=== PATIENT | male | born 1955 | race Caucasian/White ===

== ENCOUNTER 2018-03-31 11:58 | Outpatient (REF) | payer SELFPAY | END 2018-03-31 11:59 | LOC: OM 11:58 | PROVIDERS: PCP Internal Medicine; Visit Provider Nurse Practitioner Family | DX: Z02.79 Encounter for issue of other medical certificate (principal) ==

== ENCOUNTER 2018-04-19 10:08 | Outpatient (REF) | payer OTHER, SELFPAY ==
[2018-04-19 22:25] LABS: Anion Gap 9.2 mmol/L (3-11); BUN 19 mg/dL (7-18); CO2 23.8 mmol/L (21.0-32.0); CREATININE 1.02 mg/dL (0.70-1.30); Calcium 8.2 mg/dL (8.5-10.1); Chloride 105 mmol/L (98-107); Glucose 83 mg/dL (70-100); Potassium 4.6 mmol/L (3.5-5.1); Sodium 138 mmol/L (136-145)
== END 2018-04-19 10:09 ==
LOC: NCHCN 10:08
PROVIDERS: PCP Internal Medicine; Visit Provider Internal Medicine
DX: R03.0 Elevated blood-pressure reading, without diagnosis of hypertension (principal)
CPT/HCPCS: 80048

== ENCOUNTER 2018-06-12 11:42 | Outpatient (REF) | payer OTHER, SELFPAY ==
[2018-06-12 21:59] LABS: Anion Gap 6.8 mmol/L (3-11); BUN 30 mg/dL (7-18); CO2 29.2 mmol/L (21.0-32.0); CREATININE 1.02 mg/dL (0.70-1.30); Calcium 8.9 mg/dL (8.5-10.1); Chloride 100 mmol/L (98-107); Glucose 111 mg/dL (70-100); Potassium 4.8 mmol/L (3.5-5.1); Sodium 136 mmol/L (136-145)
== END 2018-06-12 12:02 ==
LOC: NCHCN 11:42
PROVIDERS: PCP Internal Medicine; Visit Provider Internal Medicine
DX: I10 Essential (primary) hypertension (principal); I49.3 Ventricular premature depolarization
CPT/HCPCS: 80048

== ENCOUNTER 2019-07-25 09:51 | Outpatient (REF) | payer MEDICARE, OTHER, SELFPAY ==
[2019-07-25 21:41] LABS: BUN 17 mg/dL (7-18); CREATININE 0.85 mg/dL (0.70-1.30); Calcium 8.6 mg/dL (8.5-10.1); Calculated LDL 129 mg/dL; Chloride 101 mmol/L (98-107); Cholesterol 188 mg/dL (<200); Glucose 87 mg/dL (74-106); HDL Cholesterol 50 mg/dL (40-60); Potassium 4.5 mmol/L (3.5-5.1); Sodium 137 mmol/L (136-145); Triglyceride 49 mg/dL (<150)
== END 2019-07-25 10:11 ==
LOC: NCHCN 09:51
PROVIDERS: PCP Internal Medicine; Visit Provider Internal Medicine
DX: I10 Essential (primary) hypertension (principal); Z13.6 Encounter for screening for cardiovascular disorders
CPT/HCPCS: 80048; 80061

== ENCOUNTER 2020-08-04 10:37 | Outpatient (REF) | payer MEDICARE, SELFPAY ==
[2020-08-04 21:37] LABS: HCT 47.2 % (40.0-50.0); HGB 15.5 g/dL (13.5-17.5); MCH 30.8 pg (27.0-33.0); MCHC 32.8 % (32.0-36.0); MCV 93.7 fL (80-95); MPV 11.2 fL (8.0-11.0); Platelet Count 215 10^3/uL (130-400); RBC 5.04 10^6/uL (4.36-5.78); RDW 13.2 % (11.8-14.1); RDW-SD 44.6 fL; WBC 7.63 10^3/uL (4.4-10.8)
[2020-08-04 22:17] LABS: ALT 31 U/L (16-63); AST 27 U/L (15-37); Albumin 4.1 g/dL (3.4-5.0); Alkaline Phosphatase 68 U/L (46-116); Anion Gap 9.6 mmol/L (3-11); BUN 24 mg/dL (7-18); Bilirubin, Total 0.7 mg/dL (0.2-1.0); CO2 25.4 mmol/L (21.0-32.0); CREATININE 0.97 mg/dL (0.70-1.30); Calcium 8.8 mg/dL (8.5-10.1); Chloride 103 mmol/L (98-107); Glucose 96 mg/dL (74-106); Potassium 4.7 mmol/L (3.5-5.1); Sodium 138 mmol/L (136-145); Total Protein 7.4 g/dL (6.4-8.2)
[2020-08-05 17:43] LABS: PSA, Screening 0.5 ng/mL (0.0-4.5)
== END 2020-08-04 10:57 ==
LOC: NCHCN 10:37
PROVIDERS: Visit Provider Internal Medicine
DX: I10 Essential (primary) hypertension (principal); E78.5 Hyperlipidemia, unspecified; Z12.5 Encounter for screening for malignant neoplasm of prostate
CPT/HCPCS: 80053; 84153; 85027

== ENCOUNTER 2021-10-26 18:01 | Outpatient (REF) | payer MEDICARE, OTHER, SELFPAY ==
[2021-10-26 16:21] LABS: Anion Gap 10.6 mmol/L (3-11); BUN 24 mg/dL (7-18); CO2 24.4 mmol/L (21.0-32.0); CREATININE 1.1 mg/dL (0.70-1.30); Calcium 8.8 mg/dL (8.5-10.1); Calculated LDL 138 mg/dL (<100); Chloride 100 mmol/L (98-107); Cholesterol 201 mg/dL (<200); Glucose 103 mg/dL (74-106); HDL Cholesterol 43 mg/dL (40-60); Potassium 4.6 mmol/L (3.5-5.1); Sodium 135 mmol/L (136-145); Triglyceride 100 mg/dL (<150)
== END 2021-10-26 18:02 | disposition home or self-care (01) ==
LOC: NCHCN 18:01
PROVIDERS: PCP Internal Medicine; Visit Provider Internal Medicine
DX: E78.5 Hyperlipidemia, unspecified (principal); I10 Essential (primary) hypertension
CPT/HCPCS: 80048; 80061

== ENCOUNTER 2021-12-22 19:15 | Outpatient (REF) | payer MEDICARE, OTHER, SELFPAY ==
[2021-12-22 14:00] LABS: Abs Immature Grans 0.03 10^3/uL (0.0-0.06); Absolute Basophil Count 0.06 10^3/uL (0.0-0.2); Absolute Eosinophil Count 0.55 10^3/uL (0.0-0.7); Absolute Lymphocyte Count 1.35 10^3/uL (1.2-3.4); Absolute Monocyte Count 0.76 10^3/uL (0.1-0.8); Absolute Neutrophil Count 7.25 10^3/uL (1.2-6.7); Basophils % 0.6; Eosinophils % 5.5; HCT 47.9 % (40.0-50.0); HGB 15.6 g/dL (13.5-17.5); Immature Grans % 0.3; Lymphocytes % 13.5; MCH 29.6 pg (27.0-33.0); MCHC 32.6 % (32.0-36.0); MCV 91 fL (80-95); MPV 11.1 fL (8.0-11.0); Monocytes % 7.6; Neutrophils % 72.5; Platelet Count 231 10^3/uL (130-400); RBC 5.27 10^6/uL (4.36-5.78); RDW 14.4 % (11.8-14.1); RDW-SD 48.2 fL
[2021-12-22 14:17] LABS: INR 1.1 (0.9-1.1)
[2021-12-22 14:19] LABS: ALT 32 U/L (16-63); AST 31 U/L (15-37); Albumin 3.8 g/dL (3.4-5.0); Alkaline Phosphatase 90 U/L (46-116); Anion Gap 7.9 mmol/L (3-11); BUN 18 mg/dL (7-18); Bilirubin, Total 0.7 mg/dL (0.2-1.0); CO2 26.1 mmol/L (21.0-32.0); Calcium 8.5 mg/dL (8.5-10.1); Chloride 101 mmol/L (98-107); Glucose 95 mg/dL (74-106); Potassium 4.7 mmol/L (3.5-5.1); Sodium 135 mmol/L (136-145); Total Protein 7.6 g/dL (6.4-8.2)
== END 2021-12-22 19:16 | disposition home or self-care (01) ==
LOC: LBN 19:15
PROVIDERS: PCP Internal Medicine; Visit Provider Student in an Organized Health Care Education/Training Program
DX: J84.89 Other specified interstitial pulmonary diseases (principal); Z51.81 Encounter for therapeutic drug level monitoring; R06.02 Shortness of breath
CPT/HCPCS: 80053; 85025; 85610

== ENCOUNTER 2022-02-02 15:16 | Outpatient (REF) | payer MEDICARE, OTHER, SELFPAY ==
[2022-02-02 21:05] LABS: Anion Gap 7.4 mmol/L (3-11); BUN 19 mg/dL (7-18); CO2 27.6 mmol/L (21.0-32.0); CREATININE 0.9 mg/dL (0.70-1.30); Calcium 9.1 mg/dL (8.5-10.1); Chloride 98 mmol/L (98-107); Glucose 122 mg/dL (74-106); Potassium 4.7 mmol/L (3.5-5.1); Sodium 133 mmol/L (136-145)
[2022-02-03 17:47] LABS: PSA, Screening 0.4 ng/mL (<=4.5)
== END 2022-02-02 15:17 | disposition home or self-care (01) ==
LOC: NCHCN 15:16
PROVIDERS: PCP Internal Medicine; Visit Provider Nurse Practitioner Family
DX: R33.9 Retention of urine, unspecified (principal); E87.1 Hypo-osmolality and hyponatremia; Z12.5 Encounter for screening for malignant neoplasm of prostate
CPT/HCPCS: 80048; 84153

== ENCOUNTER 2022-07-05 11:01 | Inpatient (IN) | payer MEDICARE, OTHER, SELFPAY ==
[2022-07-05] VITALS (33 sets, daily range): BP systolic 130–154; BP diastolic 70–104; PULSE 75–94; RESP 11–26; TEMP 36.6–36.8; O2SAT 91–94
--- NOTE | 2022-07-05 11:00 | RT.EKG_ITS ---
APPROVED REPORT Exam: Resting ECG Reason for Exam: sob Patient Location: E HR:83 bpm ECG Measurements Heart Rate 83 AXIS IL 145 P 57 QRSd 90 QRS -73 QT 397 T -33 QTc 468 Conclusion Sinus rhythm...normal P axis, V-rate 60- 99 Left atrial enlargement...P, P'>60mS, <-0.15mV V1 Left anterior fascicular block...axis(240,-40), init forces inf Repol abnrm suggests ischemia, anterior leads...ST dep, T neg, V2-V4 sinus rhythm at 83, left anterior fascicular block, nonspecific ST changes, no STEMI, nondiagnostic E KG
[2022-07-05] MEDS: methylPREDNISolone SUCC 125 MG VIAL IVP (12:23)
[2022-07-05 12:28] LABS: Abs Immature Grans 0.03 10^3/uL (0.0-0.06); Absolute Basophil Count 0.04 10^3/uL (0.0-0.2); Absolute Eosinophil Count 0.08 10^3/uL (0.0-0.7); Absolute Lymphocyte Count 0.53 10^3/uL (1.2-3.4); Absolute Monocyte Count 0.34 10^3/uL (0.1-0.8); Absolute Neutrophil Count 8.76 10^3/uL (1.2-6.7); Basophils % 0.4; Eosinophils % 0.8; HGB 16.8 g/dL (13.5-17.5); Immature Grans % 0.3; Lymphocytes % 5.4; MCH 29.2 pg (27.0-33.0); MCHC 31.7 % (32.0-36.0); MCV 92 fL (80-95); MPV 10.7 fL (8.0-11.0); Monocytes % 3.5; Neutrophils % 89.6; Platelet Count 221 10^3/uL (130-400); RBC 5.75 10^6/uL (4.36-5.78); RDW-SD 55.3 fL; WBC 9.78 10^3/uL (4.4-10.8)
[2022-07-05 12:49] LABS: ALT 256 U/L (16-63); AST 108 U/L (15-37); Albumin 3.6 g/dL (3.4-5.0); Alkaline Phosphatase 93 U/L (46-116); Anion Gap 5.2 mmol/L (3-11); BUN 23 mg/dL (7-18); Bilirubin, Total 0.9 mg/dL (0.2-1.0); CO2 28.8 mmol/L (21.0-32.0); CREATININE 0.9 mg/dL (0.70-1.30); Calcium 8.6 mg/dL (8.5-10.1); Chloride 102 mmol/L (98-107); Estimated GFR 93.03 (mL/min/1.73m2); Glucose 93 mg/dL (74-106); NT-proBNP 2390 pg/mL (<300); Potassium 5.2 mmol/L (3.5-5.1); Sodium 136 mmol/L (136-145); Total Protein 7.4 g/dL (6.4-8.2)
[2022-07-05 12:51] LABS: Troponin I 64 ng/L (<or=60)
--- NOTE | 2022-07-05 13:00 | DI.CT_ITS ---
Exam(s) CT CHEST PE CTA EXAM: CT CHEST PE CTA CLINICAL HISTORY: hypoxia, SOB. TECHNIQUE: Imaging Protocol: Axial CT angiography was performed with multi-slice acquisition and mu lti-planar reconstructions as well as axial, coronal and sagittal MIP reconstructions. CONTRAST MATERIAL: Intravenous: Omnipaque 350 Contrast volume:69 ml COMPARISON: CT CT CHEST high-resolution w/O CONTRAST from 08/25/2020 CR XR PORTABLE CHEST 1V* from 01/28/2022 FINDINGS: Pulmonary Arteries: No evidence of filling defect to suggest pulmonary emboli. Pulmonary arteries a re prominent. Main pulmonary artery measures 4.2 cm in diameter. This appears stable from prior. Tracheobronchial tree: Patent where visualized. Mediastinum and Nhi: Stable mildly enlarged mediastinal and hilar lymph nodes. Pulmonary parenchyma: Scattered bilateral cysts. Emphysematous changing and pulmonary fibrosis. Hon eycombing at the lung bases. Multifocal air trapping. No consolidation or dominant measurable mass. Pleura: No effusion or pneumothorax. Heart: The heart is mildly dilated. coronary artery calcifications are seen. Aorta: Thoracic aorta non-dilated. No aneurysm. No dissection. Upper abdomen: Small amount of fluid at the edge of the liver. Bones: Unremarkable for age. IMPRESSION: No evidence of pulmonary embolism. Findings of pulmonary high fibrosis, honeycombing and emphysematou s changes. No evidence of superimposed pneumonia however evaluation is limited due to expiratory raul nges. Findings called to Dr. Marisa Watkins of the emergency department. RADIATION DOSE DELIVERED: 366.47mGy.cm Total DLP DATA REPOSITORY: All CT scans at this facility are submitted to the National Radiology Data Registry (NRDR) Dose Index Registry (DIR) with the [employer] (A[employer]). RADIATION OPTIMIZATION: All CT scans at this facility use at least one of these dose optimization te chniques: automated exposure control; mA and/or kV adjustment per patient size (includes targeted exa ms where dose is matched to clinical indication); or iterative reconstruction.
[2022-07-05 13:09] LABS: D-Dimer 1785 ng/mlFEU (<500)
[2022-07-05] MEDS: Omnipaque 350 MG/ML 500 ML BTL-Imaging package IJ (13:44)
[2022-07-05] MEDS: Normal Saline - Diluent 50 ML VIAL IJ (13:45)
--- NOTE | 2022-07-05 15:06 | ED.GENADUL_ITS ---
Discharge Plan Disposition Patient Disposition: Admit to [facility] Condition: Improving Discharge Details Chief Complaint: SOB Clinical Impression: Respiratory failure with hypoxia, Syncope Admit Date/Time: 07/05/22 15:46 Admit Provider: Fernanda Goetz Attending Provider: Fernanda Goetz Primary Care Provider: Guillermina Chowdhury ED Provider: Marisa Watkins Discharge Instructions Activity:: Activity as Tolerated Equipment/Supplies:: Oxygen (L/min Below) Diet:: Heart Healthy Discharge Orders Discharge Orders: Discharge Order (Routine); Ordered 07/09/22 Ordered By: Seven Moreno Discharge Data Discharge Date/Time-TO BE ENTERED AT DEPARTURE: 07/05/22 16:39 Medical Decision Making Concern for worsening interstitial lung disease, CHF, PNA, covid, dehydration, ACS, PE, other. Doubt arrhythmia. Exam/hx at this time is not c/w sepsis, acute emergent intracranial process, acute aortic pathology. Plan for EKG, IV placement, screening labs, IVF hydration, solumedrol. Labs reviewed, d-dimer elevated, will obtain CT. Ct shows ILD, no PNA, no PE. Plan for admission for hypoxia, syncope. Imaging Data Radiologic Study: Radiologist's impression: CT CHEST PE CTA EXAM: ? CT CHEST PE CTA CLINICAL HISTORY: ? hypoxia, SOB. TECHNIQUE:? Imaging Protocol:? Axial CT angiography was performed with multi- slice acquisition and multi-planar reconstructions as well as axial, coronal and sagittal MIP reconstructions. CONTRAST MATERIAL:? Intravenous: Omnipaque 350 Contrast volume:69 ml COMPARISON:? CT CT CHEST high-resolution w/O CONTRAST from 08/25/2020 CR XR PORTABLE CHEST 1V* from 01/28/2022 FINDINGS: Pulmonary Arteries: No evidence of filling defect to suggest pulmonary emboli. ? Pulmonary arteries are prominent.? Main pulmonary artery measures 4.2 cm in diameter.? This appears stable from prior. Tracheobronchial tree: Patent where visualized. Mediastinum and Nhi: Stable mildly enlarged mediastinal and hilar lymph nodes.? Pulmonary parenchyma: Scattered bilateral cysts.? Emphysematous changing and pulmonary fibrosis.? Honeycombing at the lung bases.? Multifocal air trapping.? No consolidation or dominant measurable mass. Pleura: No effusion or pneumothorax. Heart: The heart is mildly dilated.? coronary artery calcifications are seen. Aorta: Thoracic aorta non-dilated.? No aneurysm.? No dissection.? Upper abdomen:? Small amount of fluid at the edge of the liver.? Bones: Unremarkable for age. IMPRESSION: No evidence of pulmonary embolism. Findings of pulmonary high fibrosis, honeycombing and emphysematous changes.? No evidence of superimposed pneumonia however evaluation is limited due to expiratory changes. Findings called to Dr. Marisa Watkins of the emergency department. Lab Data Lab results reviewed: Yes I reviewed the patient's lab results. Labs: Laboratory Tests Range/Units 07/05/22 07/05/22 07/05/22 12:00 12:00 12:00 WBC (4.4-10.8) 10^3/uL 9.78 RBC (4.36-5.78) 10^6/uL 5.75 Hgb (13.5-17.5) g/dL 16.8 Hct (40.0-50.0) % 53.0 H MCV (80-95) fL 92 MCH (27.0-33.0) pg 29.2 MCHC (32.0-36.0) % 31.7 L RDW (11.8-14.1) % 17.0 H Plt Count (130-400) 10^3/uL 221 MPV (8.0-11.0) fL 10.7 Immature Gran % 0.3 Neutrophils % 89.6 Lymphocytes % 5.4 Monocytes % 3.5 Eosinophils % 0.8 Basophils % 0.4 Nucleated RBC % (0.0-0.3) % 0.0 Absolute Neutrophils (1.2-6.7) 10^3/uL 8.76 H Absolute Lymphocytes (1.2-3.4) 10^3/uL 0.53 L Absolute Monocytes (0.1-0.8) 10^3/uL 0.34 Absolute Eosinophils (0.0-0.7) 10^3/uL 0.08 Absolute Basophils (0.0-0.2) 10^3/uL 0.04 D-Dimer (<500) ng/mlFEU 1785 H Sodium (136-145) mmol/L 136 Potassium (3.5-5.1) mmol/L 5.2 H Chloride (98-107) mmol/L 102 Carbon Dioxide (21.0-32.0) mmol/L 28.8 Anion Gap (3-11) mmol/L 5.2 BUN (7-18) mg/dL 23 H Creatinine (0.70-1.30) mg/dL 0.9 Est GFR (CKD-EPI 2020) (mL/min/1.73m2) 93.03 Glucose (74-106) mg/dL 93 Calcium (8.5-10.1) mg/dL 8.6 Total Bilirubin (0.2-1.0) mg/dL 0.9 AST (15-37) U/L 108 H ALT (16-63) U/L 256 H Alkaline Phosphatase (46-116) U/L 93 Troponin I (<or=60) ng/L 64 H* NT-Pro-B Natriuret Pep (<300) pg/mL 2390 H Total Protein (6.4-8.2) g/dL 7.4 Albumin (3.4-5.0) g/dL 3.6 Range/Units 07/05/22 07/05/22 12:00 14:50 WBC (4.4-10.8) 10^3/uL RBC (4.36-5.78) 10^6/uL Hgb (13.5-17.5) g/dL Hct (40.0-50.0) % MCV (80-95) fL MCH (27.0-33.0) pg MCHC (32.0-36.0) % RDW (11.8-14.1) % Plt Count (130-400) 10^3/uL MPV (8.0-11.0) fL Immature Gran % Neutrophils % Lymphocytes % Monocytes % Eosinophils % Basophils % Nucleated RBC % (0.0-0.3) % Absolute Neutrophils (1.2-6.7) 10^3/uL Absolute Lymphocytes (1.2-3.4) 10^3/uL Absolute Monocytes (0.1-0.8) 10^3/uL Absolute Eosinophils (0.0-0.7) 10^3/uL Absolute Basophils (0.0-0.2) 10^3/uL D-Dimer (<500) ng/mlFEU Sodium (136-145) mmol/L Potassium (3.5-5.1) mmol/L Chloride (98-107) mmol/L Carbon Dioxide (21.0-32.0) mmol/L Anion Gap (3-11) mmol/L BUN (7-18) mg/dL Creatinine (0.70-1.30) mg/dL Est GFR (CKD-EPI 2020) (mL/min/1.73m2) Glucose (74-106) mg/dL Calcium (8.5-10.1) mg/dL Total Bilirubin (0.2-1.0) mg/dL AST (15-37) U/L ALT (16-63) U/L Alkaline Phosphatase (46-116) U/L Troponin I (<or=60) ng/L 65 H* NT-Pro-B Natriuret Pep (<300) pg/mL Cancelled Total Protein (6.4-8.2) g/dL Albumin (3.4-5.0) g/dL ECG Data Attestation: I personally reviewed and interpreted this ECG (s) as follows: Interpretation: EKG shows sinus rhythm at 83, left anterior fascicular block, nonspecific ST changes, no STEMI, nondiagnostic EKG HPI General Mode of arrival: ambulatory . Date/Time Provider Initiated Documentation: 07/05/22 12:11 . Limitations to Documentation: no limitations . Information obtained by: patient, family, RN notes reviewed and old records reviewed . HPI Narrative: Amando Landrum is a 66 y/o man with h/o CHF, pulmonary HTN, progressive fibrosing interstitial lung disease, HLD presenting to the ED with SOB. Pt was sent in to the ED by Dr. Ernandez for increasing O2 requirement at home. Pt has been on 2L NC nighttime/during activity but states that over the past 3 weeks he has need to use 4L NC. Without oxygen sats have been dropping to the 60s even with short walks to the bathroom, etc. His reports that while off of oxygen he has several recent syncopal episodes, all at rest and while seated. Has not fallen or hit his head. No tongue biting or incontinence during epsiodes. He reports chronic unchanged cough. Denies fever, pain, vomiting, diarrhea, numbness, weakness, rash. Reports that he feels otherwise at baseline. Normal appetite. Related Data Home Medications Medication Instructions Recorded Confirmed benzonatate 100 mg capsule 100 mg PO TID PRN cough 09/10/21 07/05/22 nintedanib 150 mg capsule (Ofev) 150 mg PO Q12H #60 caps 12/22/21 07/05/22 furosemide 20 mg tablet (Lasix) 20 mg PO DAILY #30 tabs 07/09/22 prednisone 10 mg tablet See Rx Instructions .Route 07/09/22 .COMPLEX #108 tabs Previous Rx's Medication Instructions Recorded nintedanib 150 mg capsule (Ofev) 150 mg PO Q12H #60 caps 12/22/21 furosemide 20 mg tablet (Lasix) 20 mg PO DAILY #30 tabs 07/09/22 prednisone 10 mg tablet See Rx Instructions .Route 07/09/22 .COMPLEX #108 tabs Allergies Allergy/AdvReac Type Severity Reaction Status Date / Time No Known Allergies Allergy Verified 07/05/22 10:26 General Stated Complaint: SOB MIGUEL: 2 Review of Systems Narrative: Constitutional: denies fevers Eyes: denies eye pain ENT: denies ear pain, dental pain, sore throat Cardiovascular: denies chest pain, edema Respiratory: reprots SOB, cough GI: denies abdominal pain, vomiting, diarrhea : denies flank pain MSK: denies back pain, neck pain, arthralgias, myalgias Skin: denies rash Neuro: denies headaches, numbness, weakness PFSH All Active Problems (Updated 07/11/22 @ 09:02 by Marisa Watkins MD) Syncope (Chronic) Right ventricular failure (Acute) Pulmonary hypertension (Acute) Respiratory failure with hypoxia (Acute) Progressive fibrosing interstitial lung disease (Chronic) [place] lung (Acute) Hyperlipidemia (Acute) Dyspnea (Acute) Cough (Acute) Shortness of breath (Acute) Medical History [place] [address] [facility] History of essential hypertension Family History Mother History of heart valve repair Other Heart disease Social History Smoking/Tobacco Use Status: Never Smoking risk assessment performed?: Yes Alcohol Intake: current Alcohol Intake frequency: 0-2 drinks per day Drug use: Never Substance use type: does not use 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,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 Exam Narrative Exam Narrative: Constitutional: well and [id number], pleasant, conversing normally HENT: head atraumatic/normocephalic/normal inspection, mucous membranes moist Eyes: conjunctiva normal, sclera normal, pupils 3mm b/l Neck: no stridor, normal ROM, trachea midline Chest: normal inspection Resp: normal work of breathing, rales b/l bases Cardio: normal rate, normal rhythm, no murmur appreciated GI: abdomen soft, non-tender, non-distended Back: normal inspection, no rash Skin: warm, dry, normal color, no rash Neuro: alert, not altered, grossly non-focal, normal tone Ext: no edema, no posterior calf TTP Psych: normal mood, normal affect, normal behavior Course Vital Signs Vital signs: Vital Signs Temperature 36.8 C 07/05/22 11:05 Pulse 87 07/05/22 11:05 Respiratory Rate 22 07/05/22 11:05 Blood Pressure 136/92 H 07/05/22 11:05 Pulse Oximetry 94 07/05/22 11:05 Temperature 36.8 C 07/05/22 11:05 Pulse 87 07/05/22 11:05 Respiratory Rate 20 07/05/22 11:50 Respiratory Effort 07/05/22 11:50 Respiratory Depth Normal 07/05/22 11:50 Respiratory Pattern Normal 07/05/22 11:50 Blood Pressure 136/92 H 07/05/22 11:05 Blood Pressure Position Supine 07/05/22 11:05 Pulse Oximetry 94 07/05/22 11:05 Oxygen Delivery Method Room Air 07/05/22 11:05 Oxygen Flow Rate 0 07/05/22 11:05 Lab/Test Results Lab/Test Results: Laboratory Tests Range/Units 07/05/22 07/05/22 07/05/22 12:00 12:00 12:00 WBC (4.4-10.8) 10^3/uL 9.78 RBC (4.36-5.78) 10^6/uL 5.75 Hgb (13.5-17.5) g/dL 16.8 Hct (40.0-50.0) % 53.0 H MCV (80-95) fL 92 MCH (27.0-33.0) pg 29.2 MCHC (32.0-36.0) % 31.7 L RDW (11.8-14.1) % 17.0 H Plt Count (130-400) 10^3/uL 221 MPV (8.0-11.0) fL 10.7 Immature Gran % 0.3 Neutrophils % 89.6 Lymphocytes % 5.4 Monocytes % 3.5 Eosinophils % 0.8 Basophils % 0.4 Nucleated RBC % (0.0-0.3) % 0.0 Absolute Neutrophils (1.2-6.7) 10^3/uL 8.76 H Absolute Lymphocytes (1.2-3.4) 10^3/uL 0.53 L Absolute Monocytes (0.1-0.8) 10^3/uL 0.34 Absolute Eosinophils (0.0-0.7) 10^3/uL 0.08 Absolute Basophils (0.0-0.2) 10^3/uL 0.04 D-Dimer (<500) ng/mlFEU 1785 H Sodium (136-145) mmol/L 136 Potassium (3.5-5.1) mmol/L 5.2 H Chloride (98-107) mmol/L 102 Carbon Dioxide (21.0-32.0) mmol/L 28.8 Anion Gap (3-11) mmol/L 5.2 BUN (7-18) mg/dL 23 H Creatinine (0.70-1.30) mg/dL 0.9 Est GFR (CKD-EPI 2020) (mL/min/1.73m2) 93.03 Glucose (74-106) mg/dL 93 Calcium (8.5-10.1) mg/dL 8.6 Total Bilirubin (0.2-1.0) mg/dL 0.9 AST (15-37) U/L 108 H ALT (16-63) U/L 256 H Alkaline Phosphatase (46-116) U/L 93 Troponin I (<or=60) ng/L 64 H* NT-Pro-B Natriuret Pep (<300) pg/mL 2390 H Total Protein (6.4-8.2) g/dL 7.4 Albumin (3.4-5.0) g/dL 3.6 Range/Units 07/05/22 12:00 WBC (4.4-10.8) 10^3/uL RBC (4.36-5.78) 10^6/uL Hgb (13.5-17.5) g/dL Hct (40.0-50.0) % MCV (80-95) fL MCH (27.0-33.0) pg MCHC (32.0-36.0) % RDW (11.8-14.1) % Plt Count (130-400) 10^3/uL MPV (8.0-11.0) fL Immature Gran % Neutrophils % Lymphocytes % Monocytes % Eosinophils % Basophils % Nucleated RBC % (0.0-0.3) % Absolute Neutrophils (1.2-6.7) 10^3/uL Absolute Lymphocytes (1.2-3.4) 10^3/uL Absolute Monocytes (0.1-0.8) 10^3/uL Absolute Eosinophils (0.0-0.7) 10^3/uL Absolute Basophils (0.0-0.2) 10^3/uL D-Dimer (<500) ng/mlFEU Sodium (136-145) mmol/L Potassium (3.5-5.1) mmol/L Chloride (98-107) mmol/L Carbon Dioxide (21.0-32.0) mmol/L Anion Gap (3-11) mmol/L BUN (7-18) mg/dL Creatinine (0.70-1.30) mg/dL Est GFR (CKD-EPI 2020) (mL/min/1.73m2) Glucose (74-106) mg/dL Calcium (8.5-10.1) mg/dL Total Bilirubin (0.2-1.0) mg/dL AST (15-37) U/L ALT (16-63) U/L Alkaline Phosphatase (46-116) U/L Troponin I (<or=60) ng/L NT-Pro-B Natriuret Pep (<300) pg/mL Cancelled Total Protein (6.4-8.2) g/dL Albumin (3.4-5.0) g/dL PAWSS Have you Been Recently Intoxicated or Drunk Within the Last 30 days?: No Have you Ever Experienced Previous Episodes of Alcohol Withdrawal?: No Have you ever Experienced Withdrawal Seizures?: No Have you ever Experienced Delirium Tremens(DT)s?: No Have you ever undergone Alcohol Rehabilitation Treatment (i.e, inpt ot outpatient treatment programs)?: No Have you ever Experienced Blackouts?: No Have you ever Combined Alcohol with other Downers within the last 90 days?: No Result: 0
[2022-07-05 15:28] LABS: Troponin I 65 ng/L (<or=60)
--- NOTE | 2022-07-05 15:49 | W.PM.HP.N ---
Date of service: 07/05/22 Time of Service: 15:49 Assessment and Plan Assessment and plan (1) Respiratory failure with hypoxia: Status: Acute Assessment and plan: - 4LPM needed to maintain sats - PE has been ruled out by CT -pulmonary following with recommendations: zosyn day 1 prednisone 60 mg daily (he was given 125 mg solumedrol in ED anticipate bronchoscopy tomorrow. (2) Progressive fibrosing interstitial lung disease: Status: Acute Assessment and plan: see above discussed with DR Goetz History of Present Illness History of Present Illness Chief Complaint: hypoxia, shortness of breath Narrative: This is a 66 year old patient followed by pulmonology with history of progressing fibrosing interstitial lung disease, [place] lung, hyperlipidemia, with home oxygen to use with exertion at 2 liters nc, who presented to pulmonary outpatient appointment found to have worsening hypoxia now requiring 4 liters at rest. reports of sats in the 60's at home. has had syncopal episodes at home. he was sent to the ED to rule out a pulmonary embolism which was done by CT scan. He is to be admitted for IV antibiotics, will continue on higher steroid dose, and possible bronchoscopy. Review of Systems Constitutional Constitutional: Reports fatigue Cardiovascular Cardiovascular: Denies chest pain, Reports syncope and Reports dyspnea Respiratory Respiratory: Reports cough, Reports dyspnea and Denies wheezing Gastrointestinal Gastrointestinal: Denies abdominal pain Neurologic Neurologic: Reports syncope Endocrine Endocrine: Reports fatigue Allergic/Immunologic Allergic/Immunologic: Denies wheezing PFSH All Active Problems (Updated 12/22/21 @ 10:08 by Stefanie Dahl MD) Respiratory failure with hypoxia (Acute) Progressive fibrosing interstitial lung disease (Acute) [place] lung (Acute) Hyperlipidemia (Acute) Dyspnea (Acute) Cough (Acute) Shortness of breath (Acute) Medical History [place] lung History of essential hypertension Family History Mother History of heart valve repair Other Heart disease Social History Smoking/Tobacco Use Status: Never Smoking risk assessment performed?: Yes Alcohol Intake: current Alcohol Intake frequency: 0-2 drinks per day Drug use: Never Substance use type: does not use 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,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 Meds Allergies and Home Medications Allergies Allergy/AdvReac Type Severity Reaction Status Date / Time No Known Allergies Allergy Verified 07/05/22 10:26 Home Medications Medication Instructions Recorded Confirmed Type benzonatate 100 mg capsule 100 mg PO TID PRN cough 09/10/21 07/05/22 History nintedanib 150 mg capsule (Ofev) 150 mg PO Q12H #60 caps 12/22/21 07/05/22 Rx Exam Const General: cooperative, comfortable and no acute distress Nutritional Appearance: average body habitus Orientation: alert, awake and oriented x3 HENMT Head: normal to inspection, normocephalic and atraumatic Mouth: oral mucosae normal Neck Neck: normal visual inspection Chest Chest: normal inspection of the chest Resp Effort & Inspection: normal respiratory effort (talking in full sentences) Auscultation: diminished lung sounds (slightly [place] bases), rales (fine rales bases) bilaterally, no rhonchi and no wheezes Cardio Rate: regular rate Rhythm: regular rhythm GI Inspection: normal to inspection Palpation: soft Auscultation: normal bowel sounds Skin General skin exam: no rashes or lesions noted Neuro General: patient alert, patient awake, patient oriented x3 and no focal motor deficits Cognition: normal cognition Speech: speech normal Extrem General: normal to inspection and no pedal edema Results Labs Result diagrams: 07/05/22 12:00 07/05/22 12:00 Labs: Laboratory Results - last 24 hr 07/05/22 07/05/22 07/05/22 12:00 12:00 12:00 WBC 9.78 RBC 5.75 Hgb 16.8 Hct 53.0 H MCV 92 MCH 29.2 MCHC 31.7 L RDW 17.0 H Plt Count 221 MPV 10.7 Immature Gran % 0.3 Neutrophils % 89.6 Lymphocytes % 5.4 Monocytes % 3.5 Eosinophils % 0.8 Basophils % 0.4 Nucleated RBC % 0.0 Absolute Neutrophils 8.76 H Absolute Lymphocytes 0.53 L Absolute Monocytes 0.34 Absolute Eosinophils 0.08 Absolute Basophils 0.04 D-Dimer 1785 H Sodium 136 Potassium 5.2 H Chloride 102 Carbon Dioxide 28.8 Anion Gap 5.2 BUN 23 H Creatinine 0.9 Est GFR (CKD-EPI 2020) 93.03 Glucose 93 Calcium 8.6 Total Bilirubin 0.9 AST 108 H ALT 256 H Alkaline Phosphatase 93 Troponin I 64 H* NT-Pro-B Natriuret Pep 2390 H Total Protein 7.4 Albumin 3.6 07/05/22 07/05/22 12:00 14:50 WBC RBC Hgb Hct MCV MCH MCHC RDW Plt Count MPV Immature Gran % Neutrophils % Lymphocytes % Monocytes % Eosinophils % Basophils % Nucleated RBC % Absolute Neutrophils Absolute Lymphocytes Absolute Monocytes Absolute Eosinophils Absolute Basophils D-Dimer Sodium Potassium Chloride Carbon Dioxide Anion Gap BUN Creatinine Est GFR (CKD-EPI 2020) Glucose Calcium Total Bilirubin AST ALT Alkaline Phosphatase Troponin I 65 H* NT-Pro-B Natriuret Pep Cancelled Total Protein Albumin Last Vital Signs Temp 36.8 C 07/05/22 11:05 Pulse 87 07/05/22 11:05 Resp 20 07/05/22 11:50 BP 136/92 H 07/05/22 11:05 Pulse Ox 94 07/05/22 11:05 PAWSS Have you Been Recently Intoxicated or Drunk Within the Last 30 days?: No Have you Ever Experienced Previous Episodes of Alcohol Withdrawal?: No Have you ever Experienced Withdrawal Seizures?: No Have you ever Experienced Delirium Tremens(DT)s?: No Have you ever undergone Alcohol Rehabilitation Treatment (i.e, inpt ot outpatient treatment programs)?: No Have you ever Experienced Blackouts?: No Have you ever Combined Alcohol with other Downers within the last 90 days?: No Result: 0
[2022-07-05 16:18] LABS: Source Nasal/Nares
[2022-07-05 16:57] LABS: COVID-19 PCR Negative (Negative)
[2022-07-05] MEDS: PIPERACILLIN/TAZO 3.375 GM in Normal Saline 50 ML IVPB (18:02)
[2022-07-06] VITALS (7 sets, daily range): BP systolic 117–134; BP diastolic 68–86; PULSE 71–89; RESP 16–20; TEMP 36.4–36.9; O2SAT 90–94
[2022-07-06] MEDS: PIPERACILLIN/TAZO 3.375 GM in Normal Saline 50 ML IVPB ×4 (00:20→17:43)
[2022-07-06] MEDS: Normal Saline Flush 10 ML SYR IVP ×6 (00:22→19:44)
--- NOTE | 2022-07-06 07:16 | W.PULMCON ---
General Date Of Service Date of service: 07/06/22 Time of Service: 07:16 Reason for Consult: Hypoxic respiratory failure Assessment and Plan Assessment and plan (1) Respiratory failure with hypoxia: Status: Acute (2) Progressive fibrosing interstitial lung disease: Status: Acute Assessment and plan: This is a 66 yo man with progressive pulmonary fibrosis admitted for hypoxia. This likely represents an ILD flare, however the elevated bnp and troponin do raise concerns for heart failure. I do not have an echo here, so will certainly need to do this prior to considering bronchoscopy. Clinically he appears to be volume overloaded and this should be addressed prior to considering bronchoscopy as well. Lasix was ordered today. His ST depressions, trop elevation and LFT elevation is likely reflective of his hypoxic state. Hypoxic respiratory failure - Diuresis to euvolemia - continue supplemental O2 for sats >89% - echo ordered ILD flare - prednisone 60mg daily - continue Zosyn for now - procalcitonin ordered for tomorrow History of Present Illness Narrative: This is a 66 yo man with progressive pulmonary fibrosis who has been awaiting financial assistance to [facility] whom I saw in clinic yesterday as an acute visit and was found to be hypoxic to 72% on room air. He has required 4LPM to maintain sats >88%. PE has been ruled out but his CT scan did show more ground glass/inflammatory looking findings. He also hada modest troponin elevation in addition to LFT elevations. His EKG did also have ST depressions V1-V3. Today, he says he is feeling fine. Is not sure if his breathing is better because he thinks the oxygen helps him feel better. Review of Systems All systems reviewed & are unremarkable except as noted in HPI and below PFSH All Active Problems (Updated 12/22/21 @ 10:08 by Stefanie Dahl MD) Respiratory failure with hypoxia (Acute) Progressive fibrosing interstitial lung disease (Acute) [place]' lung (Acute) Hyperlipidemia (Acute) Dyspnea (Acute) Cough (Acute) Shortness of breath (Acute) Medical History [place]' lung History of essential hypertension Family History Mother History of heart valve repair Other Heart disease Social History Smoking/Tobacco Use Status: Never Smoking risk assessment performed?: Yes Alcohol Intake: current Alcohol Intake frequency: 0-2 drinks per day Drug use: Never Substance use type: does not use 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,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 Visit Medication and Allergies Active Medications Generic Name Dose Route Start Last Admin Trade Name Freq PRN Reason Stop Dose Admin Acetaminophen 650 mg 07/05/22 17:15 Acetaminophen 325 Mg Tab PO Q4H PRN PRN Benzonatate 100 mg 07/05/22 17:10 Benzonatate 100 Mg Cap PO TID PRN PRN cough Dimethicone/Zinc Oxide 0 gm 07/05/22 15:46 Shabbir Protect Cream 142 Gm Tube TP PRN PRN Piperacillin Sod/Tazobactam 50 mls @ 100 mls/hr 07/05/22 18:00 07/06/22 06:49 Sod 3.375 gm/ Sodium Chloride IVPB Infused Q6H PENDING SALE TO [facility] Infusion Protocol IV Miscellaneous Supplies 1 each 07/05/22 12:15 Iv Access IV DIRECTED NAAYELI Prednisone 60 mg 07/06/22 08:30 Prednisone 20 Mg Tab PO DAILY ANAYELI Sodium Chloride 0 ml 07/05/22 12:13 07/06/22 05:45 Normal Saline Flush 10 Ml Syr IVP 10 ml PRN PRN Administration Allergies No Known Allergies Allergy (Verified 07/05/22 10:26) Exam Narrative Exam Narrative: Gen: NAD, normal respiratory effort, well-nourished HENT: PERRL, nasal turbinates normal without erythema or inflammation, moist oral mucosa, Mallampati 2, No LAD or JVD Chest: No respiratory distress, normal appearance of chest, clear to auscultation bilaterally, crackles mid way up lung noriega, normal inspiratory effort Heart: regular rate and rhythym, no murmurs, rubs or gallops Abdomen: Non-distended, soft, non tender Extremities: No clubbing, 3+ pitting LE edema, cyanosis, rashes Neuro: AAOx3 , non focal Psych: cooperative, appropriate mental affect Results Last Vital Signs Temp 36.8 C 07/06/22 02:55 Pulse 71 07/06/22 02:55 Resp 18 07/06/22 02:55 BP 133/73 07/06/22 02:55 Pulse Ox 92 07/06/22 02:55 Labs Result diagrams: 07/06/22 07:56 07/06/22 07:56 Labs: Laboratory Results - last 24 hr 07/05/22 07/05/22 07/05/22 12:00 12:00 12:00 WBC 9.78 RBC 5.75 Hgb 16.8 Hct 53.0 H MCV 92 MCH 29.2 MCHC 31.7 L RDW 17.0 H Plt Count 221 MPV 10.7 Immature Gran % 0.3 Neutrophils % 89.6 Lymphocytes % 5.4 Monocytes % 3.5 Eosinophils % 0.8 Basophils % 0.4 Nucleated RBC % 0.0 Absolute Neutrophils 8.76 H Absolute Lymphocytes 0.53 L Absolute Monocytes 0.34 Absolute Eosinophils 0.08 Absolute Basophils 0.04 D-Dimer 1785 H Sodium 136 Potassium 5.2 H Chloride 102 Carbon Dioxide 28.8 Anion Gap 5.2 BUN 23 H Creatinine 0.9 Est GFR (CKD-EPI 2020) 93.03 Glucose 93 Calcium 8.6 Total Bilirubin 0.9 AST 108 H ALT 256 H Alkaline Phosphatase 93 Troponin I 64 H* NT-Pro-B Natriuret Pep 2390 H Total Protein 7.4 Albumin 3.6 COVID-19 Source SARS-CoV-2 (PCR) 07/05/22 07/05/22 07/05/22 12:00 14:50 16:16 WBC RBC Hgb Hct MCV MCH MCHC RDW Plt Count MPV Immature Gran % Neutrophils % Lymphocytes % Monocytes % Eosinophils % Basophils % Nucleated RBC % Absolute Neutrophils Absolute Lymphocytes Absolute Monocytes Absolute Eosinophils Absolute Basophils D-Dimer Sodium Potassium Chloride Carbon Dioxide Anion Gap BUN Creatinine Est GFR (CKD-EPI 2020) Glucose Calcium Total Bilirubin AST ALT Alkaline Phosphatase Troponin I 65 H* NT-Pro-B Natriuret Pep Cancelled Total Protein Albumin COVID-19 Source Nasal/Nares SARS-CoV-2 (PCR) Negative
[2022-07-06 07:57] LABS: Abs Immature Grans 0.03 10^3/uL (0.0-0.06); Absolute Basophil Count 0.01 10^3/uL (0.0-0.2); Absolute Lymphocyte Count 0.54 10^3/uL (1.2-3.4); Absolute Monocyte Count 0.44 10^3/uL (0.1-0.8); Absolute Neutrophil Count 9.04 10^3/uL (1.2-6.7); Basophils % 0.1; HCT 51.3 % (40.0-50.0); HGB 16.1 g/dL (13.5-17.5); Immature Grans % 0.3; Lymphocytes % 5.4; MCH 28.8 pg (27.0-33.0); MCHC 31.4 % (32.0-36.0); MCV 92 fL (80-95); MPV 9.6 fL (8.0-11.0); Monocytes % 4.4; Neutrophils % 89.8; Platelet Count 232 10^3/uL (130-400); RBC 5.59 10^6/uL (4.36-5.78); RDW 16.8 % (11.8-14.1); RDW-SD 54.6 fL; WBC 10.06 10^3/uL (4.4-10.8)
[2022-07-06] MEDS: predniSONE 20 MG TAB 60 MG PO (08:15)
[2022-07-06 08:16] LABS: ALT 198 U/L (16-63); AST 53 U/L (15-37); Albumin 3.1 g/dL (3.4-5.0); Alkaline Phosphatase 82 U/L (46-116); Anion Gap 4.3 mmol/L (3-11); BUN 19 mg/dL (7-18); CO2 30.7 mmol/L (21.0-32.0); Calcium 8.2 mg/dL (8.5-10.1); Chloride 104 mmol/L (98-107); Estimated GFR 81.98 (mL/min/1.73m2); Glucose 131 mg/dL (74-106); Potassium 4.7 mmol/L (3.5-5.1); Sodium 139 mmol/L (136-145); Total Protein 6.7 g/dL (6.4-8.2); Troponin I 53 ng/L (<or=60)
--- NOTE | 2022-07-06 08:45 | PDOC.CMIN ---
- If Service Date Differs Date of service: 07/06/22 Time of Service: 08:45 Care Management Initial Assess REASON FOR HOSPITALIZATION:: Respiratory failure and hypoxia PAST MEDICAL HISTORY/PAST SURGICAL HISTORY:: All Active Problems (Updated 12/22/21 @ 10:08 by Stefanie Dahl MD). Respiratory failure with hypoxia (Acute). Progressive fibrosing interstitial lung disease (Acute). [place]' lung (Acute). Hyperlipidemia (Acute). Dyspnea (Acute). Cough (Acute). Shortness of breath (Acute). Medical History . [place]' lung. History of essential hypertension PREVIOUS FUNCTIONAL STATUS/SOCIAL/FAMILY SUPPORTS:: Freedom lives with his Dariela in a single family home on a farm in [place]. 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 Freedom and Dariela have 3 children and 12 grandchildren, all of whom live locally and are supportive. Freedom is independent at baseline and receives no community services. CURRENT FUNCTIONAL STATUS:: Freedom was sitting up in bed visiting with Dariela when CM met with him. He was pleasant and agreeable to conversation, revealing a good sense of humor with his comments. Freedom shared that he has had several episodes where his oxygen levels dropped into the sixties and seventies, always when he was engaged in activity. Dariela informed CM that they have had difficulties with their oxygen supplier and asked for assistance with resolution. ADVANCE DIRECTIVES:: none on file Has patient been provided with info about the portal/API?: Yes Did the patient sign up for the portal?: No CODE STATUS:: Full Code INSURANCE COVERAGE / FINANCIAL ISSUES:: Medicare. [employer] Insurance CURRENT HOME/COMMUNITY SERVICES/EQUIPMENT:: home oxygen at 2L PRIMARY CARE PHYSICIAN:: Guillermina Hunter POTENTIAL DISCHARGE NEEDS:: follow up with communiuty providers including PCP and pulmonology PATIENT/FAMILY EDUCATION NEEDS:: Review of discharge instructions, limitations, medications, activity, follow up plan, discuss Ask Me Three TRANSPORTATION:: vias private vehicle with family PLAN:: Freedom will likely discharge home with no new services when medically cleared. He will follow up with his community providers and plan of care and transport with family. CM will continue to offer support to Freedom and his discharge planning needs.
[2022-07-06] MEDS: Pantoprazole 40 MG TABCR PO (11:19)
[2022-07-06] MEDS: Furosemide 40 MG/4 ML VIAL IVP ×2 (12:10→16:37)
--- NOTE | 2022-07-06 12:28 | DI.US_ITS ---
APPROVED REPORT EXAM: Comprehensive 2D, Doppler, and color-flow Echocardiogram Patient Location: In-Patient Room/Bed: 209 Inserter Promotional Item: Katt Aguilar RDCS (AE) Indications: volume overload Other Information Study Quality: Adequate Conclusion Moderate concentric left ventricular hypertrophy. Normal left ventricular chamber size. Estimated e jection fraction is 60%. Diastolic septal flattening suggests right ventricular pressure overload Right ventricle is moderately dilated Normal left atrial size. Right atrium is mildly dilated The aortic valve is trileaflet and sclerotic without stenosis or regurgitation Mild mitral annular calcification. Mild mitral regurgitation Normal tricuspid valve with moderate to severe regurgitation. Estimated right ventricular systolic p ressure is 71 mmHg Normal pulmonic valve with mild regurgitation Wall motion Left Ventricle The left ventricle is normal size. The left ventricular systolic function is normal. The left ventric ular ejection fraction is within the normal range. Moderate concentric left ventricular hypertrophy. Flattened septum consistent with right ventricular pressure overload. Regional wall motion is normal. There is no ventricular septal defect visualized. LVEF is 59%. Right Ventricle Right ventricle is moderately dilated. Right ventricular systolic function is grossly normal. The RVS P is 70.7 mmHg. Atria The left atrium size is normal. Right atrium is mildly dilated. The interatrial septum is intact with no evidence for an atrial septal defect. Aortic Valve The Aortic valve is sclerotic. Aortic valve is trileaflet. There is no aortic valvular stenosis. No a ortic regurgitation is present. Mitral Valve Mild mitral annular calcification. No evidence of mitral valve stenosis. Mild mitral regurgitation. Tricuspid Valve The tricuspid valve is normal in structure. There is no tricuspid valve stenosis. Moderate to severe tricuspid regurgitation. Pulmonic Valve The pulmonary valve is normal in structure. There is no pulmonic valvular stenosis. Mild pulmonic reg urgitation. Great Vessels The aortic root is normal in size. The ascending aorta is normal in size. Aortic arch is normal in c aliber. IVC is normal in size and collapses >50% with inspiration. Pericardium There is no pericardial effusion. 2D Dimensions IVSD d PLAX 1.30 cm M: 0.6-1.2 LV Vol A2C d MOD 103.7 mL LVPW d PLAX 1.31 cm M: 0.6 - 1.2 LV Vol A4C d MOD 87.7 mL LVID d PLAX 4.79 cm M: 4.2 - 5.8 LA vol/ BSA A2C s A-L 29.3 mL/m2 LVDs 3.15 cm M: 2.5 - 4.0 LA vol/ BSA A4C s A-L 29.5 mL/m2 Ao Root d 3.25 cm M: 3.1 - 3.7 LA Vol/ BSA Biplane s A-L 30.7 mL/m2 RA Area A4C 23.43 cm2 LA Area A4C s MOD 19.68 cm2 RA Vol/ BSA A4C s A-L 43.2 mL/m2 LA Area A2C s MOD 18.74 cm2 Ao Asc Diam d 3.45 cm M: 2.6 - 3.4 LV EF A4C MOD 58.8 % LV EF Teichholz 62.1 % LV EF A2C MOD 58.4 % LVEF (Hough's) 58.83 % M: 52 - 72 LV EF Biplane MOD 58.8 % LV Volume 72.75 mL M: 62 - 150 SV 56.51 mL LV Volume Index 37.50 mL/m2 M: 34 - 74 SV Index 29.08 mL/m2 LV Vol Biplane MOD 96.1 mL FS 33.40 % M-Mode TAPSE 1.86 cm (M/F) >1.7 LV Diastology MV E' medial 0.058 (>0.07 m/s) E/A Ratio 1.0 LV E/e MED 14.00 (<14) MV E Vmax 0.81 (0.4-1.3 m/s) MV E' lateral 0.111 (>0.1 m/s) MV A Vmax 0.85 (0.4-1.3 m/s) LV E/e LAT 7.25 (<14) MV E/A Ratio 0.95 MV E/E' medial 14.02 MV E/E' lateral 7.27 Aortic Valve LVOT Area 3.16 cm2 AoV Area Vmax 2.58 cm2 LVOT Vmax 1.27 m/s AoV Area/ BSA (Vmax) 1.33 cm2/m2 LVOT Mean Brandon. 0.84 m/s BRIGITTE Mean Brandon. 2.40 cm2 LVOT Peak Grad 6.5 mmHg BRIGITTE Mean Brandon. Index 1.23 cm2/m2 LVOT Mean Grad 3.3 mmHg LVOT VTI 0.232 m LVOT Diam s 2.00 cm AoV Vmax 1.56 m/s Velocity Ratio 0.81 AoV Mean Brandon. 1.10 m/s AoV Peak Grad 9.8 mmHg LVOT SV 73.41 mL AoV Mean Grad 5.5 mmHg AoV VTI 0.275 m AoV Area VTI 2.67 cm2 AoV Area/ BSA (VTI) 1.38 cm/m2 Mitral Valve MV DT 175 (160-240 msec) MV PHT 51 msec MV Area PHT 4.32 cm2 MV VTI 0.270 m MV Area VTI 2.72 (4.0-6.0 cm2) Pulmonary Valve PV Vmax 0.90 (0.5-1.5 m/s) RVOT Peak Gr. 1.57 mmHg PV Peak Grad 3.2 mmHg RVOT Mean Gr. 0.80 mmHg PV Mean Grad 1.6 mmHg RVOT VTI 0.132 m PV VTI 0.144 m RVOT Vmax 0.63 m/s Tricuspid Valve TR Peak Grad 67.7 mmHg TR Vmax 4.11 m/s RA Pressure 3.00 mmHg RVSP (TR) 70.7 mmHg
--- NOTE | 2022-07-06 16:40 | PGE_ITS ---
Date of Service Date of service: 07/06/22 Time of Service: 16:40 Assessment and Plan Assessment and plan (1) Respiratory failure with hypoxia: Status: Acute Assessment and plan: Multifactorial, due to pulmonary fibrosis/hypersensitivity pneumonitis in addition to pulmonary hypertension/RV presure overload, and possible pneumonia. Continue diuresis, treatment of possible PNA with zosyn and high dose prednisone. Pulmonology consulted. Given degree of pulmonary hypertension, the patient is not a candidate for a bronchoscopy at our facility. (2) Progressive fibrosing interstitial lung disease: Status: Chronic Assessment and plan: As above (3) Pulmonary hypertension: Status: Acute Assessment and plan: RVSP of 71 mmHg. As above (4) Right ventricular failure: Status: Acute Assessment and plan: As above (5) Syncope: Status: Chronic Assessment and plan: In setting of hypoxia, could have been an arrhythmic event or hypoxic seizure. Continue to monitor on tele. (6) DVT prophylaxis: Status: Acute Assessment and plan: SC enoxaparin (7) Discharge planning issues: Status: Acute Assessment and plan: Full code Continues to require hospitalization Discussed with Dr Dahl Subjective Subjective Interval history since last seen: Mr Landrum is not short of breath at rest. He states that even at home he really only noticed anything with activity. Denies dizziness, chest pain, nausea, palpitations. No arrhythmic events on tele. Exam Narrative Exam Narrative: General: Pleasant middle-aged male who is A&Ox3, NAD, on O2 at 4L by NC HEENT: EOMI, MMM Heart: RRR, no m/r/g Lungs: Crackles 1/2 up B lungs Abdomen: soft, nontender, nondistended Extremities: no edema BLEs, wearing TEDs. Objective Last Vital Signs Temp 36.6 C 07/06/22 15:33 Pulse 88 07/06/22 15:33 Resp 20 07/06/22 15:33 BP 130/73 07/06/22 15:33 Pulse Ox 90 L 07/06/22 15:33 Laboratory Results - last 24 hr 07/05/22 07/06/22 07/06/22 16:16 07:56 07:56 WBC 10.06 RBC 5.59 Hgb 16.1 Hct 51.3 H MCV 92 MCH 28.8 MCHC 31.4 L RDW 16.8 H Plt Count 232 MPV 9.6 Immature Gran % 0.3 Neutrophils % 89.8 Lymphocytes % 5.4 Monocytes % 4.4 Eosinophils % 0.0 Basophils % 0.1 Nucleated RBC % 0.0 Absolute Neutrophils 9.04 H Absolute Lymphocytes 0.54 L Absolute Monocytes 0.44 Absolute Eosinophils 0.00 Absolute Basophils 0.01 Sodium 139 Potassium 4.7 Chloride 104 Carbon Dioxide 30.7 Anion Gap 4.3 BUN 19 H Creatinine 1.0 Est GFR (CKD-EPI 2020) 81.98 Glucose 131 H Calcium 8.2 L Total Bilirubin 1.0 AST 53 H ALT 198 H Alkaline Phosphatase 82 Troponin I 53 Total Protein 6.7 Albumin 3.1 L SARS-CoV-2 (PCR) Negative Objective Narrative Objective Narrative: echo: Moderate concentric left ventricular hypertrophy.? Normal left ventricular chamber size.? Estimated ejection fraction is 60%.? Diastolic septal flattening suggests right ventricular pressure overload Right ventricle is moderately dilated Normal left atrial size.? Right atrium is mildly dilated The aortic valve is trileaflet and sclerotic without stenosis or regurgitation Mild mitral annular calcification.? Mild mitral regurgitation Normal tricuspid valve with moderate to severe regurgitation.? Estimated right ventricular systolic pressure is 71 mmHg Normal pulmonic valve with mild regurgitation PAWSS Have you Been Recently Intoxicated or Drunk Within the Last 30 days?: No Have you Ever Experienced Previous Episodes of Alcohol Withdrawal?: No Have you ever Experienced Withdrawal Seizures?: No Have you ever Experienced Delirium Tremens(DT)s?: No Have you ever undergone Alcohol Rehabilitation Treatment (i.e, inpt ot ou tpatient treatment programs)?: No Have you ever Experienced Blackouts?: No Have you ever Combined Alcohol with other Downers within the last 90 days?: No Result: 0
[2022-07-06] MEDS: Enoxaparin 40 MG/0.4 ML SYR SC (17:42)
[2022-07-07] VITALS (9 sets, daily range): BP systolic 120–144; BP diastolic 71–82; PULSE 63–88; RESP 18–19; TEMP 35.2–36.9; O2SAT 91–94
[2022-07-07] MEDS: Normal Saline Flush 10 ML SYR IVP ×4 (00:33→16:17)
[2022-07-07] MEDS: PIPERACILLIN/TAZO 3.375 GM in Normal Saline 50 ML IVPB ×4 (00:33→17:49)
--- NOTE | 2022-07-07 07:38 | PGE_ITS ---
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 Although I initially suspected this was an ILD flare, his elevated bnp and t roponin as well as CT scan findings did raise concerns for heart failure. His echo found significant RV failure with severe pulmonary hypertension. This is likely group 2 and 3 combined, however since he has ILD and now diagnosed severe pHTN, he may be a good candidate for inhaled treprostinil. This will need to be further evaluated once he is closer to euvolemia, and once group 4 and some group 1 pHTN causes have been ruled out including a cardiac cath as an outpatient. Hypoxic respiratory failure - Diuresis to euvolemia - continue supplemental O2 for sats >89% - echo finds RV failure with severe pulmonary HTN Severe pulmonary hypertension - RV failure present - pHTN will likely improve to some degree with diuresis - recommend negative 1-2L/24 hours - strict I/O's, daily weights - HIV, autoimmune and vasculitis screening ordered - once closer to euvolemia will recommend VQ scan, sleep study - this is likely combination of group 2 and 3 pHTN, but will rule out other groups - most will likely be done as an outpatient Progressive pulmonary fibrosis - prednisone 60mg daily and will taper this given the echo findings: - 60mg for 5 days, 50mg for 5 days, 40mg for 3 days, 30mg for 3 days, 20mg for 3 days, 10mg for 3 days, 5mg for 3 days - no Bactrim ppx needed - can D/C Zosyn if procal is negative today General Date Of Service Date of service: 07/07/22 Time of Service: 07:38 Reason for Consult: Hypoxic respiratory failure Subjective 24 Hour Events: His echo returned with severe pulmonary hypertension, RV failure, volume overload and severe TR (which may be due to volume overload). Note Note: He is feeling well. His I/O's were not being strictly measured, so we should start this. We discussed his diagnosis in depth and talked about what future diagnostic testing will include. He is agreeable to VQ scans and cardiac cath at [facility] [place] when clinically the time is right. Exam Narrative Exam Narrative: Gen:?NAD, normal respiratory effort, well-nourished HENT:?PERRL, nasal turbinates normal without erythema or inflammation, moist oral? mucosa, Mallampati 2, No LAD or JVD Chest:?No respiratory distress, normal appearance of chest, crackles mid way up lung noriega, normal inspiratory effort Heart:?regular rate and rhythym, no murmurs, rubs or gallops Abdomen:?Non-distended, soft, non tender Extremities:?No clubbing, 3+ pitting LE edema, cyanosis, rashes Neuro:?AAOx3 , non focal Psych:?cooperative, appropriate mental affect Objective Last Vital Signs Temp 36.7 C 07/07/22 03:28 Pulse 88 07/07/22 03:28 Resp 19 07/07/22 03:28 BP 130/74 07/07/22 03:28 Pulse Ox 92 07/07/22 03:28 Laboratory Results - last 24 hr 07/06/22 07/06/22 07:56 07:56 WBC 10.06 RBC 5.59 Hgb 16.1 Hct 51.3 H MCV 92 MCH 28.8 MCHC 31.4 L RDW 16.8 H Plt Count 232 MPV 9.6 Immature Gran % 0.3 Neutrophils % 89.8 Lymphocytes % 5.4 Monocytes % 4.4 Eosinophils % 0.0 Basophils % 0.1 Nucleated RBC % 0.0 Absolute Neutrophils 9.04 H Absolute Lymphocytes 0.54 L Absolute Monocytes 0.44 Absolute Eosinophils 0.00 Absolute Basophils 0.01 Sodium 139 Potassium 4.7 Chloride 104 Carbon Dioxide 30.7 Anion Gap 4.3 BUN 19 H Creatinine 1.0 Est GFR (CKD-EPI 2020) 81.98 Glucose 131 H Calcium 8.2 L Total Bilirubin 1.0 AST 53 H ALT 198 H Alkaline Phosphatase 82 Troponin I 53 Total Protein 6.7 Albumin 3.1 L Results Medications Medications: Active Medications Generic Name Dose Route Start Last Admin Trade Name Freq PRN Reason Stop Dose Admin Acetaminophen 650 mg 07/05/22 17:15 Acetaminophen 325 Mg Tab PO Q4H PRN PRN Albuterol Sulfate 2.5 mg 07/06/22 16:45 Albuterol 2.5 Mg/3 Ml Inh Soln Vial UPD Q2H PRN PRN Benzonatate 100 mg 07/05/22 17:10 Benzonatate 100 Mg Cap PO TID PRN PRN cough Dimethicone/Zinc Oxide 0 gm 07/05/22 15:46 Shabbir Protect Cream 142 Gm Tube TP PRN PRN Enoxaparin Sodium 40 mg 07/06/22 18:00 07/06/22 17:42 Enoxaparin 40 Mg/0.4 Ml Syr SC 40 mg Q24H ANAYELI Administration Furosemide 40 mg 07/06/22 16:00 07/06/22 16:37 Furosemide 40 Mg/4 Ml Vial IVP 40 mg BID@0800,1600 ANAYELI Administration Piperacillin Sod/Tazobactam 50 mls @ 100 mls/hr 07/05/22 18:00 07/07/22 07:20 Sod 3.375 gm/ Sodium Chloride IVPB Infused Q6H [facility] Infusion Protocol IV Miscellaneous Supplies 1 each 07/05/22 12:15 Iv Access IV DIRECTED [facility] Pantoprazole Sodium 40 mg 07/07/22 07:30 Pantoprazole 40 Mg Tabcr PO DAILY@0730 [facility] Prednisone 60 mg 07/06/22 08:30 07/06/22 08:15 Prednisone 20 Mg Tab PO 60 mg DAILY ANAYELI Administration Sodium Chloride 0 ml 07/05/22 12:13 07/07/22 00:33 Normal Saline Flush 10 Ml Syr IVP 10 ml PRN PRN Administration Allergies No Known Allergies Allergy (Verified 07/05/22 10:26) Labs Result Diagrams: 07/07/22 07:45 07/07/22 07:45 Labs: Laboratory Tests Range/Units 07/05/22 07/05/22 07/05/22 12:00 12:00 12:00 WBC (4.4-10.8) 10^3/uL 9.78 RBC (4.36-5.78) 10^6/uL 5.75 Hgb (13.5-17.5) g/dL 16.8 Hct (40.0-50.0) % 53.0 H MCV (80-95) fL 92 MCH (27.0-33.0) pg 29.2 MCHC (32.0-36.0) % 31.7 L RDW (11.8-14.1) % 17.0 H Plt Count (130-400) 10^3/uL 221 MPV (8.0-11.0) fL 10.7 Immature Gran % 0.3 Neutrophils % 89.6 Lymphocytes % 5.4 Monocytes % 3.5 Eosinophils % 0.8 Basophils % 0.4 Nucleated RBC % (0.0-0.3) % 0.0 Absolute Neutrophils (1.2-6.7) 10^3/uL 8.76 H Absolute Lymphocytes (1.2-3.4) 10^3/uL 0.53 L Absolute Monocytes (0.1-0.8) 10^3/uL 0.34 Absolute Eosinophils (0.0-0.7) 10^3/uL 0.08 Absolute Basophils (0.0-0.2) 10^3/uL 0.04 D-Dimer (<500) ng/mlFEU 1785 H Sodium (136-145) mmol/L 136 Potassium (3.5-5.1) mmol/L 5.2 H Chloride (98-107) mmol/L 102 Carbon Dioxide (21.0-32.0) mmol/L 28.8 Anion Gap (3-11) mmol/L 5.2 BUN (7-18) mg/dL 23 H Creatinine (0.70-1.30) mg/dL 0.9 Est GFR (CKD-EPI 2020) (mL/min/1.73m2) 93.03 Glucose (74-106) mg/dL 93 Calcium (8.5-10.1) mg/dL 8.6 Total Bilirubin (0.2-1.0) mg/dL 0.9 AST (15-37) U/L 108 H ALT (16-63) U/L 256 H Alkaline Phosphatase (46-116) U/L 93 Troponin I (<or=60) ng/L 64 H* NT-Pro-B Natriuret Pep (<300) pg/mL 2390 H Total Protein (6.4-8.2) g/dL 7.4 Albumin (3.4-5.0) g/dL 3.6 COVID-19 Source SARS-CoV-2 (PCR) (Negative) Range/Units 07/05/22 07/05/22 07/05/22 12:00 14:50 16:16 WBC (4.4-10.8) 10^3/uL RBC (4.36-5.78) 10^6/uL Hgb (13.5-17.5) g/dL Hct (40.0-50.0) % MCV (80-95) fL MCH (27.0-33.0) pg MCHC (32.0-36.0) % RDW (11.8-14.1) % Plt Count (130-400) 10^3/uL MPV (8.0-11.0) fL Immature Gran % Neutrophils % Lymphocytes % Monocytes % Eosinophils % Basophils % Nucleated RBC % (0.0-0.3) % Absolute Neutrophils (1.2-6.7) 10^3/uL Absolute Lymphocytes (1.2-3.4) 10^3/uL Absolute Monocytes (0.1-0.8) 10^3/uL Absolute Eosinophils (0.0-0.7) 10^3/uL Absolute Basophils (0.0-0.2) 10^3/uL D-Dimer (<500) ng/mlFEU Sodium (136-145) mmol/L Potassium (3.5-5.1) mmol/L Chloride (98-107) mmol/L Carbon Dioxide (21.0-32.0) mmol/L Anion Gap (3-11) mmol/L BUN (7-18) mg/dL Creatinine (0.70-1.30) mg/dL Est GFR (CKD-EPI 2020) (mL/min/1.73m2) Glucose (74-106) mg/dL Calcium (8.5-10.1) mg/dL Total Bilirubin (0.2-1.0) mg/dL AST (15-37) U/L ALT (16-63) U/L Alkaline Phosphatase (46-116) U/L Troponin I (<or=60) ng/L 65 H* NT-Pro-B Natriuret Pep (<300) pg/mL Cancelled Total Protein (6.4-8.2) g/dL Albumin (3.4-5.0) g/dL COVID-19 Source Nasal/Nares SARS-CoV-2 (PCR) (Negative) Negative Range/Units 07/06/22 07/06/22 07:56 07:56 WBC (4.4-10.8) 10^3/uL 10.06 RBC (4.36-5.78) 10^6/uL 5.59 Hgb (13.5-17.5) g/dL 16.1 Hct (40.0-50.0) % 51.3 H MCV (80-95) fL 92 MCH (27.0-33.0) pg 28.8 MCHC (32.0-36.0) % 31.4 L RDW (11.8-14.1) % 16.8 H Plt Count (130-400) 10^3/uL 232 MPV (8.0-11.0) fL 9.6 Immature Gran % 0.3 Neutrophils % 89.8 Lymphocytes % 5.4 Monocytes % 4.4 Eosinophils % 0.0 Basophils % 0.1 Nucleated RBC % (0.0-0.3) % 0.0 Absolute Neutrophils (1.2-6.7) 10^3/uL 9.04 H Absolute Lymphocytes (1.2-3.4) 10^3/uL 0.54 L Absolute Monocytes (0.1-0.8) 10^3/uL 0.44 Absolute Eosinophils (0.0-0.7) 10^3/uL 0.00 Absolute Basophils (0.0-0.2) 10^3/uL 0.01 D-Dimer (<500) ng/mlFEU Sodium (136-145) mmol/L 139 Potassium (3.5-5.1) mmol/L 4.7 Chloride (98-107) mmol/L 104 Carbon Dioxide (21.0-32.0) mmol/L 30.7 Anion Gap (3-11) mmol/L 4.3 BUN (7-18) mg/dL 19 H Creatinine (0.70-1.30) mg/dL 1.0 Est GFR (CKD-EPI 2020) (mL/min/1.73m2) 81.98 Glucose (74-106) mg/dL 131 H Calcium (8.5-10.1) mg/dL 8.2 L Total Bilirubin (0.2-1.0) mg/dL 1.0 AST (15-37) U/L 53 H ALT (16-63) U/L 198 H Alkaline Phosphatase (46-116) U/L 82 Troponin I (<or=60) ng/L 53 NT-Pro-B Natriuret Pep (<300) pg/mL Total Protein (6.4-8.2) g/dL 6.7 Albumin (3.4-5.0) g/dL 3.1 L COVID-19 Source SARS-CoV-2 (PCR) (Negative)
[2022-07-07 08:02] LABS: Abs Immature Grans 0.05 10^3/uL (0.0-0.06); Absolute Basophil Count 0.02 10^3/uL (0.0-0.2); Absolute Eosinophil Count 0.15 10^3/uL (0.0-0.7); Absolute Monocyte Count 0.78 10^3/uL (0.1-0.8); Absolute Neutrophil Count 9.42 10^3/uL (1.2-6.7); Basophils % 0.2; Eosinophils % 1.3; HCT 52.7 % (40.0-50.0); HGB 16.7 g/dL (13.5-17.5); Immature Grans % 0.4; Lymphocytes % 10.3; MCH 28.8 pg (27.0-33.0); MCHC 31.7 % (32.0-36.0); MCV 91 fL (80-95); MPV 10.3 fL (8.0-11.0); Monocytes % 6.7; Neutrophils % 81.1; Platelet Count 231 10^3/uL (130-400); RDW 17.4 % (11.8-14.1); RDW-SD 55.6 fL; WBC 11.62 10^3/uL (4.4-10.8)
[2022-07-07 08:16] LABS: Anion Gap 3.8 mmol/L (3-11); BUN 24 mg/dL (7-18); CO2 34.2 mmol/L (21.0-32.0); CREATININE 1.2 mg/dL (0.70-1.30); Calcium 8.3 mg/dL (8.5-10.1); Chloride 102 mmol/L (98-107); Estimated GFR 65.87 (mL/min/1.73m2); Glucose 93 mg/dL (74-106); Magnesium 2.1 mg/dL (1.8-2.4); Potassium 4.1 mmol/L (3.5-5.1); Sodium 140 mmol/L (136-145)
[2022-07-07] MEDS: Pantoprazole 40 MG TABCR PO (08:18)
[2022-07-07] MEDS: Furosemide 40 MG/4 ML VIAL IVP ×2 (08:18→16:17)
[2022-07-07] MEDS: predniSONE 20 MG TAB 60 MG PO (08:18)
[2022-07-07 08:41] LABS: Procalcitonin < 0.1 ng/mL
--- NOTE | 2022-07-07 09:01 | PDOC.CMPRO ---
- If Service Date Differs Date of service: 07/07/22 Time of Service: 09:01 Care Management Progress Note S/O:Freedom was sitting up in bed when CM met with him. He was pleasant in interaction and easily engaged in conversation. 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 One of his sons and 4 of his grandsons also work on the farm. 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 Freedom spoke about how he always worked in the [place] when he was younger and was exposed to dust and mold which contributed to his lung disease. In recent years he has shifted the majority of his responsibilities to outdoors to avoid exposure to the dust and mold. 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 The cost of milk has not increased at the same rate other costs have, such as fuel, feed, labor etc. 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 Freedom also talked about his current illness and concerns. He identified being relieved that he has not been told he has cancer and is also happy to learn that he has not had a hearty attack. CM will continue to follow. A: Freedom is a 66 year old man admitted on 07/05/22 with pulmonary fibrosis and respiratory failure P:Freedom will likely discharge home with no new services when medically cleared. He will follow up with his community providers and plan of care and transport with family. He is likely to have follow up appointments with [place] [facility] [place] CM will continue to offer support to Freedom and his discharge planning needs.
--- NOTE | 2022-07-07 12:57 | NUR.NOTE ---
Nursing Note: Accessed patient chart to determine how many EKG orders were in the chart from the ED. There was an outstanding EKG in ordered status. There are no EKG's in the [facility] system that are outstanding. EKG order was deleted.
--- NOTE | 2022-07-07 16:38 | CHAPLAIN ---
Freedom was up in the chair when I visited. 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 I explained my role and offered support.
[2022-07-07 17:48] LABS: Rheumatoid Factor <8.6 IU/mL (<12.0)
[2022-07-07] MEDS: Enoxaparin 40 MG/0.4 ML SYR SC (18:06)
--- NOTE | 2022-07-07 18:46 | W.PM.PROGNOT ---
Date of Service Date of service: 07/07/22 Time of Service: 18:46 Assessment and Plan Assessment and plan (1) Respiratory failure with hypoxia: Status: Acute Assessment and plan: Multifactorial, due to pulmonary fibrosis/hypersensitivity pneumonitis in addition to pulmonary hypertension/RV presure overload. Procalcitonin negative - d/c zosyn. Continue diuresis, treatment of possible PNA with zosyn and high dose prednisone. Pulmonology following. Given degree of pulmonary hypertension, the patient is not a candidate for a bronchoscopy at our facility. Will need outpatient VQ scan and sleep study. 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 (3) Pulmonary hypertension: Status: Acute Assessment and plan: RVSP of 71 mmHg. As above (4) Right ventricular failure: Status: Acute Assessment and plan: As above (5) Syncope: Status: Chronic Assessment and plan: In setting of hypoxia, could have been an arrhythmic event or hypoxic seizure. Continue to monitor on tele. On discharge would need a cardiac event recorder. (6) DVT prophylaxis: Status: Acute Assessment and plan: SC enoxaparin (7) Discharge planning issues: Status: Acute Assessment and plan: Full code Continues to require hospitalization Discussed with Dr Dahl Subjective Subjective Interval history since last seen: Mr Landrum Does not know if he is feeling better or worse because he has been resting. We did have him walk today and he actually needed 3L of O2 by NC to ambulate to saturate 88-92%. At rest he had been on 4L. He denies dizziness, chest pain, nausea. He is not short of breath. Exam Narrative Exam Narrative: General: Pleasant middle-aged male who is A&Ox3, NAD, on O2 at 4L by NC when in a chair, on 3L of O2 by NC when walking - no dyspnea/tachypnea/cyanosis observed HEENT: EOMI, MMM Heart: RRR, no m/r/g Lungs: Crackles 1/3 up B lungs Abdomen: soft, nontender, nondistended Extremities: no edema BLEs, wearing TEDs. Objective Last Vital Signs Temp 36.5 C 07/07/22 15:09 Pulse 82 07/07/22 15:09 Resp 19 07/07/22 15:09 BP 139/81 07/07/22 15:09 Pulse Ox 94 07/07/22 15:09 Laboratory Results - last 24 hr 07/07/22 07/07/22 07/07/22 07:45 07:45 07:45 WBC 11.62 H RBC 5.80 H Hgb 16.7 Hct 52.7 H MCV 91 MCH 28.8 MCHC 31.7 L RDW 17.4 H Plt Count 231 MPV 10.3 Immature Gran % 0.4 Neutrophils % 81.1 Lymphocytes % 10.3 Monocytes % 6.7 Eosinophils % 1.3 Basophils % 0.2 Nucleated RBC % 0.0 Absolute Neutrophils 9.42 H Absolute Lymphocytes 1.20 Absolute Monocytes 0.78 Absolute Eosinophils 0.15 Absolute Basophils 0.02 Sodium 140 Potassium 4.1 Chloride 102 Carbon Dioxide 34.2 H Anion Gap 3.8 BUN 24 H Creatinine 1.2 Est GFR (CKD-EPI 2020) 65.87 Glucose 93 Calcium 8.3 L Magnesium 2.1 Procalcitonin < 0.1 PAWSS Have you Been Recently Intoxicated or Drunk Within the Last 30 days?: No Have you Ever Experienced Previous Episodes of Alcohol Withdrawal?: No Have you ever Experienced Withdrawal Seizures?: No Have you ever Experienced Delirium Tremens(DT)s?: No Have you ever undergone Alcohol Rehabilitation Treatment (i.e, inpt ot outpatient treatment programs)?: No Have you ever Experienced Blackouts?: No Have you ever Combined Alcohol with other Downers within the last 90 days?: No Result: 0
[2022-07-08] VITALS (10 sets, daily range): BP systolic 115–143; BP diastolic 67–89; PULSE 69–94; RESP 12–20; TEMP 36–36.3; O2SAT 85–94
[2022-07-08 06:27] LABS: Abs Immature Grans 0.05 10^3/uL (0.0-0.06); Absolute Basophil Count 0.03 10^3/uL (0.0-0.2); Absolute Eosinophil Count 0.07 10^3/uL (0.0-0.7); Absolute Lymphocyte Count 1.27 10^3/uL (1.2-3.4); Absolute Neutrophil Count 11.11 10^3/uL (1.2-6.7); Basophils % 0.2; Eosinophils % 0.5; HCT 56.7 % (40.0-50.0); HGB 17.9 g/dL (13.5-17.5); Immature Grans % 0.4; Lymphocytes % 9.3; MCHC 31.6 % (32.0-36.0); MCV 92 fL (80-95); MPV 10.3 fL (8.0-11.0); Monocytes % 8.3; Neutrophils % 81.3; Platelet Count 227 10^3/uL (130-400); RBC 6.18 10^6/uL (4.36-5.78); RDW 16.4 % (11.8-14.1); RDW-SD 53.7 fL; WBC 13.67 10^3/uL (4.4-10.8)
[2022-07-08 06:34] LABS: Absolute Monocyte Count 1.13 10^3/uL (0.1-0.8)
[2022-07-08 06:51] LABS: Anion Gap 3.6 mmol/L (3-11); BUN 24 mg/dL (7-18); CO2 35.4 mmol/L (21.0-32.0); CREATININE 0.9 mg/dL (0.70-1.30); Calcium 8.6 mg/dL (8.5-10.1); Chloride 100 mmol/L (98-107); Estimated GFR 93.03 (mL/min/1.73m2); Glucose 112 mg/dL (74-106); Magnesium 2.3 mg/dL (1.8-2.4); Potassium 3.8 mmol/L (3.5-5.1); Sodium 139 mmol/L (136-145)
[2022-07-08] MEDS: Pantoprazole 40 MG TABCR PO (08:19)
[2022-07-08] MEDS: predniSONE 20 MG TAB 60 MG PO (08:19)
--- NOTE | 2022-07-08 08:35 | PDOC.CMPRO ---
- If Service Date Differs Date of service: 07/08/22 Time of Service: 08:35 Care Management Progress Note S/O:Freedom was sitting up in bed when CM met with him. He was in good spirits but verbalized wanting to go home. He is hopeful that after he sees Dr. Dahl tomorrow that he will be discharged. Freedom stated that he is feeling better. His vital signs are stable and his oxygen saturation levels are in the low 90s on 2-4 L O2/min. A: Freedom is a 66 year old man admitted on 07/05/22 with pulmonary fibrosis and respiratory failure P:Freedom will likely discharge home with no new services when medically cleared. He will follow up with his community providers and plan of care and transport with family. He is likely to have follow up appointments with specialist at [facility] [place]. CM will continue to offer support to Freedom and his discharge planning needs.
--- NOTE | 2022-07-08 08:45 | RESPIRATORY ---
Patient is currently using 2L as needed and has Oxygen through [facility]. Patient stated he was having issues with home concentrator and also had portable tanks. Stated at one point machine wasn't even making Oxygen but was only blowing Room Air. Currently, he thinks that his home unit has been fix but unsure. RT plans to call Rick to see what status on fixing of unit.
[2022-07-08] MEDS: Furosemide 40 MG/4 ML VIAL IVP (09:51)
[2022-07-08] MEDS: Normal Saline Flush 10 ML SYR IVP ×2 (09:51→19:26)
[2022-07-08 10:35] LABS: HIV-1/2 Ag & Ab Screen Negative (Negative)
[2022-07-08 11:15] LABS: Cyclic Citrullinated Peptide <2.5 U/mL (<5.0)
--- NOTE | 2022-07-08 13:38 | W.PM.PROGNOT ---
Date of Service Date of service: 07/08/22 Time of Service: 13:39 Assessment and Plan Assessment and plan (1) Respiratory failure with hypoxia: Status: Acute Assessment and plan: Multifactorial, due to pulmonary fibrosis/hypersensitivity pneumonitis in addition to pulmonary hypertension/RV presure overload. Procalcitonin negative - antibiotics d/c'ed. Continue diuresis (switch to PO) and high dose prednisone. Pulmonology following. Check ambulatory pulse ox. Anticipate need for portable concentrator. Given degree of pulmonary hypertension, the patient is not a candidate for a bronchoscopy at our facility. Will need outpatient VQ scan and sleep study. 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 (3) Pulmonary hypertension: Status: Acute Assessment and plan: RVSP of 71 mmHg. As above (4) Right ventricular failure: Status: Acute Assessment and plan: As above (5) Syncope: Status: Chronic Assessment and plan: In setting of hypoxia, could have been an arrhythmic event or hypoxic seizure. Continue to monitor on tele. On discharge would need a cardiac event recorder. (6) DVT prophylaxis: Status: Acute Assessment and plan: SC enoxaparin (7) Discharge planning issues: Status: Acute Assessment and plan: Full code Anticipate discharge home tomorrow Subjective Subjective Interval history since last seen: Mr Landrum states that he did not get short of breath walking yesterday. He required 3L of O2 by NC at that time. He is on 2L of O2 at rest right now saturating 91%. Denies dizziness, chest pain, shortness of breath, nausea, palpitations. No arrhythmic events on telemetry. Exam Narrative Exam Narrative: General: Pleasant middle-aged male who is A&Ox3, NAD, on O2 at 2L by [place] - no dyspnea/tachypnea/cyanosis observed HEENT: EOMI, MMM Heart: RRR, no m/r/g Lungs: Crackles at B bases, decreased from yesterday Abdomen: soft, nontender, nondistended Extremities: no edema BLEs, wearing TEDs. Objective Last Vital Signs Temp 36.2 C L 07/08/22 11:30 Pulse 80 07/08/22 11:30 Resp 16 07/08/22 11:30 BP 122/81 07/08/22 11:30 Pulse Ox 91 L 07/08/22 11:30 Laboratory Results - last 24 hr 07/06/22 07/07/22 07/07/22 18:34 07:45 07:45 WBC RBC Hgb Hct MCV MCH MCHC RDW Plt Count MPV Immature Gran % Neutrophils % Lymphocytes % Monocytes % Eosinophils % Basophils % Nucleated RBC % Absolute Neutrophils Absolute Lymphocytes Absolute Monocytes Absolute Eosinophils Absolute Basophils Sodium Potassium Chloride Carbon Dioxide Anion Gap BUN Creatinine Est GFR (CKD-EPI 2020) Glucose Calcium Magnesium Rheumatoid Factor <8.6 Cyclic Citrull Peptide <2.5 HIV 1&2 Ag/Ab, 4th Gen Negative 07/08/22 07/08/22 05:44 05:44 WBC 13.67 H RBC 6.18 H Hgb 17.9 H Hct 56.7 H MCV 92 MCH 29.0 MCHC 31.6 L RDW 16.4 H Plt Count 227 MPV 10.3 Immature Gran % 0.4 Neutrophils % 81.3 Lymphocytes % 9.3 Monocytes % 8.3 Eosinophils % 0.5 Basophils % 0.2 Nucleated RBC % 0.0 Absolute Neutrophils 11.11 H Absolute Lymphocytes 1.27 Absolute Monocytes 1.13 H Absolute Eosinophils 0.07 Absolute Basophils 0.03 Sodium 139 Potassium 3.8 Chloride 100 Carbon Dioxide 35.4 H Anion Gap 3.6 BUN 24 H Creatinine 0.9 Est GFR (CKD-EPI 2020) 93.03 Glucose 112 H Calcium 8.6 Magnesium 2.3 Rheumatoid Factor Cyclic Citrull Peptide HIV 1&2 Ag/Ab, 4th Gen PAWSS Have you Been Recently Intoxicated or Drunk Within the Last 30 days?: No Have you Ever Experienced Previous Episodes of Alcohol Withdrawal?: No Have you ever Experienced Withdrawal Seizures?: No Have you ever Experienced Delirium Tremens(DT)s?: No Have you ever undergone Alcohol Rehabilitation Treatment (i.e, inpt ot outpatient treatment programs)?: No Have you ever Experienced Blackouts?: No Have you ever Combined Alcohol with other Downers within the last 90 days?: No Result: 0
[2022-07-08 14:08] LABS: ANA Interpretation Positive (Negative); ANA Titer Pattern 1:80 Speckled
[2022-07-08 14:25] LABS: Scl 70 Antibodies, IgG <0.2 U
[2022-07-08 14:52] LABS: dsDNA Ab, IgG <12.3 IU/mL (<30.0)
[2022-07-08] MEDS: Furosemide 40 MG TAB PO (17:01)
[2022-07-08] MEDS: Enoxaparin 40 MG/0.4 ML SYR SC (18:21)
[2022-07-09] VITALS (7 sets, daily range): BP systolic 128–129; BP diastolic 76–85; PULSE 74–98; RESP 2–18; TEMP 36–36.7; O2SAT 88–94
[2022-07-09] MEDS: Albuterol 2.5 MG/3 ML INH SOLN VIAL UPD (03:17)
[2022-07-09 07:18] LABS: Anion Gap 3.8 mmol/L (3-11); BUN 27 mg/dL (7-18); CO2 34.2 mmol/L (21.0-32.0); CREATININE 0.9 mg/dL (0.70-1.30); Calcium 8.7 mg/dL (8.5-10.1); Chloride 98 mmol/L (98-107); Estimated GFR 93.03 (mL/min/1.73m2); Glucose 93 mg/dL (74-106); Magnesium 2.3 mg/dL (1.8-2.4); Potassium 4.1 mmol/L (3.5-5.1); Sodium 136 mmol/L (136-145)
[2022-07-09] MEDS: Pantoprazole 40 MG TABCR PO (07:48)
[2022-07-09] MEDS: predniSONE 20 MG TAB 60 MG PO (07:48)
[2022-07-09] MEDS: Furosemide 40 MG TAB PO (07:48)
--- NOTE | 2022-07-09 09:40 | W.PM.DS.N ---
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 Hospital Course: This is a 66 year old patient followed by pulmonology with history of progressing fibrosing interstitial lung disease, farmers lung, hyperlipidemia, with home oxygen to use with exertion at 2 liters nc, who presented to pulmonary outpatient appointment found to have worsening hypoxia now requiring 4 liters at rest.? reports of sats in the 60's at home.? He has had syncopal episodes at home.? He was sent to the ED to rule out a pulmonary embolism which was done by CT scan.? He is to be admitted for IV antibiotics, will continue on higher steroid dose, and possible bronchoscopy. Pulmonary medicine consulted. He had an elevated BNP, troponin and LFTs; raising the concern for heart failure. He was volume overloaded and was diuresed with IV lasix. Echocardiogram showed: Moderate concentric left ventricular hypertrophy.? Normal left ventricular chamber size.? Estimated ejection fraction is 60%.? Diastolic septal flattening suggests right ventricular pressure overload Right ventricle is moderately dilated Normal left atrial size.? Right atrium is mildly dilated The aortic valve is trileaflet and sclerotic without stenosis or regurgitation Mild mitral annular calcification.? Mild mitral regurgitation Normal tricuspid valve with moderate to severe regurgitation.? Estimated right ventricular systolic pressure is 71 mmHg Normal pulmonic valve with mild regurgitation There was some initial concern for possible pneumonia. CT w/o evidence of pulmonary emboli. Antibiotics initiated, then d/c'd. Procal was negative. HIV status was negative. SARTHAK titer not significantly high; 1:80. ANCA testing pending. Scl-70 IgG ab neg. DS DNA Ab neg. Dr Dahl believes his pulmonary HTN is a combination of group 2 and group 3; other groups being ruled out. He will d/c on lasix 20mg daily. If becomes intravascularly dry, this can be reduced to every other day. He will complete a prednisone taper. He will now use his supplemental O2 continuously at 2L NC. Follow up with Dr Dahl in the next 1-2 weeks. Home Meds and New Rx's Prescriptions: New furosemide [Lasix] 20 mg tablet 20 mg PO DAILY Qty: 30 0RF prednisone 10 mg tablet See Rx Instructions .ROUTE .COMPLEX Qty: 108 0RF Rx Instructions: 6 tabs daily for 5 days (start 07/10), 5 daily for 5 days, 4 daily for 5 days, 3 daily for 5 days, 2 daily for 5 days, 1 daily for 5 days, 1/2 daily for 5 days. Continued Ofev 150 mg capsule 150 mg PO Q12H Qty: 60 12RF Rx Instructions: patient has not started medication yet- not afordable per patient benzonatate 100 mg capsule 100 mg PO TID PRN (Reason: cough) Discharge Instructions Instructions: Pulmonary Arterial Hypertension (DC), DASH Eating Plan (DC) Stand Alone Forms: Nursing Discharge Form Referrals: Stefanie Dahl MD [ [facility] STAFF PHYSICIAN] - 07/21/22 9:30 am Activity:: Activity as Tolerated Equipment/Supplies:: Oxygen (L/min Below) Diet:: Heart Healthy Discharge Orders Discharge Orders: Discharge Order (Routine); Ordered 07/09/22 Ordered By: Seven Moreno DS: Summary Time Spent with Patient providing and/or coordinating discharge services: Greater than 30 minutes Status at Discharge Functional status at discharge: independent ambulation Overall status at discharge: patient is progressing back to baseline Mental Status: mental status grossly normal Speech and Movement: speech and movement normal Mood: congruent mood Affect: normal affect Exam Narrative Exam Narrative: General: Pleasant middle-aged male sitting in recliner. Conversant. HEENT: EOMI, MMM Heart: RRR, no murmur Lungs: Crackles at B bases, nonlabored breathing. Abdomen: soft, nontender, nondistended Extremities: no edema BLEs, wearing TEDs. Psych Mental Status: mental status grossly normal Speech and Movement: speech and movement normal Mood: congruent mood Affect: normal affect DS: Data Vitals/I&O Vitals and I&O: Vital Signs Temperature 36 C L 07/09/22 07:29 Temperature Source Tympanic 07/09/22 07:29 Pulse 74 07/09/22 07:29 Pulse Rhythm Irregular 07/09/22 03:23 Pulse 91 H 07/05/22 16:15 Respiratory Rate 18 07/09/22 07:29 Respiratory Effort 07/09/22 03:23 Respiratory Depth Shallow 07/09/22 03:23 Respiratory Pattern Normal 07/09/22 03:23 Blood Pressure 129/85 07/09/22 07:29 Blood Pressure Mean 104 07/05/22 16:15 Blood Pressure Position Supine 07/05/22 11:05 Pulse Oximetry 94 07/09/22 07:29 Oxygen Delivery Method Nasal Cannula 07/09/22 07:29 Oxygen Flow Rate 4 07/09/22 07:29 Pain Level 0 07/09/22 07:29 Comment 07/09/22 03:23 Intake & Output 07/08/22 07/08/22 07/09/22 11:59 23:59 11:59 Intake Total 930 / 930 Output Total 1400 / 3025 1625 / 3025 Balance -1400 / -2095 -695 / -2095 Intake: Oral 930 / 930 Output: Urine 1400 / 3025 1625 / 3025 Other: Urine Color Yellow Yellow Urine Appearance Clear Clear Urine Odor Normal Normal Comment 225mls emptied from bedside urinal at this time. voided a large amount in the toilet Voiding Methods Urinal Urinal Data Completed and Pending Labs on day of discharge: Labs from last 24 hours 07/09/22 07/07/22 07/07/22 06:26 07:45 07:45 Sodium 136 Potassium 4.1 Chloride 98 Carbon Dioxide 34.2 H Anion Gap 3.8 BUN 27 H Creatinine 0.9 Est GFR (CKD-EPI 2020) 93.03 Glucose 93 Calcium 8.7 Magnesium 2.3 Cyclic Citrull Peptide SARTHAK Titer 1:80 Speckled SARTHAK Titer 2 Not Applicable SARTHAK Titer 3 Not Applicable SARTHAK Interpretation Positive A Scl-70 IgG Ab <0.2 Double Strand DNA Ab <12.3 HIV 1&2 Ag/Ab, 4th Gen Negative 07/06/22 18:34 Sodium Potassium Chloride Carbon Dioxide Anion Gap BUN Creatinine Est GFR (CKD-EPI 2020) Glucose Calcium Magnesium Cyclic Citrull Peptide <2.5 SARTHAK Titer SARTHAK Titer 2 SARTHAK Titer 3 SARTHAK Interpretation Scl-70 IgG Ab Double Strand DNA Ab HIV 1&2 Ag/Ab, 4th Gen PFSH All Active Problems Syncope (Chronic) Discharge planning issues (Acute) DVT prophylaxis (Acute) Right ventricular failure (Acute) Pulmonary hypertension (Acute) Respiratory failure with hypoxia (Acute) Progressive fibrosing interstitial lung disease (Chronic) Bigfoot' lung (Acute) Hyperlipidemia (Acute) Dyspnea (Acute) Cough (Acute) Shortness of breath (Acute) Medical History Bigfoot' lung History of essential hypertension Family History Mother History of heart valve repair Other Heart disease Social History Smoking/Tobacco Use Status: Never Smoking risk assessment performed?: Yes Alcohol Intake: current Alcohol Intake frequency: 0-2 drinks per day Drug use: Never Substance use type: does not use 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
--- NOTE | 2022-07-09 10:44 | W.PULMPROG ---
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 Although I initially suspected this was an ILD flare, his elevated bnp and troponin as well as CT scan findings did raise concerns for heart failure. His echo found significant RV failure with severe pulmonary hypertension. This is likely group 2 and 3 combined, however since he has ILD and now diagnosed severe pHTN, he may be a good candidate for inhaled treprostinil. This will need to be further evaluated once he is closer to euvolemia, and once group 4 and some group 1 pHTN causes have been ruled out including a cardiac cath as an outpatient. Hypoxic respiratory failure - Diuresis to euvolemia - continue supplemental O2 for sats >89% - echo finds RV failure with severe pulmonary HTN Severe pulmonary hypertension - RV failure present - pHTN will likely improve to some degree with diuresis - recommend negative 1-2L/24 hours - strict I/O's, daily weights - f/u reamining bloodwork - once closer to euvolemia will recommend VQ scan, sleep study as an outpatient - this is likely combination of group 2 and 3 pHTN, but will rule out other groups - most will likely be done as an outpatient Progressive pulmonary fibrosis - prednisone 60mg daily and will taper this given the echo findings: - 60mg for 5 days, 50mg for 5 days, 40mg for 3 days, 30mg for 3 days, 20mg for 3 days, 10mg for 3 days, 5mg for 3 days - no Bactrim ppx needed General Date Of Service Date of service: 07/09/22 Time of Service: 08:45 Reason for Consult: Hypoxic respiratory failure Subjective 24 Hour Events: 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 His SARTHAK returned mildly positive to 1:80 speckled, remainder of work up negative. ANCA panel pending. HIV negative. Note Note: Freedom is doing well today. His breathing is improved. We went over the plan again moving forward. Exam Narrative Exam Narrative: Gen:?NAD, normal respiratory effort, well-nourished HENT:?PERRL, nasal turbinates normal without erythema or inflammation, moist oral? mucosa, Mallampati 2, No LAD or JVD Chest:?No respiratory distress, normal appearance of chest, crackles bibasilar, normal inspiratory effort Heart:?regular rate and rhythym, no murmurs, rubs or gallops Abdomen:?Non-distended, soft, non tender Extremities:?No clubbing, no edema, cyanosis, rashes Neuro:?AAOx3 , non focal Psych:?cooperative, appropriate mental affect Objective Last Vital Signs Temp 36 C L 07/09/22 07:29 Pulse 74 07/09/22 07:29 Resp 18 07/09/22 07:29 BP 129/85 07/09/22 07:29 Pulse Ox 94 07/09/22 07:29 Laboratory Results - last 24 hr 07/06/22 07/07/22 07/07/22 18:34 07:45 07:45 Sodium Potassium Chloride Carbon Dioxide Anion Gap BUN Creatinine Est GFR (CKD-EPI 2020) Glucose Calcium Magnesium Cyclic Citrull Peptide <2.5 SARTHAK Titer 1:80 Speckled SARTHAK Titer 2 Not Applicable SARTHAK Titer 3 Not Applicable SARTHAK Interpretation Positive A Scl-70 IgG Ab <0.2 Double Strand DNA Ab <12.3 HIV 1&2 Ag/Ab, 4th Gen Negative 07/09/22 06:26 Sodium 136 Potassium 4.1 Chloride 98 Carbon Dioxide 34.2 H Anion Gap 3.8 BUN 27 H Creatinine 0.9 Est GFR (CKD-EPI 2020) 93.03 Glucose 93 Calcium 8.7 Magnesium 2.3 Cyclic Citrull Peptide SARTHAK Titer SARTHAK Titer 2 SARTHAK Titer 3 SARTHAK Interpretation Scl-70 IgG Ab Double Strand DNA Ab HIV 1&2 Ag/Ab, 4th Gen Results Medications Medications: Active Medications Generic Name Dose Route Start Last Admin Trade Name Freq PRN Reason Stop Dose Admin Acetaminophen 650 mg 07/05/22 17:15 Acetaminophen 325 Mg Tab PO Q4H PRN PRN Albuterol Sulfate 2.5 mg 07/06/22 16:45 07/09/22 03:17 Albuterol 2.5 Mg/3 Ml Inh Soln Vial UPD 2.5 mg Q2H PRN PRN Administration Benzonatate 100 mg 07/05/22 17:10 Benzonatate 100 Mg Cap PO TID PRN PRN cough Dimethicone/Zinc Oxide 0 gm 07/05/22 15:46 Shabbir Protect Cream 142 Gm Tube TP PRN PRN Enoxaparin Sodium 40 mg 07/06/22 18:00 07/08/22 18:21 Enoxaparin 40 Mg/0.4 Ml Syr SC 40 mg Q24H ANAYELI Administration Furosemide 40 mg 07/08/22 16:00 07/09/22 07:48 Furosemide 40 Mg Tab PO 40 mg BID@0830,1600 ANAYELI Administration IV Miscellaneous Supplies 1 each 07/05/22 12:15 Iv Access IV DIRECTED ANAYELI Pantoprazole Sodium 40 mg 07/07/22 07:30 07/09/22 07:48 Pantoprazole 40 Mg Tabcr PO 40 mg DAILY@0730 ANAYELI Administration Prednisone 60 mg 07/06/22 08:30 07/09/22 07:48 Prednisone 20 Mg Tab PO 60 mg DAILY ANAYELI Administration Sodium Chloride 0 ml 07/05/22 12:13 07/08/22 19:26 Normal Saline Flush 10 Ml Syr IVP 10 ml PRN PRN Administration Allergies No Known Allergies Allergy (Verified 07/05/22 10:26) Labs Result Diagrams: 07/08/22 05:44 07/09/22 06:26 Labs: Laboratory Tests Range/Units 07/05/22 07/05/22 07/05/22 12:00 12:00 12:00 WBC (4.4-10.8) 10^3/uL 9.78 RBC (4.36-5.78) 10^6/uL 5.75 Hgb (13.5-17.5) g/dL 16.8 Hct (40.0-50.0) % 53.0 H MCV (80-95) fL 92 MCH (27.0-33.0) pg 29.2 MCHC (32.0-36.0) % 31.7 L RDW (11.8-14.1) % 17.0 H Plt Count (130-400) 10^3/uL 221 MPV (8.0-11.0) fL 10.7 Immature Gran % 0.3 Neutrophils % 89.6 Lymphocytes % 5.4 Monocytes % 3.5 Eosinophils % 0.8 Basophils % 0.4 Nucleated RBC % (0.0-0.3) % 0.0 Absolute Neutrophils (1.2-6.7) 10^3/uL 8.76 H Absolute Lymphocytes (1.2-3.4) 10^3/uL 0.53 L Absolute Monocytes (0.1-0.8) 10^3/uL 0.34 Absolute Eosinophils (0.0-0.7) 10^3/uL 0.08 Absolute Basophils (0.0-0.2) 10^3/uL 0.04 D-Dimer (<500) ng/mlFEU 1785 H Sodium (136-145) mmol/L 136 Potassium (3.5-5.1) mmol/L 5.2 H Chloride (98-107) mmol/L 102 Carbon Dioxide (21.0-32.0) mmol/L 28.8 Anion Gap (3-11) mmol/L 5.2 BUN (7-18) mg/dL 23 H Creatinine (0.70-1.30) mg/dL 0.9 Est GFR (CKD-EPI 2020) (mL/min/1.73m2) 93.03 Glucose (74-106) mg/dL 93 Calcium (8.5-10.1) mg/dL 8.6 Magnesium (1.8-2.4) mg/dL Total Bilirubin (0.2-1.0) mg/dL 0.9 AST (15-37) U/L 108 H ALT (16-63) U/L 256 H Alkaline Phosphatase (46-116) U/L 93 Troponin I (<or=60) ng/L 64 H* NT-Pro-B Natriuret Pep (<300) pg/mL 2390 H Total Protein (6.4-8.2) g/dL 7.4 Albumin (3.4-5.0) g/dL 3.6 Procalcitonin ng/mL Rheumatoid Factor (<12.0) IU/mL Cyclic Citrull Peptide (<5.0) U/mL SARTHAK Titer SARTHAK Titer 2 SARTHAK Titer 3 SARTHAK Interpretation (Negative) Scl-70 IgG Ab U Double Strand DNA Ab (<30.0) IU/mL COVID-19 Source SARS-CoV-2 (PCR) (Negative) HIV 1&2 Ag/Ab, 4th Gen (Negative) Range/Units 07/05/22 07/05/22 07/05/22 12:00 14:50 16:16 WBC (4.4-10.8) 10^3/uL RBC (4.36-5.78) 10^6/uL Hgb (13.5-17.5) g/dL Hct (40.0-50.0) % MCV (80-95) fL MCH (27.0-33.0) pg MCHC (32.0-36.0) % RDW (11.8-14.1) % Plt Count (130-400) 10^3/uL MPV (8.0-11.0) fL Immature Gran % Neutrophils % Lymphocytes % Monocytes % Eosinophils % Basophils % Nucleated RBC % (0.0-0.3) % Absolute Neutrophils (1.2-6.7) 10^3/uL Absolute Lymphocytes (1.2-3.4) 10^3/uL Absolute Monocytes (0.1-0.8) 10^3/uL Absolute Eosinophils (0.0-0.7) 10^3/uL Absolute Basophils (0.0-0.2) 10^3/uL D-Dimer (<500) ng/mlFEU Sodium (136-145) mmol/L Potassium (3.5-5.1) mmol/L Chloride (98-107) mmol/L Carbon Dioxide (21.0-32.0) mmol/L Anion Gap (3-11) mmol/L BUN (7-18) mg/dL Creatinine (0.70-1.30) mg/dL Est GFR (CKD-EPI 2020) (mL/min/1.73m2) Glucose (74-106) mg/dL Calcium (8.5-10.1) mg/dL Magnesium (1.8-2.4) mg/dL Total Bilirubin (0.2-1.0) mg/dL AST (15-37) U/L ALT (16-63) U/L Alkaline Phosphatase (46-116) U/L Troponin I (<or=60) ng/L 65 H* NT-Pro-B Natriuret Pep (<300) pg/mL Cancelled Total Protein (6.4-8.2) g/dL Albumin (3.4-5.0) g/dL Procalcitonin ng/mL Rheumatoid Factor (<12.0) IU/mL Cyclic Citrull Peptide (<5.0) U/mL SARTHAK Titer SARTHAK Titer 2 SARTHAK Titer 3 SARTHAK Interpretation (Negative) Scl-70 IgG Ab U Double Strand DNA Ab (<30.0) IU/mL COVID-19 Source Nasal/Nares SARS-CoV-2 (PCR) (Negative) Negative HIV 1&2 Ag/Ab, 4th Gen (Negative) Range/Units 07/06/22 07/06/22 07/06/22 07:56 07:56 18:34 WBC (4.4-10.8) 10^3/uL 10.06 RBC (4.36-5.78) 10^6/uL 5.59 Hgb (13.5-17.5) g/dL 16.1 Hct (40.0-50.0) % 51.3 H MCV (80-95) fL 92 MCH (27.0-33.0) pg 28.8 MCHC (32.0-36.0) % 31.4 L RDW (11.8-14.1) % 16.8 H Plt Count (130-400) 10^3/uL 232 MPV (8.0-11.0) fL 9.6 Immature Gran % 0.3 Neutrophils % 89.8 Lymphocytes % 5.4 Monocytes % 4.4 Eosinophils % 0.0 Basophils % 0.1 Nucleated RBC % (0.0-0.3) % 0.0 Absolute Neutrophils (1.2-6.7) 10^3/uL 9.04 H Absolute Lymphocytes (1.2-3.4) 10^3/uL 0.54 L Absolute Monocytes (0.1-0.8) 10^3/uL 0.44 Absolute Eosinophils (0.0-0.7) 10^3/uL 0.00 Absolute Basophils (0.0-0.2) 10^3/uL 0.01 D-Dimer (<500) ng/mlFEU Sodium (136-145) mmol/L 139 Potassium (3.5-5.1) mmol/L 4.7 Chloride (98-107) mmol/L 104 Carbon Dioxide (21.0-32.0) mmol/L 30.7 Anion Gap (3-11) mmol/L 4.3 BUN (7-18) mg/dL 19 H Creatinine (0.70-1.30) mg/dL 1.0 Est GFR (CKD-EPI 2020) (mL/min/1.73m2) 81.98 Glucose (74-106) mg/dL 131 H Calcium (8.5-10.1) mg/dL 8.2 L Magnesium (1.8-2.4) mg/dL Total Bilirubin (0.2-1.0) mg/dL 1.0 AST (15-37) U/L 53 H ALT (16-63) U/L 198 H Alkaline Phosphatase (46-116) U/L 82 Troponin I (<or=60) ng/L 53 NT-Pro-B Natriuret Pep (<300) pg/mL Total Protein (6.4-8.2) g/dL 6.7 Albumin (3.4-5.0) g/dL 3.1 L Procalcitonin ng/mL Rheumatoid Factor (<12.0) IU/mL Cyclic Citrull Peptide (<5.0) U/mL <2.5 SARTHAK Titer SARTHAK Titer 2 SARTHAK Titer 3 SARTHAK Interpretation (Negative) Scl-70 IgG Ab U Double Strand DNA Ab (<30.0) IU/mL COVID-19 Source SARS-CoV-2 (PCR) (Negative) HIV 1&2 Ag/Ab, 4th Gen (Negative) Range/Units 07/07/22 07/07/22 07/07/22 07:45 07:45 07:45 WBC (4.4-10.8) 10^3/uL 11.62 H RBC (4.36-5.78) 10^6/uL 5.80 H Hgb (13.5-17.5) g/dL 16.7 Hct (40.0-50.0) % 52.7 H MCV (80-95) fL 91 MCH (27.0-33.0) pg 28.8 MCHC (32.0-36.0) % 31.7 L RDW (11.8-14.1) % 17.4 H Plt Count (130-400) 10^3/uL 231 MPV (8.0-11.0) fL 10.3 Immature Gran % 0.4 Neutrophils % 81.1 Lymphocytes % 10.3 Monocytes % 6.7 Eosinophils % 1.3 Basophils % 0.2 Nucleated RBC % (0.0-0.3) % 0.0 Absolute Neutrophils (1.2-6.7) 10^3/uL 9.42 H Absolute Lymphocytes (1.2-3.4) 10^3/uL 1.20 Absolute Monocytes (0.1-0.8) 10^3/uL 0.78 Absolute Eosinophils (0.0-0.7) 10^3/uL 0.15 Absolute Basophils (0.0-0.2) 10^3/uL 0.02 D-Dimer (<500) ng/mlFEU Sodium (136-145) mmol/L 140 Potassium (3.5-5.1) mmol/L 4.1 Chloride (98-107) mmol/L 102 Carbon Dioxide (21.0-32.0) mmol/L 34.2 H Anion Gap (3-11) mmol/L 3.8 BUN (7-18) mg/dL 24 H Creatinine (0.70-1.30) mg/dL 1.2 Est GFR (CKD-EPI 2020) (mL/min/1.73m2) 65.87 Glucose (74-106) mg/dL 93 Calcium (8.5-10.1) mg/dL 8.3 L Magnesium (1.8-2.4) mg/dL 2.1 Total Bilirubin (0.2-1.0) mg/dL AST (15-37) U/L ALT (16-63) U/L Alkaline Phosphatase (46-116) U/L Troponin I (<or=60) ng/L NT-Pro-B Natriuret Pep (<300) pg/mL Total Protein (6.4-8.2) g/dL Albumin (3.4-5.0) g/dL Procalcitonin ng/mL < 0.1 Rheumatoid Factor (<12.0) IU/mL Cyclic Citrull Peptide (<5.0) U/mL SARTHAK Titer SARTHAK Titer 2 SARTHAK Titer 3 SARTHAK Interpretation (Negative) Scl-70 IgG Ab U Double Strand DNA Ab (<30.0) IU/mL COVID-19 Source SARS-CoV-2 (PCR) (Negative) HIV 1&2 Ag/Ab, 4th Gen (Negative) Range/Units 07/07/22 07/07/22 07/08/22 07:45 07:45 05:44 WBC (4.4-10.8) 10^3/uL RBC (4.36-5.78) 10^6/uL Hgb (13.5-17.5) g/dL Hct (40.0-50.0) % MCV (80-95) fL MCH (27.0-33.0) pg MCHC (32.0-36.0) % RDW (11.8-14.1) % Plt Count (130-400) 10^3/uL MPV (8.0-11.0) fL Immature Gran % Neutrophils % Lymphocytes % Monocytes % Eosinophils % Basophils % Nucleated RBC % (0.0-0.3) % Absolute Neutrophils (1.2-6.7) 10^3/uL Absolute Lymphocytes (1.2-3.4) 10^3/uL Absolute Monocytes (0.1-0.8) 10^3/uL Absolute Eosinophils (0.0-0.7) 10^3/uL Absolute Basophils (0.0-0.2) 10^3/uL D-Dimer (<500) ng/mlFEU Sodium (136-145) mmol/L 139 Potassium (3.5-5.1) mmol/L 3.8 Chloride (98-107) mmol/L 100 Carbon Dioxide (21.0-32.0) mmol/L 35.4 H Anion Gap (3-11) mmol/L 3.6 BUN (7-18) mg/dL 24 H Creatinine (0.70-1.30) mg/dL 0.9 Est GFR (CKD-EPI 2020) (mL/min/1.73m2) 93.03 Glucose (74-106) mg/dL 112 H Calcium (8.5-10.1) mg/dL 8.6 Magnesium (1.8-2.4) mg/dL 2.3 Total Bilirubin (0.2-1.0) mg/dL AST (15-37) U/L ALT (16-63) U/L Alkaline Phosphatase (46-116) U/L Troponin I (<or=60) ng/L NT-Pro-B Natriuret Pep (<300) pg/mL Total Protein (6.4-8.2) g/dL Albumin (3.4-5.0) g/dL Procalcitonin ng/mL Rheumatoid Factor (<12.0) IU/mL <8.6 Cyclic Citrull Peptide (<5.0) U/mL SARTHAK Titer 1:80 Speckled SARTHAK Titer 2 Not Applicable SARTHAK Titer 3 Not Applicable SARTHAK Interpretation (Negative) Positive A Scl-70 IgG Ab U <0.2 Double Strand DNA Ab (<30.0) IU/mL <12.3 COVID-19 Source SARS-CoV-2 (PCR) (Negative) HIV 1&2 Ag/Ab, 4th Gen (Negative) Negative Range/Units 07/08/22 07/09/22 05:44 06:26 WBC (4.4-10.8) 10^3/uL 13.67 H RBC (4.36-5.78) 10^6/uL 6.18 H Hgb (13.5-17.5) g/dL 17.9 H Hct (40.0-50.0) % 56.7 H MCV (80-95) fL 92 MCH (27.0-33.0) pg 29.0 MCHC (32.0-36.0) % 31.6 L RDW (11.8-14.1) % 16.4 H Plt Count (130-400) 10^3/uL 227 MPV (8.0-11.0) fL 10.3 Immature Gran % 0.4 Neutrophils % 81.3 Lymphocytes % 9.3 Monocytes % 8.3 Eosinophils % 0.5 Basophils % 0.2 Nucleated RBC % (0.0-0.3) % 0.0 Absolute Neutrophils (1.2-6.7) 10^3/uL 11.11 H Absolute Lymphocytes (1.2-3.4) 10^3/uL 1.27 Absolute Monocytes (0.1-0.8) 10^3/uL 1.13 H Absolute Eosinophils (0.0-0.7) 10^3/uL 0.07 Absolute Basophils (0.0-0.2) 10^3/uL 0.03 D-Dimer (<500) ng/mlFEU Sodium (136-145) mmol/L 136 Potassium (3.5-5.1) mmol/L 4.1 Chloride (98-107) mmol/L 98 Carbon Dioxide (21.0-32.0) mmol/L 34.2 H Anion Gap (3-11) mmol/L 3.8 BUN (7-18) mg/dL 27 H Creatinine (0.70-1.30) mg/dL 0.9 Est GFR (CKD-EPI 2020) (mL/min/1.73m2) 93.03 Glucose (74-106) mg/dL 93 Calcium (8.5-10.1) mg/dL 8.7 Magnesium (1.8-2.4) mg/dL 2.3 Total Bilirubin (0.2-1.0) mg/dL AST (15-37) U/L ALT (16-63) U/L Alkaline Phosphatase (46-116) U/L Troponin I (<or=60) ng/L NT-Pro-B Natriuret Pep (<300) pg/mL Total Protein (6.4-8.2) g/dL Albumin (3.4-5.0) g/dL Procalcitonin ng/mL Rheumatoid Factor (<12.0) IU/mL Cyclic Citrull Peptide (<5.0) U/mL SARTHAK Titer SARTHAK Titer 2 SARTHAK Titer 3 SARTHAK Interpretation (Negative) Scl-70 IgG Ab U Double Strand DNA Ab (<30.0) IU/mL COVID-19 Source SARS-CoV-2 (PCR) (Negative) HIV 1&2 Ag/Ab, 4th Gen (Negative)
--- NOTE | 2022-07-09 15:27 | PDOC.CMDIS ---
- If Service Date Differs Date of service: 07/09/22 Time of Service: 15:27 LACE Index Scoring Tool - Questions: Length of Stay (in days): 4 - 6 Acuity (Admit via E.D.?): Yes Comorbidities: Chronic Pulmonary Disease E.D. Visits: 1 - Answers: Total Score: 10 Risk of Readmission: High Risk Care Management Discharge Reason for Hospitalization: Respiratory failure and hypoxia Discharge Plan: Freedom will discharge home with no new services. He will follow up with his community providers and plan of care and transport with family. Patient/Family Education Needs: Review of discharge instructions, limitations, medications, activity, follow up plan, discuss Ask Me Three
[2022-07-12 13:09] LABS: ANCA Interpretation Positive (Negative)
[2022-07-14 09:03] LABS: Myeloperoxidase Ab IgG <0.2 U ((See Note)); Proteinase 3 Ab (PR3) <0.2 U ((See Note))
== END 2022-07-09 11:18 | disposition home or self-care (01) | DRG 196 ==
LOC: ER 16:19 → MS 16:40
PROVIDERS: Student in an Organized Health Care Education/Training Program; Admitting Provider Internal Medicine; Emergency Provider Student in an Organized Health Care Education/Training Program; PCP Internal Medicine; Visit Provider Internal Medicine
DX: J67.0 Farmer's lung (principal); J96.01 Acute respiratory failure with hypoxia; J84.170 Interstitial lung disease with progressive fibrotic phenotype in diseases classified elsewhere; E78.5 Hyperlipidemia, unspecified; Z99.81 Dependence on supplemental oxygen; R55 Syncope and collapse; I10 Essential (primary) hypertension; I11.0 Hypertensive heart disease with heart failure; I50.811 Acute right heart failure; I27.29 Other secondary pulmonary hypertension
CPT/HCPCS: 36415; 71275; 80048; 80053; 84145; 86200; 86255; 87389; 87635; 93005; 93306; 94618; 96374; 96375; 99285; J1650; 83516; 83735; 83880; 84484; 85025; 85379; 86038; 86225; 86235; 86431; 93010; 99222; 99232; 99233; 99239; J1940; J2543; J2930; J7512; J7613

== ENCOUNTER 2022-07-21 15:21 | Outpatient (REF) | payer MEDICARE, SELFPAY ==
[2022-07-21 12:06] LABS: BUN 30 mg/dL (7-18); Calcium 8.6 mg/dL (8.5-10.1); Chloride 102 mmol/L (98-107); Estimated GFR 81.98 (mL/min/1.73m2); Glucose 149 mg/dL (74-106); Potassium 4.2 mmol/L (3.5-5.1); Sodium 137 mmol/L (136-145)
== END 2022-07-21 15:22 | disposition home or self-care (01) ==
LOC: LBN 15:21
PROVIDERS: PCP Internal Medicine; Visit Provider Student in an Organized Health Care Education/Training Program
DX: I50.810 Right heart failure, unspecified (principal)
CPT/HCPCS: 80048

== ENCOUNTER → 2022-07-23 00:52 | Outpatient (CLI) | payer MEDICARE, SELFPAY ==
--- OUTSIDE RECORDS SUMMARY | 2022-07-23 00:54 | XMS_ITS | Encounter Summary ---
:1955 Author Organization [facility] Address [address] [place] [address] Care Team Providers Name Role Phone Guillermina Chowdhury Primary Care Provider Encounter Details Date Type Department Care Team Description 02/03/2022 Lab Requisition [facility] Outr Resulting Lab, Pathology & Laboratory Provider [facility] [address], [place] [id number] Social History Tobacco Use Types Packs/Day Years Used Date Smoking Tobacco: Never Smokeless Tobacco: Never Sex Assigned at Date Recorded Not on file documented as of this encounter Functional Status Functional Status Response Date of Assessment Because of a physical, mental, or emotional condition, No 06/23/2021 does this person have difficulty doing errands alone such as visiting a doctor's office or shopping? Cognitive Status Response Date of Assessment Because of a physical, mental, or emotional condition, No 06/23/2021 does this person have serious difficulty concentrating, remembering, or making decisions? documented as of this encounter Plan of Treatment Upcoming Encounters Date Type Specialty Care Team Description 07/28/2022 Office Visit Dermatology Nikky Del Real MD [address] [facility], [facility], [address] [place], [place] [address] (Wo rk) documented as of this encounter Procedures Procedure Name Priority Date/Time Associated Comments Diagnosis PSA TOTAL, Routine 02/02/2022 11:30 Results for this DIAGNOSTIC EDT procedure are i n the results section. documented in this encounter Results PSA TOTAL, DIAGNOSTIC (02/02/2022 11:30 EDT) athologist Signature PSA 0.4 <=4.5 ng/mL 02/03/2022 [facility] 17:42 EDT CENTER LABORATORY SERVICES Specimen Anatomical Collection Method Collection Time Receive d Time (Source) Location / / Volume Laterality Blood VENOUS BLOOD / 02/02/2022 11:30 2 Unknown EDT 16:24 EDT Narrative [facility] - 02/03/2022 17:42 EDT NOTE: Serum PSA concentration should not be in terpreted as absolute evidence for the presence or absence of malignant disease. Assayed on [employer]ROOM[employer]aur XPT usi ng chemiluminescent technology.??Values obtained by using different assay methods cannot be used interchangeably. Provider Outr Resulting Lab CHEMISTRY & BLOOD GAS FAMILIA SETHI Performing Organization Address City/State/ZIP Code Phon e Number [facility] [address] [place] [address] SERVICES documented in this encounter Visit Diagnoses Not on filedocumented in this encounter Care Teams Agronomy Manager Relationship Specialty Start Date End Date Guillermina Chowdhury PCP - General Internal Medicine - Primary 09/16/20 4 [place] [address] documented as of this encounter
--- OUTSIDE RECORDS SUMMARY | 2022-07-23 00:54 | XMS_ITS | Encounter Summary ---
:1955 Author Organization [facility] Address [address] [place] [address] Care Team Providers Name Role Phone Khanh Everett MD Primary Care Provider Reason for Visit (Routine) - Receiving Office to Obtain Authorization Specialty Diagnoses / Procedures Referred By Contact Refer red To Contact Procedures Unknown, Provider, CT OUTSIDE IMAGES CHEST Phone: Referral ID Status Reason Start Expiration Visits Visits Date Date Requested Authorized [id number] Receiving Office 08/31/2020 1 1 to Obtain Authorization Encounter Details Date Type Department Care Team Description 08/25/2020 Hospital Encounter [facility] Secondary Reads [place] Social History Tobacco Use Types Packs/Day Years Used Date Smoking Tobacco: Never Assessed Sex Assigned at Date Recorded Not on file documented as of this encounter Discharge Disposition Disposition Code Departure Means Destination Home or Self Care documented in this encounter Plan of Treatment Upcoming Encounters Date Type Specialty Care Team Description 07/28/2022 Office Visit Dermatology Nikky Del Real MD [address] [facility], [facility], [address] [place], [place] [address] (Wo rk) documented as of this encounter Procedures Procedure Name Priority Date/Time Associated Diagnosis Comme nts CT OUTSIDE IMAGES Routine 08/31/2020 12:12 Result s for this CHEST EST procedure are i n the results section. documented in this encounter Results CT OUTSIDE IMAGES CHEST (08/31/2020 12:12 EST) Specimen (Source) Anatomical Location Collection Method / Collectio n Time Received Time / Laterality Volume Narrative 08/31/2020 12:12 EST This is a non-reportable exam. Provider Unknown MD HASKINS OTHER IMAGING ORDERABLES documented in this encounter Visit Diagnoses Not on filedocumented in this encounter Care Teams English Lecturer Relationship Specialty Start Date End Date Khanh Everett MD PCP - General 07/01/15 09/15/20 [address] [place] [address] documented as of this encounter
--- OUTSIDE RECORDS SUMMARY | 2022-07-23 00:54 | XMS_ITS | Encounter Summary ---
:1955 Author Organization [facility] Address [address] [place] [address] Care Team Providers Name Role Phone Guillermina Chowdhury Primary Care Provider Encounter Details Date Type Department Care Team Description 07/07/2022 Lab Requisition [facility] Outr Resulting Lab, Pathology & Laboratory Provider [facility] [address], [place] [address] Social History Tobacco Use Types Packs/Day Years [...] Visit Dermatology Nikky Del Real MD [address] [facility], [facility], [address] [place], [place] [address] (Wo rk) documented as of this encounter Procedures Procedure Name Priority Date/Time Associated Comments Diagnosis PROTEINASE 3 ANTIBODY Today 07/07/2022 7:45 Res ults for this EST procedure are i n the results section. MYELOPEROXIDASE ANTIBODY Today 07/07/2022 7:45 Results for this EST procedure are i n the results section. ANTI DNA (DOUBLE Routine 07/07/2022 7:45 Results for this STRANDED) EST procedure are i n the results section. ANCA, IFA Routine 07/07/2022 7:45 Results for this EST procedure are i n the results section. RHEUMATOID FACTOR Routine 07/07/2022 7:45 Results for this EST procedure are i n the results section. ANTI NUCLEAR AB (SARTHAK), Routine 07/07/2022 7:45 Re sults for this IFA EST procedure are i n the results section. documented in this encounter Results PROTEINASE 3 ANTIBODY (07/07/2022 7:45 EST) Analysis Performed At Patho logist Time Signature Proteinase 3 Ab <0.2 <0.4 07/13/2022 [facility] (PR3), S (Negative) 15:27 EST LABORATORIES U Comment: Test Performed by: [facility] [address] [place], [place] [address] Interior Design Director: Fan Alejandro M.D. Ph. D.; CLIA# [id number] Specimen Anatomical Collection Method Collection Time Receive d Time (Source) Location / / Volume Laterality Blood VENOUS BLOOD / 07/07/2022 7:45 07/07/2022 Unknown EST 16:51 EST Provider Outr Resulting Lab IMMUNOLOGY AND SEROLOGY OR DERABLES Performing Organization Address City/[facility] Code Phon e Number [facility] [address] [place] [address] MYELOPEROXIDASE ANTIBODY (07/07/2022 7:45 EST) Patholo gist Method Time Signature Myeloperoxidase Ab, <0.2 <0.4 07/13/2022 [facility] S (Negative 15:28 EST LABORATORIES ) U Comment: Test Performed by: [facility] [address] [place] [phone] Interior Design Director: Fan Alejandro M.D. Ph. D.; CLIA# [id number] Specimen Anatomical Collection Method Collection Time Receive d Time (Source) Location / / Volume Laterality Blood VENOUS BLOOD / 07/07/2022 7:45 07/07/2022 Unknown EST 16:51 EST Provider Outr Resulting Lab IMMUNOLOGY AND SEROLOGY OR DERABLES Performing Organization Address City/[facility] Phon e Number [facility] [address] [place] [address] RHEUMATOID FACTOR (07/07/2022 7:45 EST) athologist Signature Rheumatoid <8.6 <12.0 07/07/2022 [facility] MEDICAL Factor IU/mL 17:43 [facility][1] LABORATORY SERVICES Specimen Anatomical Collection Method Collection Time Receive d Time (Source) Location / / Volume Laterality Blood VENOUS BLOOD / 07/07/2022 7:45 07/07/2022 Unknown EST 16:51 EST Provider Outr Resulting Lab CHEMISTRY & BLOOD GAS ORDE RABLES Performing Organization Address City/[facility]/ZIP Code Phon e Number [facility] [address] [place] [address] SERVICES (ABNORMAL) ANCA, IFA (07/07/2022 7:45 EST) [facility] Method Time Signature Lab ANCA Positive Negative 07/12/2022 [facility] MEDICAL Interpretation (A) 13:04 [facility][1] LABORATORY SERVICES Comment: Positive fluoresence alone is not specif ic for the diagnosis of granulomatosis with polyangitis (GPA) or microscopic polyangitis (MPA). Decision about treatment should not be based solely on the ANCA re sults. Confirmatory MYL and PR3AB specif ic solid phase assays have been reflexed. Results were obtained with the INOVA NOV A Lite ANCA kit by indirect immunofluorescence. ANCA Titer Pattern 1 1:40 PANCA 07/12/2022 13:04 E [facility] LABORATORY SERVICES ANCA Titer Pattern 2 1:160 CANCA 07/12/2022 13:04 [facility] LABORATORY SERVICES Specimen Anatomical Collection Method Collection Time Receive d Time (Source) Location / / Volume Laterality Blood VENOUS BLOOD / 07/07/2022 7:45 07/07/2022 Unknown EST 16:51 EST Provider Outr Resulting Lab IMMUNOLOGY AND SEROLOGY OR DERABLES Performing Organization Address City/[facility]/ZIP Code Phon e Number [facility] [address] [place] [address] SERVICES ANTI DNA (DOUBLE STRANDED) (07/07/2022 7:45 EST) athologist Signature Anti-DNA <12.3 <30.0 07/08/2022 [facility] MEDICAL (Double IU/mL 14:47 EST CENTER Stranded) LABORATORY SERVICES Comment: ? Negative: ??<30.0 IU/mL ? Borderline Positive: ??30.0 - 75.0 IU/mL ? Positive: ??>75.0 IU/mL Results were obtained with the INOVA RICHARD NTA Lite dsDNA SC DHARMESH assay on the DigitalMR DSX. Specimen Anatomical Collection Method Collection Time Receive d Time (Source) Location / / Volume Laterality Blood VENOUS BLOOD / 07/07/2022 7:45 07/07/2022 Unknown EST 16:51 EST Provider Outr Resulting Lab IMMUNOLOGY AND SEROLOGY OR DERABLES Performing Organization Address City/State/ZIP Code Phon e Number [facility] [address] [place] [address] SERVICES (ABNORMAL) ANTI NUCLEAR AB (SARTHAK), IFA (07/07/2022 7:45 EST) [facility] Method Time Signature SARTHAK Positive Negative 07/08/2022 [facility] MEDICAL Interpretation (A) 14:03 [facility][1] LABORATORY SERVICES SARTHAK Titer and 1:80 07/08/2022 [facility] MEDICAL Pattern 1 Speckled 14:03 [facility][1] LABORATORY SERVICES Specimen Anatomical Collection Method Collection Time Receive d Time (Source) Location / / Volume Laterality Blood VENOUS BLOOD / 07/07/2022 7:45 07/07/2022 Unknown EST 16:51 EST Narrative [facility] SERVICES - 07/08/2022 14:03 EST Results were obtained with the INOVA NOV A Lite HEp-2 SARTHAK Kit by indirect immunofluorescence. Provider Outr Resulting Lab IMMUNOLOGY AND SEROLOGY OR DERABLES Performing Organization Address City/[facility]/ZIP Code Phon e Number [facility] [address] [place] [address] SERVICES documented in this encounter Visit Diagnoses Not on filedocumented in this encounter Care Teams Home Demonstration Agent Relationship Specialty Start Date End Date Guillermina Chowdhury PCP - General Internal Medicine - Primary 09/16/20 4 [place]LA [place] [facility] [place] [address] documented as of this encounter
--- OUTSIDE RECORDS SUMMARY | 2022-07-23 00:54 | XMS_ITS | CCD ---
:1955 Author Care Team Providers Name Role Phone MILAGRO LAM Attending Physician Unavailable YI BAZZI Er Physician 1 Unavailable BELINDA HORN (Secondary) Physician UnavailMARILYN Myers Registered Nurse Unavailable JUS Boss Registered Nurse Unavailable Vital Signs Vital Sign Value Unit Date/Time Recent/Initial? BMI (Body Mass Index) 25.85 kg/m^2 01/28/2022 18:34 In itial VS Weight Measured 170 lbs 01/28/2022 18:34 Initial VS Height 68 in 01/28/2022 18:34 Initial VS BSA (Body Surface Area) 1.92 m^2 01/28/2022 18:34 Initial VS BP Systolic 178 mmHg 01/28/2022 18:34 Initial VS BP Diastolic 116 mmHg 01/28/2022 18:34 Initial VS Respiratory Rate 25 bpm 01/28/2022 18:34 Initial VS Heart Rate 90 bpm 01/28/2022 18:34 Initial VS O2 % BldC Oximetry 77 % 01/28/2022 18:34 Initi al VS Body Temperature 36.7 degrees 01/28/2022 18:34 Initial VS BMI (Body Mass Index) 26.7 kg/m^2 01/28/2022 21:[address] Recent VS Weight Measured 175.6 lbs 01/28/2022 21:40 Most Rec ent VS Height 68 in 01/28/2022 21:40 Most Recent VS BSA (Body Surface Area) 1.95 m^2 01/28/2022 21:40 Most Recent VS BP Systolic 132 mmHg 01/29/2022 07:11 Most Recent VS BP Diastolic 75 mmHg 01/29/2022 07:11 Most Recent VS Respiratory Rate 18 bpm 01/29/2022 07:11 Most Re cent VS Heart Rate 81 bpm 01/29/2022 07:11 Most Recent VS O2 % BldC Oximetry 91 % 01/29/2022 07:11 Most Recent VS Body Temperature 35.6 degrees 01/29/2022 07:11 Most Re cent VS Allergies Allergy Code Allergy Type Reaction Status No Known Allergies 0 No known allergies Act benny Procedures Unknown or Not Available. History of Immunizations Unknown or Not Available. 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 Hypoxia 859969870 Active Fever 279927192 Active Hypertension 57448521 Active Hypertension 56370421 01/28/2022 Resolved Hyperlipidemia 42336750 01/28/2022 Resolved Hypersensitivity pneumonitis 41745758 01/28/2022 Resolved Results BASIC METABOLIC PANEL (BMP) - Collect Da te/Time: 01/29/2022 06:14 Test Name Code Test Result Test Units Test Ref Range GLUCOSE 2345-7 146 mg/dL L=70 H=116 BUN 3094-0 14 mg/dL L=6 H=25 CREATININE 2160-0 0.89 mg/dL L=0.67 H=1.17 SODIUM SERUM 2951-2 127 mmol/L L=136 H=145 POTASSIUM SERUM 2823-3 4.7 mmol/L L=3.4 H=5.2 CHLORIDE SERUM 2075-0 95 mmol/L L=96 H=110 CARBON DIOXIDE (CO2) 2028-9 27 mmol/L L=22 H= 34 ANION GAP 19434-1 5.2 mmol/L CALCIUM SERUM 72802-9 8.1 mg/dL L=8.2 H=10.2 AGE 66 years eGFR (non-Afr.Amer.) 43089-6 85 mL/min eGFR (Afr-Cypriot) 23674-1 103 mL/min BNP (PRO-B NATRIURETIC PEPTIDE) - [facility] t Date/Time: 01/28/2022 18:40 Test Name Code Test Result Test Units Test Ref Range NT-proBNP 29509-7 1666.0 pg/mL L=0.0 H=125 COMPREHENSIVE METABOLIC PANEL (CMP) - Tn llect Date/Time: 01/28/2022 18:40 Test Name Code Test Result Test Units Test Ref Range GLUCOSE 2345-7 106 mg/dL L=70 H=116 BUN 3094-0 12 mg/dL L=6 H=25 CREATININE 2160-0 1.03 mg/dL L=0.67 H=1.17 SODIUM SERUM 2951-2 132 mmol/L L=136 H=145 POTASSIUM SERUM 2823-3 4.7 mmol/L L=3.4 H=5.2 CHLORIDE SERUM 2075-0 97 mmol/L L=96 H=110 CARBON DIOXIDE (CO2) 2028-9 29 mmol/L L=22 H= 34 ANION GAP 97070-8 6.1 mmol/L CALCIUM SERUM 82621-6 8.6 mg/dL L=8.2 H=10.2 BILIRUBIN TOTAL 1975-2 1.1 mg/dL L=0.0 H=1.3 ALK. PHOS. 6768-6 84 U/L L=46 H=116 SGOT (AST) 1920-8 29 U/L L=15 H=37 SGPT (ALT) 1742-6 28 U/L L=12 H=78 TOTAL PROTEIN 2885-2 8.4 gm/dL L=6.0 H=8.0 ALBUMIN 1751-7 3.7 gm/dL L=3.4 H=5.0 AGE 66 years eGFR (non-Afr.Amer.) 05108-6 72 mL/min eGFR (Afr-Cypriot) 44102-9 87 mL/min TROPONIN HIGH SENSITIVITY* - Collect Lobito e/Time: 01/28/2022 18:40 Test Name Code Test Result Test Units Test Ref Range TROPONIN HS 32.4 pg/mL L=0.0 H=60.4 Specimen seq. ADM. N/A CBC W/ DIFFERENTIAL* - Collect Date/Time : 01/29/2022 06:14 Test Name Code Test Result Test Units Test Ref Range WBC 6690-2 9.09 th/cmm L=5.00 H=10.00 NEUT % 91.2 % L=40.0 H=80.0 LYMPH % 6.6 % L=10.0 H=50.0 MONO % 91876-2 1.8 % L=2.0 H=12.0 EOS % 0.0 % L=0.0 H=8.0 BASO % 0.1 % L=0.0 H=3.0 IG % 2514-8 0.3 % L=0.0 H=1.1 NRBC % 02551-6 0.0 % L=0.0 H=0.0 NEUT abs count 751-8 8.3 th/cmm L=1.6 H=8.4 LYMPH abs count 731-0 0.6 th/cmm L=1.5 H=4.0 MONO abs count 742-7 0.2 th/cmm L=0.2 H=1.0 EOS abs count 711-2 0.0 th/cmm L=0.0 H=0.5 BASO abs count 704-7 0.0 th/cmm L=0.0 H=0.2 IG abs count 17519-7 0.0 th/cmm L=0.0 H=0.1 NRBC abs count 80515-0 0.0 mil/cmm L=0.0 H=0.0 RBC 789-8 5.45 mil/cmm L=4.30 H=6.20 HEMOGLOBIN 718-7 16.0 gm/dL L=13.0 H=17.0 HEMATOCRIT 4544-3 48 % L=45 H=52 MCV 787-2 88 fL L=82 H=92 MCH 785-6 29.4 pg L=27.0 H=31.0 MCHC 786-4 33.4 % L=32.0 H=36.0 RDW-SD 788-0 46.1 fL L=39.0 H=49.0 PLATELET COUNT 777-3 220 th/cmm L=150 H=450 CBC W/ DIFFERENTIAL* - Collect Date/Time : 01/28/2022 18:40 Test Name Code Test Result Test Units Test Ref Range WBC 6690-2 11.88 th/cmm L=5.00 H=10.00 NEUT % 80.7 % L=40.0 H=80.0 LYMPH % 11.5 % L=10.0 H=50.0 MONO % 04662-6 5.5 % L=2.0 H=12.0 EOS % 1.6 % L=0.0 H=8.0 BASO % 0.4 % L=0.0 H=3.0 IG % 2514-8 0.3 % L=0.0 H=1.1 NRBC % 42072-3 0.0 % L=0.0 H=0.0 NEUT abs count 751-8 9.6 th/cmm L=1.6 H=8.4 LYMPH abs count 731-0 1.4 th/cmm L=1.5 H=4.0 MONO abs count 742-7 0.7 th/cmm L=0.2 H=1.0 EOS abs count 711-2 0.2 th/cmm L=0.0 H=0.5 BASO abs count 704-7 0.1 th/cmm L=0.0 H=0.2 IG abs count 62358-1 0.0 th/cmm L=0.0 H=0.1 NRBC abs count 11072-4 0.0 mil/cmm L=0.0 H=0.0 RBC 789-8 5.64 mil/cmm L=4.30 H=6.20 HEMOGLOBIN 718-7 16.6 gm/dL L=13.0 H=17.0 HEMATOCRIT 4544-3 50 % L=45 H=52 MCV 787-2 89 fL L=82 H=92 MCH 785-6 29.4 pg L=27.0 H=31.0 MCHC 786-4 33.1 % L=32.0 H=36.0 RDW-SD 788-0 48.1 fL L=39.0 H=49.0 PLATELET COUNT 777-3 234 th/cmm L=150 H=450 PIOTR COVID FLU RSV GENEXPERT - Collect Date/Time: 01/28/2022 18:40 Test Name Code Test Result Test Units Test Ref Range COVID NEGATIVE N/A Normal: Negativ e INFLUENZA A DNA NEGATIVE N/A Normal: Nega tive INFLUENZA B DNA NEGATIVE N/A Normal: Nega tive RSV DNA NEGATIVE N/A Normal: Negativ e URINALYSIS WITH MICRO AND REFLEX CULTUR* - Collect Date/Time: 01/28/2022 23:37 Test Name Code Test Result Test Units Test Ref Range COLLECTION MODE: 93065-0 STRAIGHT CATH N/A Color 5778-6 YELLOW N/A yellow Appearance 5767-9 CLEAR N/A clear Glucose urine 43918-0 NEGATIVE N/A negative mg/dl Bilirubin 5770-3 NEGATIVE N/A negative Ketones 2514-8 15 N/A negative mg/dl Spec gravity 5811-5 >=1.030 N/A 1.003 - 1.030 pH urine 2756-5 5.5 N/A 5.0 - 7.0 Protein 24099-6 TRACE N/A negative mg/dl Urobilinogen 68083-8 0.2 N/A <or= 1 EU/dl Nitrite. 5802-4 NEGATIVE N/A negative Blood 5794-3 NEGATIVE N/A negative Leukocytes. NEGATIVE N/A negative WBCs. 94435-7 0-5 N/A 0-5 / hpf RBCs 10552-4 0-5 N/A 0-5 / hpf Epith cells 61712-6 0-5 N/A 0-5 / hpf Cell types squam+trans N/A Crystals none N/A none Bacteria minimal N/A none Mucus 8247-9 present N/A none Casts 05003-5 5-10 N/A none /lpf Cast types hyaline N/A Active Medications Medications Administered During Visit Medication Dose Units Frequency Route Date/Time of L ast Dose NITROGLYCERIN TABLET SL (25CT): 0.4 MG PRN Q5MIN SL 01/28/2022 18:54 0.4MG MethylPREDNISolone SUC INJ 125 MG X1 IVP 01/28/2022 19:30 SDV:125MG/2ML ONDANSETRON INJ SDV: 4MG/2ML 4 MG X1 IVP 01/28/2022 19:00 SODIUM CHLORIDE 0.9% 1000ML 1000 ML X1 01/28/2022 20:28 CefTRIAXone IVPB: 1GM/50ML 1 GM X1 01/28/2022 20:40 AZITHROMYCIN IVPB: 500MG/250ML 500 MG X1 01/28/2022 21:13 SODIUM CHLORIDE 0.9% FLUSH 10ML 2 ML Q8H IVP 01/29/2022 05:50 SYRINGE MethylPREDNISolone SUC INJ 40 MG DAILY IVP 01/29/2022 08:21 SDV:40MG/1ML LISINOPRIL TABLET: 10MG 10 MG DAILY PO 0 01/29/2022 08:27 Encounters Encounter Diagnosis Diagnosis Code Start Date Hypoxemia R0902 01/28/2022 Social History Smoking Status Code Start Date End Date Never smoker [id number] Patient Decision Aids Unknown or Not Available. Discharge Instructions You were admitted to [facility] on 01/28/2022 21:08 with a principal diagnosis of Hypoxemia You had the following tests done: BASIC METABOLIC PANEL (BMP) CBC W/ DIFFERENTIAL* URINALYSIS WITH MICRO AND REFLEX CULTUR* BNP (PRO-B NATRIURETIC PEPTIDE) CBC W/ DIFFERENTIAL* COMPREHENSIVE METABOLIC PA PUALINO (CMP) [facility] COVID FLU RSV GENEXPERT TROPONIN HIGH SENSITIVITY* You were discharged from [facility] on 01/29/2022 12:40 Should you have any questions prior to d ischarge, please contact a member of your healthcare team. If you have left the ho spital and have any questions, please contact your primary care physician. Chief Complaint and Reason For Visit Chief Complaint Date of Onset HYPOXIA 01/28/2022 Function Status Unknown or Not Available. Plan of Care Unknown or Not Available. Referral/Transition of Care Unknown or Not Available.
--- OUTSIDE RECORDS SUMMARY | 2022-07-23 00:54 | XMS_ITS | Encounter Summary ---
:1955 Author Organization [facility] Address [address] [place] [address] Care Team Providers Name Role Phone Unavailable Primary Care Provider Unavailable Encounter Details Date Type Department Care Team Description 12/06/2002 Hospital Encounter [facility] - Beata Shane MD [employer] [address] [place] [address] [place] [address] [phone] Social History Tobacco Use Types Packs/Day Years Used Date Smoking Tobacco: Never Assessed Sex Assigned at Date Recorded Not on file documented as of this encounter Discharge Disposition Disposition Code Departure Means Destination Auto Discharge documented in this encounter Plan of Treatment Upcoming Encounters Date Type Specialty Care Team Description 07/28/2022 Office Visit Dermatology Nikky Del Real MD [address] [facility], [facility], [address] [place], [place] [address] (Wo rk) documented as of this encounter Procedures Procedure Name Priority Date/Time Associated Diagnosis Comme nts CHEST PA AND Routine 02/25/2003 9:48 EDT Results for this LATERAL procedure are i n the results section. documented in this encounter Results CHEST PA AND LATERAL (02/25/2003 9:48 EDT) Anatomical Region Laterality Modality Other Specimen (Source) Anatomical Collection Method Collection Time Re ceived Time Location / / Volume Laterality 02/25/2003 9:48 EDT Narrative 05/06/2009 2:44 EDT HYPERSENSITIVITY PNEUMONIA ?? --- ? INTERVAL CHANGE MF HERE/GFTP PA AND LATERAL CHEST 02/25/03, 0945 hour s CLINICAL HISTORY: hypersensitivity pneum onia, rule out interval change. COMPARISON: 12/06/02 FINDINGS: There has been near complete r esolution of interstitial-airspace opacities, which w as most pronounced at the lung bases on the prior examination. There is minimal residual. The lungs are otherwise, clear. No pleural abnorma lity is identified. The cardiomediastinal silhouette and pulmona ry vascularity are normal. D 02/25/03 T 02/26/03 /christian Procedure Note Roger Murphy MD - 05/06/2009For matting of this note might be different from the original. HYPERSENSITIVITY PNEUMONIA --- ? INTERVA L CHANGE MF HERE/GFTP PA AND LATERAL CHEST 02/25/03, 0945 hour s CLINICAL HISTORY: hypersensitivity pneum onia, rule out interval change. COMPARISON: 12/06/02 FINDINGS: There has been near complete r esolution of interstitial-airspace opacities, which w as most pronounced at the lung bases on the prior examination. There is minimal residual. The lungs are otherwise, clear. No pleural abnorma lity is identified. The cardiomediastinal silhouette and pulmona ry vascularity are normal. D 02/25/03 T 02/26/03 /christian Hiren Shane MD IMG DIAGNOSTIC IMAGING ORDER BOBBI documented in this encounter Visit Diagnoses Not on filedocumented in this encounter
--- OUTSIDE RECORDS SUMMARY | 2022-07-23 00:54 | XMS_ITS | CCD ---
:1955 Author Care Team Providers Name Role Phone CADEN MERRILL Attending Physician Unavailable CADEN MERRILL Rounding (Secondary) Physician Unavailab le Vital Signs Unknown or Not Available. Allergies Allergy Code Allergy Type Reaction Status No Known Allergies 0 No known allergies Act benny Procedures Unknown or Not Available. History of Immunizations Unknown or Not Available. 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 Active Medications Medication Code Dose Units Frequency Route Modification Start Date/Time predniSONE 20MG 085368 2 TABLET DAILY ORAL 01/30/20 22 Oral Tablet 11:45 Prescription Detail TAKE 2 TABLET ORAL DAILY amLODIPine Besylate 5MG Oral 241989 5 MILLIGRAMS DAILY ORAL 01/29/2022 11:40 Tablet Prescription Detail TAKE 5 MILLIGRAMS ORAL DAILY Atorvastatin Calcium 20MG 171255 20 MILLIGRAMS BEDTIME ORAL 01/29/2022 11:40 Oral Tablet Prescription Detail TAKE 20 MILLIGRAMS ORAL BEDT ASIYA Benzonatate 150MG 819784 150 MILLIGRAMS TWICE A DAY ORAL 01/29/2022 11:40 Oral Capsule, Liquid Filled Prescription Detail TAKE 150 MILLIGRAMS ORAL TWI CE A DAY Medications Administered During Visit Unknown or Not Available. Encounters Encounter Diagnosis Diagnosis Code Start Date Unilateral inguinal hernia, without obstruction or K4090 02/16/2022 gangrene, not specified as recurrent Social History Smoking Status Code Start Date End Date Never smoker [id number] Patient Decision Aids Unknown or Not Available. Discharge Instructions You were admitted to [facility] on 02/16/2022 09:45 with a principal diagnosis of Unilateral inguinal hernia, without o bstruction or gangrene, not specified as recurrent You were discharged from [facility] on 02/16/2022 00:00 Should you have any questions prior to d ischarge, please contact a member of your healthcare team. If you have left the ho spital and have any questions, please contact your primary care physician. Chief Complaint and Reason For Visit Unknown or Not Available. Function Status Unknown or Not Available. Plan of Care Unknown or Not Available. Referral/Transition of Care Unknown or Not Available.
--- OUTSIDE RECORDS SUMMARY | 2022-07-23 00:54 | XMS_ITS | Encounter Summary ---
:[address] [facility] Address [address] [place] [address] Care Team Providers Name Role Phone Guillermina Chowdhury Primary Care Provider Reason for Visit Reason Onset Date Comments Medication Management 10/30/2020 Encounter Details Date Type Department Care Team Description 10/30/2020 Telephone [facility] Beatrice Nicole [facility] Pul[facility]ology [facility] Critical PA-C [address] [facility] [place] [address] Medical Office [phone] [facility], [address] [place] [address] (Wo rk) Social History Tobacco Use Types Packs/Day Years Used Date Smoking Tobacco: Never Smokeless Tobacco: Never Sex Assigned at Date Recorded Not on file documented as of this encounter Miscellaneous Notes Telephone Encounter - Renuka Boston - 10/30/2020 0934 EST Patient called asking the Prednisone 20 mg Rx be sent to [facility] in [place] as was sent to [facility] in [place] in error. documented in this encounter Plan of Treatment Upcoming Encounters Date Type Specialty Care Team Description 07/28/2022 Office Visit Dermatology Nikky Del Real MD [address] [facility], [place], [address] [place], [place] [address] (Wo rk) documented as of this encounter Visit Diagnoses Not on filedocumented in this encounter Care Teams Data Processing Manager Relationship Specialty Start Date End Date Guillermina Chowdhury PCP - General Internal Medicine - Primary 09/16/20 [address] [place] [address] documented as of this encounter
--- OUTSIDE RECORDS SUMMARY | 2022-07-23 00:54 | XMS_ITS | Clinical Summary ---
:1955 Author Organization [facility] Address [address] [place] [address] Care Team Providers Name Role Phone Guillermina Chowdhury Primary Care Provider Allergies No known active allergies Medications Medication Sig Dispensed Refills Start Date End Date Status lisinopriL (PRINIVIL) Take 10 mg by 0 Active 10 mg tablet mouth daily. sildenafil citrate Take 100 mg by 0 Active (VIAGRA) 100 mg mouth as needed tablet for Erectile Dysfunction. Take half tab to one tab as needed prior to intercourse atorvastatin Take 20 mg by 0 Act benny (LIPITOR) 20 mg mouth daily. Take tablet at bedtime benzonatate Take 1 capsule by 90 capsule 3 03/12/2021 Active (TESSALON) 100 mg mouth 3 times capsule daily as needed for Cough. guaiFENesin-codeine Take 5 mL by mouth 150 mL 0 03/12/2021 Active (CHERATUSSIN AC) every 8 hours as 100-10 mg/5 mL liquid needed for Cough. Daily Max: 15 mL triamcinolone Apply topically to 454 g 3 06/23/2021 Active (KENALOG) 0.1 % affected area 2 ointmentIndications: times daily. Do Other eczema not apply to face, armpit or groin. betamethasone Apply topically to 45 g 1 06/23/2021 Active dipropionate affected area 2 (DIPROLENE) 0.05 % times daily. ointmentIndications: [place] for Other eczema itchiest areas Active Problems No known active problems Encounters Date Type Specialty Care Team Description 07/07/2022 Lab Requisition Clinical Laboratory Outr Resulting Lab , Provider 07/07/2022 Lab Requisition Clinical Laboratory Outr Resulting Lab , Provider 07/07/2022 Lab Requisition Clinical Laboratory Outr Resulting Lab , Provider from Last 3 Months Immunizations Name Administration Dates Next Due Historical DTaP Vaccine, Unspecified 01/24/2017 Historical Influenza Vaccine, Unspecified 07/30/2019 Historical Zoster Vaccine, Unspecified 06/12/2018 Influenza Vaccine Quad High Dose (FLUZONE HIGH DOSE) PF 11/0 09/2020 0.7 ml IM (65 yrs+) Pneumococcal Polysaccharide (PPSV23) Vaccine 08/04/2020 (PNEUMOVAX-23) =>2YO SQ/IM Social History Tobacco Use Types Packs/Day Years Used Date Smoking Tobacco: Never Smokeless Tobacco: Never Sex Assigned at Date Recorded Not on file Obstetrics History Last Filed Vital Signs Vital Sign Reading Time Taken Comments Blood Pressure 148/72 03/12/2021 1505 EDT Pulse 72 03/12/2021 1505 EDT Temperature 36.5 ??C (97.7 ??F) 03/12/2021 1505 EDT Respiratory Rate 24 09/17/2020 1124 EST Oxygen Saturation 95% 03/12/2021 1505 EDT Inhaled Oxygen Concentration - - Weight 84.6 kg (186 lb 8.2 oz) 03/12/2021 1505 EDT Height 171.4 cm (5' 7.48) 03/12/2021 1505 EDT Body Mass Index 28.8 03/12/2021 1505 EDT Plan of Treatment Upcoming Encounters Date Type Specialty Care Team Description 07/28/2022 Office Visit Dermatology Nikyk Del Real MD [address] [facility], [facility], [address] [place], [place] [address] (Wo rk) Health Maintenance Due Date Last Done Comments Hepatitis C Screen 1955 COVID-19 Vaccine (#1) 03/04/1956 Fall Risk Screening 06/23/2022 06/23/2021 Procedures Procedure Name Priority Date/Time Associated Comments [...] procedure are i n the results section. HIV 1/2 ANTIGEN AND Routine 07/07/2022 7:45 Resul ts for this ANTIBODY, 4TH GENERATION EST pro cedure are in the results section. [facility]CP ANTIBODIES Routine 07/06/2022 18:34 Results f or this EST procedure are i n the results section. CT OUTSIDE IMAGES CHEST Routine 07/05/2022 10:35 Results for this EST procedure are i n the results section. from Last 3 Months Results PROTEINASE 3 ANTIBODY (07/07/2022 7:45 EST) Analysis Performed At Patho logist Time Signature Proteinase 3 Ab <0.2 <0.4 07/13/2022 [facility] (PR3), S (Negative) 15:27 EST LABORATORIES U Comment: Test Performed by: [facility] [address] [place] [address] 40 235 Resource Coordinator: Fan Alejandro M.D. Ph. D.; CLIA# [id number] Specimen Anatomical Collection Method Collection Time Receive d Time (Source) Location / / Volume Laterality Blood VENOUS BLOOD / 07/07/2022 7:45 07/07/2022 Unknown EST 16:51 EST Provider Outr Resulting Lab IMMUNOLOGY AND SEROLOGY OR DERABLES Performing Organization Address City/State/ZIP Code Phon e Number [facility] [address] [place] [address] MYELOPEROXIDASE ANTIBODY (07/07/2022 7:45 EST) Patholo gist Method Time Signature Myeloperoxidase Ab, <0.2 <0.4 07/13/2022 [facility] S (Negative 15:28 EST LABORATORIES ) U Comment: Test Performed by: [facility] [address] [place] [address] 11 436 Resource Coordinator: Fan Alejandro M.D. Ph. D.; CLIA# [id number] Specimen Anatomical Collection Method Collection Time Receive d Time (Source) Location / / Volume Laterality Blood VENOUS BLOOD / 07/07/2022 7:45 07/07/2022 Unknown EST 16:51 EST Provider Outr Resulting Lab IMMUNOLOGY AND SEROLOGY OR DERABLES Performing Organization Address City/State/ZIP Code Phon e Number [facility] [address] [place] [address] ANTI DNA (DOUBLE STRANDED) (07/07/2022 7:45 EST) athologist Signature Anti-DNA <12.3 <30.0 07/08/2022 [facility] (Double IU/mL 14:47 EST CENTER Stranded) LABORATORY SERVICES Comment: ? Negative: ??<30.0 IU/mL ? Borderline Positive: ??30.0 - 75.0 IU/mL ? Positive: ??>75.0 IU/mL Results were obtained with the [employer] RICHARD NTA Lite dsDNA SC DHARMESH assay on the Eloxx DSX. Specimen Anatomical Collection Method Collection Time Receive d Time (Source) Location / / Volume Laterality Blood VENOUS BLOOD / 07/07/2022 7:45 07/07/2022 Unknown EST 16:51 EST Provider Outr Resulting Lab IMMUNOLOGY AND SEROLOGY OR DERABLES Performing Organization Address City/State/ZIP Code Phon e Number [facility] [address] [place] [address] SERVICES (ABNORMAL) ANCA, IFA (07/07/2022 7:45 EST) Patholo gist Method Time Signature Lab ANCA Positive Negative 07/12/2022 [facility] Interpretation (A) 13:04 EST CENTER LABORATORY SERVICES Comment: Positive fluoresence alone is [...] Pattern 1 1:40 PANCA 07/12/2022 13:[address] [facility] ANCA Titer Pattern 2 1:160 CANCA 07/12/2022 13:04 EST [facility] Specimen Anatomical Collection Method Collection Time Receive d Time (Source) Location / / Volume Laterality Blood VENOUS BLOOD / 07/07/2022 7:45 07/07/2022 Unknown EST 16:51 EST Provider Outr Resulting Lab IMMUNOLOGY AND SEROLOGY OR DERABLES Performing Organization Address City/[facility]/ZIP Code Phon e Number [facility] [address] [place] [address] SERVICES RHEUMATOID FACTOR (07/07/2022 7:45 EST) athologist Signature Rheumatoid <8.6 <12.0 07/07/2022 [facility] Factor IU/mL 17:43 EST [facility] SERVICES Specimen Anatomical Collection Method Collection Time Receive d Time (Source) Location / / Volume Laterality Blood VENOUS BLOOD / 07/07/2022 7:45 07/07/2022 Unknown EST 16:51 EST Provider Outr Resulting Lab CHEMISTRY & BLOOD GAS ORDE RABLES Performing Organization Address [facility] Phon e Number [facility] [address] [place] [address] SERVICES HIV 1/2 ANTIGEN AND ANTIBODY, 4TH GENERATION (07/07/2022 7:45 EST) [facility] Signature HIV 1 and 2 Negative Negative 07/08/2022 [facility] MEDICAL Antibody/p24 10:31 EST [facility] Antigen, 4th LABORATORY Generation SERVICES Comment: If acute HIV-1 infection is marissa pected in a high risk patient, submit plasma specimen for HIV-1 RNA quantitation test . Specimen Anatomical Collection Method Collection Time Receive d Time (Source) Location / / Volume Laterality Blood VENOUS BLOOD / 07/07/2022 7:45 07/07/2022 Unknown EST 16:54 EST Narrative [facility] - 07/08/2022 10:31 EST Fourth Generation assay performed on the Siemens Centaur XPT. Provider Outr Resulting Lab IMMUNOLOGY AND SEROLOGY OR DERABLES Performing Organization Address City/[facility]/ZIP Code Phon e Number [facility] [address] [place] [address] SERVICES (ABNORMAL) ANTI NUCLEAR AB (SARTHAK), IFA (07/07/2022 7:45 EST) [facility] Signature SARTHAK Positive Negative 07/08/2022 [facility] Interpretation (A) 14:[address] [facility] CENTER LABORATORY SERVICES SARTHAK Titer and 1:80 07/08/2022 [facility] Pattern 1 Speckled 14:03 [facility] SERVICES Specimen Anatomical Collection Method Collection Time Receive d Time (Source) Location / / Volume Laterality Blood VENOUS BLOOD / 07/07/2022 7:45 07/07/2022 Unknown EST 16:51 EST Narrative [facility] - 07/08/2022 14:03 EST Results were obtained with the [employer] NOV A Lite HEp-2 SARTHAK Kit by indirect immunofluorescence. Provider Outr Resulting Lab IMMUNOLOGY AND SEROLOGY OR DERABLES Performing Organization Address City/State/ZIP Code Phon e Number [facility] [address] [place] [address] SERVICES CCP ANTIBODIES (07/06/2022 18:34 EST) athologist Signature CCP Antibodies <2.5 <5.0 U/mL 07/08/2022 [facility] 11:10 [facility] SERVICES Specimen Anatomical Collection Method Collection Time Receive d Time (Source) Location / / Volume Laterality Blood VENOUS BLOOD / 07/06/2022 18:34 2 Unknown EST 16:54 EST Provider Outr Resulting Lab IMMUNOLOGY AND SEROLOGY OR DERABLES Performing Organization Address City/State/ZIP Code Phon e Number [facility] [address] [place] [address] OUTSIDE IMAGES CHEST (07/05/2022 10:35 EST) Specimen (Source) Anatomical Location Collection Method / Collectio n Time Received Time / Laterality Volume Narrative 07/14/2022 10:35 EST This is a non-reportable exam. External Imaging IMG OTHER IMAGING ORDERABLES from Last 3 Months Insurance Payer Benefit Plan / Subscriber ID Effective Phone Address T ype Group Dates AETNA AETNA [facility] [id number] 2020-Pre [phone] SUPPLEMENTAL sent [phone] [place] [address] MEDICARE MEDICARE A/B [id number] 2018-Pres [id number] [place] [address] DialloShashankAmando Personal/Family Self 1955 [address] (Home) [place] [address] DialloShashankAmando Personal/Family Self 1955 [address] (Home) [place] [address] DialloShashankAmando Personal/Family Self 1955 [address] (Home) [place] [address] DialloAmando Personal/Family Self 1955 [address] (Home) [place] [address] Care Teams Mobile Equipment Servicer Relationship Specialty Start Date End Date Guillermina Chowdhury PCP - General Internal Medicine - Primary 09/16/20 4 KAYLA [place] [address]
--- OUTSIDE RECORDS SUMMARY | 2022-07-23 00:54 | XMS_ITS | Encounter Summary ---
:1955 Author Organization [facility] Address [address] [place] [address] Care Team Providers Name Role Phone Khanh Everett MD Primary Care Provider Encounter Details Date Type Department Care Team Description 08/20/2020 Orders Only [facility] Tiana, Contact w [facility] and Pulmonology & Critical LADARIUS Watts (susp ected) exposure to Care - [facility] other communicable [address] [place] [address] diseases (Primary Dx) [place], [place] [address] Social History Tobacco Use Types Packs/Day Years Used Date Smoking Tobacco: Never Assessed Sex Assigned at Date Recorded Not on file documented as of this encounter Plan of Treatment Upcoming Encounters Date Type Specialty Care Team Description 07/28/2022 Office Visit Dermatology Nikky Del Real MD [address] [facility], [facility], [address] [place], [place] [address] (Wo rk) documented as of this encounter Visit Diagnoses Diagnosis Contact with and (suspected) exposure to other communicable diseases - Primary documented in this encounter Care Teams Shirt Maker Relationship Specialty Start Date End Date Khahn Everett MD PCP - General 07/01/15 09/15/20 [address] [place], [place] [address] documented as of this encounter
--- OUTSIDE RECORDS SUMMARY | 2022-07-23 00:54 | XMS_ITS | Encounter Summary ---
:[address] [facility] Address [address] [place] [address] Care Team Providers Name Role Phone Guillermina Chowdhury Primary Care Provider Reason for Referral Consult (Routine) - Closed Specialty Diagnoses / Procedures Referred By Contact Refer red To Contact Rheumatology Diagnoses SARTHAK positive ILD (interstitial lung disease) ([facility]) ([facility]) Beatrice Nicole PA-C [facility] Rheumatology [address] [place] [address] [address] [facility] [place] [address] Office Building, Suite Phone: [phone] [place] [address] Referral ID Status Reason Start Date Expiration Date Visits V isits Requested Authorized [id number] Closed Specialty 10/28/2020 1 1 Services Required Question Answer Reason for Request: elevated SARTHAK, abnormal myelo peroxidase, rash, ILD? evaluate for autoimmune proc ess Reason for Visit Reason Comments Telemedicine Phone Call Insterstitial Lung Disease Encounter Details Date Type Department Care Team Description 10/28/2020 Telemedicine [facility] Trinh Nicoleens itivity pneumonitis ([facility]) (Primary Dx); Pulmonology & ILDA Barron SARTHAK positive; Critical Care - [address] ILD (in terstitial lung disease) ([facility]) [facility] [address] [facility] [place] [address] Medical Office [phone] Building, [address] [place] [address] Social History Tobacco Use Types Packs/Day Years Used Date Smoking Tobacco: Never Smokeless Tobacco: Never Sex Assigned at Date Recorded Not on file documented as of this encounter Patient Instructions Patient InstructionsBeatrice Nicole PA-C - 10/28/2020 11:30 EST Prednisone 40 mg daily for 2 weeks then 30 mg daily for 2 weeks then 20 mg daily We will refer you to see rheumatology at [facility] because of mildly abnormal blood work, rash Follow up in 6 weeks via phone Please call sooner with any questions or concerns at [phone] Beatrice Nicole PA-C documented in this encounter Ordered Prescriptions Prescription Sig Dispensed Refills Start Date End Date predniSONE (DELTASONE) 20 Take 2 Tabs by 77 Tab 0 202010/30/2020 mg tablet mouth daily for 14 days, THEN 1.5 Tabs daily for 14 days, THEN 1 Tab daily for 28 days. documented in this encounter Progress Notes Beatrice Nicole PA-C - 10/28/2020 1130 EST Images from the original note were not included. Pulmonary Clinic Follow up Visit 10/28/2020 Pulmonary History Chronic hypersensitivity pneumonitis -H/o acute/subacute HP as a child, [address] 08/25/2020-ILD with evidence of honeycombing, traction bronchiectasis + HP panel HPI: Pineda is a 65 y.o. male with a past medical history of hypertension, hyperlipidemia, never smoker who presents today in follow-up. Last seen in pulmonary clinic as a new patient 09/17/2020 Noted to have erythematous scaling nummular rash - scheduled to see dermatology [facility] year 12/2020 Dyspnea stable Denies recent illnesses Scheduled to receive Covid vaccination Presents today to discuss labs and next steps + SARTHAK 1: 320, equivocal myeloperoxidase + HP panel History: ?? 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 Removed exposure with symptomatic improvement ?? No medication ?? C/o progressively worsening dyspnea on exertion over the last 3 years ?? If walking in the varg[place] for 25 feet, has to stop to catch his breath ?? 5 years ago, could walk without limitation ?? C/o dry cough in the evenings-worse in the winter ?? 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 Does do outdoor chores with haying, equipment repair ?? 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 C/o circular pruritic rash over right forearm, left arm proximally, left ankle, left thigh x3 months There is no immunization history for the selected administration types on file for this patient. Most Recent Immunizations Administered Date(s) Administered ? ? Pneumococcal Polysaccharide (PPSV23) Vaccine (PNEUMOVAX-23) =>2YO SQ/IM 08/04/2020 Meds: Current Outpatient Medications: ??? atorvastatin (LIPITOR) 20 mg tablet, Take 20 mg by mouth daily. Take at bedtime, Disp: , Rfl: ??? lisinopriL (PRINIVIL) 10 mg tablet, Take 10 mg by mouth daily., Disp: , Rfl: ??? sildenafil citrate (VIAGRA) 100 mg tablet, Take 100 mg by mouth as needed for Erectile Dysfunction. Take half tab to one tab as needed prior to intercourse, Disp: , Rfl: PMHx: Hyperlipidemia Hypertension Ventricular ectopy PSHx: Appendectomy Family Hx: Paternal FH - heart disease Mother - , cardiac valve repair Siblings - 1 brother, 2 sisters Children: 3 sons - A&W No other known family history of lung disease, autoimmune disease, or cancers Social Hx: Lives at home with . No pets. 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 Tobacco: never smoker Alcohol: 1-2 drinks per day Drug use: none Pulmonary Function Testin08/2020 Pulmonary function studies, ordered and reviewed by me, show FVC of 3.24, 80% of predicted (LLN 2.99) 3.15, 78% predicted post bronchodilator FEV1 of 2.58, 84% of predicted (LLN 2.24) 2.48, 80% predicted post bronchodilator Ratio of 79, 103% of predicted. (LLN 63) 78, 102% predicted post bronchodilator TLC is 5.06 liters, 77% of predicted. Airways resistance is Normal. Diffusion capacity is 12.7 mL/mmHg, 52% of predicted. Flow volume loop is normal. Interpretation: Normal airflow and vital capacity , Mild Lung Volume Restriction, Normal airway resistance, Reduced diffusing capacity Imaging: CT Chest, 08/25/20-Stacie 09/17/2020 Assessment: Amando is a 65 y.o. male with a past medical history of hypertension, hyperlipidemia, never smoker whopresents today for evaluation of dyspnea on exertion secondary to interstitial lung disease, most consistent with chronic hypersensitivity pneumonitis.. ?? 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 + HP panel ?? given timeline, acute-sub acute HP ~2002 that has now developed to chronic HP with ongoing exposure ?? Findings most consistent with chronic hypersensitivity pneumonitis ?? Diagnosis and therapies discussed with the patient in detail ?? will trial with prednisone to assess for symptomatic improvement ?? If + effect, will transition to steroid sparing agent ?? If no effect, will start on antifibrotic agent ?? Potential side effects of prednisone reviewed with the patient in detail. Advised to contact clinic with significant side effects and not to stop abruptly. ?? spirometry improved compared to 2003 though consistent with mild lung restriction, reduced diffusing capacity ?? erythematous scaling nummular rash - ?Related to autoimmune process, referred to dermatology at [facility]-appointment December/2020 ?? SARTHAK 1: 320, equivocal myeloperoxidase-will refer to rheumatology for evaluation of autoimmune process Plan: Prednisone 40 mg daily x 2 weeks, 30 mg daily x 2 weeks, then 20 mg daily Rheumatology referral Follow-up in [address] Andrews was available for questions during this visit. All or part of this document has been prepared with speech recognition software and /or keyboard data support analyst techniques. Minor irregularities may be present. The concept of ???Telemedicine?? has been described to the patient.? Patient has been informed of the anticipated benefits and possible risks.? Patient understands the information provided regarding telemedicine, has had the opportunity to ask questions about this information, and all questions have been answered to patient???s satisfaction. Patient consents for the use of telemedicine in his/her medical care and authorizes the transmission of any relevant medical information to providers and theirstaff involved in patient???s medical or mental health care. This visit was conducted by telephone. I spent a total of 16 minutes in discussion with the patient as described in the progress note. Abbi Kang MA - 10/28/2020 1130 EST Pulmonary Review of Symptoms Constitutional: NONE Hematology: NONE Eyes: NONE Ear, Nose and Throat: Ringing in Ears and Congestion Allergies: NONE Skin: Rash Neurological: NONE Genitourinary: NONE Endocrine / Heme / Allergies: NONE Psychiatric: NONE Gastrointestinal: NONE Cardiovascular: NONE Musculoskeletal: Muscle Aches and Muscle Weakness Respiratory: Cough, Sputum Production and Shortness of Breath Other Comments / Notes: documented in this encounter Plan of Treatment Upcoming Encounters Date Type Specialty Care Team Description 07/28/2022 Office Visit Dermatology Nikky Del Real MD [address] [facility], [facility], [facility] [address] [place], [place] [address] (Wo rk) Scheduled Referrals Name Type Priority Associated Order Schedule Diagnoses AMB CONS/FOLLOW UP Outpatient Referral Routine SARTHAK posit benny Expected: RHEUMATOLOGY ILD (interstitial 10/28/2020 lung disease) (Approximate) ([facility]) documented as of this encounter Visit Diagnoses Diagnosis Hypersensitivity pneumonitis (HCC-CMS) ( [facility]) - Primary Unspecified allergic alveolitis and pneu monitis SARTHAK positive Other and unspecified nonspecific immuno logical findings ILD (interstitial lung disease) (HCC-CMS ) ([facility]) Postinflammatory pulmonary fibrosis documented in this encounter Care Teams Research Pharmacist Relationship Specialty Start Date End Date Guillermina Chowdhury PCP - General Internal Medicine - Primary 09/16/20 [address] [place] [address] documented as of this encounter
--- OUTSIDE RECORDS SUMMARY | 2022-07-23 00:54 | XMS_ITS | Encounter Summary ---
:1955 Author Organization [facility] Address [address] [place] [address] Care Team Providers Name Role Phone Guillermina Chowdhury Primary Care Provider Reason for Referral Consult (Routine) - Closed Specialty Diagnoses / Procedures Referred By Contact Refer red To Contact Dermatology Diagnoses Skin lesion Beatrice Nicole PA-C [facility] 2 [facility] [address] [place] [address] Office Building, Suite Phone: [address] [place] [address] Referral ID Status Reason Start Date Expiration Date Visits V isits Requested Authorized [id number] Closed Specialty 09/17/2020 1 1 Services Required Question Answer Reason for Request: circular pruritic skin lesio ns on extremities over last 3 months Reason for Visit Reason Comments New Patient Visit Insterstitial Lung Disease Referral (Routine) - Receiving Office to Obtain Authorization Specialty Diagnoses / Procedures Referred By Contact Refer red To Contact Pulmonary Disease Diagnoses Fibrosis of lung (HCC-CMS) ([facility]) Guillermina Chowdhury [facility] Ep5 Pulmonology [address] [place] [address] [place] [address] Fax: Referral ID Status Reason Start Expiration Visits Visits Date Date Requested Authorized [id number] Receiving Office 1 1 to Obtain Authorization Encounter Details Date Type Department Care Team Description 09/17/[address] [facility] Beatrice Nicole ILD (interstitial lung disease) ([facility]) (Primary Dx); Pulmonology & Critical ILDA Skin lesion Care - [place] [id number] [address] [address] Solomon, Medical Office Building, [address] [place] [address] Social History Tobacco Use Types Packs/Day Years Used Date Smoking Tobacco: Never Smokeless Tobacco: Never Sex Assigned at Date Recorded Not on file COVID-19 Exposure Response Date Recorded In the last month, have you been in contact with No / Unsure 09/17/2020 12:54 EST someone who was confirmed or suspected to have Coronavirus / COVID-19? documented as of this encounter Last Filed Vital Signs Vital Sign Reading Time Taken Comments Blood Pressure 132/84 09/17/2020 1124 EST Pulse 72 09/17/2020 1124 EST Temperature 35.6 ??C (96.1 ??F) 09/17/2020 1124 EST Respiratory Rate 24 09/17/2020 1124 EST Oxygen Saturation 95% 09/17/2020 1124 EST Inhaled Oxygen Concentration - - Weight - - Height - - Body Mass Index - - documented in this encounter Patient Instructions Patient InstructionsBeatrice Nicole PA-C - 09/17/2020 12:00 EST Images from the original note were not included. Please have labs done. Dermatology at [facility] - [phone] Can try hydrocortisone cream on 1 area only Please reach out to your primary care regarding referral to dermatology closer to you We will follow up in 6 weeks via phone to review results and discuss next steps Please call sooner with any questions or concerns at [phone] Beatrice Nicole PA-C [facility] Pulmonary Interstitial Lung Disease Clinic Team ILDA Greenberg Dr[address] Respiratory Therapist Sendy Florence, Respiratory Therapist Liliane Hauser, Clinical Pharmacist Radha Devlin, Clinical Research Coordinator [facility] Pulmonary Fibrosis Support Group You are not alone Join us in sharing experiences to help patients and caregivers to live fully with Pulmonary Fibrosisand learn about opportunities to better understand and manage the disease. ??? Monthly topics and guest speakers ??? Meet others living with Pulmonary Fibrosis ??? Open Discussion This group is open to all Pulmonary Fibrosis patients, family members, friends, caregivers, medical laboratory technicians, and suppliers. You do not need to be a patient at the [facility] to attend. When First Tuesday of every month, 3-5 pm Where Zoom Video Conference Call Join Zoom Meeting [email or web address] Meeting ID: [id number] One tap mobile [phone] [place] ([place] [phone]# [place] ([place] Dial by your location [phone] [place] [phone] [place] [phone] [place] [phone] [place] [phone] [place] ([place] [phone] [place] ([place] Meeting ID: [id number] Find your local number: [email or web address] Join by [email or web address] [email or web address] Contact Please call [phone] for updates and upcoming topics ~ Let us know your email address and we can add you to the email list ~ Facebook Group (Private) - [facility] for Zoom link Sponsored by: [facility] Division of Pulmonary and Critical Care Medicine & the Pulmonary Fibrosis Foundation documented in this encounter Progress Notes Beatrice Nicole PA-C - 09/17/2020 1200 EST Images from the original note were not included. PULMONARY CLINIC NEW PATIENT VISIT HPI: Pineda is a 65 y.o. male with a past medical history of hypertension, hyperlipidemia, never smoker who presents today for evaluation of dyspnea on exertion. ?? 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 Symptoms of cough, shortness of breath ?? 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 Removed exposure with symptomatic improvement ?? Denies medication treatment ?? C/o progressively worsening dyspnea on exertion over the last 3 years ?? If walking in the varghese for 25 feet, has to stop to catch his breath ?? 5 years ago, could walk without limitation ?? C/o dry cough in the evenings-worse in the winter ?? 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 Does do outdoor chores with haying, equipment repair ?? 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 C/o circular pruritic rash over right forearm, left arm proximally, left ankle, left thigh x3 months ?? Denies current exposure to grayson, chickens/birds, hot tubs/saunas; no ?? 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 Tobacco: never smoker Alcohol: 1-2 drinks per day Drug use: none Exam: BP 132/84 Pulse 72 Temp 35.6 ??C (96.1 ??F) (Tympanic) Resp 24 SpO2 95% Gen: Pleasant gentleman, appearing stated age, NAD, sitting in chair Head: Normocephalic, atraumatic. Eyes: Sclera anicteric, EOMI Neck: Supple, no LAD CV: Regular, S1, S2, no murmurs Lungs: Good effort. Inspiratory crackles heard at the bilateral bases about [address] bilaterally. No wheezing or rhonchi. Abd: Soft, non-distended, normoactive bowel sounds, non-tender Ext: No edema, clubbing or cyanosis Skin: Circular erythematous scaling lesion over right forearm, left proximal arm, left ankle. warm and dry; MSK: No joint deformity or warmth Pulmonary Function Testing: Pulmonary function studies, ordered and reviewed by [...] Reduced diffusing capacity Imaging: CT Chest, 08/25/20-Stacie Assessment: Amando is a 65 y.o. male with a past medical history of hypertension, hyperlipidemia, never smoker whopresents today for evaluation of dyspnea on exertion secondary to interstitial lung disease. ?? 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 Progressively worsening dyspnea, cough over the last few years ?? Abnormal chest x-ray ?? 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 Findings may be consistent with UIP versus fibrotic NSIP versus chronic hypersensitivity pneumonitis ?? Overview of interstitial lung disease discussed with the patient in detail ?? Will obtain labs to assess for autoimmune process, HP/seferino panels ?? Interestingly, spirometry improved compared to 2002 though consistent with mild lung restriction,reduced diffusing capacity ?? Noted to have erythematous scaling nummular rash - ?Related to autoimmune process, will refer to dermatology for further evaluation ?? D/w Dr. Andrews - given timeline, suspect acute-sub acute HP ~2002 that has now developed to chronic HP with ongoing exposure Plan: Labs-autoimmune, HP/seferino panels Dermatology referral Follow-up in 6 weeks via phone to review results and next steps Dr. Andrews was available for questions during this visit. I spent a total of 70 minutes on the date of this encounter meeting with the patient and reviewing documentation/coordinating care as described in the above note. All or part of this document has been prepared with speech recognition software and /or keyboard senior data analyst techniques. Minor irregularities may be present. Blank Steen MA - 09/17/2020 1200 EST Pulmonary Review of Symptoms Constitutional: Malaise/Fatigue Hematology: NONE Eyes: NONE Ear, Nose and Throat: Congestion Allergies: NONE Skin: Itching and Rash Neurological: NONE Genitourinary: NONE Endocrine / Heme / Allergies: NONE Psychiatric: Depression and Difficulty Sleeping Gastrointestinal: NONE Cardiovascular: Chest Pain Musculoskeletal: NONE Respiratory: Cough, Shortness of Breath and Wheezing Other Comments / Notes: documented in this encounter Plan of Treatment Upcoming Encounters Date Type Specialty Care Team Description 07/28/2022 Office Visit Dermatology Nikky Del Real MD [address] [facility], [facility], [facility] [address] [place], [place] [address] (Wo rk) Scheduled Referrals Name Type Priority Associated Order Schedule Diagnoses AMB CONS/FOLLOW UP Outpatient Referral Routine Skin Lesion Ex pected: DERMATOLOGY 09/17/2020 (Approximate) documented as of this encounter Results MISCELLANEOUS TEST, [place] (09/17/2020 13:13 EST) [facility] Method Time Signature Miscellaneous SEE NOTE 09/30/2020 [facility] Test, [place] 1:06 EST LABORATORIES Comment: Test ?Result ? Flag ??Unit ?? RefValue MyoMarker 3 Plus Profile ??Anti-Suzi-1 Ab ?<20 ?Units ??<20 ?Anti-PL-7 Ab ?Negative ?Negative ?This test was developed and its pe rformance characteristics ?determined by [facility]. It has not been cleared or ?approved by the Food and Drug Admi nistration. ??Anti-PL-12 Ab ? Negative ?Negative ?This test was developed and its pe rformance characteristics ?determined by [facility]. It has not been cleared or ?approved by the Food and Drug Admi nistration. ??Anti-EJ Ab ?Negative ?Negative ?This test was developed and its pe rformance characteristics ?determined by [facility]. It has not been cleared or ?approved by the Food and Drug Admi nistration. ??Anti-OJ Ab ?Negative ?Negative ?This test was developed and its pe rformance characteristics ?determined by [facility]. It has not been cleared or ?approved by the Food and Drug Admi nistration. ??Anti-SRP Ab ? Negative ?Negative ?This test was developed and its pe rformance characteristics ?determined by [facility]. It has not been cleared or ?approved by the Food and Drug Admi nistration. ??Kfck-Xj-1-Ab ?Negative ?Negative ?This test was developed and its pe rformance characteristics ?determined by [facility]. It has not been cleared or ?approved by the Food and Drug Admi nistration. ??Erxz-TWF-[id number] Ab ?<20 ?Units ??<20 ?This test was developed and its pe rformance characteristics ?determined by [facility]. It has not been cleared or ?approved by the Food and Drug Admi nistration. ??Anti-MDA-5 Ab (CADM-140) ?<20 ?Units ??<20 ?This test was developed and its pe rformance characteristics ?determined by [facility]. It has not been cleared or ?approved by the Food and Drug Admi nistration. ??Anti-NXP-2 (P140) Ab ?<20 ?Units ??<20 ?This test was developed and its pe rformance characteristics ?determined by [facility]. It has not been cleared or ?approved by the Food and Drug Admi nistration. ??Anti-SAE1 Ab, IgG ? <20 ?Units ??<20 ?This test was developed and its pe rformance characteristics ?determined by [facility]. It has not been cleared or ?approved by the Food and Drug Admi nistration. ??Anti-PM/Scl-100 Ab ?<20 ?Units ??<20 ?This test was developed and its pe rformance characteristics ?determined by [facility]. It has not been cleared or ?approved by the Food and Drug Admi nistration. ??Anti-Ku Ab ?Negative ?Negative ?This test was developed and its pe rformance characteristics ?determined by [facility]. It has not been cleared or ?approved by the Food and Drug Admi nistration. ??Anti-SS-A 52kD Ab, IgG ?<20 ?Units ??<20 ?This test was developed and its pe rformance characteristics ?determined by [facility]. It has not been cleared or ?approved by the Food and Drug Admi nistration. ??Anti-U1 LEVER MILLER Ab ?<20 ?Units ??<20 ?This test was developed and its pe rformance characteristics ?determined by [facility]. It has not been cleared or ?approved by the Food and Drug Admi nistration. ??Anti-U2 LEVER MILLER Ab ?Negative ?Negative ?This test was developed and its pe rformance characteristics ?determined by [facility]. It has not been cleared or ?approved by the Food and Drug Admi nistration. ??Anti-U3 LEVER MILLER (Fibrillarin) ? Negative ?Negative ?This test was developed and its pe rformance characteristics ?determined by [facility]. It has not been cleared or ?approved by the Food and Drug Admi nistration. ?Interpretation for Anti-Suzi-1 , Ctze-[id number]-[id number], ?Anti-MDA-5, Anti-NXP-2, Anti -SAE1, Anti-PM/Scl-100, ?Anti-SS-A 52 kD, Anti-U1 LEVER MILLER : ?Negative: ?<20 ?Weak Positive: ? 20 - 39 ?Moderate Positive: ? 40 - 80 ?Strong Positive: ? >80 ?. ?Test Performed by: ?[facility] ?[address] ?[place] [address] Specimen Anatomical Collection Method / Collection Time Recei madhavi Time (Source) Location / Volume Laterality Blood VENOUS BLOOD / Venipuncture / 09/17/2020 13:13 021 Unknown Unknown EST 13:33 EST Beatrice Nicole PA-C CHEMISTRY & BLOOD GAS ORDERA BLES Performing Organization Address City/State/ZIP Code Phon e Number [facility] [address] [place] [address] SSA/SSB PANEL (09/17/2020 13:13 EST) athologist Signature SSA Antibody 1.5 <20.0 Units 09/18/2020 [facility] 13:44 EST [facility] Comment: ? Negative: <20.0 Units ? Weak Positive: 20.0 - 39.9 Units ? Moderate Positive: 40 .0 - 80.0 Units ? Strong Positive: >80. 0 Units Results were obtained with the Hövding RICHARD NTA Lite SS-A DHARMESH. ??SS-A values obtained with different manufacturers' assay methods may not be used interchangeably. ??The magnitude of the reported IgG levels cannot be correlated to an endpoint titer. SSB Antibody 3.4 <20.0 Units 09/18/2020 13:44 EST [facility] Comment: ? Negative: <20.0 Units ? Weak Positive: 20.0 - 39.9 Units ? Moderate Positive: 40 .0 - 80.0 Units ? Strong Positive: >80. 0 Units Results were obtained with the [employer]OVA RICHARD NTA Lite SS-B DHARMESH. ??SS-B values obtained with different manufacturers' assay methods may not be used interchangeably. ??The magnitude of the reported IgG levels cannot be correlated to an endpoint titer. Specimen Anatomical Collection Method / Collection Time Recei madhavi Time (Source) Location / Volume Laterality Blood VENOUS BLOOD / Venipuncture / 09/17/2020 13:13 021 Unknown Unknown EST 14:04 EST Beatrice Nicole PA-C IMMUNOLOGY AND SEROLOGY [place] SETHI Performing Organization Address City/State/ZIP Code Phon e Number [facility] [address] [place] [address] SERVICES SCL 70 ANTIBODY, IGG, SERUM (09/17/2020 13:13 EST) athologist Signature Scl 70 Ab, <0.2 <1.0 09/18/2020 [facility] IgG, S (Negative) 11:47 EST LABORATORIES U Comment: Test Performed by: [facility] [address] [place] [address] Stratigraphy Teacher: Fan Alejandro M.D. Ph. D.; CLIA# [id number] Specimen Anatomical Collection Method / Collection Time Recei madhavi Time (Source) Location / Volume Laterality Blood VENOUS BLOOD / Venipuncture / 09/17/2020 13:13 021 Unknown Unknown EST 14:04 EST Beatrice Nicole PA-C IMMUNOLOGY AND SEROLOGY ORDJeremy SETHI Performing Organization Address City/State/ZIP Code Phon e Number [facility] [address] [place] [address] RHEUMATOID FACTOR (09/17/2020 13:13 EST) athologist Signature Rheumatoid <8.6 <12.0 09/17/2020 [facility] Factor IU/mL 14:34 EST [facility]ENTER [facility] SERVICES Specimen Anatomical Collection Method / Collection Time Recei madhavi Time (Source) Location / Volume Laterality Blood VENOUS BLOOD / Venipuncture / 09/17/2020 13:13 021 Unknown Unknown EST 14:04 EST Beatrice Nicole PA-C CHEMISTRY & BLOOD GAS ORDERA BLES Performing Organization Address City/State/ZIP Code Phon e Number [facility] [address] [place] [address] SERVICES CCP ANTIBODIES (09/17/2020 13:13 EST) P athologist Signature CCP Antibodies <2.5 <5.0 U/mL 09/17/2020 [facility] 15:37 EST [facility]ENTER [facility] SERVICES Specimen Anatomical Collection Method / Collection Time Recei madhavi Time (Source) Location / Volume Laterality Blood VENOUS BLOOD / Venipuncture / 09/17/2020 13:13 021 Unknown Unknown EST 14:04 EST Beatrice VIVEROS-C IMMUNOLOGY AND SEROLOGY ORDE NAVDEEP Performing Organization Address City/[facility]/ZIP Code Phon e Number [facility] [address] [place] [address] SERVICES PROTEINASE 3 ANTIBODY (09/17/2020 13:13 EST) Analysis Performed At Patho logist Time Signature Proteinase 3 Ab <0.2 <0.4 09/18/2020 [facility] (PR3), S (Negative) 11:50 EST LABORATORIES U Comment: [facility]: [facility] [address] [address] Stratigraphy Teacher: Fan Alejandro M.D. Ph. D.; CLIA# [id number] Specimen Anatomical Collection Method / Collection Time Recei madhavi Time (Source) Location / Volume Laterality Blood VENOUS BLOOD / Venipuncture / 09/17/2020 13:13 021 Unknown Unknown EST 14:04 EST Beatricejeremy VIVEROS-C IMMUNOLOGY AND SEROLOGY ORDE RABANDI Performing Organization Address City/State/ZIP Code Phon e Number [facility] [address] [place] [address] (ABNORMAL) MYELOPEROXIDASE ANTIBODY (09/17/2020 13:13 EST) Patholo gist Method Time Signature Myeloperoxidase Ab, 0.6 (H) <0.4 09/18/2020 [facility] S (Negative 11:50 EST LABORATORIES ) U Comment: Interpretation: Equivocal (0.4-0.9) Test Performed by: [facility] [address] [place], [place] [address] Stratigraphy Teacher: Fan Alejandro M.D. Ph. D.; CLIA# [id number] Specimen Anatomical Collection Method / Collection Time Recei madhavi Time (Source) Location / Volume Laterality Blood VENOUS BLOOD / Venipuncture / 09/17/2020 13:13 021 Unknown Unknown EST 14:04 EST Beatrice Nicole PA-C IMMUNOLOGY AND SEROLOGY [place]IL[place] SETHI Performing Organization Address City/State/ZIP Code Phon e Number [facility] [address] [place] [address] (ABNORMAL) ANTI NUCLEAR AB (SARTHAK), IFA (09/17/2020 13:13 EST) [facility] gist Method Time Signature SARTHAK Positive Negative 09/18/2020 [facility] Interpretation (A) 13:43 EST CENTER [facility] SERVICES Comment: For titers greater than or equal to 1:16 0 (except the centromere and nucleolar patterns) it is recommended that specific follow-up autoantibody testing ??(such as for dsDNA and Extractable Nuclear Antig ens) be performed on all diffuse and/or speckled patterns NOTE: For add-on testing dsDNA is stable for 7 days refrigerated while Extractable Nuclear Antigens are only stable for 48 hours refrigerated. SARTHAK Titer and 1:320 Speckled 09/18/2020 13:43 EST [facility] Pattern 1 LABORATORY SERVICES Specimen Anatomical Collection Method / Collection Time Recei madhavi Time (Source) Location / Volume Laterality Blood VENOUS BLOOD / Venipuncture / 09/17/2020 13:13 021 Unknown Unknown EST 14:04 EST Narrative [facility] - 09/18/2020 13:43 EST Results were obtained with the INOVA NOV A Lite HEp-2 SARTHAK Kit by indirect immunofluorescence. Beatrice Nicole PA-C IMMUNOLOGY AND SEROLOGY FAMIL[place] SETHI Performing Organization Address City/State/ZIP Code Phon e Number [facility] [address] [place] [address] SERVICES ANTI DNA (DOUBLE STRANDED) (09/17/2020 13:13 EST) P athologist Signature Anti-DNA <12.3 <30.0 09/18/2020 [facility] (Double IU/mL 11:19 EST CENTER Stranded) LABORATORY SERVICES Comment: ? Negative: ??<30.0 IU/mL ? Borderline Positive: ??30.0 - 75.0 IU/mL ? Positive: ??>75.0 IU/mL Results were obtained with the Hövding RICHARD NTA Lite dsDNA SC DHARMESH assay on the [employer]. Specimen Anatomical Collection Method / Collection Time Recei madhavi Time (Source) Location / Volume Laterality Blood VENOUS BLOOD / Venipuncture / 09/17/2020 13:13 021 Unknown Unknown EST 14:04 EST Beatrice Nicole PA-C IMMUNOLOGY AND SEROLOGY FAMIL[place] SETHI Performing Organization Address City/[facility]/ZIP Code Phon e Number [facility] [address] [place] [address] SERVICES ANCA, IFA (09/17/2020 13:13 EST) [facility] Lab ANCA Negative Negative 09/18/2020 [facility] Interpretation 13:43 EST CENTER [facility] SERVICES Comment: SARTHAK Positive, suggest follow-up SARTHAK test ing if clinically indicated. Cannot rule out Atypical ANCA (A-ANCA). No titer performed, ANCA Screen is negat benny. Results were obtained with the Hövding NOV A Lite ANCA kit by indirect immunofluorescence. Specimen Anatomical Collection Method / Collection Time Recei madhavi Time (Source) Location / Volume Laterality Blood VENOUS BLOOD / Venipuncture / 09/17/2020 13:13 021 Unknown Unknown EST 14:04 EST Beatrice Nicole PA-C IMMUNOLOGY AND SEROLOGY FAMIL[place] SETHI Performing Organization Address City/[facility]/ZIP Code Phon e Number [facility] [address] [place] [address] SERVICES (ABNORMAL) MISCELLANEOUS TEST, [place] (09/17/2020 13:13 EST) [facility] SEE NOTE 09/22/2020 [facility] Test, Ma (A) 16:40 EST LABORATORIES Comment: Test ?Result ?Flag ??Unit ?RefValue Hypersensitivity Pneumonitis Panel ??Alternaria tenuis/alternata IgG ? 8.0 ? mcg/mL ??<12.0 ?Aspergillus fumigatus IgG ? 12.7 ?mcg/mL ??<46.0 ?Aureobasidium pullulans IgG ? 8.5 ? mcg/mL ??<18.0 ?Micropolyspora faeni IgG ?9.6 ?H ?mcg/mL ??<5.0 ?Penicillium Chrysogenum IgG ? 13.1 ?mcg/mL ??<22.0 ?Phoma betae IgG ? 13.0 ? H ?mcg/mL ??<8.0 ?Thermoactinomyces vulgaris IgG ?7.9 ? mcg/mL ??<13.0 ?Trichoderma viride IgG ?10.0 ? H ?mcg/mL ??<10.0 ?Antibody levels greater than the r eference range indicate ?that the patient has been immunolo gically sensitized to the ?antigen. The significance of eleva ramsey IgG depends on the ?nature of the antigen and the panda ent's clinical history. ?The test method was the Phadia Imm unoCAP. *This test was ?developed and its performance mariam acteristics determined by ?[facility]. It has not been cleared or approved by ?the U.S. Food and Drug Administrat ion. ?Test Performed by: ?[facility] ?[address] ?[place], [place] [address] Specimen Anatomical Collection Method / Collection Time Recei madhavi Time (Source) Location / Volume Laterality Blood VENOUS BLOOD / Venipuncture / 09/17/2020 13:13 021 Unknown Unknown EST 13:34 EST Beatrice Nicole PA-C CHEMISTRY & BLOOD GAS [facility] Performing Organization Address City/State/ZIP Code Phon e Number [facility] [address] [place] [address] MISCELLANEOUS TEST, [place] (09/17/2020 13:13 EST) [facility] gist Method Time Signature Miscellaneous SEE NOTE 09/26/2020 [facility] Test, [place] 10:11 EST LABORATORIES Comment: Test ?Result ?Flag ??Unit ??RefValue Seferino Panel ??[place] Sera ? Negative ?[place] ? Negative ?[place]iel ? Negative ?Parakeet ?Negative ?Parrot ?Negative ? ADDITIONAL INFO RMATION ?This result must be correlated wit h patients clinical ?response and should not solely be considered in the ?diagnosis. ?Test Performed by: ?[facility], Room 5068 ?Vignesh Kumari M.D. [facility] ?[address] ?[place] [address] Specimen Anatomical Collection Method / Collection Time Recei madhavi Time (Source) Location / Volume Laterality Blood VENOUS BLOOD / Venipuncture / 09/17/2020 13:13 021 Unknown Unknown EST 13:35 EST Beatrice Nicole PA-C CHEMISTRY & BLOOD GAS ORDERA BLES Performing Organization Address City/State/ZIP Code Phon e Number [facility] [address] [place] [address] documented in this encounter Visit Diagnoses Diagnosis ILD (interstitial lung disease) (HCC-CMS ) (HCC) - Primary Postinflammatory pulmonary fibrosis Skin lesion Unspecified disorder of skin and subcuta neous tissue documented in this encounter Historical Medications This list may reflect changes made after this encounter. Medication Sig Dispensed Refills Start Date End Date atorvastatin (LIPITOR) Take 20 mg by mouth 0 20 mg tablet daily. Take at bedtime sildenafil citrate Take 100 mg by mouth as 0 (VIAGRA) 100 mg tablet needed for Erectile Dysfunction. Take half tab to one tab as needed prior to intercourse lisinopriL (PRINIVIL) 10 Take 10 mg by mouth 0 mg tablet daily. added in this encounter Care Teams Video Conference Specialist Relationship Specialty Start Date End Date Guillermina Chowdhury PCP - General Internal Medicine - Primary 09/16/20 [address] [place] [address] documented as of this encounter
--- OUTSIDE RECORDS SUMMARY | 2022-07-23 00:54 | XMS_ITS | Encounter Summary ---
:1955 Author Organization [facility] Address [address] [place] [address] Care Team Providers Name Role Phone Guillermina Chowdhury Primary Care Provider Encounter Details Date Type Department Care Team Description 12/09/[address] [facility] Aleja Nicole PA-C Pulmonology & Critical Care [address] Building, [place] [address] [address] [place] [address] (Wo rk) Social History Tobacco Use Types Packs/Day Years Used Date Smoking Tobacco: Never Smokeless Tobacco: Never Sex Assigned at Date Recorded Not on file documented as of this encounter Progress Notes Eamon Tompkins RT - 12/09/2020 1158 EDT R: Mailed Dee CHANEL information to patient. documented in this encounter Plan of Treatment Upcoming Encounters Date Type Specialty Care Team Description 07/28/2022 Office Visit Dermatology Nikky Del Real MD [address] [facility], [place], [address] [place], [place] [address] (Wo rk) documented as of this encounter Visit Diagnoses Not on filedocumented in this encounter Care Teams Big Data Developer Relationship Specialty Start Date End Date Guillermina Chowdhury PCP - General Internal Medicine - Primary 09/16/[address] [place] [address] documented as of this encounter
--- OUTSIDE RECORDS SUMMARY | 2022-07-23 00:54 | XMS_ITS | Encounter Summary ---
:1955 Author Organization [facility] Address [address] [place] [address] Care Team Providers Name Role Phone Khanh Everett MD Primary Care Provider Reason for Referral (Routine) - Authorization Not Required Specialty Diagnoses / Procedures Referred By Contact Refer red To Contact Diagnoses ILD (interstitial lung disease) ([facility]) ([facility]) Iker Dhillon MD PhD Procedures PULMONARY FUNCTION TESTING [address] [place] [phone] Referral ID Status Reason Start Expiration Visits Visits Date Date Requested Authorized [id number] Authorization Not 2 2 Required 0 Encounter Details Date Type Department Care Team Description 08/13/2020 Orders Only [facility] Iker Dhillon, ILD (interstitial Pulmonology & MD PhD lung disease) Critical Care - Main [address] [place] [address] ([facility]) (Primary [address] Dx) [address] [place] [id number] [place] [address] [place] [address] (Wo rk) Social History Tobacco Use Types Packs/Day Years Used Date Smoking Tobacco: Never Assessed Sex Assigned at Date Recorded Not on file documented as of this encounter Plan of Treatment Upcoming Encounters Date Type Specialty Care Team Description 07/28/2022 Office Visit Dermatology Nikky Del Real MD [address] [place] [address] [address] [place], [place] [phone] (Wo rk) Scheduled Orders Name Type Priority Associated Diagnoses Order S chedule PULMONARY FUNCTION PFT Routine Ild (Interstitial Lung 1 Occurrences starting TESTING Disease) ([facility]) ([facility]) until 02/11/2022 documented as of this encounter Visit Diagnoses Diagnosis ILD (interstitial lung disease) ([facility] ) ([facility]) - Primary Postinflammatory pulmonary fibrosis documented in this encounter Care Teams Manager Advanced Relationship Specialty Start Date End Date Khanh Everett MD PCP - General 07/01/15 09/15/20 [address] [place] [address] documented as of this encounter
--- OUTSIDE RECORDS SUMMARY | 2022-07-23 00:54 | XMS_ITS | Encounter Summary ---
:1955 Author Organization [facility] Address [address] [place] [address] Care Team Providers Name Role Phone Guillermina Chowdhury Primary Care Provider Reason for Visit Reason Comments Shortness of Breath Insterstitial Lung Disease Follow-up Persistent cough & SOB Encounter Details Date Type Department Care Team Description 03/12/2021 Office Visit [facility] [place], ILD (inte rstitial lung disease) ([facility]) (Primary Dx); Pulmonology & ILDA Bar[place] Hypersensitivity pneumonitis ([facility]); Critical Care - Main [address] [place] [address] [place] [address] Medical Office [phone] Building, [address] [place] [address] Social History Tobacco Use Types Packs/Day Years Used Date Smoking Tobacco: Never Smokeless Tobacco: Never Sex Assigned at Date Recorded Not on file documented as of this encounter Last Filed Vital Signs Vital Sign Reading Time Taken Comments Blood Pressure 148/72 03/12/2021 1505 EDT Pulse 72 03/12/2021 1505 EDT Temperature 36.5 ??C (97.7 ??F) 03/12/2021 1505 EDT Respiratory Rate - - Oxygen Saturation 95% 03/12/2021 1505 EDT Inhaled Oxygen Concentration - - Weight 84.6 kg (186 lb 8.2 oz) 03/12/2021 1505 EDT Height 171.4 cm (5' 7.48) 03/12/2021 1505 EDT Body Mass Index 28.8 03/12/2021 1505 EDT documented in this encounter Patient Instructions Patient InstructionsBeatrice Nicole PA-C - 03/12/2021 15:30 EDT The lung function is lower compared to before which can be a sign of more scarring in your lungs. The main treatment is to remove exposure to dust/hay. Tessalon perles 1 tab three times daily as needed for cough Cheratussin 5 mL every 8 hours as needed for cough We'll follow up by phone in 3 weeks to discuss starting on an anti-scarring medication Please discuss with your primary care regarding disability. Please contact with any questions or concerns at [phone] or via [employer] Beatrice Nicole PA-C documented in this encounter Ordered Prescriptions Prescription Sig Dispensed Refills Start Date End Date guaiFENesin-codeine Take 5 mL by mouth 150 mL 0 03/12/20 21 (CHERATUSSIN AC) 100-10 every 8 hours as mg/5 mL liquid needed for Cough. Daily Max: 15 mL benzonatate (TESSALON) 100 Take 1 capsule by 90 capsule 3 mg capsule mouth 3 times daily as needed for Cough. documented in this encounter Progress Notes Beatrice Nicole PA-C - 03/12/2021 1530 EDT Images from the original note were not included. Pulmonary Clinic Follow up Visit Pulmonary History Chronic hypersensitivity pneumonitis -H/o acute/subacute HP as a child, [address] 08/25/2020-ILD with evidence of honeycombing, traction bronchiectasis + HP panel HPI: Pineda is a 65 y.o. male with a past medical history of hypertension, hyperlipidemia, never smoker who presents today in follow-up. Last seen via telephone visit 12/09/2020 No effect with prolonged prednisone taper so discontinued Side effects of insomnia but otherwise no effect on dyspnea Continues to feel short of breath No recurrence of erythematous scaling nummular rash since discontinuing prednisone Rescheduled dermatology appointment for June 2021 + SARTHAK 1: 320, equivocal myeloperoxidase Scheduled with rheumatology Dr. 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 History of Steele's lung as [...] winter ?? 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 Does do outdoor chores with haying, equipment repair ?? 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 C/o circular pruritic rash over right forearm, left arm proximally, left ankle, left thigh x3 months ROS: A 14-point review of systems was obtained by MA/RT/RN, was reviewed by me, and all else is negative. Please see their note for further details. There is no immunization history for the selected administration types on file for this patient. Most Recent Immunizations Administered Date(s) Administered ? ? Pneumococcal Polysaccharide (PPSV23) Vaccine (PNEUMOVAX-23) =>2YO SQ/IM 08/04/2020 Current Outpatient Medications Medication Instructions ??? atorvastatin (LIPITOR) 20 mg, oral, DAILY, Take at bedtime ??? lisinopriL (PRINIVIL) 10 mg, oral, DAILY ??? 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 Tobacco: never smoker Alcohol: 1-2 drinks per day Drug use: none Pulmonary Function Testing: PFTs: FVC of 2.94 liters , 73% of predicted (LLN 2.99) FEV1 of 2.45 liters, 79% of predicted (LLN 2.24) Ratio of 83, 108% of predicted. (LLN 63) Diffusion capacity is 10 mL/mmHg, 41% of predicted. Flow volume loop is normal. Interpretation: Normal airflow and vital capacity , Reduced diffusing capacity Interval decline in vital capacity and diffusing capacity compared to prior testing. 03/12/2021 6 min walk interpretation: Normal oxygen saturation on room air at rest. Significant desaturation with exercise. and Oxygen saturation improved on 2 LPM supplemental oxygen. Imaging: CT Chest, 08/25/20-Stacie 09/17/2020 Assessment: Amando is a 65 y.o. male with a past medical history of hypertension, hyperlipidemia, never smoker whopresents today for evaluation of dyspnea on exertion secondary to interstitial lung disease, most consistent with chronic hypersensitivity pneumonitis.. ?? 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 + HP panel ?? given timeline, acute-sub acute HP ~2002 that has now developed to chronic HP with ongoing exposure ?? No symptomatic improvement with prednisone. ?? Disease appears primarily fibrotic at this point ?? Interval decline in forced vital capacity, diffusing capacity compared to prior testing August 2020. 6-minute walk test today showing exertional hypoxia requiring 2 L supplemental oxygen. ?? He declines supplemental oxygen ?? Discussed progressive nature of interstitial lung disease especially with ongoing exposure ?? primary intervention is to remove exposure. He is precontemplative regarding a new job situation versus pursuing disability. Encouraged to discuss disability further with PCP. ?? Discussed initiating antifibrotic agent. Discussed this prevent further progression of scarring but would not undo damage or provide symptomatic relief. Provided with patient information handout regarding medications. He prefers to avoid medications and does not feel they would be helpful ?? He and his are saddened and frustrated with the understanding of his progressive fibrotic lung disease ?? We discussed symptomatic treatment for his cough. Will prescribe for Tessalon Perles and codeine cough syrup. Advised to take codeine cough syrup at night and not to operate heavy machinery due to side effect of drowsiness. ?? SARTHAK 1: 320, equivocal myeloperoxidase- rheumatology referral for evaluation of autoimmune process; appt scheduled for 02/2021 at [facility] Plan: Tessalon perles 1 tab 3 times daily as needed for cough Cheratussin 5 mL every 8 hours as needed for cough Strongly recommend removal of exposure/new work position Would support for stool of disability Rheumatology referral -patient to contact to reschedule Follow up in 3 weeks via phone to discuss whether or not he would like to pursue antifibrotic Dr. Shay was available for questions during this visit. I spent a total of 45 minutes on the date of this encounter meeting with the patient and reviewing documentation/coordinating care as described in the above note. All or part of this document has been prepared with speech recognition software and /or keyboard manager database administration techniques. Minor irregularities may be present. Lashonda Mendoza MA - 03/12/2021 1530 EDT Review of Systems Constitutional: Negative. HENT: Negative. Eyes: Negative. Respiratory: Positive for cough, shortness of breath and wheezing. Dry cough, persistent in the evening or during exertion Always SOB Cardiovascular: Positive for chest pain. Chest pain/tightness with exertion Gastrointestinal: Negative. Genitourinary: Negative. Musculoskeletal: Negative. Skin: Negative. Neurological: Positive for dizziness. Dizzy when getting up quickly Endo/Heme/Allergies: Negative. Psychiatric/Behavioral: Sometimes snores documented in this encounter Plan of Treatment Upcoming Encounters Date Type Specialty Care Team Description 07/28/2022 Office Visit Dermatology Nikky Del Real MD 111 [facility], [facility], [facility] [address] [place], [place] [address] (Wo rk) documented as of this encounter Visit Diagnoses Diagnosis ILD (interstitial lung disease) (HCC-CMS ) (HCC) - Primary Postinflammatory pulmonary fibrosis Hypersensitivity pneumonitis (HCC-CMS) ( [facility]) Unspecified allergic alveolitis and pneu monitis SARTHAK positive Other and unspecified nonspecific immuno logical findings documented in this encounter Care Teams Fine Arts Instructor Relationship Specialty Start Date End Date Guillermina Chowdhury PCP - General Internal Medicine - Primary 09/16/20 [address] [place] [address] documented as of this encounter
--- OUTSIDE RECORDS SUMMARY | 2022-07-23 00:54 | XMS_ITS | Encounter Summary ---
:[address] [facility] Address [address] [place] [address] Care Team Providers Name Role Phone Khanh Everett MD Primary Care Provider Reason for Visit (Routine) - Receiving Office to Obtain Authorization Specialty Diagnoses / Procedures Referred By Contact Refer red To Contact Procedures Unknown, Provider, XR OUTSIDE IMAGES CHEST Phone: Referral ID Status Reason Start Expiration Visits Visits Date Date Requested Authorized [id number] Receiving Office 1 1 to Obtain 0 Authorization Encounter Details Date Type Department Care Team Description 08/06/2020 Hospital Encounter [facility] Secondary Reads [place] Social History Tobacco Use [...] Visit Dermatology Nikky Del Real MD 111 [facility], [facility], [address] [place], [place] [address] (Wo rk) documented as of this encounter Procedures Procedure Name Priority Date/Time Associated Diagnosis Comme nts XR OUTSIDE IMAGES Routine 08/13/2020 8:27 EST Res ults for this CHEST procedure are i n the results section. documented in this encounter Results XR OUTSIDE IMAGES CHEST (08/13/2020 8:27 EST) Specimen (Source) Anatomical Location Collection Method / Collectio n Time Received Time / Laterality Volume Narrative 08/13/2020 8:27 EST This is a non-reportable exam. Provider Unknown MD HASKINS OTHER IMAGING ORDERABLES documented in this encounter Visit Diagnoses Not on filedocumented in this encounter Care Teams Senior Game Advisor Relationship Specialty Start Date End Date Khanh Everett MD PCP - General 07/01/15 09/15/20 [address] [place] [address] documented as of this encounter
--- OUTSIDE RECORDS SUMMARY | 2022-07-23 00:54 | XMS_ITS | Encounter Summary ---
:1955 Author Organization [facility] Address [address] [place] [address] Care Team Providers Name Role Phone Guillermina Chowdhury Primary Care Provider Reason for Visit Reason Comments Other Encounter Details Date Type Department Care Team Description 11/24/2020 Refill [facility] Pulmonology D Beatrice gan PA-C Other & Critical [place] - [place] [id number] [place] [address] [facility] [place] [address] Office Building, [phone] [place] [phone] (Wo rk) Social History Tobacco Use Types Packs/Day Years Used Date Smoking Tobacco: Never Smokeless Tobacco: Never Sex Assigned at Date Recorded Not on file documented as of this encounter Miscellaneous Notes Telephone Encounter - Richy Gentile RN - 11/24/2020 0858 EDT Requested Prescriptions Refused Prescriptions Disp Refills ??? predniSONE (DELTASONE) 20 mg tablet [Pharmacy Med Name: PREDNISONE 20 MG TABLET] 77 Tab 0 Sig: TAKE 2 TABS BY MOUTH DAILY FOR 14 DAYS, THEN 1.5 TABS DAILY FOR 14 DAYS, THEN 1 TAB DAILY FOR 28 DAYS. Refused By: KEL GENTILE Reason for Refusal: Inappropriate, get more info documented in this encounter Plan of Treatment Upcoming Encounters Date Type Specialty Care Team Description 07/28/2022 Office Visit Dermatology Nikky Del Real MD 111 [facility], [place], [address] [place], [place] [address] (Wo rk) documented as of this encounter Visit Diagnoses Diagnosis ILD (interstitial lung disease) (HCC-CMS ) ([facility]) - Primary Postinflammatory pulmonary fibrosis documented in this encounter Care Teams Slate Splitting Supervisor Relationship Specialty Start Date End Date Guillermina Chowdhury PCP - General Internal Medicine - Primary 09/16/20 [address] [place] [address] documented as of this encounter
--- OUTSIDE RECORDS SUMMARY | 2022-07-23 00:54 | XMS_ITS | Encounter Summary ---
:1955 Author Organization [facility] Address [address] [place] [address] Care Team Providers Name Role Phone Guillermina Chowdhury Walt Primary Care Provider Reason for Referral (Routine) - Authorization Not Required Specialty Diagnoses / Procedures Referred By Contact Refer red To Contact Diagnoses Hypersensitivity pneumonitis ([facility]) ([facility]) Beatrice Nicole PA-C Procedures PULMONARY FUNCTION TESTING 792 [facility] Medical Office [facility], [address] [phone] Referral ID Status Reason Start Expiration Visits Visits Date Date Requested Authorized [id number] Authorization Not 12/09/2020 2 2 Required Reason for Visit (Routine) - Authorization Not Required Specialty Diagnoses / Procedures Referred By Contact Refer red To Contact Diagnoses Hypersensitivity pneumonitis ([facility]) ([facility]) Beatrice Nicole PA-C Procedures PULMONARY FUNCTION TESTING 792 [facility] Medical Office Building, [address] [phone] Referral ID Status Reason Start Expiration Visits Visits Date Date Requested Authorized [id number] Authorization Not 12/09/2020 2 2 Required Encounter Details Date Type Department Care Team Description 03/12/2021 Hospital Encounter [facility] Hyp ersensitivity Pulmonary Function pneumonit is ([facility]) Lab - Main [place] [address] [place], [place] [address] Social History Tobacco Use Types Packs/Day Years Used Date Smoking Tobacco: Never Smokeless Tobacco: Never Sex Assigned at Date Recorded Not on file documented as of this encounter Medications at Time of Discharge Medication Sig Dispensed Refills Start Date End Date atorvastatin (LIPITOR) Take 20 mg by mouth 0 20 mg tablet daily. Take at bedtime benzonatate (TESSALON) Take 1 capsule by 90 capsule 3 2020 100 mg capsule mouth 3 times daily as needed for Cough. guaiFENesin-codeine Take 5 mL by mouth 150 mL 0 03/12/20 21 (CHERATUSSIN AC) 100-10 every 8 hours as mg/5 mL liquid needed for Cough. Daily Max: 15 mL lisinopriL (PRINIVIL) 10 Take 10 mg by mouth 0 mg tablet daily. sildenafil citrate Take 100 mg by mouth 0 (VIAGRA) 100 mg tablet as needed for Erectile Dysfunction. Take half tab to one tab as needed prior to intercourse documented as of this encounter Discharge Disposition Disposition Code Departure Means Destination Home or Self Care documented in this encounter Progress Notes Beatrice Nicole PA-C - 03/12/2021 1415 EDT Testing was performed and recorded in [facility]. See complete report in scanned documents. Name: Amando Landrum Date of : 1955 Date: 03/12/2021 Pulmonary Function Lab 6 MINUTE WALK TEST Indication/Diagnosis: Hypersensitivity Pneumonitis Pre/Resting B/P: 133/75 Pre/Resting HR: 71 Pre/Resting O2 Sat: 95 % Pre/Resting JULIANNE: 2 Oxygen Used?: No Oxygen liter/min: 0 Post/Recovery B/P: 134/84 Post/Recovery HR: 76 Post/Recovery O2 Sat: 97 % Post/Recovery: 2 Maximal JULIANNE: 2 Post Oxygen liter/min: 0 Walked without assistance. Standard finger probe used. TIME HR Sat 02 liter/min COMMENTS 30 sec 82 93 0LPM 1 min 92 92 0LPM 1 min/30 sec 86 86 0LPM Added 1 liter of oxygen 2 min 76 88 1LPM Added 2 liters of oxygen 2 min/30 sec 76 90 2LPM 3 min 74 93 2LPM 3 min/30 sec 82 95 2LPM 4 min 85 94 2LPM 4 min/30 sec 91 93 2LPM 5 min 91 91 2LPM 5 min/30 sec 98 90 2LPM 6 min 95 90 2LPM Distance walked: 1000 feet. Test performed by: RT MIGUEL Date: 03/12/2021 Time: 15:41 Pager/Contact No.: [phone] Provider Interpretation: Normal oxygen saturation on room air at rest. Significant desaturation with exercise. and Oxygen saturation improved on 2 LPM supplemental oxygen. Authenticating provider: Faina Nicole PA-C Date: 03/17/21 Time: 12:34 Pager/Contact No.: [phone] documented in this encounter Plan of Treatment Upcoming Encounters Date Type Specialty Care Team Description 07/28/2022 Office Visit Dermatology Nikky Del Real MD 111 [facility], [facility] 5 [place], [place] [address] (Wo rk) documented as of this encounter Procedures Procedure Name Priority Date/Time Associated Diagnosis Comme nts PULMONARY FUNCTION Routine 03/12/2021 14:22 EDT Hypersensitivi ty TESTING pneumonitis ([facility]) documented in this encounter Results PULMONARY FUNCTION TESTING (03/12/2021 14:22 EDT) Specimen (Source) Anatomical Collection Method Collection Time Re ceived Time Location / / Volume Laterality 03/12/2021 14:22 EDT Beatrice Nicole PA-C PFT ORDERABLES Performing Organization Address City/State/ZIP Code Phon e Number [facility] PFT documented in this encounter Visit Diagnoses Diagnosis Hypersensitivity pneumonitis (HCC-CMS) ( [facility]) Unspecified allergic alveolitis and pneu monitis documented in this encounter Care Teams General Road Supervisor Relationship Specialty Start Date End Date Guillermina Chowdhury PCP - General Internal Medicine - Primary 09/16/20 [address] [facility] [place] [id number] documented as of this encounter
--- OUTSIDE RECORDS SUMMARY | 2022-07-23 00:54 | XMS_ITS | Encounter Summary ---
:1955 Author Organization [facility] Address [address] [place] [address] Care Team Providers Name Role Phone Guillermina Chowdhury Primary Care Provider Reason for Referral Consult (Routine) - Authorization Not Required Specialty Diagnoses / Procedures Referred By Contact Refer red To Contact Diagnoses Hypersensitivity pneumonitis ([facility] ([facility]) Beatrice Vo PA-C [address] [place] [address] Medical Office [facility], [facility] [address] [place] [address] Referral ID Status Reason Start Expiration Visits Visits Date Date Requested Authorized [id number] Authorization Specialty 1 1 Not Required Services 1 Required Question Answer Reason for Request: Progressive chronic hypersen sitivity pneumonitis - establish care and follow up - due 06/2021 Practice Site (External Referral Only): [facility] - Dr. Aleks camacho Reason for Visit Reason Comments Follow-up Insterstitial Lung Disease Encounter Details Date Type Department Care Team Description 04/07/2021 Telemedicine [facility] Bonnie, Hypersens itivity Pulmonology & ILDA Barron pneumonitis ([facility]) Critical Care - Main [address] [place] [address] (Primar y Dx) [address] [address] Medical Office [phone] [facility], [address] [place] [address] Social History Tobacco Use Types Packs/Day Years Used Date Smoking Tobacco: Never Smokeless Tobacco: Never Sex Assigned at Date Recorded Not on file documented as of this encounter Patient Instructions Patient InstructionsBeatrice Vo PA-C - 04/07/2021 13:30 EDT Tessalon perles 1 tab 3 times daily as needed for cough Cheratussin 5 mL every 8 hours as needed for cough We will refer you to be seen at [facility] with Dr. Dahl for further follow up regarding your pulmonarycare Please contact with any questions or concerns at [phone] or via [employer] Faina Vo PA-C documented in this encounter Progress Notes Beatrice Vo PA-C - 04/07/2021 1330 EDT Images from the original note were not included. Pulmonary Clinic Follow up Visit Pulmonary History Chronic hypersensitivity pneumonitis -H/o acute/subacute HP as a child, [address] 08/25/2020-ILD with evidence of honeycombing, traction bronchiectasis + HP panel HPI: Pineda is a 65 y.o. male with a past medical history of hypertension, hyperlipidemia, never smoker who presents today in follow-up. 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 History of Steele's lung as [...] winter ?? 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 Does do outdoor chores [...] mg, oral, DAILY, Take at bedtime ??? benzonatate (TESSALON) 100 mg, oral, 3 TIMES DAILY PRN ??? guaiFENesin-codeine (CHERATUSSIN AC) 100-10 mg/5 mL liquid 5 mL, oral, EVERY 8 HOURS PRN ??? 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 Tobacco: never smoker Alcohol: 1-2 drinks per day Drug use: none Pulmonary Function Testin03/12/2021 PFTs: FVC of 2.94 liters , 73% [...] of hypertension, hyperlipidemia, never smoker whopresents today via video in follow-up of progressive chronic hypersensitivity pneumonitis.. ?? 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 + HP panel ?? Acute-sub acute HP ~2002 that has now developed to chronic HP with ongoing exposure ?? No improvement with prednisone. ?? Disease primarily fibrotic at this point ?? Interval decline in forced vital capacity, diffusing capacity compared to prior testing August 2020. 6-minute walk test 02/2021 -exertional hypoxia requiring 2 L supplemental oxygen. ?? He declines supplemental oxygen ?? Discussed progressive nature of interstitial lung disease especially with ongoing exposure ?? primary intervention is to remove exposure. Precontemplative regarding a new job situation versuspursuing disability. ?? Has discussed pursuing disability with his primary care ?? Discussion regarding antifibrotic therapy. He is not keen to start additional medications at thistime ?? Has had symptomatic improvement with antitussive therapies with Gifty Sánchez ?? SARTHAK 1: 320, equivocal myeloperoxidase- rheumatology referral for evaluation of autoimmune process; rescheduled for June 2021 ?? He and his demonstrate understanding that this disease is chronic and progressive and will cause worsening dyspnea, respiratory failure ?? They are interested in establishing pulmonary care at [facility] given proximity. Will place referral and forward imaging Plan: Referral to pulmonary [facility] Dr. Hesham melendez 1 tab 3 times daily as needed for cough - helpful for cough Cheratussin 5 mL every 8 hours as needed for cough - Strongly recommend removal of exposure/new work position Would support for disability Rheumatology referral Dermatology referral Dr. Menson was available for questions during this visit. All or part of this document has been prepared with speech recognition software and /or keyboard data developer techniques. Minor irregularities may be present. This visit was conducted by video. I spent a total of 42 minutes on the date of this encounter meeting with the patient and reviewing documentation/coordinating care as described in the above note. TELEMEDICINE VIDEO VISIT Today's visit was provided through telemedicine video conferencing: The location of the patient : Home The location of the provider: Office The following staff and their role did participate in today's encounter visit: Beatrice Vo PA-C Lashonda Mendoza MA - 04/07/2021 1330 EDT No new updates, patient reports to be doing well. documented in this encounter Plan of Treatment Upcoming Encounters Date Type Specialty Care Team Description 07/28/2022 Office Visit Dermatology Nikky Del Real MD [address] [facility], [facility], [address] [place], [place] [address] (Wo rk) Scheduled Referrals Name Type Priority Associated Diagnoses Order S chedule AMB CONS/FOLLOW UP Outpatient Routine Hypersensitivity Expec ramsey: PULMONARY Referral pneumonitis ([facility]) 2020 (Approximate) documented as of this encounter Visit Diagnoses Diagnosis Hypersensitivity pneumonitis ([facility] ( [facility]) - Primary Unspecified allergic alveolitis and pneu monitis documented in this encounter Care Teams Post Commander Relationship Specialty Start Date End Date Guillermina Chowdhury PCP - General Internal Medicine - Primary 09/16/20 [address] [place] [address] documented as of this encounter
--- OUTSIDE RECORDS SUMMARY | 2022-07-23 00:54 | XMS_ITS | Encounter Summary ---
:1955 Author Organization [facility] Address [address] [place] [address] Care Team Providers Name Role Phone Guillermina Chowdhury Primary Care Provider Reason for Visit Reason Onset Date Comments Appointment Related 12/09/2020 Encounter Details Date Type Department Care Team Description 12/09/2020 Telephone [facility] Beatrice Nicole Appo intment Related Pulmonology & Critical PA-C [facility] [place] [id number] [facility] [address] [facility] [place] [place] [address] [address], [address] [place] [address] (Wo rk) Social History Tobacco Use Types Packs/Day Years Used Date Smoking Tobacco: Never Smokeless Tobacco: Never Sex Assigned at Date Recorded Not on file documented as of this encounter Miscellaneous Notes Telephone Encounter - Brandy Lisa - 12/09/2020 1101 EDT Patient is calling to inform that he will be at [phone]. documented in this encounter Plan of Treatment Upcoming Encounters Date Type Specialty Care Team Description 07/28/2022 Office Visit Dermatology Nikky Del Real MD [address] [facility], [address] [place], [address] [place], [place] [address] (Wo rk) documented as of this encounter Visit Diagnoses Not on filedocumented in this encounter Care Teams Car Sales Consultant Relationship Specialty Start Date End Date Guillermina Chowdhury PCP - General Internal Medicine - Primary 09/16/20 [address] [place] [address] documented as of this encounter
--- OUTSIDE RECORDS SUMMARY | 2022-07-23 00:54 | XMS_ITS | Encounter Summary ---
:1955 Author Organization [facility] Address [address] [place] [address] Care Team Providers Name Role Phone Guillermina Chowdhury Primary Care Provider Encounter Details Date Type Department Care Team Description 07/07/2022 Lab Requisition [facility] Outr Resulting Lab, Pathology & Laboratory Provider [facility] [address] [place], [place] [id number] Social History Tobacco Use Types Packs/Day Years [...] Dermatology Nikky Del Real MD [address] [facility], [facility] [address], [address] [place], [place] [address] (Wo rk) documented as of this encounter Procedures Procedure Name Priority Date/Time Associated Comments Diagnosis HIV 1/2 ANTIGEN AND Routine 07/07/2022 7:45 EST R esults for this ANTIBODY, 4TH procedure are in GENERATION the results section. documented in this encounter Results HIV 1/2 ANTIGEN AND ANTIBODY, 4TH GENERATION (07/07/2022 7:45 EST) [facility] gist Method Time Signature HIV 1 and 2 Negative Negative 07/08/2022 [facility] MEDICAL Antibody/p24 10:31 EST CENTER Antigen, 4th LABORATORY Generation SERVICES Comment: If acute HIV-1 infection is marissa pected in a high risk patient, submit plasma specimen for HIV-1 RNA quantitation test . Specimen Anatomical Collection Method Collection Time Receive d Time (Source) Location / / Volume Laterality Blood VENOUS BLOOD / 07/07/2022 7:45 07/07/2022 Unknown EST 16:54 EST Narrative [facility] - 07/08/2022 10:31 EST Fourth Generation assay performed on the Siemens [employer] XPT. Provider Outr Resulting Lab IMMUNOLOGY AND SEROLOGY OR DERABLES Performing Organization Address City/State/ZIP Code Phon e Number [facility] [address] [place] [address] SERVICES documented in this encounter Visit Diagnoses Not on filedocumented in this encounter Care Teams [employer] Counter Person Relationship Specialty Start Date End Date Guillermina Chowdhury PCP - General Internal Medicine - Primary 09/16/20 [address] [place] [address] documented as of this encounter
--- OUTSIDE RECORDS SUMMARY | 2022-07-23 00:54 | XMS_ITS | Encounter Summary ---
:1955 Author Organization [facility] Address [address] [place] [address] Care Team Providers Name Role Phone Unavailable Primary Care Provider Unavailable Encounter Details Date Type Department Care Team Description 02/25/2003 Hospital Encounter [facility] - Beata Shane MD [employer] [address] [facility] [address] [place] [address] [place] [address] [phone] Social History Tobacco Use Types Packs/Day Years Used Date Smoking Tobacco: Never Assessed Sex Assigned at Date Recorded Not on file documented as of this encounter Discharge Disposition Disposition Code Departure Means Destination Auto Discharge documented in this encounter Plan of Treatment Upcoming Encounters Date Type Specialty Care Team Description 07/28/2022 Office Visit Dermatology Nikky Del Real MD [address] [facility], [address] [place], [address] [place], [place] [address] (Wo rk) documented as of this encounter Visit Diagnoses Not on filedocumented in this encounter
--- OUTSIDE RECORDS SUMMARY | 2022-07-23 00:54 | XMS_ITS | CCD ---
:1955 Author Care Team Providers Name Role Phone CADEN MERRILL Attending Physician Unavailable CADEN MERRILL Rounding (Secondary) Physician Unavailab le Vital Signs Unknown or Not Available. Allergies Unknown or Not Available. Procedures Unknown or Not Available. History of Immunizations Unknown or Not Available. Problems Problem Code Start Date Resolved Date Status Steele's lung 46075849 Active Hypoxia 319057892 Active Fever 905986084 Active Hypertension 73523994 Active Hypertension 93911734 01/28/2022 Resolved Hyperlipidemia 97839365 01/28/2022 Resolved Hypersensitivity pneumonitis 22566035 01/28/2022 Resolved Results Unknown or Not Available. Active Medications Medication Code Dose Units Frequency Route Modification Start Date/Time predniSONE 20MG 702333 2 TABLET DAILY ORAL 01/30/20 22 Oral Tablet 11:45 Prescription Detail TAKE 2 TABLET ORAL DAILY amLODIPine Besylate 5MG Oral 907243 5 MILLIGRAMS DAILY ORAL 01/29/2022 11:40 Tablet Prescription Detail TAKE 5 MILLIGRAMS ORAL DAILY Atorvastatin Calcium 20MG 253686 20 MILLIGRAMS BEDTIME ORAL 01/29/2022 11:40 Oral Tablet Prescription Detail TAKE 20 MILLIGRAMS ORAL BEDT ASIYA Benzonatate 150MG [id number] 150 MILLIGRAMS TWICE A DAY ORAL 01/29/2022 11:40 Oral Capsule, Liquid Filled Prescription Detail TAKE 150 MILLIGRAMS ORAL TWI CE A DAY Medications Administered During Visit Unknown or Not Available. Encounters Encounter Diagnosis Diagnosis Code Start Date Unilateral inguinal hernia, without obstruction or [id number] 01/05/2022 gangrene, not specified as recurrent Social History Smoking Status Code Start Date End Date Never smoker [id number] Patient Decision Aids Unknown or Not Available. Discharge Instructions You were admitted to [facility] on 01/05/2022 08:33 with a principal diagnosis of Unilateral inguinal hernia, without o bstruction or gangrene, not specified as recurrent You were discharged from [facility] on 01/05/2022 00:00 Should you have any questions prior [...]
--- OUTSIDE RECORDS SUMMARY | 2022-07-23 00:54 | XMS_ITS | Encounter Summary ---
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 documented as of this encounter Plan of Treatment Upcoming Encounters Date Type Specialty Care Team Description 07/28/2022 Office Visit Dermatology Nikky Del Real MD 111 [facility], [facility], [address] [place], [place] [address] (Wo rk) documented as of this encounter Procedures Procedure Name Priority Date/Time Associated Comments Diagnosis SSA/SSB PANEL Routine 09/17/2020 13:13 ILD (interstitial Resul ts for this EST lung disease) procedure are in ([facility]) the results section. MISCELLANEOUS TEST, MIRACLE Routine 09/17/2020 13:13 ILD (interst itial Results for this EST lung disease) procedure are in ([facility]) the results section. MISCELLANEOUS TEST, MIRACLE Routine 09/17/2020 13:13 ILD (interst itial Results for this EST lung disease) procedure are in ([facility]) the results section. MISCELLANEOUS TEST, MA Routine 09/17/2020 13:13 ILD (interst itial Results for this EST lung disease) procedure are in ([facility]) the results section. PROTEINASE 3 ANTIBODY Routine 09/17/2020 13:13 ILD (interstiti al Results for this EST lung disease) procedure are in ([facility]) the results section. MYELOPEROXIDASE ANTIBODY Routine 09/17/2020 13:13 ILD (interst itial Results for this EST lung disease) procedure are in ([facility]) the results section. CCP ANTIBODIES Routine 09/17/2020 13:13 ILD (interstitial Resu lts for this EST lung disease) procedure are in ([facility]) the results section. SCL 70 ANTIBODY, IGG, Routine 09/17/2020 13:13 ILD (interstiti al Results for this SERUM EST lung disease) procedure are in ([facility]) the results section. ANTI DNA (DOUBLE Routine 09/17/2020 13:13 ILD (interstitial Re sults for this STRANDED) EST lung disease) procedure are in ([facility]) the results section. ANCA, IFA Routine 09/17/2020 13:13 ILD (interstitial Result s for this EST lung disease) procedure are in ([facility]) the results section. RHEUMATOID FACTOR Routine 09/17/2020 13:13 ILD (interstitial R esults for this EST lung disease) procedure are in ([facility]) the results section. ANTI NUCLEAR AB (SARTHAK), Routine 09/17/2020 13:13 ILD (interstit ial Results for this IFA EST lung disease) procedure are in ([facility]) the results section. documented in this encounter Results MISCELLANEOUS TEST, MA (09/17/2020 13:13 EST) [facility] Method Time Signature Miscellaneous SEE NOTE 09/30/2020 [facility] Test, Addis 1:06 EST LABORATORIES Comment: Test ?Result ? [...] by the Food and Drug Admi nistration. ??Yvek-Gi-7-Ab ?Negative ?Negative ?This test was developed and its pe rformance characteristics ?determined by [facility]. It has not been cleared or ?approved by the Food and Drug Admi nistration. ??Hyyr-[id number]-[id number] Ab ?<20 ?Units ??<20 ?This test was [...] the Food and Drug Admi nistration. ??Anti-U1 COMPUTER SYSTEMS SECURITY ADMINISTRATOR Ab ?<20 ?Units ??<20 ?This test was developed and its pe rformance characteristics ?determined by [facility]. It has not been cleared or ?approved by the Food and Drug Admi nistration. ??Anti-U2 COMPUTER SYSTEMS SECURITY ADMINISTRATOR Ab ?Negative ?Negative ?This test was developed and its pe rformance characteristics ?determined by [facility]. It has not been cleared or ?approved by the Food and Drug Admi nistration. ??Anti-U3 COMPUTER SYSTEMS SECURITY ADMINISTRATOR (Fibrillarin) ? Negative ?Negative ?This test was developed and its pe rformance characteristics ?determined by [facility]. It has not been cleared or ?approved by the Food and Drug Admi nistration. ?Interpretation for Anti-Suzi-1 , Ymji-[id number]-8fabfg, ?Anti-MDA-5, Anti-NXP-2, Anti -SAE1, Anti-PM/Scl-100, ?Anti-SS-A 52 kD, Anti-U1 COMPUTER SYSTEMS SECURITY ADMINISTRATOR : ?Negative: ?<20 ?Weak Positive: ? 20 - 39 ?Moderate Positive: ? 40 - 80 ?Strong Positive: ? >80 ?. ?Test Performed by: ?[facility] ?[address] ?[place] [address] Specimen Anatomical Collection Method / Collection Time Recei madhavi Time (Source) Location / Volume Laterality Blood VENOUS BLOOD / Venipuncture / 09/17/2020 13:13 021 Unknown Unknown EST 13:33 EST Beatrice Nicole PA-C CHEMISTRY & BLOOD GAS ORDERA BLES Performing Organization Address City/State/ZIP Code Phon e Number [facility] [address] [place] [address] SSA/SSB PANEL (09/17/2020 13:13 EST) athologist Signature SSA Antibody 1.5 <20.0 Units 09/18/2020 [facility] 13:44 EST [facility] Comment: ? Negative: <20.0 Units ? Weak Positive: 20.0 - 39.9 Units ? Moderate Positive: 40 .0 - 80.0 Units ? Strong Positive: >80. 0 Units Results were obtained with the INOVA RICHARD NTA Lite SS-A DHARMESH. ??SS-A values obtained with different manufacturers' assay methods may not be used interchangeably. ??The magnitude of the reported IgG levels cannot be correlated to an endpoint titer. SSB Antibody 3.4 <20.0 Units 09/18/2020 13:44 EST [facility] Comment: ? Negative: <20.0 Units [...] 14:04 EST Beatrice VIVEROS-C IMMUNOLOGY AND SEROLOGY ORDJeremy SETHI Performing Organization Address City/State/ZIP Code Phon e Number [facility] [address] [place] [address] SERVICES SCL 70 ANTIBODY, IGG, SERUM (09/17/2020 13:13 EST) athologist Signature Scl 70 Ab, <0.2 <1.0 09/18/2020 [facility] IgG, S (Negative) 11:47 EST LABORATORIES U Comment: Test Performed by: [facility] [address] [address]01 Personal Banking Assistant: Fan Alejandro M.D. Ph. D.; CLIA# [id number] Specimen Anatomical Collection Method / Collection Time Recei madhavi Time (Source) Location / Volume Laterality Blood VENOUS BLOOD / Venipuncture / 09/17/2020 13:13 021 Unknown Unknown EST 14:04 EST Beatrice VIVEROS-[facility] IMMUNOLOGY AND SEROLOGY FAMILIA SETHI Performing Organization Address City/State/ZIP Code Phon e Number [facility] [address] [place] [address] RHEUMATOID FACTOR (09/17/2020 13:13 EST) athologist Signature Rheumatoid <8.6 <12.0 09/17/2020 [facility] Factor IU/mL 14:34 EST [facility]ENTER [facility] Specimen Anatomical Collection Method / Collection Time Recei madhavi Time (Source) Location / Volume Laterality Blood VENOUS BLOOD / Venipuncture / 09/17/2020 13:13 021 Unknown Unknown EST 14:04 EST Beatrice VIVEROS-C CHEMISTRY & BLOOD GAS ORDERA BLES Performing Organization Address City/State/ZIP Code Phon e Number [facility] [address] [place] [address] SERVICES CCP ANTIBODIES (09/17/2020 13:13 EST) athologist Signature CCP Antibodies <2.5 <5.0 U/mL 09/17/2020 [facility] 15:37 EST [facility]ENTER [facility] SERVICES Specimen Anatomical Collection Method / Collection Time Recei madhavi Time (Source) Location / Volume Laterality Blood VENOUS BLOOD / Venipuncture / 09/17/2020 13:13 021 Unknown Unknown EST 14:04 EST Beatrice Bonnie VIVEROS-C IMMUNOLOGY AND SEROLOGY FAMILIA SETHI Performing Organization Address City/State/ZIP Code Phon e Number [facility] [address] [place] [address] SERVICES PROTEINASE 3 ANTIBODY (09/17/2020 13:13 EST) Analysis Performed At Patho logist Time Signature Proteinase 3 Ab <0.2 <0.4 09/18/2020 [facility] (PR3), S (Negative) 11:50 EST LABORATORIES U Comment: Test Performed by: [facility] [address] [place] [address] Personal Banking Assistant: Fan Alejandro M.D. Ph. D.; CLIA# [id number] Specimen Anatomical Collection Method / Collection Time Recei madhavi Time (Source) Location / Volume Laterality Blood VENOUS BLOOD / Venipuncture / 09/17/2020 13:13 021 Unknown Unknown EST 14:04 EST Beatricejeremy VIVEROS-C IMMUNOLOGY AND SEROLOGY FAMILIA SETHI Performing Organization Address City/[facility]/ZIP Code Phon e Number [facility] [address] [place] [address] (ABNORMAL) MYELOPEROXIDASE ANTIBODY (09/17/2020 13:13 EST) Patholo gist Method Time Signature Myeloperoxidase Ab, 0.6 (H) <0.4 09/18/2020 [facility] (Negative 11:50 EST LABORATORIES ) U Comment: Interpretation: Equivocal (0.4-0.9) Test Performed by: [facility] [address] [place] [address] 49 Personal Banking Assistant: Fan Alejandro M.D. Ph. D.; CLIA# [id number] Specimen Anatomical Collection Method / Collection Time Recei madhavi Time (Source) Location / Volume Laterality Blood VENOUS BLOOD / Venipuncture / 09/17/2020 13:13 021 Unknown Unknown EST 14:04 EST Beatrice VIVEROS-C IMMUNOLOGY AND SEROLOGY ORDJeremy SETHI Performing Organization Address City/[facility]/ZIP Code Phon e Number [facility] [address] [place] [address] (ABNORMAL) ANTI NUCLEAR AB (SARTHAK), IFA (09/17/2020 13:13 EST) Patholo gist Method Time Signature SARTHAK Positive Negative 09/18/2020 [facility] Interpretation (A) 13:43 EST CENTER LABORATORY SERVICES [...] Titer and 1:320 Speckled 09/18/2020 13:43 EST [facility] Pattern 1 LABORATORY SERVICES Specimen Anatomical Collection Method / Collection Time Recei madhavi Time (Source) Location / Volume Laterality Blood VENOUS BLOOD / Venipuncture / 09/17/2020 13:13 021 Unknown Unknown EST 14:04 EST Narrative [facility] - 09/18/2020 13:43 EST Results were obtained with the Ubiterra NOV A Lite HEp-2 SARTHAK Kit by indirect immunofluorescence. Beatrice Nicole PA-C IMMUNOLOGY AND SEROLOGY FAMILIA SETHI Performing Organization Address City/State/ZIP Code Phon e Number [facility] [address] [place] [address] SERVICES ANTI DNA (DOUBLE STRANDED) (09/17/2020 13:13 EST) P athologist Signature Anti-DNA <12.3 <30.0 09/18/2020 [facility] (Double IU/mL 11:19 EST CENTER Stranded) LABORATORY SERVICES Comment: ? Negative: ??<30.0 IU/mL ? Borderline Positive: ??30.0 - 75.0 IU/mL ? Positive: ??>75.0 IU/mL Results were obtained with the INOVA RICHARD NTA Lite dsDNA SC DHARMESH assay on the [employer]. Specimen Anatomical Collection Method / Collection Time Recei madhavi Time (Source) Location / Volume Laterality Blood VENOUS BLOOD / Venipuncture / 09/17/2020 13:13 021 Unknown Unknown EST 14:04 EST Beatrice Nicole PA-C IMMUNOLOGY AND SEROLOGY FAMILIA SETHI Performing Organization Address City/State/ZIP Code Phon e Number [facility] [address] [place] [address] SERVICES ANCA, IFA (09/17/2020 13:13 EST) [facility] Lab ANCA Negative Negative 09/18/2020 [facility] Interpretation 13:43 EST CENTER [facility] SERVICES Comment: SARTHAK Positive, suggest follow-up SARTHAK test ing if clinically indicated. Cannot rule out Atypical ANCA (A-ANCA). No titer performed, ANCA Screen is negat benny. Results were obtained with the INOVA NOV A Lite ANCA kit by indirect immunofluorescence. Specimen Anatomical Collection Method / Collection Time Recei madhavi Time (Source) Location / Volume Laterality Blood VENOUS BLOOD / Venipuncture / 09/17/2020 13:13 021 Unknown Unknown EST 14:04 EST Beatrice Nicole PA-C IMMUNOLOGY AND SEROLOGY FAMILIA FLORANDI Performing Organization Address City/[facility]/ZIP Code Phon e Number [facility] [address] [place] [address] SERVICES (ABNORMAL) MISCELLANEOUS TEST, MA (09/17/2020 13:13 EST) [facility] Miscellaneous SEE NOTE 09/22/2020 [facility] Test, Ma (A) 16:40 EST LABORATORIES [...] ?[employer] ?[address] ?[place] [address] Specimen Anatomical Collection Method / Collection Time Recei mdahavi Time (Source) Location / Volume Laterality Blood VENOUS BLOOD / Venipuncture / 09/17/2020 13:13 021 Unknown Unknown EST 13:34 EST Beatrice Nicole PA-C CHEMISTRY & BLOOD GAS ORDERA BLES Performing Organization Address City/State/ZIP Code Phon e Number [facility] [address] [place] [address] MISCELLANEOUS TEST, MIRACLE (09/17/2020 13:13 EST) [facility] gist Method Time Signature Miscellaneous SEE NOTE 09/26/2020 [facility] Test, Addis 10:11 EST LABORATORIES Comment: Test ?Result ?Flag ??Unit ??RefValue Dima Panel ??Montreat Sera ? Negative ?Montreat DE ? Negative ?Cockatiel ? Negative ?Parakeet ?Negative ?Parrot ?Negative ? ADDITIONAL INFO RMATION ?This result must be correlated wit h patients clinical ?response and should not solely be considered in the ?diagnosis. ?Test Performed by: ?[facility], Room 5068 ?Vignesh Kumari M.D. All[facility] o[facility] Diagnostic [facility] ?[address] [place] [address] ?[place] [address] Specimen Anatomical Collection Method / Collection Time Recei madhavi Time (Source) Location / Volume Laterality Blood VENOUS BLOOD / Venipuncture / 09/17/2020 13:13 021 Unknown Unknown EST 13:35 EST Beatrice Nicole PA-C CHEMISTRY & BLOOD GAS ORDERA BLES Performing Organization Address City/State/ZIP Code Phon e Number [facility] [address] [place] [address] documented in this encounter Visit Diagnoses Diagnosis ILD (interstitial lung disease) ([facility] ) (HCC) Postinflammatory pulmonary fibrosis documented in this encounter Care Teams Swing 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
--- OUTSIDE RECORDS SUMMARY | 2022-07-23 00:54 | XMS_ITS | Encounter Summary ---
:1955 Author Organization [facility] Address [address] [place] [address] Care Team Providers Name Role Phone Guillermina Chowdhury Primary Care Provider Reason for Visit Reason Comments New Patient Visit Going on for a year. Went aw ay. Not using anything on it. On arms and legs. Encounter Details Date Type Department Care Team Description 06/23/2021 Office Visit [facility] - Mike Del Real MD Other eczema (Primary Dx); [facility] Dermatology [address] [place] [address] Need for influenza vaccinati on [address] [phone] [place], [address] [place] [address] (Wo rk) Social History Tobacco [...] making decisions? documented as of this encounter Patient Instructions Patient InstructionsYahaira Singh - 06/23/2021 10:40 EDT For eczema: - For areas that are VERY itchy, apply betamethasone ointment twice a day for up to 2 weeks. After than, can use for 2-3 days a week as needed. - For other areas, apply triamcinolone ointment twice a day for up to 2 weeks. - Moisturize regularly and liberally, at least once daily. Recommend CeraVe cream or ointment. Lotions are not moisturizing enough. - Recommend against very hot showers SENSITIVE SKIN CARE You have easily irritated or ???sensitive?? skin. Anything that irritates your skin can cause dryness, redness and sometimes a rash. In this climate it is particularly difficult to keep your skin hydrated because of the cold and low humidity. Ordinarily, the skin is covered with a thin layer of oil which protects your skin. When this is removed, your skin will dry out very quickly. Therefore it is important to keep your skin well moisturized. Contrary to what you might think, getting your skin wet repeatedly (such as hand washing) can actually dry it out. Detergents and soaps will make this worse. Apply a moisturizer while your skin is still damp. 1. Temperature and Humidity: Keep your hands warm. Wear gloves. Humidify your house. 2. Clothing: The best fabric for sensitive skin is cotton or cotton-synthetic mixtures. Wool and pure synthetic fabrics may be irritating. Closely fitting garments such as long-gibbs and long stockingsmay irritate as well. 3. Bathing: Frequent bathing may dry the skin, especially in the winter. We recommend the following: A: Avoid long baths or showers. B: Use mild, fragrance free cleansers such as Dove. Use it sparingly and only where necessary such as armpits, groin and feet. C: Pat dry with a soft towel. DO NOT RUB. D: While still damp, apply a bland fragrance free moisturizer such as: Aveeno, Curel with ceramide, Eucerin, Theraplex , Neutrogena, or CeraVe, Apply this twice daily and more often if the skin appears dry and scaly. AmLactin or Lac-Hydrin helps with especially scaly skin. 4. Laundry Detergents: Your detergents and fabric softeners should be fragrance free without bleach. 5. documented in this encounter Ordered Prescriptions Prescription Sig Dispensed Refills Start Date End Date betamethasone dipropionate Apply topically to 45 g 1 1 08/23/2020 (DIPROLENE) 0.05 % affected area 2 times ointmentIndications: Other daily. Hiram for eczema itchiest areas triamcinolone (KENALOG) Apply topically to 454 g 3 09/2020 0.1 % ointmentIndications: affected area 2 times Other eczema daily. Do not apply to face, armpit or groin. documented in this encounter Progress Notes Shahida Mariee MA - 06/23/2021 1040 EDT Review of Systems Constitutional: Negative for fatigue, fever and unexpected weight change. HENT: Negative for mouth sores. Eyes: Negative for pain. Respiratory: Negative for cough and shortness of breath. Cardiovascular: Negative for chest pain and palpitations. Gastrointestinal: Negative for abdominal pain, blood in stool, constipation, diarrhea, nausea and vomiting. Genitourinary: Negative for dysuria, frequency and hematuria. Musculoskeletal: Negative for myalgias, joint swelling, arthralgias and muscle stiffness in the morning. Skin: Negative for rash. Neurological: Negative for numbness and headaches. Endo/Heme/Allergies: Does not bruise/bleed easily. Psychiatric/Behavioral: Negative for sleep disturbance. The patient is not nervous/anxious. SHAHIDA MARIEE MA 06/23/2021 10:47 Yahaira Singh - 06/23/2021 1040 EDT Dermatology Outpatient Visit Note Chief Complaint Patient presents with ??? New Patient Visit Going on for a year. Went away. Not using anything on it. On arms and legs. Dermatologic History: No specialty comments available. Last Dermatology office visit: NPV SUBJECTIVE Mr. Landrum is a 65 y.o. male who presents for new evaluation and treatment for an itchy rash of the body that developed more than 1 year ago. Rash was characterized by many scattered red patches. Denies red patches looked like bruises. Not taking a blood thinner. Denies itch is keeping him from sleeping. Was put on prednisone for unrelated issue and rash cleared. It is now returning. Flares with hot showers, which he takes frequently. Washes with Ivory soap. No personal or family history of seasonal allergies, asthma, or eczema. He is otherwise feeling well and has no other cutaneous concerns today. He denies any other new, changing, bleeding, tender, or non-healing skin lesions today. He has a current medication list which includes the following prescription(s): atorvastatin, benzonatate, betamethasone dipropionate, guaifenesin-codeine, lisinopril, sildenafil citrate, and triamcinolone. He has No Known Allergies. OBJECTIVE VS: There were no vitals taken for this visit. Mr. Landrum is male with Curry type III skin. Cutaneous full body examination including the hair, scalp, face, eyelids, lips, neck, chest, back, abdomen, all four extremities, hands, feet, digitsand nails was performed.The examination was significant for the following: - bilateral upper arms, bilateral legs: few scattered ill defined erythematous excoriated scaly plaques ASSESSMENT/PLAN 1. Eczema, chronic - We discussed the need for diligent care for sensitive skin. We discussed that generous moisturization especially during the winter months will be important for control of eczema. We explained that harsh soaps, fragrances, etc should be avoided, and scrupulous care should be taken to keep the skin moisturized. We made recommendations for moisturizers and explained that plain white petrolatum may be used if it can be tolerated. . - For areas that are VERY itchy, apply betamethasone ointment twice a day for up to 2 weeks. After than, can use for 2-3 days a week as needed. Risk of atrophy with care home use discussed. - For other areas, apply triamcinolone ointment twice a day for up to 2 weeks. - Recommend against very hot showers Med Orders Placed This Visit and Additions to the Medication List Medications ??? triamcinolone (KENALOG) 0.1 % ointment Sig: Apply topically to affected area 2 times daily. Do not apply to face, armpit or groin. Dispense: 454 g Refill: 3 ??? betamethasone dipropionate (DIPROLENE) 0.05 % ointment Sig: Apply topically to affected area 2 times daily. Hiram for itchiest areas Dispense: 45 g Refill: 1 He will Return in about 1 year (around 06/23/2022) for eczema f/u. Scribe Attestation By time stamping my name below, I attest that this documentation has been prepared under the direction and in the presence of the provider listed as the provider on this encounter. Yahaira Singh 06/23/2021 11:41 Provider Attestation By time stamping my name below, I, as the provider for this encounter, personally performed the services described in this documentation. All medical record entries made by the scribe were at my direction and in my presence. I have reviewed the chart and any discharge instructions and agree that the record reflects my personal performance and is accurate and complete. Nikky Del Real MD 06/24/2021 21:23 Timur Plummer, RN - 06/23/2021 1040 EDT Immunization: Amando Landrum has received the Fluzone HD Quad immunization today. VIS given to patient and allquestions were answered. The procedure was tolerated well. TIMUR PLUMMER RN 06/23/2021 11:12 documented in this encounter Plan of Treatment Upcoming Encounters Date Type Specialty Care Team Description 07/28/2022 Office Visit Dermatology Nikky Del Real MD [address] [facility], [facility], [address] [place], [place] [address] (Wo rk) documented as of this encounter Visit Diagnoses Diagnosis Other eczema - Primary Need for influenza vaccination Need for prophylactic vaccination and in oculation against influenza documented in this encounter Orders Immunization/Injection Count Last Ordered Date First O rdered Date INFLUENZA VACCINE QUAD HIGH DOSE (FLUZONE 1 2020 HIGH DOSE) PF 0.7 ML IM (65 YRS+) documented in this encounter Care Teams Operations Mgr Relationship Specialty Start Date End Date Guillermina Chowdhury PCP - General Internal Medicine - Primary 09/16/20 [address] [place] [address] documented as of this encounter
--- OUTSIDE RECORDS SUMMARY | 2022-07-23 00:54 | XMS_ITS | Encounter Summary ---
:1955 Author Organization [facility] Address [address] [place] [address] Care Team Providers Name Role Phone Guillermina Chowdhury Primary Care Provider Encounter Details Date Type Department Care Team Description 09/17/2020 Travel Social History Tobacco Use Types Packs/Day Years [...] Visit Dermatology Nikky Del Real MD [address] [facility], [facility], [address] [place], [place] [address] (Wo rk) documented as of this encounter Visit Diagnoses Not on filedocumented in this encounter Care Teams Forming Machine Adjuster Relationship Specialty Start Date End Date Guillermina Chowdhury PCP - General Internal Medicine - Primary 09/16/20 [address] [place], [place] [address] documented as of this encounter
--- OUTSIDE RECORDS SUMMARY | 2022-07-23 00:54 | XMS_ITS | Encounter Summary ---
:1955 Author Organization [facility] Address [address] [place] [address] Care Team Providers Name Role Phone Guillermina Chowdhury Primary Care Provider Reason for Referral (Routine) - Authorization Not Required Specialty Diagnoses / Procedures Referred By Contact Refer red To Contact Diagnoses ILD (interstitial lung disease) ([facility]) ([facility]) Iker Dhillon MD PhD Procedures PULMONARY FUNCTION TESTING 111 [facility] [address] [place] [address] Referral ID Status Reason Start Expiration Visits Visits Date Date Requested Authorized [id number] Authorization Not 2 2 Required 0 Reason for Visit Referral (Routine) - Receiving Office to Obtain Authorization Specialty Diagnoses / Procedures Referred By Contact Refer red To Contact Pulmonary Disease Diagnoses Fibrosis of lung ([facility]) ([facility]) Guillermina Chowdhury [facility] Ep[facility] Pulmonology [address] [place] [address] [address] [place], [place] [address] [place] [phone] Fax: Referral ID Status Reason Start Expiration Visits Visits Date Date Requested Authorized [id number] Receiving Office 1 1 to Obtain Authorization Encounter Details Date Type Department Care Team Description 09/17/2020 Hospital Encounter [facility] ILD (interstitial lung Pulmonary Function Lab disea se) ([facility]) - [address] [address] Social History Tobacco Use Types Packs/Day Years Used Date Smoking Tobacco: Never Smokeless Tobacco: Never Sex Assigned at Date Recorded Not on file documented as of this encounter Medications at Time of Discharge Medication Sig Dispensed Refills Start Date End Date atorvastatin (LIPITOR) Take 20 mg by mouth 0 20 mg tablet daily. Take at bedtime lisinopriL (PRINIVIL) 10 Take 10 mg by mouth 0 mg tablet daily. sildenafil citrate Take 100 mg by mouth as 0 (VIAGRA) 100 mg tablet needed for Erectile Dysfunction. Take half tab to one tab as needed prior to intercourse documented as of this encounter Discharge Disposition Disposition Code Departure Means Destination Home or Self Care documented in this encounter Progress Notes Eliana Sprague RT - 09/17/2020 1115 EST Testing was performed and recorded in [employer]. See complete report in scanned documents. documented in this encounter Plan of Treatment Upcoming Encounters Date Type Specialty Care Team Description 07/28/2022 Office Visit Dermatology Nikky Del Real MD [address] [facility], [facility], [address] [place], [place] [address] (Wo rk) Scheduled Orders Name Type Priority Associated Diagnoses Order S chedule PULMONARY FUNCTION PFT Routine Ild (Interstitial Lung 1 Occurrences starting TESTING Disease) ([facility]) ([facility]) until 09/17/2020 documented as of this encounter Procedures Procedure Name Priority Date/Time Associated Diagnosis Comme nts PULMONARY FUNCTION REPORT 10/15/2020 11:54 EST - SCANNED documented in this encounter Results PULMONARY FUNCTION REPORT - SCANNED (10/15/2020 11:54 EST) Specimen (Source) Anatomical Collection Method Collection Time Re ceived Time Location / / Volume Laterality 10/15/2020 11:54 EST Narrative This result has an attachment that is no t available. Scan 2 Tower Cleaner PROCEDURE/MINOR SURGICAL ORD ERABLES documented in this encounter Visit Diagnoses Diagnosis ILD (interstitial lung disease) ([facility] ) ([facility]) Postinflammatory pulmonary fibrosis documented in this encounter Administered Medications Inactive Administered Medications - up to 3 most recent administrations Medication Order MAR Action Action Date Dose Rate Site albuterol inhaler 360 mcg Given 09/17/2020 11:00 EST 360 mcg 360 mcg (4 Puff), inhalation, Once (NO Time Specified), 1 dose, Starting on Tue09/17/20 at 1145, Until Tue09/17/20 at 1100, Routine documented in this encounter Orders Medications Ordered That Might Not Have Count Last Ord ered Date First Ordered Date Been Administered albuterol inhaler 360 mcg 1 09/17/2020 documented in this encounter Care Teams Deputy Sheriff/Investigator Relationship Specialty Start Date End Date Guillermina Chowdhury PCP - General Internal Medicine - Primary 09/16/20 [address] [place] [address] documented as of this encounter
--- OUTSIDE RECORDS SUMMARY | 2022-07-23 00:54 | XMS_ITS | Encounter Summary ---
:1955 Author Organization [facility] Address [address] [place] [address] Care Team Providers Name Role Phone Khanh Everett MD Primary Care Provider Guillermina Chowdhury Primary Care Provider Encounter Details Date Type Department Care Team Description 10/29/2002 Hospital Encounter [facility] - Beata Shane MD [place] [address] [facility] [address] [place] [address] [place], [place] [address] [phone] Social History Tobacco Use Types Packs/Day Years [...] Visit Dermatology Nikky Del Real MD 111 [facility], [facility], [address] [place], [place] [address] (Wo rk) documented as of this encounter Procedures Procedure Name Priority Date/Time Associated Comments Diagnosis CHEST PA AND LATERAL Routine 12/06/2002 11:54 Res ults for this EDT procedure are i n the results section. ZZHYPER PNEUMONITIS Routine 10/29/2002 14:15 Resu lts for this EST procedure are i n the results section. documented in this encounter Results CHEST PA AND LATERAL (12/06/2002 11:54 EDT) Anatomical Region Laterality Modality Other Specimen (Source) Anatomical Collection Method Collection Time Re ceived Time Location / / Volume Laterality 12/06/2002 11:54 EDT Narrative 05/06/2009 4:03 EDT HYPERSENSITIVITY PNEUMONILE R/O INTERVAL CHANGES PA AND LATERAL CHEST X-RAY: 12/06/2002, 1135 HOURS CLINICAL HISTORY: Hypersensitivity pneumonitis. There are no comparison examinations april ilable. FINDINGS: The lung volumes are diminished and ther e is diffuse interstitial prominence, particularly at the lung bas es. The cardiac silhouette and pulmonary vascularity are normal. No foc al consolidation is identified and there is no evidence of p leural effusion. IMPRESSIONS: Interstitial lung disease, as described above. /tns Procedure Note Roger Murphy MD - 05/06/2009For matting of this note might be different from the original. HYPERSENSITIVITY PNEUMONILE R/O INTERVAL CHANGES PA AND LATERAL CHEST X-RAY: 12/06/2002, 1135 HOURS CLINICAL HISTORY: Hypersensitivity pneumonitis. There are no comparison examinations april ilable. FINDINGS: The lung volumes are diminished and ther e is diffuse interstitial prominence, particularly at the lung bas es. The cardiac silhouette and pulmonary vascularity are normal. No foc al consolidation is identified and there is no evidence of p leural effusion. IMPRESSIONS: Interstitial lung disease, as described above. /tns Hiren Shane MD IMG DIAGNOSTIC IMAGING ORDER BOBBI (ABNORMAL) HYPER PNEUMONITIS (10/29/2002 14:15 EST) Component Value Ref Test Analysis Performed Pathologis t Range Method Time At Signature Aspergillus 122Unit: mg/L(Note) ANGELES fumigatus 'This test was developed and its performance characteristics ? REE LAB determined by Laboratory Med pending sale to [facility] and Pathology, [facility] ? [place]. It has not been c leared or approved by the U.S. ? Food and Drug Administration .' ? -- EXPECTED VALUES -- ? (Ref Range) < or = 110.0 (> or = 16 years) ? (H) Micropolyspora 101Unit: mg/L(Note) FLETC HER Ju[place] 'This test was developed and its performance characteristics ? REE LAB determined by Laboratory Med icine and Pathology, [facility] ? [place]. It has not been c leared or approved by the U.S. ? Food and Drug Administration .' ? -- EXPECTED VALUES -- ? (Ref Range) < or = 25.0 (> o r = 16 years) ? (H) Thermoactinomyces 111Unit: mg/L(Note) FL ANDREW Marx 'This test was developed and its performance characteristics ? REE LAB determined by Laboratory Med icine and Pathology, [facility] ? [place]. It has not been c leared or approved by the U.S. ? Food and Drug Administration .' ? -- EXPECTED VALUES -- ? (Ref Range) < or = 60.0 (> o r = 16 years) ? TEST PERFORMED OR REFERRED B [facility] ? [address] ? [place] [address] ? Presetter Operator: ? Chintan Quinn M.D. ? (H) Specimen Anatomical Collection Method Collection Time Receive d Time (Source) Location / / Volume Laterality 10/29/2002 14:15 10/29/2002 EST 17:19 EST Hiren Shane MD IMMUNOLOGY AND SEROLOGY [facility]I Performing Organization Address City/State/ZIP Code Phon e Number [facility] [address] [place] [address] [facility] [address] [place] [address] documented in this encounter Visit Diagnoses Not on filedocumented in this encounter Care Teams Hand Lens Polisher Relationship Specialty Start Date End Date Khanh Everett MD PCP - General 07/01/15 09/15/20 [address] [place] [address] Guillermina Chowdhury PCP - General Internal Medicine - 09/16/[address] Primary Care [place], [place] [address] documented as of this encounter
--- OUTSIDE RECORDS SUMMARY | 2022-07-23 00:54 | XMS_ITS | Encounter Summary ---
:1955 Author Organization [facility] Address [address] [place] [address] Care Team Providers Name Role Phone Guillermina Chowdhury Primary Care Provider Encounter Details Date Type Department Care Team Description 09/16/2020 Orders Only [facility] Aleja Nicole PA-C Pulmonology & Critical Care [address] Office [facility], [place] [address] [address] [place] [address] (Wo rk) Social History Tobacco Use Types Packs/Day Years Used Date Smoking Tobacco: Never Assessed Sex Assigned at Date Recorded Not on file documented as of this encounter Plan of Treatment Upcoming Encounters Date Type Specialty Care Team Description 07/28/2022 Office Visit Dermatology Nkiky Del Real MD 111 [facility], [facility] [place], [address] [place], [place] [address] (Wo rk) documented as of this encounter Procedures Procedure Name Priority Date/Time Associated Diagnosis Comme nts COMPREHENSIVE METABOLIC Routine 08/04/2020 Resu lts for this PANEL (CMP) procedure are i n the results section . COMPLETE BLOOD COUNT Routine 08/02/2020 Results for this procedure are i n the results section . documented in this encounter Results COMPREHENSIVE METABOLIC PANEL (CMP) (08/04/2020) Analysis Performed At [facility] logis Time Signature GFR, >60 [place] Calculated, [facility] LAB Glucose, Serum, 96 [place] External [facility] Albumin, 4.1 [facility] Total Alkaline 68 [place] Phosphatase, [facility] ALT, External 31 [facility] AST, External 27 [facility] BUN, External 24 [facility] Calculated [facility] Calcium, [facility] Calcium, 8.8 [facility] Chloride, 103 [facility] CO2, External 25.4 [facility] Creatinine, 0.97 [facility] Fasting?, [facility] Potassium, 4.7 [facility] Sodium, [facility] Total Protein, 7.4 [facility] Bilirubin, 0.7 [facility] Specimen (Source) Anatomical Location Collection Method / Collectio n Time Received Time / Laterality Volume Blood VENOUS BLOOD / 08/04/2020 Unknown Beatrice Nicole PA-C CHEMISTRY & BLOOD GAS ORDERA BLES Performing Organization Address City/State/ZIP Code Phon e Number [facility] COMPLETE BLOOD COUNT (08/02/2020) P athologist Signature HCT, External 47.2 [facility] MCH, External 30.8 [facility] MCV, External 93.7 [facility] MCHC, External 32.8 [facility] Hemoglobin, 15.5 [facility] WBC, External 7.63 [facility] RBC, External 5.04 [facility] PLT, External 215 [facility] RDW-CV, 13.2 [facility] Specimen (Source) Anatomical Location Collection Method / Collectio n Time Received Time / Laterality Volume Blood VENOUS BLOOD / 08/02/2020 Unknown Beatrice Nicole PA-C HEMATOLOGY & PF4 ORDERABLES Performing Organization Address City/State/ZIP Code Phon e Number [facility] documented in this encounter Visit Diagnoses Not on filedocumented in this encounter Care Teams Marine Fuel Dock Attendant Relationship Specialty Start Date End Date Guillermina Chowdhury PCP - General Internal Medicine - Primary 09/16/20 [address] [place] [address] documented as of this encounter
--- NOTE | 2022-07-23 06:45 | DI.NM_ITS ---
Exam(s) NM LUNG SCAN VENT PERF GRP EXAM: NM LUNG SCAN VENT PERF GRP CLINICAL HISTORY: ? CTEPH, PULMONARY HYPERTENSION,I27.20. TECHNIQUE: Injected Dose: Ventilation: 45 mCi Tc-99m DTPA via inhalation Perfusion: 4 mCi Tc-99m MAA via IV COMPARISON: CT CT CHEST PE CTA from 07/05/2022 CR XR CHEST 2V PA LATERAL from 07/23/2022 FINDINGS: Chest X-Ray: Clear lungs. Perfusion: Mild heterogeneity. No segmental or subsegmental defects. Ventilation:Moderate clumping of the radiopharmaceutical near the sergio. Heterogeneous decreased vent ilation to the upper lobes and lung bases. IMPRESSION: 1. Low probability VQ examination. . . . Modified PIOPED II criteria Probability Criteria High Two or more segments of V/Q mismatch Low Normal Perfusion, Non segmental perfusion abnormalitie s, pleural effusion in at least 1/3 of pleural cavity with no other defect Radiograph/perfusion matched defect in mid to upper lung confined to segment, one to three small segmental perfusion defects (<25% of segment) Perfusion defect smaller than corresponding radiogra phic lesion. Intermediate All other findings DATA REPOSITORY:
--- NOTE | 2022-07-23 08:33 | DI.RAD_ITS ---
Exam(s) XR CHEST 2V PA LATERAL EXAM: XR CHEST 2V PA LATERAL CLINICAL HISTORY: pre-VQ scan,PULMONARY HYPERTENSION,I27.20,? CTEPH TECHNIQUE: 2D digital imaging was performed. COMPARISON: CR CHEST PA AND LATERAL 2V from 08/06/2020 CR XR PORTABLE CHEST 1V* from 01/28/[address] CHEST PE CTA from 07/05/2022 FINDINGS: HEART: Within normal limits. Aorta: Mildly tortuous. PULMONARY VASCULATURE: Normal. LUNGS: Fibrotic changes greater at the lung bases, otherwise clear. PLEURAL SPACE: No pleural effusion or pneumothorax. BONE:Unremarkable for age. IMPRESSION: Fibrosis greater at the lung bases, with some progression since 2019. DATA REPOSITORY: RADIATION DOSE DELIVERED:
== END ==
PROVIDERS: PCP Internal Medicine; Visit Provider Student in an Organized Health Care Education/Training Program
DX: J84.89 Other specified interstitial pulmonary diseases (principal); I27.20 Pulmonary hypertension, unspecified
CPT/HCPCS: 78582; 71046

== ENCOUNTER 2022-08-25 20:53 | Outpatient (REF) | payer MEDICARE, SELFPAY ==
[2022-08-25 23:28] LABS: Anion Gap 4.6 mmol/L (3-11); BUN 42 mg/dL (7-18); CO2 31.4 mmol/L (21.0-32.0); CREATININE 1.4 mg/dL (0.70-1.30); Calcium 9.5 mg/dL (8.5-10.1); Chloride 101 mmol/L (98-107); Estimated GFR 54.75 (mL/min/1.73m2); Glucose 97 mg/dL (74-106); Sodium 137 mmol/L (136-145)
== END 2022-08-25 20:54 | disposition home or self-care (01) ==
LOC: NCHCN 20:53
PROVIDERS: PCP Internal Medicine; Visit Provider Family Medicine
DX: I27.23 Pulmonary hypertension due to lung diseases and hypoxia (principal); I10 Essential (primary) hypertension; E78.5 Hyperlipidemia, unspecified
CPT/HCPCS: 80048

== ENCOUNTER 2022-09-30 01:12 | Outpatient (CLI) | payer MEDICARE, SELFPAY ==
--- NOTE | 2022-09-30 08:00 | DI.US_ITS ---
APPROVED REPORT EXAM: Comprehensive 2D, Doppler, and color-flow Echocardiogram Patient Location: Out-Patient Medical Assembly: Katt Aguilar RDCS (AE) Indications: Limited follow up PAP's, Pulmonary HTN, RT ventricular failure Echo Enhancing Agent Indication: Rule out Shunt Agent(s) / Amount(s) Used: Agitated Saline 30.0 cc Comments: Contrast study was performed with 3 IV injections of 10ccs of agitated normal saline, at re st, with cough and post valsalva maneuver. Negative contrast study for shunt flow. Other Information Study Quality: Adequate Conclusion Normal left ventricular wall thickness chamber size and systolic function. Estimated ejection fracti on is 55 to 60%. Wall motion is normal The right ventricle is dilated No intracardiac shunt is demonstrated with injection of agitated saline Tricuspid regurgitation is noted, estimated right ventricular systolic pressure is 52 mmHg Wall motion Left Ventricle The left ventricle is normal size. The left ventricular systolic function is normal. The left ventric ular ejection fraction is within the normal range. There is normal left ventricular wall thickness. T here is normal LV segmental wall motion. Flattened septum consistent with right ventricular volume an d pressure overload. LVEF is 55%. Right Ventricle Right ventricle is moderately dilated. Right ventricular systolic function is grossly normal. Atria Saline bubble contrast intravenous injection does not demonstrate PFO. Great Vessels IVC is normal in size and collapses >50% with inspiration. 2D Dimensions IVSD d PLAX 1.28 cm M: 0.6-1.2 LV Vol A2C d MOD 110.5 mL LVPW d PLAX 1.24 cm M: 0.6 - 1.2 LV Vol A4C d MOD 86.5 mL LVID d PLAX 4.47 cm M: 4.2 - 5.8 LA vol/ BSA A2C s A-L 24.3 mL/m2 LVDs 3.15 cm M: 2.5 - 4.0 LA vol/ BSA A4C s A-L 26.3 mL/m2 LV EF Teichholz 55.4 % LA Vol/ BSA Biplane s A-L 26.7 mL/m2 LVEF (Hough's) 55.51 % M: 52 - 72 LA Area A4C s MOD 18.61 cm2 LV Volume 75.89 mL M: 62 - 150 LA Area A2C s MOD 16.90 cm2 LV Volume Index 37.94 mL/m2 M: 34 - 74 LV EF A4C MOD 55.0 % LV Vol Biplane MOD 101.1 mL LV EF A2C MOD 55.1 % FS 28.65 % LV EF Biplane MOD 55.5 % SV 56.13 mL SV Index 28.12 mL/m2 Tricuspid Valve TR Peak Grad 46.5 mmHg TR Vmax 3.41 m/s
== END 2022-09-30 01:32 ==
LOC: DI 01:12
PROVIDERS: PCP Internal Medicine; Visit Provider Student in an Organized Health Care Education/Training Program
DX: I27.20 Pulmonary hypertension, unspecified (principal); I50.810 Right heart failure, unspecified
CPT/HCPCS: 93306

== ENCOUNTER 2023-03-04 15:15 | Outpatient (REF) | payer MEDICARE, SELFPAY ==
[2023-03-04 15:19] LABS: Anion Gap 7.9 mmol/L (3-11); BUN 16 mg/dL (7-18); CO2 26.1 mmol/L (21.0-32.0); CREATININE 1.1 mg/dL (0.70-1.30); Calcium 8.8 mg/dL (8.5-10.1); Chloride 103 mmol/L (98-107); Estimated GFR 72.67 (mL/min/1.73m2); Glucose 100 mg/dL (74-106); Potassium 4.7 mmol/L (3.5-5.1); Sodium 137 mmol/L (136-145)
== END 2023-03-04 15:16 | disposition home or self-care (01) ==
LOC: NCHCN 15:15
PROVIDERS: PCP Internal Medicine; Visit Provider Internal Medicine
DX: I10 Essential (primary) hypertension (principal)
CPT/HCPCS: 80048

== ENCOUNTER 2023-06-28 15:48 | Inpatient (IN) | payer MEDICARE, SELFPAY ==
[2023-06-28] VITALS (116 sets, daily range): BP systolic 80–149; BP diastolic 35–91; PULSE 69–129; RESP 17–40; TEMP 31–39.2; O2SAT 79–95
--- NOTE | 2023-06-28 15:45 | RT.EKG_ITS ---
APPROVED REPORT Exam: Resting ECG Reason for Exam: low oxygen saturations Patient Location: E HR:113 bpm ECG Measurements Heart Rate 113 AXIS RI 145 P 55 QRSd 87 QRS 255 QT 313 T -11 QTc 429 Conclusion Sinus tachycardia...rate> 99 Probable left atrial enlargement...P >50mS, <-0.10mV V1 Left anterior fascicular block...axis(240,-40), init forces inf Right ventricular hypertrophy...prominent R or R' w/ RAD or ALYCE Abnormal T, consider ischemia, anterior leads...T <-0.20mV, V2-V4 Narrow complex sinus tachycardia at a rate of 113. Left anterior fascicular block. RI and QTc withi n normal limits. T wave inversions V2 through V4 more pronounced compared to prior. Prior dated las t year. Monitoring baseline interfering with interpretation. Persistent T wave inversion in leads I II and aVF. No obvious ST segment elevation.
--- NOTE | 2023-06-28 15:45 | DI.RAD_ITS ---
Exam(s) XR PORTABLE CHEST AP EXAM: XR PORTABLE CHEST AP CLINICAL HISTORY: fever TECHNIQUE: 2D digital imaging was performed of the chest. One image was obtained. An AP view was ob tained. COMPARISON: CR XR CHEST 2V PA LATERAL from 07/23/2022 FINDINGS: MEDIASTINUM: Normal. HEART: Stable size. PULMONARY VASCULATURE: Stable prominence of the pulmonary vasculature. This can be seen with pulmona ry artery hypertension or pulmonary venous congestion. Please correlate clinically. LUNGS: There is an opacity in the left upper lobe and the left retrocardiac region. There also incre ased lung markings in the right lung base. Multifocal pneumonia should be considered. PLEURAL SPACE: No pleural effusion or pneumothorax. BONE:Within normal limits for the patient's age. OTHER FINDINGS:Normal. IMPRESSION: Findings suspicious for pneumonia. A follow-up chest x-ray is recommended to document complete resol ution of the infiltrates and to exclude underlying pathology. DATA REPOSITORY: RADIATION DOSE DELIVERED:
[2023-06-28 16:18] LABS: Lactate 1.5 mmol/L (0.6-1.4)
--- NOTE | 2023-06-28 16:25 | W.ED.GENAD ---
Discharge Plan Discharge Details Chief Complaint: SOB Primary Care Provider: Guillermina Chowdhury ED Provider: Hany Watkins Home Meds and New Rx's Prescriptions: No Action atorvastatin 20 mg tablet 20 mg PO DAILY lisinopril 10 mg tablet 10 mg PO DAILY tadalafil 5 mg tablet 5 mg PO DAILY Tyvaso DPI 32 mcg cartridge with inhaler inhalation QID bumetanide 0.5 mg tablet 0.5 mg PO DAILY Qty: 90 12RF albuterol sulfate 90 mcg/actuation HFA aerosol inhaler 2 puff inhalation QID PRN (Reason: shortness of breath or wheezing) Qty: 8.5 6RF Ofev 150 mg capsule 150 mg PO Q12H Qty: 60 12RF Rx Instructions: patient has not started medication yet- not afordable per patient Medical Decision Making 67-year-old male with multimedical problems including history of Steele's lung, pulmonary hypertension, vasculitis, on chronic home O2, respiratory failure with hypoxia requiring hospitalization in the past, here with progressive shortness of breath, productive cough and fever/chills over the past 3 to 4 days. Patient is tachycardic, hypotensive, tachypneic and hypoxic. I am concerned about sepsis. Will initiate IV fluid bolus. Patient was placed on oxygen mask and saturations improved to his baseline of 90%. I will consult respiratory therapy. EKG was reviewed and interpreted by me: Please report, sinus tachycardia 113 bpm, T wave inversions noted lead III, aVF, V2 to V5. Lateral T wave inversions are new compared to prior. Consider COVID versus influenza versus bacterial pneumonia. We will initiate broad-spectrum coverage with cefepime and azithromycin. Initial labs resulted and leukocytosis of 20,000 noted. Lactate 1.5. HPI General Mode of arrival: ambulatory. Date/Time Provider Initiated Documentation: 06/28/23 15:56. Limitations to Documentation: no limitations. Information obtained by: patient. 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 Patient notes cough, fever and shortness of breath over the past 3 to 4 days. Patient was seen at PCP clinic today and had negative flu/COVID swab. He was noted to be hypoxic in the office on home O2 and referred here for further evaluation. Patient does note some pleuritic chest discomfort left chest. Related Data Home Medications Medication Instructions Recorded Confirmed atorvastatin 20 mg tablet 20 mg PO DAILY 07/21/22 02/10/23 lisinopril 10 mg tablet 10 mg PO DAILY 07/21/22 02/10/23 tadalafil 5 mg tablet 5 mg PO DAILY 07/21/22 02/10/23 bumetanide 0.5 mg tablet 0.5 mg PO DAILY #90 tabs 11/11/22 11/11/22 treprostinil 32 mcg cartridge with mcg inhalation QID 11/11/22 02/10/23 inhaler (Tyvaso DPI) nintedanib 150 mg capsule (Ofev) 150 mg PO Q12H #60 caps 11/22/22 albuterol sulfate 90 mcg/actuation 2 puff inhalation QID PRN 02/10/23 02/10/23 aerosol inhaler shortness of breath or wheezing #8.5 grams Previous Rx's Medication Instructions Recorded bumetanide 0.5 mg tablet 0.5 mg PO DAILY #90 tabs 11/11/22 nintedanib 150 mg capsule (Ofev) 150 mg PO Q12H #60 caps 11/22/22 albuterol sulfate 90 mcg/actuation 2 puff inhalation QID PRN 02/10/23 aerosol inhaler shortness of breath or wheezing #8.5 grams Allergies Allergy/AdvReac Type Severity Reaction Status Date / Time No Known Allergies Allergy Verified 02/10/23 08:57 General Stated Complaint: SOB MIGUEL: 2 Review of Systems All systems reviewed & are unremarkable except as noted in HPI and below Constitutional Constitutional: Reports chills and Reports fever(s) Cardiovascular Cardiovascular: Reports as per HPI Respiratory Respiratory: Reports cough (Productive) PFSH All Active Problems Inguinal hernia (Acute) 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) Syncope (Chronic) Right ventricular failure (Acute) Pulmonary hypertension (Acute) Respiratory failure with hypoxia (Acute) Progressive fibrosing interstitial lung disease (Chronic) [place] lung (Acute) Hyperlipidemia (Acute) Dyspnea (Acute) Cough (Acute) Shortness of breath (Acute) Medical History [place] lung History of essential hypertension Family History Mother History of heart valve repair Other Heart disease Social History Smoking/Tobacco Use Status: Never Smoking risk assessment performed?: Yes Alcohol Intake: current Alcohol Intake frequency: 0-2 drinks per day Drug use: Never Substance use type: does not use 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,[employer]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 Exam Const General: cooperative and no acute distress HENMT Mouth: moist mucous membranes Eyes Conjunctivae: normal conjunctivae Sclera: normal sclerae Neck Neck: trachea midline and supple Resp Effort & Inspection: labored and tachypneic Auscultation: rales bilaterally and rhonchi (Bilateral) Cardio Rate: tachycardic Rhythm: regular rhythm GI Palpation: soft, not firm, no guarding, no masses, not rigid and nontender Skin General skin exam: no rashes or lesions noted Neuro General: patient alert, patient awake and tone normal Extrem General: no calf tenderness and no edema Psych Appearance: grossly normal Mental Status: mental status grossly normal Course Vital Signs Vital signs: Vital Signs Pulse 129 H 06/28/23 15:52 Respiratory Rate 40 H 06/28/23 15:52 Blood Pressure 104/51 L 06/28/23 15:52 Pulse Oximetry 79 L 06/28/23 15:52 Pulse 129 H 06/28/23 15:52 Respiratory Rate 40 H 06/28/23 15:52 Respiratory Effort Short of Breath, Labored 06/28/23 15:56 Respiratory Depth Deep 06/28/23 15:56 Respiratory Pattern Normal 06/28/23 15:56 Blood Pressure 104/51 L 06/28/23 15:52 Blood Pressure Position Supine 06/28/23 15:52 Pulse Oximetry 79 L 06/28/23 15:52 Oxygen Delivery Method Nasal Cannula 06/28/23 15:52 Oxygen Flow Rate 4 06/28/23 15:52 Lab/Test Results Lab/Test Results: 06/28/23 16:10 Blood Blood Culture - Pending 06/28/23 16:02 Blood Blood Culture - Pending Laboratory Tests Range/Units 06/28/23 16:10 VBG Lactate (0.6-1.4) mmol/L 1.5 H
[2023-06-28 16:29] LABS: Abs Immature Grans 0.11 10^3/uL (0.0-0.06); Absolute Basophil Count 0.06 10^3/uL (0.0-0.2); Basophils % 0.3; Eosinophils % 0.1; HCT 48.2 % (40.0-50.0); HGB 15.5 g/dL (13.5-17.5); Immature Grans % 0.5; Lymphocytes % 5.3; MCH 28.7 pg (27.0-33.0); MCHC 32.2 % (32.0-36.0); MCV 89 fL (80-95); MPV 10.4 fL (8.0-11.0); Monocytes % 6.2; Neutrophils % 87.6; Platelet Count 240 10^3/uL (130-400); RBC 5.41 10^6/uL (4.36-5.78); RDW 15.1 % (11.8-14.1); RDW-SD 48.9 fL; WBC 20.73 10^3/uL (4.4-10.8)
[2023-06-28] MEDS: Lactated Ringers 1,000 ML 1000 ML IV (16:29)
[2023-06-28 16:31] LABS: BE (Venous) 2 mmol/L (-2-3); HCO3 (Venous) 28 mmol/L (23-28); O2 Sat (Venous) 38 %; TCO2 (Venous) 25 mmol/L (24-29); pCO2 (Venous) 53 mmHg (41-51); pH (Venous) 7.33 (7.31-7.41); pO2 (Venous) 25 mmHg
[2023-06-28 16:40] LABS: Absolute Eosinophil Count 0.02 10^3/uL (0.0-0.7); Absolute Monocyte Count 1.29 10^3/uL (0.1-0.8); Absolute Neutrophil Count 18.16 10^3/uL (1.2-6.7)
[2023-06-28 16:52] LABS: ALT 24 U/L (16-63); AST 22 U/L (15-37); Albumin 3.1 g/dL (3.4-5.0); Alkaline Phosphatase 88 U/L (46-116); BUN 37 mg/dL (7-18); CREATININE 1.7 mg/dL (0.70-1.30); Calcium 8.8 mg/dL (8.5-10.1); Chloride 96 mmol/L (98-107); Glucose 142 mg/dL (74-106); Potassium 4.7 mmol/L (3.5-5.1); Sodium 130 mmol/L (136-145); Total Protein 7.8 g/dL (6.4-8.2); Troponin I < 50 ng/L (<or=60)
[2023-06-28 16:56] LABS: COVID-19 PCR Negative (Negative); Influenza A PCR Negative (Negative); Influenza B PCR Negative (Negative); RSV PCR Negative (Negative)
[2023-06-28 16:57] LABS: Source Nasopharynx
[2023-06-28] MEDS: AZITHROMYCIN 500 MG in Normal Saline 250 ML 250 MG IVPB (16:59)
[2023-06-28] MEDS: CEFEPIME 2 GM in Normal Saline 100 ML IVPB (16:59)
[2023-06-28 17:06] LABS: Procalcitonin 1.4 ng/mL
--- NOTE | 2023-06-28 17:16 | W.EDPROG ---
Date of service: 06/28/23 Time of Service: 17:17 Medical Decision Making I received signout on this 67-year-old male arrived to the emergency department in the setting of fever cough shortness of breath for the past 3 days. Patient has a history of pulmonary hypertension and Steele's lung. I received signout on this patient at bedside. Patient was satting in the low 90s on Ventimask. He had considerable work of breathing for which respiratory therapy was planning placing patient on high flow nasal cannula. His labs are significant for an GABBIE. He does have marked leukocytosis. He had mild lactic acidosis. He received broad-spectrum coverage for sepsis with cefepime. He is also received azithromycin. If his chest x-ray does not show an obvious infiltrate will obtain CT angiogram chest with IV contrast to assess for infiltrate and PE. 5:[address] scan read as concerning for multifocal pneumonia. Given significant pulmonary dysfunction at baseline will obtain CT angio chest scan to assess for PE. Patient appears much more well on high flow nasal cannula. He is on 30% FiO2 at 40 L a minute. 6:04 PM Patient's blood pressure on repeat assessment was 80/51 with a MAP of 54. Will order him an additional 500 cc of normal saline. 7:27 PM Patient blood pressure returned to normal. I did transiently ordered norepinephrine but it was not started. He is pending a CT scan. 8 PM Improved lactic acidosis. Given resolved lactic acidosis will defer repeat lactate. Patient is very well-appearing on repeat assessment oxygen saturation within normal limits on 30% FiO2. Reassuring normal blood pressure and repeat. 9:27 PM Urinalysis not consistent with UTI. 9:30 PM Preliminary virtual radiology read as follows: Exam: CTA Chest With Contrast Exam date and time: 06/28/2023 8:19 PM Age: 67 years old Clinical indication: Shortness of breath TECHNIQUE: Imaging protocol: Computed tomographic angiography of the chest with contrast. Exam focused on the arteries. 3D rendering (Not supervised by radiologist): MIP and/or 3D reconstructed images were created by the technologist. Contrast material: OMNIPAQUE 350; Contrast volume: 100 ml; Contrast route: INTRAVENOUS (IV); COMPARISON: CT CHEST PE CTA 07/05/2022 1:34 PM FINDINGS: Pulmonary arteries: Main pulmonary artery remains dilated to approximately 4 cm. No pulmonary artery filling defects. Aorta: Unremarkable. No aortic aneurysm. No aortic dissection. Lungs: Multiple bilateral lung infiltrates of varying appearance including; interstitial, ground-glass and dense consolidative. Underlying emphysema. Scattered bilateral bullae. Pulmonary fibrosis in lung bases. Pleural spaces: Unremarkable. No pneumothorax. No pleural effusion. Heart: Cardiomegaly. Heart RV/LV ratio: 1.3. Coronary arteries: Coronary artery calcification. Lymph nodes: Mediastinal adenopathy. Bones/joints: The spine demonstrates moderate degenerative changes at multiple levels. ??Soft tissues: Unremarkable. IMPRESSION: 1. No pulmonary artery embolism demonstrated. 2. Coronary artery disease. 3. Pulmonary hypertension. 4. Bilateral multifocal pneumonia. 5. Underlying emphysema and pulmonary fibrosis. 6. Cardiomegaly. 7. Adenopathy. Thank you for allowing us to participate in the care of your patient. Dictated and Authenticated by: Aguila Paniagua DO 06/28/2023 9:27 PM Eastern Time ([place] & [place]) 9:44 PM I spoke with Dr. Lawson who agreed graciously to accept the patient for hospitalization in the setting of his acute respiratory failure with hypoxia and hypercapnia. Discharge Plan Disposition Patient Disposition: Admit to [facility] Discharge Details Clinical Impression: Multifocal pneumonia, Acute respiratory failure with hypoxia and hypercapnia Primary Care Provider: Guillermina Chowdhury ED Provider: Hany Watkins Home Meds and New Rx's Prescriptions: No Action atorvastatin 20 mg tablet 20 mg PO DAILY lisinopril 10 mg tablet 10 mg PO DAILY tadalafil 5 mg tablet 5 mg PO DAILY Tyvaso DPI 32 mcg cartridge with inhaler inhalation QID bumetanide 0.5 mg tablet 0.5 mg PO DAILY Qty: 90 12RF albuterol sulfate 90 mcg/actuation HFA aerosol inhaler 2 puff inhalation QID PRN (Reason: shortness of breath or wheezing) Qty: 8.5 6RF Ofev 150 mg capsule 150 mg PO Q12H Qty: 60 12RF Rx Instructions: patient has not started medication yet- not afordable per patient
--- NOTE | 2023-06-28 17:45 | DI.CT_ITS ---
Exam(s) CT CHEST PE CTA EXAM: CT CHEST PE CTA CLINICAL HISTORY: Shortness of breath multifocal pneumonia. TECHNIQUE: Imaging Protocol: Axial CT angiography was performed with multi-slice acquisition and mu lti-planar and/or 3D reconstructions. CONTRAST MATERIAL: Intravenous: Omnipaque 350 contrast volume:100 mL COMPARISON: CT CT CHEST PE CTA from 07/05/2022 CR XR PORTABLE CHEST AP from 06/28/2023 FINDINGS: Tracheobronchial tree: Patent where visualized. Pulmonary parenchyma: Moderate centrilobular emphysematous changes are present. There is pulmonary f ibrosis present. There are patchy opacities seen in the left upper lobe and lower lobes bilaterally. Pulmonary Arteries: No evidence of filling defect to suggest pulmonary emboli. Mediastinum and Nhi: There are stable enlarged mediastinal lymph nodes. The esophagus is unremarkab le. Visualized thyroid gland: Unremarkable. Pleura: No effusion or pneumothorax. Heart: No megaly. Coronary artery calcifications are present. No pericardial effusion. There are f indings suggesting pulmonary hypertension with an enlarged pulmonary artery and right heart. Aorta: Thoracic aorta non-dilated. No evidence of dissection. Atherosclerosis. Upper abdomen: Unremarkable. Soft tissues: Unremarkable. Bones: Within normal limits for the patient's age. IMPRESSION: 1. No evidence of pulmonary embolism, thoracic aortic dissection or aneurysm. 2. Multifocal pneumonia. 3. Incidental findings in the chest as described above. RADIATION DOSE DELIVERED: Total DLP DATA REPOSITORY: All CT scans at this facility are submitted to the National Radiology Data Registry (NRDR) Dose Index Registry (DIR) with the [employer] (ACR). RADIATION OPTIMIZATION: All CT scans at this facility use at least one of these dose optimization te chniques: automated exposure control; mA and/or kV adjustment per patient size (includes targeted exa ms where dose is matched to clinical indication); or iterative reconstruction.
[2023-06-28] MEDS: Normal Saline 500 ML IV (18:10)
[2023-06-28] MEDS: Normal Saline 1,000 ML 1000 ML IV (19:36)
[2023-06-28] MEDS: Norepinephrine in D5W 8 MG/250 ML BAG 9.4 MG IV (19:37)
[2023-06-28 19:38] LABS: Lactate 0.8 mmol/L (0.6-1.4)
[2023-06-28] MEDS: Normal Saline Flush 10 ML SYR IVP (19:43)
[2023-06-28] MEDS: Omnipaque 350 MG/ML 100 ML BTL IJ (19:45)
[2023-06-28] MEDS: Normal Saline - Diluent 50 ML VIAL IJ (20:20)
[2023-06-28 21:15] LABS: Bilirubin Negative (Negative); Blood Negative (Negative); Clarity Clear (Clear); Glucose Negative (Negative); Ketones Trace mg/dL (Negative); Leukocyte Esterase Negative (Negative); Nitrite Negative (Negative); Specific Gravity 1.015 (1.005-1.025)
[2023-06-28 21:25] LABS: Bacteria Negative HPF (Negative); C & S Indicated? No; Casts 3-5 Hyaline LPF (Negative); Crystals Negative HPF (Negative); Epithelial Cells Rare HPF (Negative); Mucus Trace (Negative); RBC 0-2 HPF (0-2)
--- NOTE | 2023-06-28 21:28 | DI.VRAD_ITS ---
PROCEDURE INFORMATION: Exam: CTA Chest With Contrast Exam date and time: 06/28/2023 8:19 PM Age: 67 years old Clinical indication: Shortness of breath TECHNIQUE: Imaging protocol: Computed tomographic angiography of the chest with contrast. Exam focused on the arteries. 3D rendering (Not supervised by radiologist): MIP and/or 3D reconstructed images were created by the technologist. Contrast material: OMNIPAQUE 350; Contrast volume: 100 ml; Contrast route: INTRAVENOUS (IV); COMPARISON: CT CHEST PE CTA 07/05/2022 1:34 PM FINDINGS: Pulmonary arteries: Main pulmonary artery remains dilated to approximately 4 cm. No pulmonary artery filling defects. Aorta: Unremarkable. No aortic aneurysm. No aortic dissection. Lungs: Multiple bilateral lung infiltrates of varying appearance including; interstitial, ground-glass and dense consolidative. Underlying emphysema. Scattered bilateral bullae. Pulmonary fibrosis in lung bases. Pleural spaces: Unremarkable. No pneumothorax. No pleural effusion. Heart: Cardiomegaly. Heart RV/LV ratio: 1.3. Coronary arteries: Coronary artery calcification. Lymph nodes: Mediastinal adenopathy. Bones/joints: The spine demonstrates moderate degenerative changes at multiple levels. Soft tissues: Unremarkable. IMPRESSION: 1. No pulmonary artery embolism demonstrated. 2. Coronary artery disease. 3. Pulmonary hypertension. 4. Bilateral multifocal pneumonia. 5. Underlying emphysema and pulmonary fibrosis. 6. Cardiomegaly. 7. Adenopathy. Dictated and Authenticated by: Aguila Paniagua MD. Ordering:TRAVIS Lyn MD
--- NOTE | 2023-06-28 21:43 | HPE_ITS ---
Date of service: 06/28/23 Time of Service: 21:43 Assessment and Plan Assessment and plan (1) Acute respiratory failure with hypoxia and hypercapnia: Start date: 06/28/23 Status: Acute Assessment and plan: This is a 67-year-old gentleman who presents with sepsis syndrome having fever, tachypnea with tachycardia and low blood pressure requiring norepinephrine infusion though at a low rate. He has responded to IV antibiotic therapy and hydration. Appears to have multifocal pneumonia and chronically has severe progressive fibrosing interstitial lung disease on multiple medications with acute respiratory failure including hypoxemia and hypercapnia though the hypercapnia is mild. He appears to be responding to therapy and blood cultures were obtained with patient to continue on IV cefepime and Zithromax. He does see pulmonology and if available, they can see patient while hospitalized especially if he is not continuing to improve. He is a full code. (2) Sepsis syndrome: Start date: 06/28/23 Status: Acute Assessment and plan: Patient is responding to low-dose norepinephrine infusion and IV hydration along with treatment of multifocal pneumonia. He did have a fever upon presentation and fever at home. Continue supportive care with mean arterial pressure above 70 at this point. (3) Multifocal pneumonia: Start date: 06/28/23 Status: Acute Assessment and plan: Continue supportive care with increased oxygen now presently on high flow oxygen and pulse oximeter 90%. IV Rocephin and Zithromax will be continued. (4) Acute dehydration: Start date: 06/28/23 Status: Acute Assessment and plan: IV hydration patient having echocardiogram in the recent past showing preserved left ventricular ejection fraction though he does have right ventricular failure with his pulmonary hypertension and tricuspid regurgitation. Consider decrease in IV rate the morning especially if blood pressure is stabilizing and tachycardia is resolving. Some of his tachycardia may be from his acute respiratory distress. (5) Pulmonary hypertension: Status: Chronic Assessment and plan: Continue chronic medical therapy with follow-up pulmonology. (6) Progressive fibrosing interstitial lung disease: Status: Chronic Assessment and plan: Continue outpatient medical therapy and follow-up pulmonology. Patient is requiring increased oxygen supplementation at this time with his multifocal pneumonia. He is a full code. History of Present Illness History of Present Illness Chief Complaint: Fever with productive cough and worsening dyspnea Narrative: This is a 67-year-old male patient with severe pulmonary hypertension and chronic hypoxic respiratory failure on 4 L O2 per nasal cannula at home with a history of Steele's lung. He does see pulmonology and is on multiple medications for his lung disease. He presents with a 48-hour history of worsening fever which she had intermittently for 1 week and worsening cough with increased oxygen needs. In the ED CT evaluation did reveal multifocal pneumonia with no pulmonary embolus. He did have some hypotension with mean arterial blood pressure falling just below 70 and was on norepinephrine drip in the ED for possible early sepsis and this will be continued in the ICU with close monitoring of blood pressure which now appears stable. The patient did have a fever and blood cultures were obtained. His creatinine was elevated from his baseline and he appears dry with IV hydration initiated patient having a previous echocardiogram 09/30/2022 revealing preserved left ventricular ejection fraction but increase right ventricle pressures with his pulmonary hypertension. He did have a significant increase in his WBC at 20,000. He was initiated on broad-spectrum IV metabolic therapy with continuation of cefepime with Zithromax IV. His oxygen needs continue to be elevated from his baseline and VBG did not reveal significant CO2 retention. He continues on high flow O2 in the ICU. He is a full code. Review of Systems Narrative: 13 point review of systems otherwise unrevealing or stable. Patient does have difficulty speaking with his respiratory distress. 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) Syncope (Chronic) Right ventricular failure (Acute) Pulmonary hypertension (Chronic) Respiratory failure with hypoxia (Acute) Progressive fibrosing interstitial lung disease (Chronic) [place] lung (Acute) Hyperlipidemia (Acute) Dyspnea (Acute) Cough (Acute) Shortness of breath (Acute) Medical History [place]' lung History of essential hypertension Family History Mother History of heart valve repair Other Heart disease Social History Smoking/Tobacco Use Status: Never Smoking risk assessment performed?: Yes Alcohol Intake: current Alcohol Intake frequency: 0-2 drinks per day Drug use: Never Substance use type: does not use 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,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 Meds Allergies and Home Medications Allergies Allergy/AdvReac Type Severity Reaction Status Date / Time No Known Allergies Allergy Verified 02/10/23 08:57 Home Medications Medication Instructions Recorded Confirmed Type atorvastatin 20 mg tablet 20 mg PO DAILY 07/21/22 06/28/23 History lisinopril 10 mg tablet 10 mg PO DAILY 07/21/22 06/28/23 History tadalafil 5 mg tablet 5 mg PO DAILY 07/21/22 06/28/23 History bumetanide 0.5 mg tablet 0.5 mg PO DAILY #90 tabs 11/11/22 06/28/23 Rx treprostinil 32 mcg cartridge with mcg inhalation QID 11/11/22 02/10/23 History inhaler (Tyvaso DPI) nintedanib 150 mg capsule (Ofev) 150 mg PO Q12H #60 caps 11/22/22 06/28/23 Rx albuterol sulfate 90 mcg/actuation 2 puff inhalation QID PRN 02/10/23 02/10/23 Rx aerosol inhaler shortness of breath or wheezing #8.5 grams Exam Narrative Exam Narrative: General: Patient appears older than stated age, he is lying on his right side to Speaking in short sentences. He is on high flow O2. He appears in moderate to moderate?severe respiratory distress with distress worsen with coughing or movement. He is alert and oriented at least to person and place. HEENT: Normocephalic, eyes with pupils equal reactive to light symmetrically, extraocular movement intact and sclera anicteric. Oropharynx with dry mucosa patient mouth breathing. Neck: Supple without JVD. Lungs: Fair to poor aeration with bronchovesicular breath sounds diffusely and diffuse inspiratory coarse crackles without focalizing. Patient is tachypneic. Back: Stooped posture without CVA tenderness. Heart: Irregular rhythm with tachycardic rate, holosystolic murmur heard better over lower left sternal border. No rubs. Question of the gallop. Abdomen: Obese contour, soft nontender to palpation without palpable hepatosplenomegaly. Genitalia/rectal: Exam deferred. Extremities: Nonpitting edema both lower extremities with no clubbing or cyanosis noted. Fair capillary refill. Skin: Normal color, warm and dry. Neuro: Cranial nerves II through XII are grossly intact. No focalizing motor deficits. No tremor. Psych: Anxious with depressed mood. No abnormal thought processes. Remote and recent memory appear to be grossly intact though patient is minimally conversant with his respiratory distress. Results Imaging Imaging Studies: Exam: CTA Chest With Contrast Exam date and time: 06/28/2023 8:19 PM Age: 67 years old Clinical indication: Shortness of breath TECHNIQUE: Imaging protocol: Computed tomographic angiography of the chest with contrast. Exam focused on the arteries. 3D rendering (Not supervised by radiologist): MIP and/or 3D reconstructed images were created by the technologist. Contrast material: OMNIPAQUE 350; Contrast volume: 100 ml; Contrast route: INTRAVENOUS (IV); COMPARISON: CT CHEST PE CTA 07/05/2022 1:34 PM FINDINGS: Pulmonary arteries: Main pulmonary artery remains dilated to approximately 4 cm. No pulmonary artery filling defects. Aorta: Unremarkable. No aortic aneurysm. No aortic dissection. Lungs: Multiple bilateral lung infiltrates of varying appearance including; interstitial, ground-glass and dense consolidative. Underlying emphysema. Scattered bilateral bullae. Pulmonary fibrosis in lung bases. Pleural spaces: Unremarkable. No pneumothorax. No pleural effusion. Heart: Cardiomegaly. Heart RV/LV ratio: 1.3. Coronary arteries: Coronary artery calcification. Lymph nodes: Mediastinal adenopathy. Bones/joints: The spine demonstrates moderate degenerative changes at multiple levels. Soft tissues: Unremarkable. IMPRESSION: 1. No pulmonary artery embolism demonstrated. 2. Coronary artery disease. 3. Pulmonary hypertension. 4. Bilateral multifocal pneumonia. 5. Underlying emphysema and pulmonary fibrosis. 6. Cardiomegaly. 7. Adenopathy. EXAM: XR PORTABLE CHEST AP CLINICAL HISTORY: fever TECHNIQUE: 2D digital imaging was performed of the chest. One image was obtained. An AP view was obtained. COMPARISON: CR XR CHEST 2V PA LATERAL from 07/23/2022 FINDINGS: MEDIASTINUM: Normal. HEART: Stable size. PULMONARY VASCULATURE: Stable prominence of the pulmonary vasculature. This can be seen with pulmonary artery hypertension or pulmonary venous congestion. Please correlate clinically. LUNGS: There is an opacity in the left upper lobe and the left retrocardiac region. There also increased lung markings in the right lung base. Multifocal pneumonia should be considered. PLEURAL SPACE: No pleural effusion or pneumothorax. BONE:Within normal limits for the patient's age. OTHER FINDINGS:Normal. IMPRESSION: Findings suspicious for pneumonia. A follow-up chest x-ray is recommended to document complete resolution of the infiltrates and to exclude underlying pathology. Labs 06/28/23 16:02 06/28/23 16:17 Labs: Laboratory Results - last 24 hr 06/28/23 06/28/23 06/28/23 16:02 16:10 16:17 WBC 20.73 H RBC 5.41 Hgb 15.5 Hct 48.2 MCV 89 MCH 28.7 MCHC 32.2 RDW 15.1 H Plt Count 240 MPV 10.4 Immature Gran % 0.5 Neutrophils % 87.6 Lymphocytes % 5.3 Monocytes % 6.2 Eosinophils % 0.1 Basophils % 0.3 Nucleated RBC % 0.0 Absolute Neutrophils 18.16 H Absolute Lymphocytes 1.10 L Absolute Monocytes 1.29 H Absolute Eosinophils 0.02 Absolute Basophils 0.06 VBG pH 7.33 VBG pCO2 53 H VBG pO2 25 VBG HCO3 28 VBG Total CO2 25 VBG O2 Saturation 38 VBG Base Excess 2 VBG Lactate 1.5 H Sodium 130 L Potassium 4.7 Chloride 96 L Carbon Dioxide 28.0 Anion Gap 6.0 BUN 37 H Creatinine 1.7 H Est GFR (CKD-EPI 2020) 43.10 Glucose 142 H Calcium 8.8 Total Bilirubin 1.0 AST 22 ALT 24 Alkaline Phosphatase 88 Troponin I < 50 Total Protein 7.8 Albumin 3.1 L Procalcitonin 1.4 Urine Color Urine Clarity Urine pH Ur Specific Cooks Urine Protein Urine Ketones Urine Blood Urine Nitrite Urine Bilirubin Urine Urobilinogen Ur Leukocyte Esterase Urine RBC Urine WBC Ur Epithelial Cells Urine Crystals Urine Bacteria Urine Casts Urine Mucus Ur Culture Indicated? Urine Glucose COVID-19 Source Nasopharynx SARS-CoV-2 (PCR) Negative Influenza Type A (PCR) Negative Influenza Type B (PCR) Negative RSV (PCR) Negative 06/28/23 06/28/23 06/28/23 19:28 20:55 21:57 WBC RBC Hgb Hct MCV MCH MCHC RDW Plt Count MPV Immature Gran % Neutrophils % Lymphocytes % Monocytes % Eosinophils % Basophils % Nucleated RBC % Absolute Neutrophils Absolute Lymphocytes Absolute Monocytes Absolute Eosinophils Absolute Basophils VBG pH VBG pCO2 VBG pO2 VBG HCO3 VBG Total CO2 VBG O2 Saturation VBG Base Excess VBG Lactate 0.8 Cancelled Sodium Potassium Chloride Carbon Dioxide Anion Gap BUN Creatinine Est GFR (CKD-EPI 2020) Glucose Calcium Total Bilirubin AST ALT Alkaline Phosphatase Troponin I Total Protein Albumin Procalcitonin Urine Color Dark Yellow Urine Clarity Clear Urine pH 6.0 Ur Specific Cooks 1.015 Urine Protein 100 H Urine Ketones Trace H Urine Blood Negative Urine Nitrite Negative Urine Bilirubin Negative Urine Urobilinogen 1.0 H Ur Leukocyte Esterase Negative Urine RBC 0-2 Urine WBC 3-5 Ur Epithelial Cells Rare Urine Crystals Negative Urine Bacteria Negative Urine Casts 3-5 Hyaline Urine Mucus Trace Ur Culture Indicated? No Urine Glucose Negative COVID-19 Source SARS-CoV-2 (PCR) Influenza Type A (PCR) Influenza Type B (PCR) RSV (PCR) Last Vital Signs Temp 39.2 C H 06/28/23 16:33 Pulse 112 H 06/28/23 19:36 Resp 23 06/28/23 19:36 BP 101/69 06/28/23 19:36 Pulse Ox 93 06/28/23 17:20 Time Spent Time spent with Patient: >75 minutes Time was spent: preparing to see the patient(eg.review tests), obtaining and/or reviewing separately otained hiistory, ordering medications,tests, procedures, referring, communicating with other health critical care nurse, indepentently interpreting results and care coordination
[2023-06-29] VITALS (131 sets, daily range): BP systolic 86–127; BP diastolic 54–86; PULSE 69–113; RESP 2–32; TEMP 32–37; O2SAT 79–99
[2023-06-29] MEDS: Normal Saline 1,000 ML 150 ML IV ×2 (01:21→08:19)
[2023-06-29] MEDS: CEFEPIME 2 GM in Normal Saline 100 ML IVPB ×3 (05:57→23:21)
[2023-06-29 07:05] LABS: HCT 39.5 % (40.0-50.0); HGB 12.9 g/dL (13.5-17.5); MCH 29.3 pg (27.0-33.0); MCHC 32.7 % (32.0-36.0); MCV 90 fL (80-95); MPV 10.7 fL (8.0-11.0); Platelet Count 173 10^3/uL (130-400); RBC 4.41 10^6/uL (4.36-5.78); RDW 15.2 % (11.8-14.1); RDW-SD 50.6 fL; WBC 14.59 10^3/uL (4.4-10.8)
[2023-06-29 07:16] LABS: ALT 32 U/L (16-63); AST 31 U/L (15-37); Albumin 2.6 g/dL (3.4-5.0); Alkaline Phosphatase 111 U/L (46-116); Anion Gap 8.5 mmol/L (3-11); BUN 25 mg/dL (7-18); Bilirubin, Total 1.3 mg/dL (0.2-1.0); CO2 23.5 mmol/L (21.0-32.0); CREATININE 1.1 mg/dL (0.70-1.30); Calcium 8.2 mg/dL (8.5-10.1); Chloride 102 mmol/L (98-107); Estimated GFR 72.67 (mL/min/1.73m2); Glucose 95 mg/dL (74-106); Potassium 4.4 mmol/L (3.5-5.1); Sodium 134 mmol/L (136-145); Total Protein 6.7 g/dL (6.4-8.2)
--- NOTE | 2023-06-29 07:26 | PDOC.CMIN ---
Date of service: 06/29/23 Time of Service: 07:26 Care Management Initial Assmt Initial Assessment REASON FOR HOSPITALIZATION:: Acute respiratory failure, multifocal pneumonia PREVIOUS FUNCTIONAL STATUS/SOCIAL/FAMILY SUPPORTS:: Freedom lives with his Dariela in a single family home on a farm in [place]. 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 Freedom and Dariela have 3 children and 12 grandchildren, all of whom live locally and are supportive. Freedom is independent at baseline and receives no community services. CURRENT FUNCTIONAL STATUS:: Remains in the ICU at this time, motivated to return home as soon as possible. ADVANCE DIRECTIVES:: None on file. Has patient been provided with info about the portal/API?: Yes Did the patient sign up for the portal?: No CODE STATUS:: Full Code INSURANCE COVERAGE / FINANCIAL ISSUES:: Medicare. [place] Insurance CURRENT HOME/COMMUNITY SERVICES/EQUIPMENT:: home oxygen at 2L PRIMARY CARE PHYSICIAN:: Guillermina Hunter POTENTIAL DISCHARGE NEEDS:: Follow up with community providers including PCP and pulmonology PATIENT/FAMILY EDUCATION NEEDS:: Review of discharge instructions, limitations, medications, activity, follow up plan, discuss Ask Me Three ANTICIPATED BARRIERS TO DISCHARGE:: None identified. TRANSPORTATION:: Via private vehicle with family. PLAN:: Freedom will likely discharge home with no new services when medically cleared. Per MD: if he remains hemodynamically stable this morning then he will be downgraded to Med/Surg level of care. If blood cultures are no growth and he continues to improve, he could potentially return home tomorrow on oral antibiotics. He will follow up with his community providers and plan of care and transport with family. will continue to offer support to Freedom and his discharge planning needs. 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) Syncope (Chronic) Right ventricular failure (Acute) Pulmonary hypertension (Chronic) Respiratory failure with hypoxia (Acute) Progressive fibrosing interstitial lung disease (Chronic) [place] lung (Acute) Hyperlipidemia (Acute) Dyspnea (Acute) Cough (Acute) Shortness of breath (Acute) Medical History [place]' lung History of essential hypertension Family History Mother History of heart valve repair Other Heart disease Social History Smoking/Tobacco Use Status: Never Smoking risk assessment performed?: Yes Alcohol Intake: current Alcohol Intake frequency: 0-2 drinks per day Drug use: Never Substance use type: does not use Housing: house 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
[2023-06-29] MEDS: Normal Saline Flush 10 ML SYR IVP ×3 (08:35→23:20)
[2023-06-29] MEDS: Bumetanide 1 MG TAB 0.5 MG PO (08:36)
[2023-06-29] MEDS: methylPREDNISolone SUCC 40 MG VIAL IVP ×3 (08:36→23:20)
--- NOTE | 2023-06-29 10:11 | W.PM.PROGNOT ---
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 He presented w/ a week of increasing cough, fever, chills, weakness and was found to be hypotensive w/ worsening hypoxia over his baseline (he is usually on 4 lpm per NC at home), w/ mild lactic acid elevation. he was resuscitated w/ iv fluids (nearly 3 liters overnight) and required norephinephrine. He since stabilized on his BP and is off N.E. He is tolerating a diet and therefore I have stopped his iv fluids. HIs tadalafil is on hold given his hypotension presentation. He remains on cefepime and azithromycin. Blood and sputum cultures are pending. I have added solumedrol to his regimen. If he remains hemodynamically stable this morning then he can move to med/surg. If blood cultures are no growth and he continues to improve, he could potentially return home tomorrow on oral antibiotics. Professional time spent interviewing and examining patient, discussion of goals of care with hospital team (care management, nursing and consulting professionals) was 40 minutes. (2) Sepsis syndrome: Status: Acute Assessment and plan: resolving. 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 Patient is requiring increased oxygen supplementation at this time with his multifocal pneumonia. He is a full code. Subjective Subjective Interval history since last seen: Freedom is doing better this morning. He presented w/ sepsis (hypotension requiring norephinephrine in setting of pneumonia). He has improved. He feels better and wants to go home. N.E. was weaned off during the night. He is tolerationg oral foods. I have stopped his IV fluids. I have convinced him to stay at least until tomorrow for further iv antibiotics. Exam Narrative Exam Narrative: Pineda is alert and oriented x3 he is sitting up in bed talking to his in no acute respiratory distress. Lungs with coarse bibasilar rales and diffuse expiratory wheezes and rhonchi Heart is regular rate and rhythm Abdomen is soft nontender nondistended Extremities without peripheral cyanosis or edema Objective Last Vital Signs Temp 37 C 06/29/23 07:38 Pulse 91 H 06/29/23 07:38 Resp 22 06/29/23 07:38 BP 103/67 06/29/23 07:38 Pulse Ox 95 06/29/23 07:38 Laboratory Results - last 24 hr 06/28/23 06/28/23 06/28/23 16:02 16:10 16:17 WBC 20.73 H RBC 5.41 Hgb 15.5 Hct 48.2 MCV 89 MCH 28.7 MCHC 32.2 RDW 15.1 H Plt Count 240 MPV 10.4 Immature Gran % 0.5 Neutrophils % 87.6 Lymphocytes % 5.3 Monocytes % 6.2 Eosinophils % 0.1 Basophils % 0.3 Nucleated RBC % 0.0 Absolute Neutrophils 18.16 H Absolute Lymphocytes 1.10 L Absolute Monocytes 1.29 H Absolute Eosinophils 0.02 Absolute Basophils 0.06 VBG pH 7.33 VBG pCO2 53 H VBG pO2 25 VBG HCO3 28 VBG Total CO2 25 VBG O2 Saturation 38 VBG Base Excess 2 VBG Lactate 1.5 H Sodium 130 L Potassium 4.7 Chloride 96 L Carbon Dioxide 28.0 Anion Gap 6.0 BUN 37 H Creatinine 1.7 H Est GFR (CKD-EPI 2020) 43.10 Glucose 142 H Calcium 8.8 Total Bilirubin 1.0 AST 22 ALT 24 Alkaline Phosphatase 88 Troponin I < 50 Total Protein 7.8 Albumin 3.1 L Procalcitonin 1.4 Urine Color Urine Clarity Urine pH Ur Specific [place] Urine Protein Urine Ketones Urine Blood Urine Nitrite Urine Bilirubin Urine Urobilinogen Ur Leukocyte Esterase Urine RBC Urine WBC Ur Epithelial Cells Urine Crystals Urine Bacteria Urine Casts Urine Mucus Ur Culture Indicated? Urine Glucose COVID-19 Source Nasopharynx SARS-CoV-2 (PCR) Negative Influenza Type A (PCR) Negative Influenza Type B (PCR) Negative RSV (PCR) Negative 06/28/23 06/28/23 06/28/23 19:28 20:55 21:57 WBC RBC Hgb Hct MCV MCH MCHC RDW Plt Count MPV Immature Gran % Neutrophils % Lymphocytes % Monocytes % Eosinophils % Basophils % Nucleated RBC % Absolute Neutrophils Absolute Lymphocytes Absolute Monocytes Absolute Eosinophils Absolute Basophils VBG pH VBG pCO2 VBG pO2 VBG HCO3 VBG Total CO2 VBG O2 Saturation VBG Base Excess VBG Lactate 0.8 Cancelled Sodium Potassium Chloride Carbon Dioxide Anion Gap BUN Creatinine Est GFR (CKD-EPI 2020) Glucose Calcium Total Bilirubin AST ALT Alkaline Phosphatase Troponin I Total Protein Albumin Procalcitonin Urine Color Dark Yellow Urine Clarity Clear Urine pH 6.0 Ur Specific [place] 1.015 Urine Protein 100 H Urine Ketones Trace H Urine Blood Negative Urine Nitrite Negative Urine Bilirubin Negative Urine Urobilinogen 1.0 H Ur Leukocyte Esterase Negative Urine RBC 0-2 Urine WBC 3-5 Ur Epithelial Cells Rare Urine Crystals Negative Urine Bacteria Negative Urine Casts 3-5 Hyaline Urine Mucus Trace Ur Culture Indicated? No Urine Glucose Negative COVID-19 Source SARS-CoV-2 (PCR) Influenza Type A (PCR) Influenza Type B (PCR) RSV (PCR) 06/29/23 06:05 WBC 14.59 H RBC 4.41 Hgb 12.9 L D Hct 39.5 L MCV 90 MCH 29.3 MCHC 32.7 RDW 15.2 H Plt Count 173 MPV 10.7 Immature Gran % Neutrophils % Lymphocytes % Monocytes % Eosinophils % Basophils % Nucleated RBC % Absolute Neutrophils Absolute Lymphocytes Absolute Monocytes Absolute Eosinophils Absolute Basophils VBG pH VBG pCO2 VBG pO2 VBG HCO3 VBG Total CO2 VBG O2 Saturation VBG Base Excess VBG Lactate Sodium 134 L Potassium 4.4 Chloride 102 Carbon Dioxide 23.5 Anion Gap 8.5 BUN 25 H Creatinine 1.1 Est GFR (CKD-EPI 2020) 72.67 Glucose 95 Calcium 8.2 L Total Bilirubin 1.3 H AST 31 ALT 32 Alkaline Phosphatase 111 Troponin I Total Protein 6.7 Albumin 2.6 L Procalcitonin Urine Color Urine Clarity Urine pH Ur Specific [place] Urine Protein Urine Ketones Urine Blood Urine Nitrite Urine Bilirubin Urine Urobilinogen Ur Leukocyte Esterase Urine RBC Urine WBC Ur Epithelial Cells Urine Crystals Urine Bacteria Urine Casts Urine Mucus Ur Culture Indicated? Urine Glucose COVID-19 Source SARS-CoV-2 (PCR) Influenza Type A (PCR) Influenza Type B (PCR) RSV (PCR) PAWSS Have you Been Recently Intoxicated or Drunk Within the Last 30 days?: No Have you Ever Experienced Previous Episodes of Alcohol Withdrawal?: No Have you ever Experienced Withdrawal Seizures?: No Have you ever Experienced Delirium Tremens(DT)s?: No Have you ever undergone Alcohol Rehabilitation Treatment (i.e, inpt ot outpatient treatment programs)?: No Have you ever Experienced Blackouts?: No Have you ever Combined Alcohol with other Downers within the last 90 days?: No Have you ever Combined Alcohol with any other Substance of Abuse during the last 90 days?: No Positive Blood Alcohol level on Presentation? [PCS.BAL]: No Evidence of Increased Autonomic Activity (i.e. HR>120, tremor, sweating, agitation, nausea)?: No Result: 0 Time Spent with Patient Time Spent with Patient: 35-49 minutes Time was spent: preparing to see the patient(eg.review tests), obtaining and/or reviewing separately otained hiistory, ordering medications,tests, procedures, referring, communicating with other health health care marketing specialist, indepentently interpreting results, counseling the patient and care coordination
[2023-06-29] MEDS: Enoxaparin 40 MG/0.4 ML SYR SC (10:24)
[2023-06-29] MEDS: guaiFENesin 600 MG TABCR PO (14:23)
--- NOTE | 2023-06-29 14:41 | RESPIRATORY ---
RT Assessment Start: 06/29/23 14:15 Freq: .q shift and prn Status: Active Protocol: Document 06/29/23 14:30 RT.MAGR (Rec: 06/29/23 14:39 RT.MAGR [id number]) RT Assessment Pulmonary History Pulmonary History Pulmonary Fibrosis Smoking History Smoking/Tobacco Use Status Never OXYGEN HISTORY: Supplemental O2 At Rest 4 With Exertion 4 CPAP Settings 5 Can use home machine Yes BIPAP Can you home machine No Trilogy/AVAPS Can use home machine No DME/Compliance DME RAMA Current Respiratory Symptoms Current Respiratory Symptoms Sputum production,Wheezing Activity Activity Level Pt. works, goes outside often independently. Respiratory Breath Sounds Breath Sounds Faint wheezing or rhonci, decreased sounds throughout Response No change Pulse Rate <100 Respiratory Rate 18-25 Shortness of Breath On exertion Respiratory Therapy Score Total 4 Assessment and Plan RT Treatment Protocol Bronchodilator Aerosol Therapy Protocol,Lung Expansion Therapy Protocol,Bronchial Hygiene Therapy Protocol Note Bronchodilator Aerosol Therapy Protocol: Bronchodilator QID Lung Expansion Therapy: IS at bedside Q1-2. Bronchial Hygiene Therapy: Acapella Q4 at bedside.
--- NOTE | 2023-06-29 14:54 | RESPIRATORY ---
During RT assessment pt. stated that he uses CPAP at night since three months but did not bring it to hospital and refused to use hospital BiPAP machine. He advised RT he does not need it.
--- NOTE | 2023-06-29 15:14 | CHAPLAIN ---
Freedom was sleeping when I visited. I spoke with his , Dariela, explained my role and offered support. I will continue to visit.
[2023-06-29] MEDS: Albuterol/Ipratropium 3 ML UPD VIAL UPD ×2 (16:26→20:45)
[2023-06-29 17:39] LABS: MRSA PCR Negative (Negative)
[2023-06-29] MEDS: AZITHROMYCIN 500 MG in Normal Saline 250 ML 250 MG IVPB (17:40)
[2023-06-29] MEDS: Atorvastatin 20 MG TAB PO (20:32)
[2023-06-29] MEDS: guaiFENesin 600 MG TABCR 1200 MG PO (20:32)
[2023-06-30] VITALS (23 sets, daily range): BP systolic 108–133; BP diastolic 69–90; PULSE 65–90; RESP 2–25; TEMP 36.6–36.8; O2SAT 89–97
[2023-06-30] MEDS: Albuterol/Ipratropium 3 ML UPD VIAL UPD ×2 (08:05→13:05)
[2023-06-30] MEDS: Bumetanide 1 MG TAB 0.5 MG PO (08:30)
[2023-06-30] MEDS: guaiFENesin 600 MG TABCR 1200 MG PO (08:30)
[2023-06-30] MEDS: methylPREDNISolone SUCC 40 MG VIAL IVP (08:35)
[2023-06-30 08:39] LABS: ALT 28 U/L (16-63); AST 23 U/L (15-37); Albumin 2.3 g/dL (3.4-5.0); Alkaline Phosphatase 104 U/L (46-116); Anion Gap 8.7 mmol/L (3-11); BUN 19 mg/dL (7-18); Bilirubin, Total 0.6 mg/dL (0.2-1.0); C-Reactive Protein 22.47 mg/dL (0.0-0.3); CO2 22.3 mmol/L (21.0-32.0); CREATININE 0.8 mg/dL (0.70-1.30); Calcium 8.6 mg/dL (8.5-10.1); Chloride 104 mmol/L (98-107); Glucose 165 mg/dL (74-106); Potassium 4.6 mmol/L (3.5-5.1); Sodium 135 mmol/L (136-145); Total Protein 6.7 g/dL (6.4-8.2)
[2023-06-30 08:56] LABS: Procalcitonin 0.7 ng/mL
[2023-06-30] MEDS: CEFEPIME 2 GM in Normal Saline 100 ML IVPB (09:01)
--- NOTE | 2023-06-30 09:06 | W.PM.PROGNOT ---
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 He presented w/ a week of increasing cough, fever, chills, weakness and was found to be hypotensive w/ worsening hypoxia over his baseline (he is usually on 4 lpm per NC at home), w/ mild lactic acid elevation. he was resuscitated w/ iv fluids (nearly 3 liters overnight) and required norephinephrine. Patient has remained hemodynamically stable and continues to improve respiratory nickerson. He is now down to 3 lpm which is better than his baseline. Cough is more productive, dyspnea has improved. He would like to return home. His inflammatory markers are going down (procalcitonin 0.7 down from 1.4), although CRP is still elevated at 22.47. CBC is pending. I think it is reasonable to send him home on 7 more days of oral antibiotics (total of 10 days). I will dc him on Augmentin and azithromycin along w/ short course of prednisone and have him follow up in the near future w/ Dr. Dahl. (2) Sepsis syndrome: Status: Resolved Assessment and plan: Resolved (3) Multifocal pneumonia: Status: Acute Assessment and plan: dc home on course of Augmentin, azithromycin and prednisone as above. repeat CXR in one week (4) Pulmonary hypertension: Status: Chronic Assessment and plan: Continue chronic medical therapy with follow-up pulmonology . Patient reports to me that he has not been taking his Ofev nor his Tyvaso because he can not afford them. He previously had applied for lupe from the [employer] and was taking it for about 3 months but felt no better. When the lupe money ran out his copay was in the thousands so he quit filling the prescriptions. 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 Patient is requiring increased oxygen supplementation at this time with his multifocal pneumonia. He is a full code. Subjective Subjective Interval history since last seen: Freedom is feeling better. Not dyspneic at rest. He is back to baseline oxygen requirements at 3 lpm humidified. He wants to return home today. His cough is more productive. He denies any CP. Exam Narrative Exam Narrative: Freedom is alert and oriented, N.A.D., able to talk in complete paragraphs No accessory respiratory muscle use Lungs: prolonged expiratory phase but clear except for faint rales at the bases; no rhonchi or wheezing Heart: RRR, no appreciable murmur Abdomen: benign Extremities: no edema or cyanosis Objective Last Vital Signs Temp 36.8 C 06/29/23 23:50 Pulse 66 06/30/23 04:01 Resp 17 06/30/23 04:01 BP 128/70 06/30/23 04:01 Pulse Ox 93 06/30/23 04:39 Laboratory Results - last 24 hr 06/29/23 06/30/23 06/30/23 15:49 06:05 07:10 Sodium 135 L Potassium 4.6 Chloride 104 Carbon Dioxide 22.3 Anion Gap 8.7 BUN 19 H Creatinine 0.8 Est GFR (CKD-EPI 2020) 95.80 Glucose 165 H Calcium 8.6 Total Bilirubin 0.6 AST 23 ALT 28 Alkaline Phosphatase 104 C-Reactive Protein 22.47 H Total Protein 6.7 Albumin 2.3 L Procalcitonin 0.7 MRSA (TEM-PCR) Negative PAWSS Have you Been Recently Intoxicated or Drunk Within the Last 30 days?: No Have you Ever Experienced Previous Episodes of Alcohol Withdrawal?: No Have you ever Experienced Withdrawal Seizures?: No Have you ever Experienced Delirium Tremens(DT)s?: No Have you ever undergone Alcohol Rehabilitation Treatment (i.e, inpt ot outpatient treatment programs)?: No Have you ever Experienced Blackouts?: No Have you ever Combined Alcohol with other Downers within the last 90 days?: No Have you ever Combined Alcohol with any other Substance of Abuse during the last 90 days?: No Positive Blood Alcohol level on Presentation? [PCS.BAL]: No Evidence of Increased Autonomic Activity (i.e. HR>120, tremor, sweating, agitation, nausea)?: No Result: 0 Time Spent with Patient Time Spent with Patient: 25-34 minutes Time was spent: preparing to see the patient(eg.review tests), ordering medications,tests, procedures, referring, communicating with other health career development consultant (discussion w/ Dr. Dahl), indepentently interpreting results, counseling the patient and care coordination
--- NOTE | 2023-06-30 09:10 | PDOC.CMPRO ---
Date of service: 06/30/23 Time of Service: 09:11 Care Management Progress Note Progress Note Text Progress Note Text: S/O: A: Freedom is a 67 year old man admitted on 06/28/23 with multifocal pneumonia P:Freedom will likely discharge home with no new services when medically cleared. He will follow up with his community providers and plan of care and transport with family. will continue to offer support to Freedom and his discharge planning needs.
[2023-06-30 09:37] LABS: Absolute Basophil Count 0.02 10^3/uL (0.0-0.2); Absolute Lymphocyte Count 0.45 10^3/uL (1.2-3.4); Absolute Monocyte Count 0.13 10^3/uL (0.1-0.8); Basophils % 0.2; HCT 39.2 % (40.0-50.0); HGB 12.8 g/dL (13.5-17.5); Immature Grans % 0.7; Lymphocytes % 3.7; MCH 28.9 pg (27.0-33.0); MCHC 32.7 % (32.0-36.0); MCV 89 fL (80-95); MPV 10.3 fL (8.0-11.0); Monocytes % 1.1; Neutrophils % 94.3; Platelet Count 210 10^3/uL (130-400); RBC 4.43 10^6/uL (4.36-5.78); RDW 14.7 % (11.8-14.1); RDW-SD 47.9 fL; WBC 12.24 10^3/uL (4.4-10.8)
[2023-06-30 09:38] LABS: Abs Immature Grans 0.09 10^3/uL (0.0-0.06); Absolute Neutrophil Count 11.55 10^3/uL (1.2-6.7)
[2023-06-30] MEDS: Enoxaparin 40 MG/0.4 ML SYR SC (10:04)
--- NOTE | 2023-06-30 14:56 | DSE_ITS ---
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 Hospital Course: 67 yr old male w/ hx of Dillwyn lung w/ILD who is oxygen dependent (4 lpm oxygen) presented w/ increased cough, fever, chills and was found to be septic w/ multilobar pneumonia. He had blood cultures obtained and CXR and CT chest that diagnosed the infiltrates. he was put on HFNC and given aerosolized bronchodilators and put on Cefepime and azithromycin. He improved overnight, requested to return home the next day but was kept one more day for steroids, and antibiotics and breathing treatments. He was discharged on 06/30/23 in much improved condition w/ his baseline FIO2 now at 3 lpm which is lower than his home oxygen setting of 4 lpm. He will be dc home on another 7 days of Augmentin and 5 days of azithromycin and 7 days of prednisone. He is to have follow up CXR in [address] Hesham gonzalez equipment operator saw him on the day of his discharge and per my discussion w/ her, she agreed he was stable for outpatient treatment. Home Meds and New Rx's Prescriptions: New amoxicillin-pot clavulanate 875-125 mg tablet 1 tab PO BID 7 Days Qty: 14 0RF azithromycin 500 mg tablet 500 mg PO DAILY 5 Days Qty: 5 0RF prednisone 20 mg tablet 40 mg PO DAILY 7 Days Qty: 14 0RF guaifenesin [Mucinex] 1,200 mg tablet extended release 12hr 1,200 mg PO BID 10 Days Qty: 20 0RF Continued atorvastatin 20 mg tablet 20 mg PO DAILY lisinopril 10 mg tablet 10 mg PO DAILY tadalafil 5 mg tablet 5 mg PO DAILY Tyvaso DPI 32 mcg cartridge with inhaler inhalation QID bumetanide 0.5 mg tablet 0.5 mg PO DAILY Qty: 90 12RF albuterol sulfate 90 mcg/actuation HFA aerosol inhaler 2 puff inhalation QID PRN (Reason: shortness of breath or wheezing) Qty: 8.5 6RF Ofev 150 mg capsule 150 mg PO Q12H Qty: 60 12RF Rx Instructions: patient has not started medication yet- not afordable per patient Discharge Instructions Instructions: Bacterial Pneumonia (DC) Additional Instructions: You were hospitalized for pneumonia w/ sepsis/hypotension. You were treated w/ intravenous antibiotics (Cefepime and azithromycin) and are being sent home on 7 more days of Augmentin and 5 more days of azithromycin orally. You were also treated w/ corticosteroids to reduce lung inflammation and will be sent home on another week of prednisone. You should use your albuterol inhaler every 4 hours while awake for the next few days then as you continue to improve w/ your breathing and coughing you can reduce to an as needed schedule. Please get follow up chest xray next week, keep a follow up w/ your PCP next week and make a follow up w/ Dr. Dahl in the next couple of weeks. Referrals: Stefanie Dahl MD [ [facility] STAFF PHYSICIAN] - 07/04/23 9:30 am Guillermina Chowdhury [Primary Care Provider] - 07/04/23 11:00 am Activity:: Activity as Tolerated Equipment/Supplies:: No Equipment Needed Diet:: Normal Diet Discharge Orders Discharge Orders: Discharge Order (Routine); Ordered 06/30/23 Ordered By: Moshe Padgett Other Ambulatory Orders: XR chest 2V PA & lateral (Routine) Timeframe: 1 Week Location: None Selected Ordered By: Moshe Padgett Discharge Data Discharge Date/Time-TO BE ENTERED AT DEPARTURE: 06/30/23 15:15 DS: Summary Time Spent with Patient providing and/or coordinating discharge services: Greater than 30 minutes Specific discharge activities: Interview/exam of patient; review of discharge instructions, completion of prescriptions/discharge instructions; discussion w/ nursing and CM; documentation of hospital visit Status at Discharge Functional status at discharge: independent ambulation Overall status at discharge: patient is progressing back to baseline Mental Status: mental status grossly normal Speech and Movement: speech and movement normal Mood: congruent mood Affect: normal affect Exam Psych Mental Status: mental status grossly normal Speech and Movement: speech and movement normal Mood: congruent mood Affect: normal affect DS: Data Vitals/I&O Vitals and I&O: Vital Signs Temperature 36.8 C 06/30/23 12:50 Temperature Source Temporal Artery Scan 06/30/23 12:50 Pulse 81 06/30/23 13:12 Pulse 84 06/30/23 12:01 Respiratory Rate 18 06/30/23 13:05 Respiratory Effort Non-Labored 06/30/23 12:50 Respiratory Depth Normal 06/30/23 12:50 Respiratory Pattern Normal 06/30/23 12:50 Blood Pressure 124/79 06/30/23 12:01 Blood Pressure Mean 93 06/30/23 12:01 Blood Pressure Position Sitting 06/30/23 12:50 Pulse Oximetry 89 L 06/30/23 13:05 Oxygen Delivery Method Nasal Cannula 06/30/23 13:05 Oxygen Flow Rate 3 06/30/23 13:05 Fraction of Inspired Oxygen (FIO2) 37 06/29/23 16:26 Pain Level 0 06/30/23 03:46 Intake & Output 06/29/23 06/30/23 06/30/23 23:59 11:59 23:59 Intake Total 2310 / 4557.403 2060 / 2560 500 / 2560 Output Total 1375 / 2175 1100 / 1505 405 / 1505 Balance 935 / 2382.403 960 / 1055 95 / 1055 Weight 79.2 kg Intake: IV 1850 / 3617.403 130 / 130 Oral 460 / 940 1930 / 2430 500 / 2430 Output: Urine 1375 / 2175 1100 / 1505 405 / 1505 Other: Urine Color Light Sirisha Light Sirisha Straw Urine Appearance Clear Clear Clear Urine Odor Strong Normal None Voiding Methods Urinal Urinal Data Completed and Pending Labs on day of discharge: Labs from last 24 hours 06/30/23 06/29/23 06/29/23 06:35 15:49 15:45 WBC 12.24 H RBC 4.43 Hgb 12.8 L Hct 39.2 L MCV 89 MCH 28.9 MCHC 32.7 RDW 14.7 H Plt Count 210 MPV 10.3 Immature Gran % 0.7 Neutrophils % 94.3 Lymphocytes % 3.7 Monocytes % 1.1 Eosinophils % 0.0 Basophils % 0.2 Nucleated RBC % 0.0 Absolute Neutrophils 11.55 H Absolute Lymphocytes 0.45 L Absolute Monocytes 0.13 Absolute Eosinophils 0.00 Absolute Basophils 0.02 Sodium 135 L Potassium 4.6 Chloride 104 Carbon Dioxide 22.3 Anion Gap 8.7 BUN 19 H Creatinine 0.8 Est GFR (CKD-EPI 2020) 95.80 Glucose 165 H Calcium 8.6 Total Bilirubin 0.6 AST 23 ALT 28 Alkaline Phosphatase 104 C-Reactive Protein 22.47 H Total Protein 6.7 Albumin 2.3 L Procalcitonin 0.7 Urine Legionella Ag Pending M. pneumoniae Source Pending M. 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) Syncope (Chronic) Right ventricular failure (Acute) Pulmonary hypertension (Chronic) Respiratory failure with hypoxia (Acute) Progressive fibrosing interstitial lung disease (Chronic) Dillwyn' lung (Acute) Hyperlipidemia (Acute) Dyspnea (Acute) Cough (Acute) Shortness of breath (Acute) Medical History Dillwyn' lung History of essential hypertension Family History Mother History of heart valve repair Other Heart disease Social History Smoking/Tobacco Use Status: Never Smoking risk assessment performed?: Yes Alcohol Intake: current Alcohol Intake frequency: 0-2 drinks per day Drug use: Never Substance use type: does not use Housing: house 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
--- NOTE | 2023-06-30 16:20 | PDOC.CMDIS ---
Date of service: 06/30/23 Time of Service: 16:20 LACE Index Scoring Tool Questions: Length of Stay (in days): 2 Was the patient admitted via the E.D.?: Yes Comorbidities: Chronic Pulmonary Disease E.D. Visits: 1 Answers: Total Score: 8 Risk of Readmission: Low Risk Care Management Discharge Plan Reason for Hospitalization: Acute respiratory failure, multifocal pneumonia Discharge Plan: Freedom will be discharged home with no new services. He will follow up with his community providers and plan of care and transport with family. Patient/Family Education Needs: Review of discharge instructions, limitations, medications, activity, follow up plan, discuss Ask Me Three
[2023-06-30 18:34] LABS: Legionella Ag Detection Urine Negative (Negative)
[2023-07-01 12:31] LABS: Fungitell Qualitative Negative (Negative); Fungitell Quantitative Value <31 pg/mL (<60 pg/mL)
[2023-07-03 16:16] LABS: Mycoplasma Pneumoniae PCR Negative (Negative); Specimen source sputum
[2023-07-03 16:56] LABS: Streptococcus Pneumoniae Ag, U Negative (Negative)
== END 2023-06-30 15:15 | disposition home or self-care (01) | DRG 871 ==
LOC: ER 23:35 → ICU 06-29 01:03
PROVIDERS: Internal Medicine; Admitting Provider Family Medicine; Emergency Provider Student in an Organized Health Care Education/Training Program; PCP Internal Medicine; Visit Provider Family Medicine
DX: A41.9 Sepsis, unspecified organism (principal); J18.9 Pneumonia, unspecified organism; J96.21 Acute and chronic respiratory failure with hypoxia; J96.02 Acute respiratory failure with hypercapnia; E86.0 Dehydration; J84.89 Other specified interstitial pulmonary diseases; E78.5 Hyperlipidemia, unspecified; I10 Essential (primary) hypertension; I27.23 Pulmonary hypertension due to lung diseases and hypoxia; I27.21 Secondary pulmonary arterial hypertension; Z99.81 Dependence on supplemental oxygen
CPT/HCPCS: 00123; 36415; 71275; 80053; 82805; 84145; 85027; 87040; 87449; 87637; 87641; 93005; 96361; 96365; 96368; 99285; J1650; 71045; 81003; 81015; 83605; 84484; 85025; 86140; 87070; 87205; 87581; 87899; 93010; 94640; 94667; 94668; 94760; 99223; 99232; 99233; 99239; J0456; J3490; J7512; J7620

== ENCOUNTER 2023-07-11 04:46 | Outpatient (CLI) | payer MEDICARE, SELFPAY ==
--- OUTSIDE RECORDS SUMMARY | 2023-07-11 04:47 | XMS_ITS | CCD ---
Author Name Unknown Address [address] [place] [phone] Organization Unknown Address [address] [place], [place] [id number] Care Team Providers Care Cnc Milling Machine Operator Name Role Phone CADEN MERRILL Attending Physician [phone] CADEN MERRILL Rounding (Secondary) Physician [phone] Vital Signs Unknown or Not Available. Allergies Unknown or Not Available. Procedures Unknown or Not Available. History of Immunizations Unknown or Not Available. 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 Active Medications Medication Code Dose Units Frequency Route Modificatio n Start Date/Time predniSONE 20MG Oral Tablet 175884 2 TABLET DAILY ORAL 12/25/19 17:01 Prescription Detail TAKE 2 TABLET ORAL DAILY Medications Administered During Visit Unknown or Not Available. Encounters Encounter Diagnosis Diagnosis Code Start Date Unilateral inguinal hernia, without obstruction or gangrene, not specified as recurrent [id number] 01/05/2022 Social History Smoking Status Code Start Date End Date Never smoker [id number] Patient Decision Aids Unknown or Not Available. Discharge Instructions You were admitted to [facility] on 01/05/2022 08:33 with a principal diagnosis of Unilateral inguinal hernia, without obstruction or gangrene, not specified as recurrent You were discharged from [facility] on 01/05/2022 00:00 Should you have any questions prior to discharge, please contact a member of your healthcare team. If you have left the hospital and have any questions, please contact your primary care physician. Chief Complaint and Reason For Visit Unknown or Not Available. Function Status Unknown or Not Available. Plan of Care Unknown or Not Available. Referral/Transition of Care Unknown or Not Available.
--- OUTSIDE RECORDS SUMMARY | 2023-07-11 04:47 | XMS_ITS | CCD ---
Author Name Unknown Address [address], [place] [id number] Organization Unknown Address [address], [place] [address] Care Team Providers Care Homebound Teacher Name Role Phone MILAGRO LAM Attending Physician [phone] YI BAZZI Er Physician 1 [phone] BELINDA HORN (Secondary) Physician [phone] MARILYN Porras Registered Nurse [phone] JUS Boss Registered Nurse [phone] Vital Signs Vital Sign Value Unit Date/Time Recent/Initial ? BMI (Body Mass Index) 25.85 kg/m^2 01/28/2022 18: 34 Initial VS Weight Measured 170 lbs 01/28/2022 18:34 Ini tial VS Height 68 in 01/28/2022 18:34 Initial VS BSA (Body Surface Area) 1.92 m^2 01/28/2022 1 8:34 Initial VS BP Systolic 178 mmHg 01/28/2022 18:34 Initial VS BP Diastolic 116 mmHg 01/28/2022 18:34 Initia l VS Respiratory Rate 25 bpm 01/28/2022 18:34 In itial VS Heart Rate 90 bpm 01/28/2022 18:34 Initial VS O2 % BldC Oximetry 77 % 01/28/2022 18:34 Initial VS Body Temperature 36.7 degrees 01/28/2022 18:34 In itial VS BMI (Body Mass Index) 26.7 kg/m^2 01/28/2022 21: 40 Most Recent VS Weight Measured 175.6 lbs 01/28/2022 21:40 Mos t Recent VS Height 68 in 01/28/2022 21:40 Most Rec ent VS BSA (Body Surface Area) 1.95 m^2 01/28/2022 2 1:40 Most Recent VS BP Systolic 132 mmHg 01/29/2022 07:11 Most Re cent VS BP Diastolic 75 mmHg 01/29/2022 07:11 Most R ecent VS Respiratory Rate 18 bpm 01/29/2022 07:[address] Recent VS Heart Rate 81 bpm 01/29/2022 07:11 Most Rec ent VS O2 % BldC Oximetry 91 % 01/29/2022 07:11 Most Recent VS Body Temperature 35.6 degrees 01/29/2022 07:[address] Recent VS Allergies Allergy Code Allergy Type Reaction Status No Known Allergies 0 No known allergies Active Procedures Unknown or Not Available. History of Immunizations Unknown or Not Available. Problems Problem Code Start Date Resolved Date Status Steele's lung 79255447 Active Hypoxia 365968786 Active Fever 466665295 Active Hypertension 16805336 Active Hypertension 09200937 01/28/2022 Resolved Hyperlipidemia 67218428 01/28/2022 Resolved Hypersensitivity pneumonitis 84643411 022 Resolved Results BASIC METABOLIC PANEL (BMP) - Collect Date/Time: 01/29/2022 06:14 Test Name Code Test Result Test Units Test Ref Rang e GLUCOSE 2345-7 146 mg/dL L=70 H=116 BUN 3094-0 14 mg/dL L=6 H=25 CREATININE 2160-0 0.89 mg/dL L=0.67 H=1.17 SODIUM SERUM 2951-2 127 mmol/L L=136 H=145 POTASSIUM SERUM 2823-3 4.7 mmol/L L=3.4 H=5 .2 CHLORIDE SERUM 2075-0 95 mmol/L L=96 H=110 CARBON DIOXIDE (CO2) 2028-9 27 mmol/L L=22 H=34 ANION GAP 57134-3 5.2 mmol/L CALCIUM SERUM 19672-4 8.1 mg/dL L=8.2 H=10. 2 AGE 66 years eGFR (non-Afr.Amer.) 40318-6 85 mL/min eGFR (Afr-Surinamese) 66323-9 103 mL/min BNP (PRO-B NATRIURETIC PEPTI DE) - Collect Date/Time: 01/28/2022 18:40 Test Name Code Test Result Test Units Test Ref Rang e NT-proBNP 88883-7 1666.0 pg/mL L=0.0 H=125 COMPREHENSIVE METABOLIC PANE L (CMP) - Collect Date/Time: 01/28/2022 18:40 Test Name Code Test Result Test Units Test Ref Rang e GLUCOSE 2345-7 106 mg/dL L=70 H=116 BUN 3094-0 12 mg/dL L=6 H=25 CREATININE 2160-0 1.03 mg/dL L=0.67 H=1.17 SODIUM SERUM 2951-2 132 mmol/L L=136 H=145 POTASSIUM SERUM 2823-3 4.7 mmol/L L=3.4 H=5 .2 CHLORIDE SERUM 2075-0 97 mmol/L L=96 H=110 CARBON DIOXIDE (CO2) 2028-9 29 mmol/L L=22 H=34 ANION GAP 58105-6 6.1 mmol/L CALCIUM SERUM 57941-3 8.6 mg/dL L=8.2 H=10. 2 BILIRUBIN TOTAL 1975-2 1.1 mg/dL L=0.0 H=1 .3 ALK. PHOS. 6768-6 84 U/L L=46 H=116 SGOT (AST) 1920-8 29 U/L L=15 H=37 SGPT (ALT) 1742-6 28 U/L L=12 H=78 TOTAL PROTEIN 2885-2 8.4 gm/dL L=6.0 H=8.0 ALBUMIN 1751-7 3.7 gm/dL L=3.4 H=5.0 AGE 66 years eGFR (non-Afr.Amer.) 80101-0 72 mL/min eGFR (Afr-Surinamese) 76431-5 87 mL/min TROPONIN HIGH SENSITIVITY* - Collect Date/Time: 01/28/2022 18:40 Test Name Code Test Result Test Units Test Ref Rang e TROPONIN HS 32.4 pg/mL L=0.0 H=60.4 Specimen seq. ADM. N/A CBC W/ DIFFERENTIAL* - Colle ct Date/Time: 01/29/2022 06:14 Test Name Code Test Result Test Units Test Ref Rang e WBC 6690-2 9.09 th/cmm L=5.00 H=10.00 NEUT % 91.2 % L=40.0 H=80.0 LYMPH % 6.6 % L=10.0 H=50.0 MONO % 65323-4 1.8 % L=2.0 H=12.0 EOS % 0.0 % L=0.0 H=8.0 BASO % 0.1 % L=0.0 H=3.0 IG % 2514-8 0.3 % L=0.0 H=1.1 NRBC % 97791-5 0.0 % L=0.0 H=0.0 NEUT abs count 751-8 8.3 th/cmm L=1.6 H=8. 4 LYMPH abs count 731-0 0.6 th/cmm L=1.5 H=4 .0 MONO abs count 742-7 0.2 th/cmm L=0.2 H=1. 0 EOS abs count 711-2 0.0 th/cmm L=0.0 H=0.5 BASO abs count 704-7 0.0 th/cmm L=0.0 H=0. 2 IG abs count 98104-6 0.0 th/cmm L=0.0 H=0.1 NRBC abs count 49610-7 0.0 mil/cmm L=0.0 H=0. 0 RBC 789-8 5.45 mil/cmm L=4.30 H=6.20 HEMOGLOBIN 718-7 16.0 gm/dL L=13.0 H=17.0 HEMATOCRIT 4544-3 48 % L=45 H=52 MCV 787-2 88 fL L=82 H=92 MCH 785-6 29.4 pg L=27.0 H=31.0 MCHC 786-4 33.4 % L=32.0 H=36.0 RDW-SD 788-0 46.1 fL L=39.0 H=49.0 PLATELET COUNT 777-3 220 th/cmm L=150 H=45 0 CBC W/ DIFFERENTIAL* - Colle ct Date/Time: 01/28/2022 18:40 Test Name Code Test Result Test Units Test Ref Rang e WBC 6690-2 11.88 th/cmm L=5.00 H=10.00 NEUT % 80.7 % L=40.0 H=80.0 LYMPH % 11.5 % L=10.0 H=50.0 MONO % 23498-1 5.5 % L=2.0 H=12.0 EOS % 1.6 % L=0.0 H=8.0 BASO % 0.4 % L=0.0 H=3.0 IG % 2514-8 0.3 % L=0.0 H=1.1 NRBC % 87574-2 0.0 % L=0.0 H=0.0 NEUT abs count 751-8 9.6 th/cmm L=1.6 H=8. 4 LYMPH abs count 731-0 1.4 th/cmm L=1.5 H=4 .0 MONO abs count 742-7 0.7 th/cmm L=0.2 H=1. 0 EOS abs count 711-2 0.2 th/cmm L=0.0 H=0.5 BASO abs count 704-7 0.1 th/cmm L=0.0 H=0. 2 IG abs count 84295-0 0.0 th/cmm L=0.0 H=0.1 NRBC abs count 24748-7 0.0 mil/cmm L=0.0 H=0. 0 RBC 789-8 5.64 mil/cmm L=4.30 H=6.20 HEMOGLOBIN 718-7 16.6 gm/dL L=13.0 H=17.0 HEMATOCRIT 4544-3 50 % L=45 H=52 MCV 787-2 89 fL L=82 H=92 MCH 785-6 29.4 pg L=27.0 H=31.0 MCHC 786-4 33.1 % L=32.0 H=36.0 RDW-SD 788-0 48.1 fL L=39.0 H=49.0 PLATELET COUNT 777-3 234 th/cmm L=150 H=45 0 PIOTR COVID FLU RSV GENEXPE RT - Collect Date/Time: 01/28/2022 18:40 Test Name Code Test Result Test Units Test Ref Rang e COVID NEGATIVE N/A Normal: Negati ve INFLUENZA A DNA NEGATIVE N/A Normal: N egative INFLUENZA B DNA NEGATIVE N/A Normal: N egative RSV DNA NEGATIVE N/A Normal: Negati ve URINALYSIS WITH MICRO AND RE FLEX CULTUR* - Collect Date/Time: 01/28/2022 23:37 Test Name Code Test Result Test Units Test Ref Rang e COLLECTION MODE: 12699-6 STRAIGHT CATH N/A Color 5778-6 YELLOW N/A yellow Appearance 5767-9 CLEAR N/A clear Glucose urine 86079-5 NEGATIVE N/A negative mg /dl Bilirubin 5770-3 NEGATIVE N/A negative Ketones 2514-8 15 N/A negative mg/dl Spec gravity 5811-5 >=1.030 N/A 1.003 - 1.03 0 pH urine 2756-5 5.5 N/A 5.0 - 7.0 Protein 95577-8 TRACE N/A negative mg/dl Urobilinogen 39918-9 0.2 N/A <or= 1 EU/dl Nitrite. 5802-4 NEGATIVE N/A negative Blood 5794-3 NEGATIVE N/A negative Leukocytes. NEGATIVE N/A negative WBCs. 97867-0 0-5 N/A 0-5 / hpf RBCs 94764-8 0-5 N/A 0-5 / hpf Epith cells 20888-9 0-5 N/A 0-5 / hpf Cell types squam+trans N/A Crystals none N/A none Bacteria minimal N/A none Mucus 8247-9 present N/A none Casts 42822-3 5-10 N/A none /lpf Cast types hyaline N/A Active Medications Medications Administered During Visit Medication Dose Units Frequency Route Date/Time of Last Dose NITROGLYCERIN TABLET SL (25C T): 0.4MG 0.4 MG PRN Q5MIN SL 01/28/2022 18:5 4 MethylPREDNISolone SUC INJ SDV:125MG/2ML 125 MG X1 IVP 01/28/2022 19: 30 ONDANSETRON INJ SDV: 4MG/2ML 4 MG X1 I HONING MACHINE OPERATOR PRODUCTION 01/28/2022 19:00 SODIUM CHLORIDE 0.9% 1000ML 1000 ML X1 01/28/2022 20:28 CefTRIAXone IVPB: 1GM/50ML 1 GM X1 01/28/2022 20:40 AZITHROMYCIN IVPB: 500MG/250ML 500 MG X1 01/28/2022 21:13 SODIUM CHLORIDE 0.9% FLUSH 1 0ML SYRINGE 2 ML Q8H IVP 01/29/2022 05:5 0 MethylPREDNISolone SUC INJ SDV:40MG/1ML 40 MG DAILY IVP 01/29/2022 08:2 1 LISINOPRIL TABLET: 10MG 10 MG DAILY PO 01/29/2022 08:27 Encounters Encounter Diagnosis Diagnosis Code Start Date Hypoxemia R0902 01/28/2022 Social History Smoking Status Code Start Date End Date Never smoker [id number] Patient Decision Aids Unknown or Not Available. Discharge Instructions You were admitted to [facility] on 01/28/2022 21:08 with a principal diagnosis of Hypoxemia You had the following tests done:BASIC METABOLIC PANEL (BMP)CBC W/ DIFFERENTIAL*URINALYSIS WITH MICRO AND REFLEX CULTUR*BNP (PRO-B NATRIURETIC PEPTIDE)CBC W/ DIFFERENTIAL*COMPREHENSIVE METABOLIC PANEL (CMP)[facility] COVID FLU RSV GENEXPERTTROPONIN HIGH SENSITIVITY* You were discharged from [facility] on 01/29/2022 12:40 Should you have [...]
--- OUTSIDE RECORDS SUMMARY | 2023-07-11 04:47 | XMS_ITS | CCD ---
Author Name Unknown Address [address] [place] [id number] Organization Unknown Address [address], [place] [id number] Care Team Providers Care Industrial Service Technician Name Role Phone YI BAZZI Attending Physician [phone] YI BAZZI Er Physician 2 [phone] ELEANOR Salas Registered Nurse [phone] Vital Signs Vital Sign Value Unit Date/Time Recent/Initial ? BP Systolic 135 mmHg 12/24/2022 16:27 Initial VS BP Diastolic 90 mmHg 12/24/2022 16:27 Initia l VS Respiratory Rate 24 bpm 12/24/2022 16:27 In itial VS Heart Rate 79 bpm 12/24/2022 16:27 Initial VS O2 % BldC Oximetry 85 % 12/24/2022 16:27 Initial VS BP Systolic 139 mmHg 12/24/2022 17:30 Most Re cent VS BP Diastolic 89 mmHg 12/24/2022 17:30 Most R ecent VS Respiratory Rate 16 bpm 12/24/2022 17:[address] Recent VS Heart Rate 80 bpm 12/24/2022 17:30 Most Rec ent VS O2 % BldC Oximetry 96 % 12/24/2022 17:30 Most Recent VS Allergies Allergy Code Allergy Type Reaction Status No Known Allergies 0 No known allergies Active Procedures Unknown or Not Available. History of Immunizations Unknown or Not Available. Problems Problem Code Start Date Resolved Date Status Steele's lung 13137985 Active Hypoxia 710306350 Active Fever 736861818 Active Hypertension 78246118 Active Results Unknown or Not Available. Active Medications Unknown or Not Available. Medications Administered During Visit Unknown or Not Available. Encounters Encounter Diagnosis Diagnosis Code Start Date Calcific tendinitis of left shoulder [id number] 9108 12/24/2022 Social History Smoking Status Code Start Date End Date Never smoker 154894311 Patient Decision Aids Unknown or Not Available. Discharge Instructions You were admitted to [facility] on 12/24/2022 16:15 with a principal diagnosis of Calcific tendinitis of left shoulder You were discharged from [facility] on 12/24/2022 17:31 Should you have any questions prior to discharge, please contact a member of your healthcare team. If you have left the hospital and have any questions, please contact your primary care physician. Chief Complaint and Reason For Visit Chief Complaint Date of Onset LEFT SHOULDER PAIN Function Status Unknown or Not Available. Plan of Care Unknown or Not Available. Referral/Transition of Care Unknown or Not Available.
--- OUTSIDE RECORDS SUMMARY | 2023-07-11 04:47 | XMS_ITS | CCD ---
Author Name Unknown Address [address] [place] [id number] Organization Unknown Address [address] [place], [place] [id number] Care Team Providers Care Business Banker Name Role Phone CADEN MERRILL Attending Physician [phone] CADEN MERRILL Rounding (Secondary) Physician [phone] Vital Signs Unknown or Not Available. Allergies Allergy Code Allergy Type Reaction Status No Known Allergies 0 No known allergies Active Procedures Unknown or Not Available. History of Immunizations Unknown or Not Available. Problems Problem Code Start Date Resolved Date Status Steele's lung 41568735 Active Hypoxia 392608617 Active Fever 135070451 Active Hypertension 31169741 Active Results Unknown or Not Available. Active Medications Medication Code Dose Units Frequency Route Modificatio n Start Date/Time predniSONE 20MG Oral Tablet 849339 2 TABLET DAILY ORAL 12/25/19 23 17:01 Prescription Detail TAKE 2 TABLET ORAL DAILY Medications Administered During Visit Unknown or Not Available. Encounters Encounter Diagnosis Diagnosis Code Start Date Unilateral inguinal hernia, without obstruction or gangrene, not specified as recurrent K4090 02/16/2022 Social History Smoking Status Code Start Date End Date Never smoker [id number] Patient Decision Aids Unknown or Not Available. Discharge Instructions You were admitted to [facility] on 02/16/2022 09:45 with a principal diagnosis of Unilateral inguinal hernia, without obstruction or gangrene, not specified as recurrent You were discharged from [facility] on 02/16/2022 00:00 Should you have any [...]
[2023-07-11] MEDS: Levalbuterol HFA 15 GM INH 4 PUFF IH (09:10)
[2023-07-11] MEDS: Inhaler, Assist Device 1 EACH MC (09:11)
--- NOTE | 2023-07-12 15:56 | W.PFT ---
Date of service: 07/11/23 Time of Service: 08:10 Pulmonary Function Test Result Indications: ILD Interpretation Spirometry: There is no airflow limitation. There is no bronchodilator response. The FVC is low. Lung Volumes: Normal lung volumes Diffusion Capacity: Decreased diffusion Airway Pressure: Normal airways resistance Impression No airflow obstruction with a decreased diffusion and normal lung volumes. Clinical Correlation therefore is recommended.
== END 2023-07-11 04:47 | disposition home or self-care (01) ==
PROVIDERS: PCP Internal Medicine; Visit Provider Student in an Organized Health Care Education/Training Program
DX: J84.89 Other specified interstitial pulmonary diseases (principal)
CPT/HCPCS: 94060; 94726; 94729

== ENCOUNTER 2023-10-12 18:42 | Outpatient (REF) | payer MEDICARE, SELFPAY ==
--- OUTSIDE RECORDS SUMMARY | 2023-10-12 18:44 | XMS_ITS | CCD ---
Author Name Unknown Address [address] [place] [id number] Organization Unknown Address [address], [place] [id number] Care Team Providers Care Altitude Chamber Technician Name Role Phone CADEN MERRILL Attending Physician [phone] CADEN MERRILL Rounding (Secondary) Physician [phone] Vital Signs Unknown or Not Available. Allergies Allergy Code Allergy Type Reaction Status No Known Allergies 0 No known allergies Active Procedures Unknown or Not Available. History of Immunizations Unknown or Not Available. Problems Problem Code Start Date Resolved Date Status Steele's lung 05533099 Active Hypoxia 737287934 Active Fever 988731522 Active Hypertension 14740103 Active Results Unknown or Not Available. Active Medications Medication Code Dose Units Frequency Route Modificatio n Start Date/Time predniSONE 20MG Oral Tablet 321815 2 TABLET DAILY ORAL 12/25/19 23 17:01 Prescription Detail TAKE 2 TABLET ORAL DAILY Medications Administered During Visit Unknown or Not Available. Encounters Encounter Diagnosis Diagnosis Code Start Date Unilateral inguinal hernia, without obstruction or gangrene, not specified as recurrent K4090 02/16/2022 Social History Smoking Status Code Start Date End Date Never smoker 044816425 Patient Decision Aids Unknown or Not Available. Discharge Instructions You were admitted to [facility] on 02/16/2022 09:45 with a principal diagnosis of Unilateral inguinal hernia, without obstruction or gangrene, not specified as recurrent You were discharged from [facility] on 02/16/2022 00:00 Should you have [...]
--- OUTSIDE RECORDS SUMMARY | 2023-10-12 18:44 | XMS_ITS | CCD ---
Author Name Unknown Address [address] [place] [id number] Organization Unknown Address [address] [place], [place] [phone] Care Team Providers Care Customer Success Representative Name Role Phone CADEN MERRILL Attending Physician [phone] CADEN MERRILL Rounding (Secondary) Physician [phone] Vital Signs Unknown or Not Available. Allergies Unknown or Not Available. Procedures Unknown or Not Available. History of Immunizations Unknown or Not Available. Problems Problem Code Start Date Resolved Date Status Steele's lung 44648040 Active Hypoxia 089247205 Active Fever 252717712 Active Hypertension 74969002 Active Hypertension 33345682 01/28/2022 Resolved Hyperlipidemia 26213621 01/28/2022 Resolved Hypersensitivity pneumonitis 13506167 022 Resolved Results Unknown or Not Available. Active Medications Medication Code Dose Units Frequency Route Modificatio n Start Date/Time predniSONE 20MG Oral Tablet 018534 2 TABLET DAILY ORAL 12/25/19 17:01 Prescription Detail TAKE 2 TABLET ORAL DAILY Medications Administered During Visit Unknown or Not Available. Encounters Encounter Diagnosis Diagnosis Code Start Date Unilateral inguinal hernia, without obstruction or gangrene, not specified as recurrent K4090 01/05/2022 Social History Smoking Status Code Start Date End Date Never smoker 605150658 Patient Decision Aids Unknown or Not Available. Discharge Instructions You were admitted to [facility] on 01/05/2022 08:33 with a principal diagnosis of Unilateral inguinal hernia, without obstruction or gangrene, not specified as recurrent You were discharged from [facility] on 01/05/2022 00:00 Should you [...]
--- OUTSIDE RECORDS SUMMARY | 2023-10-12 18:44 | XMS_ITS | CCD ---
Author Name Unknown Address [address], [place] [id number] Organization Unknown Address [address], [place] [phone] Care Team Providers Care Mine Engineering Superintendent Name Role Phone MILAGRO LAM Attending Physician [phone] YI BAZZI Er Physician 1 [phone] BELINDA HORN (Secondary) Physician 8 [phone] MARILYN Porras Registered Nurse [phone] JUS Boss Registered Nurse [phone] Vital Signs Vital Sign Value Unit Date/Time [...] Start Date Resolved Date Status Steele's lung 84058420 Active Hypoxia 327998199 Active Fever 580857513 Active Hypertension 06039385 Active Hypertension 83437580 01/28/2022 Resolved Hyperlipidemia 96749321 01/28/2022 Resolved Hypersensitivity pneumonitis 32043596 022 Resolved Results BASIC METABOLIC PANEL (BMP) [...] 2028-9 27 mmol/L L=22 H=34 ANION GAP 66083-8 5.2 mmol/L CALCIUM SERUM 70242-5 8.1 mg/dL L=8.2 H=10. 2 AGE 66 years eGFR (non-Afr.Amer.) 74676-8 85 mL/min eGFR (Afr-Singaporean) 52244-1 103 mL/min BNP (PRO-B NATRIURETIC PEPTI DE) - Collect Date/Time: 01/28/2022 18:40 Test Name Code Test Result Test Units Test Ref Rang e NT-proBNP 86306-7 1666.0 pg/mL L=0.0 H=125 COMPREHENSIVE METABOLIC PANE [...] 2028-9 29 mmol/L L=22 H=34 ANION GAP 63961-1 6.1 mmol/L CALCIUM SERUM 14079-1 8.6 mg/dL L=8.2 H=10. 2 BILIRUBIN TOTAL 1975-2 1.1 mg/dL L=0.0 H=1 .3 ALK. PHOS. 6768-6 84 U/L L=46 H=116 SGOT (AST) 1920-8 29 U/L L=15 H=37 SGPT (ALT) 1742-6 28 U/L L=12 H=78 TOTAL PROTEIN 2885-2 8.4 gm/dL L=6.0 H=8.0 ALBUMIN 1751-7 3.7 gm/dL L=3.4 H=5.0 AGE 66 years eGFR (non-Afr.Amer.) 61956-1 72 mL/min eGFR (Afr-Singaporean) 93944-7 87 mL/min TROPONIN HIGH SENSITIVITY* - Collect [...] % 6.6 % L=10.0 H=50.0 MONO % 94337-3 1.8 % L=2.0 H=12.0 EOS % 0.0 % L=0.0 H=8.0 BASO % 0.1 % L=0.0 H=3.0 IG % 2514-8 0.3 % L=0.0 H=1.1 NRBC % 02280-8 0.0 % L=0.0 H=0.0 NEUT abs count 751-8 8.3 th/cmm L=1.6 H=8. 4 LYMPH abs count 731-0 0.6 th/cmm L=1.5 H=4 .0 MONO abs count 742-7 0.2 th/cmm L=0.2 H=1. 0 EOS abs count 711-2 0.0 th/cmm L=0.0 H=0.5 BASO abs count 704-7 0.0 th/cmm L=0.0 H=0. 2 IG abs count 75395-7 0.0 th/cmm L=0.0 H=0.1 NRBC abs count 32569-3 0.0 mil/cmm L=0.0 H=0. 0 RBC 789-8 [...] % 11.5 % L=10.0 H=50.0 MONO % 95362-8 5.5 % L=2.0 H=12.0 EOS % 1.6 % L=0.0 H=8.0 BASO % 0.4 % L=0.0 H=3.0 IG % 2514-8 0.3 % L=0.0 H=1.1 NRBC % 08965-2 0.0 % L=0.0 H=0.0 NEUT abs count 751-8 9.6 th/cmm L=1.6 H=8. 4 LYMPH abs count 731-0 1.4 th/cmm L=1.5 H=4 .0 MONO abs count 742-7 0.7 th/cmm L=0.2 H=1. 0 EOS abs count 711-2 0.2 th/cmm L=0.0 H=0.5 BASO abs count 704-7 0.1 th/cmm L=0.0 H=0. 2 IG abs count 89839-7 0.0 th/cmm L=0.0 H=0.1 NRBC abs count 37947-8 0.0 mil/cmm L=0.0 H=0. 0 RBC 789-8 [...] Units Test Ref Rang e COLLECTION MODE: 47198-5 STRAIGHT CATH N/A Color 5778-6 YELLOW N/A yellow Appearance 5767-9 CLEAR N/A clear Glucose urine 21787-8 NEGATIVE N/A negative mg /dl Bilirubin 5770-3 NEGATIVE N/A negative Ketones 2514-8 15 N/A negative mg/dl Spec gravity 5811-5 >=1.030 N/A 1.003 - 1.03 0 pH urine 2756-5 5.5 N/A 5.0 - 7.0 Protein 28168-6 TRACE N/A negative mg/dl Urobilinogen 12498-2 0.2 N/A <or= 1 EU/dl Nitrite. 5802-4 NEGATIVE N/A negative Blood 5794-3 NEGATIVE N/A negative Leukocytes. NEGATIVE N/A negative WBCs. 07757-6 0-5 N/A 0-5 / hpf RBCs 93622-9 0-5 N/A 0-5 / hpf Epith cells 20046-2 0-5 N/A 0-5 / hpf Cell types squam+trans N/A Crystals none N/A none Bacteria minimal N/A none Mucus 8247-9 present N/A none Casts 46480-0 5-10 N/A none /lpf Cast types hyaline N/A Active Medications Medications Administered During Visit Medication Dose Units Frequency Route Date/Time of Last Dose NITROGLYCERIN TABLET SL (25C T): 0.4MG 0.4 MG PRN Q5MIN SL 01/28/2022 18:5 4 MethylPREDNISolone SUC INJ SDV:125MG/2ML 125 MG X1 IVP 01/28/2022 19: 30 ONDANSETRON INJ SDV: 4MG/2ML 4 MG X1 I MANAGED CARE COORDINATOR 01/28/2022 19:00 SODIUM CHLORIDE 0.9% 1000ML 1000 [...] Code Start Date End Date Never smoker 096684322 Patient Decision Aids Unknown or Not Available. Discharge Instructions You were admitted to [facility] on 01/28/2022 21:08 with a principal diagnosis of Hypoxemia You had the following tests done:BASIC METABOLIC PANEL (BMP)CBC W/ DIFFERENTIAL*URINALYSIS WITH MICRO AND REFLEX CULTUR*BNP (PRO-B NATRIURETIC PEPTIDE)CBC W/ DIFFERENTIAL*COMPREHENSIVE METABOLIC PANEL (CMP)[facility] COVID FLU RSV GENEXPERTTROPONIN HIGH SENSITIVITY* You [...]
--- OUTSIDE RECORDS SUMMARY | 2023-10-12 18:44 | XMS_ITS | CCD ---
Author Name Unknown Address [address] [place] [id number] Organization Unknown Address [address] [place], [place] [address] Care Team Providers Care Health Psychologist Name Role Phone IY BAZZI Attending Physician [phone] YI BAZZI Er Physician 1 [phone] ELEANOR Salas Registered Nurse [phone] Vital Signs Vital Sign Value Unit Date/Time [...] Start Date Resolved Date Status Steele's lung 16299303 Active Hypoxia 682404226 Active Fever 449518534 Active Hypertension 48300135 Active Results Unknown or Not Available. Active Medications Unknown or Not Available. Medications Administered During Visit Unknown or Not Available. Encounters Encounter Diagnosis Diagnosis Code Start Date Calcific tendinitis of left shoulder [id number] 9108 12/24/2022 Social History Smoking Status Code Start Date End Date Never smoker 078968064 Patient Decision Aids Unknown or Not Available. Discharge Instructions You were admitted to [facility] on 12/24/2022 16:15 with a principal diagnosis of Calcific tendinitis of left shoulder You were discharged from [facility] on 12/24/2022 17:31 Should you have any [...]
[2023-10-12 20:59] LABS: HCT 43.3 % (40.0-50.0); HGB 14.2 g/dL (13.5-17.5); MCH 29.6 pg (27.0-33.0); MCHC 32.8 % (32.0-36.0); MCV 90 fL (80-95); MPV 10.7 fL (8.0-11.0); Platelet Count 255 10^3/uL (130-400); RBC 4.79 10^6/uL (4.36-5.78); RDW 14.1 % (11.8-14.1); RDW-SD 46.8 fL; WBC 10.71 10^3/uL (4.4-10.8)
[2023-10-12 21:11] LABS: COMMENT (LAB VIEW ONLY) 80.51 mg/dL; PROTEIN 31.2 mg/dL; Prot/Crea Ur Ratio 0.38
[2023-10-12 21:14] LABS: ALT 46 U/L (16-63); AST 48 U/L (15-37); Albumin 3.4 g/dL (3.4-5.0); Alkaline Phosphatase 96 U/L (46-116); Anion Gap 10.9 mmol/L (3-11); BUN 28 mg/dL (7-18); Bilirubin, Total 0.9 mg/dL (0.2-1.0); CO2 27.1 mmol/L (21.0-32.0); CREATININE 1.6 mg/dL (0.70-1.30); Chloride 101 mmol/L (98-107); Estimated GFR 46.06 (mL/min/1.73m2); Glucose 93 mg/dL (74-106); Potassium 4.4 mmol/L (3.5-5.1); Sodium 139 mmol/L (136-145)
== END 2023-10-12 18:43 | disposition home or self-care (01) ==
LOC: NCHCN 18:42
PROVIDERS: PCP Internal Medicine; Visit Provider Internal Medicine
DX: R06.09 Other forms of dyspnea (principal); R80.9 Proteinuria, unspecified
CPT/HCPCS: 80053; 85027; 82565; 84156

== ENCOUNTER → 2023-10-17 14:23 | Outpatient (BNVA) | payer MEDICARE, SELFPAY | PROVIDERS: PCP Internal Medicine; Referring Provider Internal Medicine; Visit Provider Student in an Organized Health Care Education/Training Program | DX: J67.0 Farmer's lung (principal); J84.89 Other specified interstitial pulmonary diseases; J96.91 Respiratory failure, unspecified with hypoxia; I27.20 Pulmonary hypertension, unspecified; I50.810 Right heart failure, unspecified | CPT/HCPCS: 99214 ==

== ENCOUNTER → 2023-11-25 10:55 | Outpatient (BNVA) | payer MEDICARE, SELFPAY | PROVIDERS: PCP Internal Medicine; Referring Provider Internal Medicine; Visit Provider Student in an Organized Health Care Education/Training Program | DX: J67.0 Farmer's lung (principal); J84.89 Other specified interstitial pulmonary diseases; J96.91 Respiratory failure, unspecified with hypoxia; I27.20 Pulmonary hypertension, unspecified; I50.810 Right heart failure, unspecified | CPT/HCPCS: 99214 ==

== ENCOUNTER → 2023-12-12 10:06 | Outpatient (BNVA) | payer MEDICARE, SELFPAY | PROVIDERS: PCP Internal Medicine; Referring Provider Internal Medicine; Visit Provider Physician Assistant Surgical | DX: J67.0 Farmer's lung (principal); J84.89 Other specified interstitial pulmonary diseases; J96.91 Respiratory failure, unspecified with hypoxia; I27.20 Pulmonary hypertension, unspecified; I50.810 Right heart failure, unspecified | CPT/HCPCS: 99214 ==

== ENCOUNTER 2024-01-17 12:52 | Outpatient (REF) | payer MEDICARE, SELFPAY ==
[2024-01-17 14:11] LABS: Anion Gap 10.6 mmol/L (3-11); BUN 32 mg/dL (7-18); CO2 21.4 mmol/L (21.0-32.0); CREATININE 1.3 mg/dL (0.70-1.30); Calcium 8.5 mg/dL (8.5-10.1); Chloride 103 mmol/L (98-107); Glucose 144 mg/dL (74-106); Magnesium 1.4 mg/dL (1.8-2.4); Potassium 3.9 mmol/L (3.5-5.1); Sodium 135 mmol/L (136-145)
== END 2024-01-17 12:53 | disposition home or self-care (01) ==
LOC: NCHCN 12:52
PROVIDERS: PCP Internal Medicine; Visit Provider Physician Assistant
DX: R25.2 Cramp and spasm (principal)
CPT/HCPCS: 80048; 83735

== ENCOUNTER 2024-01-19 16:23 | Outpatient (REF) | payer MEDICARE, SELFPAY ==
[2024-01-19 16:55] LABS: C Diff PCR Negative (Negative)
[2024-01-20 10:30] LABS: Campylobacter PCR Negative (Negative); Salmonella PCR Negative (Negative); Shiga Toxin PCR Negative (Negative); Shigella/Enteroinvasive Ecoli Negative (Negative)
[2024-01-20 14:59] LABS: Helicobacter pylori Ag, Feces Positive (Negative)
[2024-01-23 17:41] LABS: Calprotectin 158 mcg/g
== END 2024-01-19 16:24 | disposition home or self-care (01) ==
LOC: NCHCN 16:23
PROVIDERS: PCP Internal Medicine; Visit Provider Physician Assistant
DX: R19.7 Diarrhea, unspecified (principal)
CPT/HCPCS: 87329; 87338; 87493; 87505; 83630; 83993; 87177

== ENCOUNTER 2024-03-06 14:59 | Outpatient (REF) | payer MEDICARE, SELFPAY ==
[2024-03-06 16:24] LABS: HGB 14.6 g/dL (13.5-17.5); MCH 31.3 pg (27.0-33.0); MCV 92 fL (80-95); MPV 11.7 fL (8.0-11.0); Platelet Count 232 10^3/uL (130-400); RBC 4.66 10^6/uL (4.36-5.78); RDW 15.5 % (11.8-14.1); RDW-SD 52.5 fL; WBC 9.06 10^3/uL (4.4-10.8)
[2024-03-06 16:41] LABS: BUN 14 mg/dL (7-18); CREATININE 1.2 mg/dL (0.70-1.30); Calcium 8.8 mg/dL (8.5-10.1); Calculated LDL 108 mg/dL (<100); Chloride 101 mmol/L (98-107); Cholesterol 149 mg/dL (<200); Estimated GFR 65.06 (mL/min/1.73m2); Glucose 98 mg/dL (74-106); HDL Cholesterol 29 mg/dL (40-60); Potassium 4.1 mmol/L (3.5-5.1); Sodium 137 mmol/L (136-145); Triglyceride 60 mg/dL (<150)
== END 2024-03-06 15:00 | disposition home or self-care (01) ==
LOC: NCHCN 14:59
PROVIDERS: PCP Internal Medicine; Visit Provider Internal Medicine
DX: I10 Essential (primary) hypertension (principal); E78.5 Hyperlipidemia, unspecified
CPT/HCPCS: 80048; 80061; 85027

== ENCOUNTER → 2024-03-08 09:49 | Outpatient (BNVA) | payer MEDICARE, SELFPAY | PROVIDERS: PCP Internal Medicine; Referring Provider Internal Medicine; Visit Provider Internal Medicine Critical Care Medicine | DX: J96.11 Chronic respiratory failure with hypoxia (principal); J84.89 Other specified interstitial pulmonary diseases; I27.20 Pulmonary hypertension, unspecified; J67.0 Farmer's lung; G47.33 Obstructive sleep apnea (adult) (pediatric); I50.810 Right heart failure, unspecified | CPT/HCPCS: 36415; 94618; 99215 ==

== ENCOUNTER 2024-03-08 14:01 | Outpatient (REF) | payer MEDICARE, SELFPAY ==
[2024-03-08 14:51] LABS: NT-proBNP 7737 pg/mL (<300)
== END 2024-03-08 14:02 | disposition home or self-care (01) ==
LOC: LBN 14:01
PROVIDERS: PCP Internal Medicine; Visit Provider Internal Medicine Critical Care Medicine
DX: I50.810 Right heart failure, unspecified (principal)
CPT/HCPCS: 83880

== ENCOUNTER 2024-03-12 02:30 | Outpatient (CLI) | payer MEDICARE, SELFPAY ==
[2024-03-12] MEDS: Inhaler, Assist Device 1 EACH MC (09:06)
[2024-03-12] MEDS: Levalbuterol HFA 15 GM INH 4 PUFF IH (09:06)
--- NOTE | 2024-03-14 09:16 | W.PFT ---
Date of service: 03/12/24 Time of Service: 08:04 Pulmonary Function Test Result Requesting Provider Mey Kidd Indications: ILD Interpretation Spirometry: Normal Lung Volumes: Moderate decrease Diffusion Capacity: Severe decrease Impression Normal spirometry with a moderate restrictive ventilatory defect and a very severe decrease in diffusion consistent with his history of ILD. Clinical Correlation therefore is recommended.
== END 2024-03-12 02:31 | disposition home or self-care (01) ==
LOC: RT 02:31
PROVIDERS: PCP Internal Medicine; Visit Provider Internal Medicine Critical Care Medicine
DX: J84.9 Interstitial pulmonary disease, unspecified (principal)
CPT/HCPCS: 00123; 94060; 94726; 94729

== ENCOUNTER 2024-03-19 14:33 | Emergency (ER) | payer MEDICARE, SELFPAY ==
[2024-03-19] VITALS (49 sets, daily range): BP systolic 104–150; BP diastolic 57–95; PULSE 77–95; RESP 5–26; O2SAT 75–96
--- NOTE | 2024-03-19 14:45 | RT.EKG_ITS ---
APPROVED REPORT Exam: Resting ECG Reason for Exam: near syncope Patient Location: E HR:82 bpm ECG Measurements Heart Rate 82 AXIS AZ 149 P 68 QRSd 101 QRS 269 QT 434 T -67 QTc 507 Conclusion Sinus rhythm...normal P axis, V-rate 60- 99 Left anterior fascicular block...axis(240,-40), init forces inf sinus rhythm. left axis, t wave inversion T wave inverions inferior septal leads consistent with prio r ekg, long standing pulmonary htn, right heart strain pattern Right ventricular hypertrophy...prominent R or R' w/ RAD or ALYCE Repol abnrm suggests ischemia, diffuse leads...ST-T neg, ant/lat/inf Prolonged QT interval...QTc >500mS
--- NOTE | 2024-03-19 14:57 | ED.GENADUL_ITS ---
Discharge Plan Disposition Patient Disposition: Home Condition: Improving Discharge Details Chief Complaint: [id number] Clinical Impression: Near syncope Primary Care Provider: Guillermina Chowdhury ED Provider: Seven Domingo Home Meds and New Rx's Prescriptions: No Action atorvastatin 20 mg tablet 20 mg PO DAILY lisinopril 10 mg tablet 10 mg PO DAILY tadalafil 5 mg tablet 5 mg PO DAILY torsemide 20 mg tablet 20 mg PO DAILY pantoprazole [Protonix] 40 mg tablet,delayed release (DR/EC) 40 mg PO DAILY Qty: 30 6RF Tyvaso DPI 32 mcg cartridge with inhaler 32 mcg inhalation QID morphine concentrate 100 mg/5 mL (20 mg/mL) solution 10 - 15 mg PO Q3H MDD 6 ml PRN (Reason: dyspnea) Qty: 30 0RF Rx Instructions: palliative care patient ondansetron 4 mg tablet,disintegrating 4 mg PO Q6H PRN (Reason: nausea and vomiting) Qty: 30 4RF albuterol sulfate 90 mcg/actuation HFA aerosol inhaler 2 puff inhalation QID PRN (Reason: shortness of breath or wheezing) Qty: 8.5 6RF benzonatate 200 mg capsule 200 mg PO BID-TID PRN (Reason: cough) Qty: 60 5RF naloxone 4 mg/actuation spray,non-aerosol 1 spray intranasal Q2-3M PRN (Reason: opioid overdose) Qty: 2 3RF Rx Instructions: spray 1 dose into ONE nostril; alternate nostrils w each dose until help arrives magnesium 250 mg tablet 250 mg PO DAILY sennosides-docusate sodium [Docuzen] 8.6-50 mg tablet 2 tab-cap PO DAILY prednisone 10 mg tablet 10 mg PO DAILY Discharge Instructions Instructions: Near Fainting (DC) Additional Instructions: Please follow close with your primary care physician. Discussed gastroenter ology referral for possible endoscopy. Please return to the emergency department for any worsening symptoms HPI General Date/Time Provider Initiated Documentation: 03/19/24 14:35 . HPI Narrative: 68-year-old male history of pulmonary fibrosis presents after having lightheadedness/presyncopal sensation last night while walking in his home felt slightly nauseous and fatigued assisted him from falling, patient did not lose consciousness. Denies chest pain or shortness of breath. Has sensation of epigastric discomfort and reflux before this event. Has had chronic intermittent diarrhea now with some constipation multiple stool tests sent as an outpatient. Related Data Home Medications ?Medication ?Instructions ?Recorded ?Confirmed atorvastatin 20 mg tablet 20 mg PO DAILY 07/21/22 03/19/24 lisinopril 10 mg tablet 10 mg PO DAILY 07/21/22 03/19/24 tadalafil 5 mg tablet 5 mg PO DAILY 07/21/22 03/19/24 albuterol sulfate 90 mcg/actuation 2 puff inhalation QID PRN 02/10/23 03/19/24 aerosol inhaler shortness of breath or wheezing #8.5 grams torsemide 20 mg tablet 20 mg PO DAILY 10/17/23 03/19/24 benzonatate 200 mg capsule 200 mg PO BID-TID PRN cough #60 11/25/23 03/19/24 caps naloxone 4 mg/actuation nasal spray 1 spray intranasal Q2-3M PRN 11/25/23 03/19/24 opioid overdose #2 ea morphine concentrate 100 mg/5 mL 10 - 15 mg (0.5 - 0.75 mL) PO Q3H 03/08/24 03/19/24 (20 mg/mL) oral solution PRN dyspnea #30 mL ondansetron 4 mg disintegrating 4 mg PO Q6H PRN nausea and 03/08/24 03/19/24 tablet vomiting #30 tabs pantoprazole 40 mg tablet,delayed 40 mg PO DAILY #30 tabs 03/08/24 03/19/24 release (Protonix) treprostinil 32 mcg cartridge with 32 mcg inhalation QID 03/08/24 03/19/24 inhaler (Tyvaso DPI) magnesium 250 mg tablet 250 mg PO DAILY 03/19/24 03/19/24 prednisone 10 mg tablet 10 mg PO DAILY 03/19/24 03/19/24 sennosides 8.6 mg-docusate sodium 2 tab-cap PO DAILY 03/19/24 03/19/24 50 mg tablet (Docuzen) Previous Rx's ?Medication ?Instructions ?Recorded albuterol sulfate 90 mcg/actuation 2 puff inhalation QID PRN 02/10/23 aerosol inhaler shortness of breath or wheezing #8.5 grams benzonatate 200 mg capsule 200 mg PO BID-TID PRN cough #60 11/25/23 caps naloxone 4 mg/actuation nasal spray 1 spray intranasal Q2-3M PRN 11/25/23 opioid overdose #2 ea morphine concentrate 100 mg/5 mL 10 - 15 mg (0.5 - 0.75 mL) PO Q3H 03/08/24 (20 mg/mL) oral solution PRN dyspnea #30 mL ondansetron 4 mg disintegrating 4 mg PO Q6H PRN nausea and 03/08/24 tablet vomiting #30 tabs pantoprazole 40 mg tablet,delayed 40 mg PO DAILY #30 tabs 03/08/24 release (Protonix) Allergies Allergy/AdvReac Type Severity Reaction Status Date / Time No Known Allergies Allergy Verified 03/19/24 14:42 General Stated Complaint: [id number] MIGUEL: 2 Exam Narrative Exam Narrative: Alert oriented interactive Moist mucous membranes tongue secretions normal speech no stridor Slight expiratory wheeze bilaterally, no retractions, no tachypnea, speaking in full sentences Normal heart sounds no murmurs rubs or gallops Abdomen soft nontender nondistended nonperitoneal Mild peripheral edema to bilateral ankles Alert oriented active moving all extremities without deficit full strength, no ataxia normal speech cranial nerves intact Course Vital Signs Vital signs: Vital Signs Pulse 95 H 03/19/24 14:38 Respiratory Rate 20 03/19/24 14:38 Blood Pressure 117/78 03/19/24 14:38 Pulse Oximetry 77 L 03/19/24 14:38 Pulse 95 H 03/19/24 14:38 Respiratory Rate 20 03/19/24 14:38 Blood Pressure 117/78 03/19/24 14:38 Pulse Oximetry 92 03/19/24 14:42 Oxygen Delivery Method Nasal Cannula 03/19/24 14:42 Oxygen Flow Rate 5 03/19/24 14:42 Pain Level 0 03/19/24 14:38 Medical Decision Making 68-year-old male presents for evaluation after presyncopal episode last night while walking in his home, felt epigastric discomfort and reflux sensation felt lightheaded right after this event slightly nauseous and weak as if he were going to pass out, assisted him he did not lose consciousness, alert oriented interactive nonfocal hemodynamically stable saturating 95% on 2 to 3 L nasal cannula which is his baseline. Mild peripheral edema to bilateral ankles. No history of coronary disease or thromboembolic disease. Patient does have history of pulmonary fibrosis is on multiple medications for this. Has also had extensive outpatient testing for intermittent diarrhea and constipation. Consider vasovagal episode in the setting of gastric reflux versus severe gastritis was also consider ACS lower suspicion for PE must consider pneumonia lower suspicion for pneumothorax given history and physical lower suspicion for aortic pathology, most also consider electrolyte derangement low suspicion for CVA or seizure given history and physical. Patient endorses multiple prior episodes similar to this in which resting improved his symptoms. Most also con gwot ia/ilo intelligence support overexertion in the setting of chronic pulmonary fibrosis. Will obtain screening labs chest x-ray EKG troponin BNP trial of nebs and steroid given mild expiratory wheeze, disposition pending reassessment and results 18: 33 rest comfortably no acute distress. Intermittent desaturation with activity to low 90s high 80s with immediate recovery upon rest, saturating 95% on 4 L nasal cannula. Given endorsement of intermittent epigastric abdominal discomfort nausea consider episodes of vasovagal presyncope as this triggered his event yesterday. Mildly elevated bilirubin and AST and ALT. Patient is recent been treated for H. pylori. Will obtain CT abdomen pelvis to assess for any intra-abdominal pathology. Pending results consider home with close follow- up 20: 24 patient resting comfortably no acute distress, hemodynamically stable no acute distress, no nausea or vomiting here in department, still with some reflux-like symptomatology, concern for possible persistent H. pylori versus gastritis versus gastric ulcer versus duodenitis versus esophagitis. Encourage patient and family to follow-up closely with GI offered referral however patient would prefer going through primary care. 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) Syncope (Chronic) Right ventricular failure (Acute) Pulmonary hypertension (Chronic) Respiratory failure with hypoxia (Acute) Progressive fibrosing interstitial lung disease (Chronic) [place] (Acute) Hyperlipidemia (Acute) Dyspnea (Acute) Cough (Acute) Shortness of breath (Acute) Medical History [place] History of essential hypertension Family History Mother History of heart valve repair Other Heart disease Social History Smoking/Tobacco Use Status: Never Smoking risk assessment performed?: Yes Alcohol Intake: current Alcohol Intake frequency: 0-2 drinks per day Drug use: Never Substance use type: does not use Housing: house 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
[2024-03-19 15:03] LABS: Abs Immature Grans 0.03 10^3/uL (0.0-0.06); Absolute Basophil Count 0.03 10^3/uL (0.0-0.2); Absolute Eosinophil Count 0.03 10^3/uL (0.0-0.7); Absolute Lymphocyte Count 0.99 10^3/uL (1.2-3.4); Absolute Monocyte Count 0.41 10^3/uL (0.1-0.8); Absolute Neutrophil Count 8.74 10^3/uL (1.2-6.7); Basophils % 0.3 %; Eosinophils % 0.3 %; HCT 44.3 % (40.0-50.0); HGB 14.7 g/dL (13.5-17.5); Immature Grans % 0.3 %; Lymphocytes % 9.7 %; MCH 31.2 pg (27.0-33.0); MCHC 33.2 % (32.0-36.0); MCV 94 fL (80-95); MPV 10.2 fL (8.0-11.0); Neutrophils % 85.4 %; Platelet Count 215 10^3/uL (130-400); RBC 4.71 10^6/uL (4.36-5.78); RDW 15.9 % (11.8-14.1); RDW-SD 55.4 fL; WBC 10.23 10^3/uL (4.4-10.8)
[2024-03-19] MEDS: Famotidine 20 MG/2 ML VIAL IVP (15:08)
[2024-03-19] MEDS: Albuterol/Ipratropium 3 ML UPD VIAL UPD (15:08)
[2024-03-19] MEDS: Dexamethasone 10 MG/ML VIAL IVP (15:08)
[2024-03-19] MEDS: Mylanta Suspension 30 ML CUP (15:09)
[2024-03-19] MEDS: Normal Saline 50 ML (15:09)
[2024-03-19] MEDS: Lidocaine 2% Viscous 15 ML CUP (15:09)
[2024-03-19 15:17] LABS: INR 1.4 (0.9-1.1); PTT Activated 28.3 sec (23.6-32.8); Prothrombin Time 13.8 sec (9.1-11.1)
[2024-03-19 15:34] LABS: ALT 156 U/L (16-63); AST 51 U/L (15-37); Albumin 3.2 g/dL (3.4-5.0); Alkaline Phosphatase 106 U/L (46-116); Anion Gap 7.1 mmol/L (3-11); BUN 20 mg/dL (7-18); Bilirubin, Total 1.75 mg/dL (0.2-1.0); CO2 31.9 mmol/L (21.0-32.0); CREATININE 1.2 mg/dL (0.70-1.30); Calcium 7.8 mg/dL (8.5-10.1); Chloride 98 mmol/L (98-107); Estimated GFR 65.06 (mL/min/1.73m2); Glucose 114 mg/dL (74-106); Magnesium 1.4 mg/dL (1.8-2.4); NT-proBNP 5833 pg/mL (<300); Potassium 3.8 mmol/L (3.5-5.1); Sodium 137 mmol/L (136-145); Total Protein 7.1 g/dL (6.4-8.2); Troponin I < 50 ng/L (< or =60)
--- NOTE | 2024-03-19 15:54 | DI.RAD_ITS ---
Exam(s) XR CHEST 2V PA LATERAL EXAM: XR CHEST 2V PA LATERAL CLINICAL HISTORY: hx pulm fibrosis, pre syncope today TECHNIQUE: 2D digital imaging was performed. Two views. COMPARISON: CR,DOC XR CHEST 2V PA AND LATERAL from 11/24/2023 FINDINGS: HEART: Upper normal in size. Aorta: Mildly tortuous. Calcification at arch. PULMONARY VASCULATURE: Normal. MEDIASTINUM: Unremarkable. LUNGS: Low lung volumes. Pulmonary fibrosis greater at the lung bases. PLEURAL SPACE: No pleural effusion or pneumothorax. BONE:Unremarkable for age. SOFT TISSUES: Unremarkable. IMPRESSION: Pulmonary fibrosis greater in the lower lobes. No acute abnormality. DATA REPOSITORY: RADIATION DOSE DELIVERED:
[2024-03-19] MEDS: MAGNESIUM SULFATE 1 GM/100 ML BAG IVINF (16:36)
--- NOTE | 2024-03-19 18:15 | DI.CT_ITS ---
Exam(s) CT ABDOMEN PELVIS W EXAM: CT ABDOMEN PELVIS W CLINICAL HISTORY: nausea, epigastric pain,pre syncope, elevated bili TECHNIQUE: Imaging Protocol: Axial computed tomography images with coronal and sagittal reformatted images were created and reviewed. CONTRAST MATERIAL: Intravenous: Omnipaque 350 Contrast volume:100 mL Oral: No COMPARISON: CT CT CHEST PE CTA from 06/28/2023 FINDINGS: The examination is limited due to patient motion artifact. ABDOMEN: Lung Bases: Cardiomegaly. Calcified granuloma are present. There is pulmonary fibrosis and bronchie ctasis in the lung bases. Liver: Normal density. No measurable mass. Portal, Superior Mesenteric, and Splenic Veins: Unremarkable. Gallbladder and Biliary Tract: No radiodense calculus or dilation. Pancreas: Normal density, no abnormal calcifications or inflammatory process. Spleen: Normal. Adrenals: No masses seen. Kidneys: Normal size, contour and axis. No radiodense stones or obstructive uropathy. No masses seen. Abdominal Aorta: Abdominal portion non-dilated. Atherosclerotic calcification is present. There is r esultant 50-75 percent stenosis in the internal iliac arteries bilaterally. Bowel: The stomach is incompletely distended limiting evaluation. No evidence of appendicitis. No e vidence of bowel obstruction. There are fluid-filled loops of small and large bowel. No bowel wall thickening is seen. Peritoneal Cavity: No ascites, collection or mesenteric inflammatory response. No free air. Lymph Nodes: Within normal limits. Bones: Within normal limits for the patient's age. Soft Tissues: Unremarkable. PELVIS: Bladder: Symmetric distention, no gross wall thickening. Reproductive Organs: Unremarkable as visualized. Lymph Nodes: Within normal limits. Bones: Within normal limits for the patient's age. IMPRESSION: 1. No acute abdominal or pelvic process. 2. Fluid-filled loops of small and large bowel which can be seen with a diarrheal illness. Please co rrelate clinically. RADIATION DOSE DELIVERED: Total DLP DATA REPOSITORY: All CT scans at this facility are submitted to the National Radiology Data Registry (NRDR) Dose Index Registry (DIR) with the [employer] (ACR). RADIATION OPTIMIZATION: All CT scans at this facility use at least one of these dose optimization te chniques: automated exposure control; mA and/or kV adjustment per patient size (includes targeted exa ms where dose is matched to clinical indication); or iterative reconstruction.
[2024-03-19] MEDS: Omnipaque 350 MG/ML 100 ML BTL IJ (18:48)
[2024-03-19] MEDS: Normal Saline - Diluent 50 ML VIAL IJ (18:48)
--- NOTE | 2024-03-19 20:01 | DI.VRAD_ITS ---
PROCEDURE INFORMATION: Exam: CT Abdomen And Pelvis With Contrast Exam date and time: 03/19/2024 6:56 PM Age: 68 years old Clinical indication: Other: Nausea, epigastric pain, presyncope, elevated bili TECHNIQUE: Imaging protocol: Computed tomography of the abdomen and pelvis with contrast. Radiation optimization: All CT scans at this facility use at least one of these dose optimization techniques: automated exposure control; mA and/or kV adjustment per patient size (includes targeted exams where dose is matched to clinical indication); or iterative reconstruction. Contrast material: OMNIPAQUE 350; Contrast volume: 100 ml; Contrast route: INTRAVENOUS (IV); COMPARISON: CT CHEST PE CTA 06/28/2023 8:19 PM FINDINGS: Lungs: Significant ground-glass opacity parenchymal cysts noted throughout the bilateral lower lungs. Liver: Normal. No mass. Gallbladder and biliary ducts: Normal. No calcified stones. No ductal dilation. Pancreas: Normal. No ductal dilation. Spleen: Normal. No splenomegaly. Adrenal glands: Normal. No mass. Kidneys and ureters: Normal. No hydronephrosis. Stomach and bowel: Unremarkable. No obstruction. No mucosal thickening. Appendix: No evidence of appendicitis. Intraperitoneal space: Unremarkable. No free air. No significant fluid collection. Vasculature: Dense atherosclerotic calcification throughout the aorta and iliac arteries. No evidence of aneurysm or dissection. Lymph nodes: Unremarkable. No enlarged lymph nodes. Urinary bladder: Unremarkable as visualized. Reproductive: Unremarkable as visualized. Bones/joints: Significant degenerative disc changes throughout the lower spine. No vertebral body compression or acute fracture. Soft tissues: Unremarkable. IMPRESSION: No acute abnormality. Chronic appearing findings as noted. Dictated and Authenticated by: Rafa Tinsley MD. Ordering:JD Amezcua MD
== END 2024-03-19 20:34 | disposition home or self-care (01) ==
PROVIDERS: Emergency Provider Emergency Medicine; PCP Internal Medicine
DX: R55 Syncope and collapse (principal); R10.13 Epigastric pain; I44.0 Atrioventricular block, first degree; J84.10 Pulmonary fibrosis, unspecified; R94.31 Abnormal electrocardiogram [ECG] [EKG]
CPT/HCPCS: 80053; 93005; 99285; 71046; 74177; 83735; 83880; 84484; 85025; 85610; 85730; 93010; 99284; J1100; J3475; J3490; J7620

== ENCOUNTER 2024-03-19 15:46 | Outpatient (REF) | payer MEDICARE, SELFPAY ==
[2024-03-23 13:34] LABS: Helicobacter pylori Ag, Feces Negative (Negative)
== END 2024-03-19 15:47 | disposition home or self-care (01) ==
LOC: NCHCN 15:46
PROVIDERS: PCP Internal Medicine; Visit Provider Physician Assistant
DX: R19.4 Change in bowel habit (principal); A04.8 Other specified bacterial intestinal infections
CPT/HCPCS: 87338; 87493; 83993

== ENCOUNTER 2024-03-23 15:01 | Outpatient (REF) | payer MEDICARE, SELFPAY ==
[2024-03-23 20:44] LABS: ALT 97 U/L (16-63); AST 38 U/L (15-37); Albumin 3.3 g/dL (3.4-5.0); Alkaline Phosphatase 101 U/L (46-116); Anion Gap 8.9 mmol/L (3-11); BUN 16 mg/dL (7-18); Bilirubin, Total 1.05 mg/dL (0.2-1.0); CO2 29.1 mmol/L (21.0-32.0); CREATININE 1.2 mg/dL (0.70-1.30); Calcium 8.4 mg/dL (8.5-10.1); Chloride 100 mmol/L (98-107); Estimated GFR 65.06 (mL/min/1.73m2); Glucose 93 mg/dL (74-106); Magnesium 1.7 mg/dL (1.8-2.4); Potassium 3.8 mmol/L (3.5-5.1); Sodium 138 mmol/L (136-145); Total Protein 7.1 g/dL (6.4-8.2)
[2024-03-26 13:25] LABS: IgA 244 mg/dL (85-499); Interpretation (See Note); Tissue Transglutaminase IgA <4.0 CU (<20.0)
== END 2024-03-23 15:02 | disposition home or self-care (01) ==
LOC: NCHCN 15:01
PROVIDERS: PCP Internal Medicine; Visit Provider Internal Medicine
DX: R10.13 Epigastric pain (principal); E83.42 Hypomagnesemia; R74.01 Elevation of levels of liver transaminase levels
CPT/HCPCS: 80053; 82784; 83516; 83735

== ENCOUNTER 2024-04-09 02:47 | Outpatient (CLI) | payer MEDICARE, SELFPAY ==
--- NOTE | 2024-04-09 05:45 | DI.CT_ITS ---
Exam(s) CT CHEST HIGH RESOLUTION EXAM: CT CHEST HIGH RESOLUTION CLINICAL HISTORY: dyspnea on exertion, progressive fibrosing interstitial lung disease,j84.89. TECHNIQUE: Imaging protocol: Axial computed tomography images were obtained and coronal and sagittal reformatted images were created and reviewed. Inspiratory and expiratory images were obtained. CONTRAST MATERIAL: Noncontrast COMPARISON: CT CT CHEST PE CTA from 06/28/2023 CR XR CHEST 2V PA LATERAL from 03/19/2024 FINDINGS: Pulmonary parenchyma: No consolidation. No suspicious nodules. Area of air trapping on expiratory im ages seen in the lateral right middle lobe. Mild air trapping superior segment left lower lobe. Emphysema: Scattered cysts, greater in the lung bases. [id number] emphysematous changes. Tracheobronchial tree: No mucous plugging. Mild traction bronchiectasis noted in the lower lobes. Interstitial changes: Moderate to severe right fibrotic changes in the lower lobes. Moderate fibroti c changes peripherally in the upper lobes. Multiple scattered cysts. Pleura: No effusion or pneumothorax. Aorta: Thoracic aorta non-dilated. Mild atherosclerotic changes. Pulmonary arteries: Mildly prominent. Lymph nodes: Mildly enlarged mediastinal lymph nodes. Bones: Degenerative changes are seen. No evidence of compression fracture. Upper abdomen: Unremarkable. Soft tissues: Unremarkable. Heart: The heart is moderately dilated. Severe coronary artery calcifications are seen. IMPRESSION: Interstitial fibrosis, greatest at the lung bases with multiple scattered cysts. Traction bronchiect asis in the lower lobes. No acute infiltrates. RADIATION DOSE DELIVERED: Total DLP Total DLP DATA REPOSITORY: All CT scans at this facility are submitted to the National Radiology Data Registry (NRDR) Dose Index Registry (DIR) with the [employer] (ACR). RADIATION OPTIMIZATION: All CT scans at this facility use at least one of these dose optimization te chniques: automated exposure control; mA and/or kV adjustment per patient size (includes targeted exa ms where dose is matched to clinical indication); or iterative reconstruction.
== END 2024-04-09 03:07 ==
LOC: DI 02:47
PROVIDERS: PCP Internal Medicine; Visit Provider Internal Medicine Critical Care Medicine
DX: J84.89 Other specified interstitial pulmonary diseases (principal)
CPT/HCPCS: 71250

== ENCOUNTER → 2024-04-10 09:21 | Outpatient (BNVA) | payer MEDICARE, SELFPAY | PROVIDERS: PCP Internal Medicine; Referring Provider Internal Medicine; Visit Provider Internal Medicine Critical Care Medicine | DX: J67.0 Farmer's lung (principal); J96.11 Chronic respiratory failure with hypoxia; G47.33 Obstructive sleep apnea (adult) (pediatric); I27.20 Pulmonary hypertension, unspecified | CPT/HCPCS: 99214 ==

== ENCOUNTER → 2024-05-16 10:14 | Outpatient (BNVA) | payer MEDICARE, SELFPAY | PROVIDERS: PCP Internal Medicine; Referring Provider Internal Medicine; Visit Provider Physician Assistant Surgical | DX: J67.0 Farmer's lung (principal); J96.91 Respiratory failure, unspecified with hypoxia; I27.20 Pulmonary hypertension, unspecified; I50.810 Right heart failure, unspecified | CPT/HCPCS: 99214 ==

== ENCOUNTER 2024-05-16 10:57 | Inpatient (IN) | payer MEDICARE, SELFPAY ==
[2024-05-16] VITALS (42 sets, daily range): BP systolic 96–128; BP diastolic 64–93; PULSE 79–100; RESP 14–30; TEMP 36–37; O2SAT 83–93
--- NOTE | 2024-05-16 10:45 | RT.EKG_ITS ---
APPROVED REPORT Exam: Resting ECG Reason for Exam: Respiratiory Distress Patient Location: E HR:95 bpm ECG Measurements Heart Rate 95 AXIS SD 146 P 55 QRSd 101 QRS 246 QT 388 T -31 QTc 488 Conclusion Sinus rhythm...normal P axis, V-rate 60- 99 Probable left atrial enlargement...P >50mS, <-0.10mV V1 Inferior infarct, age indeterminate...Q>35mS, T neg, II III aVF Normal sinus rhythm at a rate of 95 with interventricular conduction delay and a QRS of 101 ms. RVH. T wave inversions in V1 and V2. ST segment flattening in V2 3. Mild ST segment flattening in V2. No ST segment elevations. Inferior T wave flattening. Compared to prior dated 25 February [address]i [address]ant changes ST segment abnormalities appear similar.
--- NOTE | 2024-05-16 11:00 | DI.RAD_ITS ---
Exam(s) XR PORTABLE CHEST AP EXAM: XR PORTABLE CHEST AP CLINICAL HISTORY: Short of breath TECHNIQUE: 2D digital imaging was performed of the chest. One image was obtained. An AP view was ob tained. COMPARISON: CR XR PORTABLE CHEST AP from 06/28/2023 CR XR CHEST 2V PA LATERAL from 03/19/2024 FINDINGS: MEDIASTINUM: Normal. HEART: Cardiomegaly. PULMONARY VASCULATURE: There is pulmonary venous congestion. LUNGS: There is again seen diffuse interstitial disease which is chronic. No focal consolidating inf iltrate is seen. Mild increase in the interstitial prominence is present and may reflect underlying interstitial edema or pneumonitis. PLEURAL SPACE: No pleural effusion or pneumothorax. BONE:Within normal limits for the patient's age. OTHER FINDINGS:Normal. IMPRESSION: 1. Findings of cardiomegaly and pulmonary venous congestion. 2. Slight increase in the underlying interstitial disease which may reflect a superimposed interstiti al edema or pneumonitis. Please correlate clinically. 3. No focal consolidating infiltrates. DATA REPOSITORY: RADIATION DOSE DELIVERED:
[2024-05-16 11:16] LABS: BE (Venous) 8 mmol/L (-2-3); HCO3 (Venous) 34 mmol/L (23-28); Lactate 1.3 mmol/L (0.6-1.4); O2 Sat (Venous) 30 %; TCO2 (Venous) 30 mmol/L (24-29); pCO2 (Venous) 59 mmHg (41-51); pH (Venous) 7.36 (7.31-7.41); pO2 (Venous) 23 mmHg
[2024-05-16 11:18] LABS: Abs Immature Grans 0.02 10^3/uL (0.0-0.06); Absolute Basophil Count 0.05 10^3/uL (0.0-0.2); Absolute Eosinophil Count 0.38 10^3/uL (0.0-0.7); Absolute Lymphocyte Count 1.38 10^3/uL (1.2-3.4); Absolute Monocyte Count 0.62 10^3/uL (0.1-0.8); Absolute Neutrophil Count 7.13 10^3/uL (1.2-6.7); Basophils % 0.5 %; HCT 51.9 % (40.0-50.0); HGB 16.5 g/dL (13.5-17.5); Immature Grans % 0.2 %; Lymphocytes % 14.4 %; MCH 30.6 pg (27.0-33.0); MCHC 31.8 % (32.0-36.0); MCV 96 fL (80-95); MPV 9.8 fL (8.0-11.0); Monocytes % 6.5 %; Neutrophils % 74.4 %; Platelet Count 210 10^3/uL (130-400); RDW-SD 56.2 fL; WBC 9.58 10^3/uL (4.4-10.8)
[2024-05-16] MEDS: cefTRIAXone 2 GM/50 ML BAG IVPB (11:18)
[2024-05-16 11:40] LABS: Anion Gap 5.8 mmol/L (3-11); BUN 19 mg/dL (7-18); CO2 32.2 mmol/L (21.0-32.0); Calcium 8.5 mg/dL (8.5-10.1); Chloride 95 mmol/L (98-107); Estimated GFR 80.97 (mL/min/1.73m2); Glucose 99 mg/dL (74-106); Potassium 3.7 mmol/L (3.5-5.1); Sodium 133 mmol/L (136-145); Troponin I 40 ng/L (<or=76)
--- NOTE | 2024-05-16 11:42 | W.ED.GENAD ---
Discharge Plan Disposition Patient Disposition: Admit to [facility] Discharge Details Chief Complaint: RespSymp Clinical Impression: Pulmonary embolism, Acute respiratory failure with hypoxia and hypercapnia Admit Date/Time: 05/16/24 13:56 Admit Provider: Riki Simms Attending Provider: Riki Simms Primary Care Provider: Guillermina Chowdhury ED Provider: Riki Allen Discharge Data Discharge Date/Time-TO BE ENTERED AT DEPARTURE: 05/16/24 15:02 HPI General Date/Time Provider Initiated Documentation: 05/16/24 11:04. 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 No pain or proportion to suggest necrotizing soft tissue infection. No recent increase salicylate use to suggest salicylate toxicity. Based on the patient's hypoxia and cough and initially borderline blood pressure I was concerned for sepsis so I treat empirically with IV antibiotics check 2 sets of blood cultures and treat empirically with ceftriaxone and vancomycin. Will swab for COVID influenza and RSV. Patient is on his normal home 4 L of oxygen sats are ranging from the mid 90s down to the mid 80s. No recent falls and equal breath sounds without pneumothorax. Will obtain chest x-ray to assess for pneumothorax. Patient does not appear volume overloaded so not concern for acute heart failure. Given his RV failure history of pulmonary hypertension this could certainly be contributing to his symptoms. 11:41 AM Reassuring lactate. CBC lacks anemia thrombocytopenia and leukocytosis. Venous blood gas with no acidemia. Mild hypercarbia similar to prior. 11:50 AM Patient metabolic panel showing no GABBIE. No anion gap. Reassuring. Reassuring initial troponin 40 ng/L. COVID influenza RSV all negative. Chest x-ray read as showing concerns for possible pulmonary vascular congestion with cardiomegaly and slight increased and underlying lung disease. Will complete bedside ultrasound. 12:30 PM Repeat troponin reassuring with no significant delta. Will cancel repeat troponin. 1:28 PM I met with the patient and his . Patient was found to have a nonocclusive pulmonary embolism. Given that he is not tachycardic nor making troponin or having chest pain my suspicion is low that this finding is causing his significant respiratory failure with worsening hypoxia. Nonetheless we will treat with a milligram per kilogram subcutaneous enoxaparin. I was in touch with Ronda Gonzales from pulmonology. She advised treatment for flare of the patient's interstitial lung disease with a 2-week prednisone taper. Given the patient is markedly hypoxic with any activity will reach out to the hospitalist team with request for hospitalization. 4:57 PM Patient hospitalized on the hospitalist service. Chronic conditions affecting the care of the patient: Interstitial lung disease History obtained from an outside historian: Patient's [place] [facility] [place] Diagnostic interpretations performed by me: Per my independent interpretation chest x-ray shows:Chronic appearing findings. No acute process. Per my independent interpretation EKG shows: Normal sinus rhythm at a rate of 95 with interventricular conduction delay and a QRS of 101 ms. RVH. T wave inversions in V1 and V2. ST segment flattening in V2 3. Mild ST segment flattening in V2. No ST segment elevations. Inferior T wave flattening. Compared to prior dated 25 February [address] segment abnormalities appear similar. ]Medications: Steroids enoxaparin Social determinants of health affecting disposition: N/A Management discussed with: Pulmonology hospitalist service Treatment/interventions considered: N/A Response to therapies provided: Improved symptoms with increased FiO2 HPI This is a 76-year-old male with history of interstitial lung disease arrived to the emergency department via paramedics in the setting of increased cough and shortness of breath for the past 10 days. Last week patient had a fever for 1 day. He did not have any sick contacts. He was saturating 83% on home 3 L. He has not noticed any significant changes when using his inhalers. He denies black or bloody stools. No recent falls. No history of PE nor DVT. No significant lower extremity edema. No unintentional weight gain. Exam General: Pale appearing cyanotic lips-appearing in no acute distress speaking in complete sentences. Head: Normocephalic, atraumatic. Eye: Extraocular eye movements intact. No conjunctival injection. No scleral icterus. Ear, nose, mouth, throat: Grossly normal inspection. Normal voice, handling secretions normally. Neck: Trachea midline. Cardiovascular: Well-perfused distal extremities.regular rate and rhythm Respiratory: Nonlabored respiration. Decreased breath sounds bilateral bases. No wheeze. Gastrointestinal: Nondistended abdomen. Soft nontender Musculoskeletal: No no significant lower extremity pitting edema. Moving all 4 extremities spontaneously. Skin: Normal for age and race, grossly normal temperature and turgor. No acute rash. Neurologic: Alert and appropriate, no apparent acute deficits. Psychiatric: Mood and manner are appropriate. Grooming and personal hygiene are appropriate. Related Data Home Medications ?Medication ?Instructions ?Recorded ?Confirmed atorvastatin 20 mg tablet 20 mg PO DAILY 07/21/22 05/16/24 albuterol sulfate 90 mcg/actuation 2 puff inhalation QID PRN 02/10/23 05/16/24 aerosol inhaler shortness of breath or wheezing #8.5 grams torsemide 20 mg tablet 20 mg PO DAILY 10/17/23 05/16/24 treprostinil 32 mcg cartridge with 32 mcg inhalation QID 03/08/24 05/16/24 inhaler (Tyvaso DPI) magnesium 250 mg tablet 250 mg PO DAILY 03/19/24 05/16/24 levalbuterol tartrate 45 2 inh inhalation Q6H #15 grams 03/26/24 05/16/24 mcg/actuation aerosol inhaler Previous Rx's ?Medication ?Instructions ?Recorded albuterol sulfate 90 mcg/actuation 2 puff inhalation QID PRN 02/10/23 aerosol inhaler shortness of breath or wheezing #8.5 grams levalbuterol tartrate 45 2 inh inhalation Q6H #15 grams 03/26/24 mcg/actuation aerosol inhaler Allergies Allergy/AdvReac Type Severity Reaction Status Date / Time No Known Allergies Allergy Verified 05/16/24 10:24 General Stated Complaint: RespSymp MIGUEL: 2 Course Vital Signs Vital signs: Vital Signs Temperature 37.0 C 05/16/24 10:56 Pulse 100 H 05/16/24 10:56 Respiratory Rate 30 H 05/16/24 10:56 Blood Pressure 99/69 L 05/16/24 10:56 Pulse Oximetry 92 05/16/24 10:56 Temperature 37.0 C 05/16/24 11:04 Temperature Source Oral 05/16/24 11:04 Pulse 85 05/16/24 11:31 Pulse 84 05/16/24 11:31 Respiratory Rate 21 05/16/24 11:30 Respiratory Effort Short of Breath, Incrsd Work of Breathing 05/16/24 11:20 Respiratory Depth Shallow 05/16/24 11:20 Blood Pressure 125/82 05/16/24 11:31 Blood Pressure Mean 96 05/16/24 11:31 Blood Pressure Position Sitting 05/16/24 11:04 Pulse Oximetry 88 L 05/16/24 11:31 Oxygen Delivery Method Nasal Cannula 05/16/24 11:08 Oxygen Flow Rate 4 05/16/24 11:08 Pain Level 0 05/16/24 11:04 Comment MD aware 05/16/24 11:31 Lab/Test Results Lab/Test Results: Laboratory Tests Range/Units 05/16/24 11:04 WBC (4.4-10.8) 10^3/uL 9.58 RBC (4.36-5.78) 10^6/uL 5.40 Hgb (13.5-17.5) g/dL 16.5 Hct (40.0-50.0) % 51.9 H MCV (80-95) fL 96 H MCH (27.0-33.0) pg 30.6 MCHC (32.0-36.0) % 31.8 L RDW (11.8-14.1) % 16.0 H Plt Count (130-400) 10^3/uL 210 MPV (8.0-11.0) fL 9.8 Immature Gran % % 0.2 Neutrophils % % 74.4 Lymphocytes % % 14.4 Monocytes % % 6.5 Eosinophils % % 4.0 Basophils % % 0.5 Nucleated RBC % (0.0-0.3) % 0.0 Absolute Neutrophils (1.2-6.7) 10^3/uL 7.13 H Absolute Lymphocytes (1.2-3.4) 10^3/uL 1.38 Absolute Monocytes (0.1-0.8) 10^3/uL 0.62 Absolute Eosinophils (0.0-0.7) 10^3/uL 0.38 Absolute Basophils (0.0-0.2) 10^3/uL 0.05 VBG pH (7.31-7.41) 7.36 VBG pCO2 (41-51) mmHg 59 H VBG pO2 mmHg 23 VBG HCO3 (23-28) mmol/L 34 H VBG Total CO2 (24-29) mmol/L 30 H VBG O2 Saturation % 30 VBG Base Excess (-2-3) mmol/L 8 H VBG Lactate (0.6-1.4) mmol/L 1.3 Medical Decision Making Quality:SDOH Health Related Social Needs: No Data to Display Critical Care Time Critical Care Time Critical Care Time: Yes Total Critical Care Time: 60 Attestation: Acute respiratory failure with hypoxia hypercarbia PFSH All Active Problems (Updated 05/16/24 @ 13:32 by Riki Allen MD) Acute respiratory failure with hypoxia and hypercapnia (Acute) Pulmonary embolism (Chronic) CATHY (obstructive sleep apnea) (Chronic) Chronic hypoxemic respiratory failure (Acute) Acute respiratory failure with hypoxia and hypercapnia (Acute) Multifocal pneumonia (Acute) Inguinal hernia (Acute) 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) Syncope (Chronic) Right ventricular failure (Acute) Pulmonary hypertension (Chronic) Respiratory failure with hypoxia (Acute) Progressive fibrosing interstitial lung disease (Chronic) [place]' lung (Acute) Hyperlipidemia (Acute) Dyspnea (Acute) Cough (Acute) Shortness of breath (Acute) Medical History [place]' lung History of essential hypertension Family History Mother History of heart valve repair Other Heart disease Social History Smoking/Tobacco Use Status: Never Smoking risk assessment performed?: Yes Alcohol Intake: current Alcohol Intake frequency: 0-2 drinks per day Drug use: Never Substance use type: does not use Housing: house 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,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 PAWSS Have you Been Recently Intoxicated or Drunk Within the Last 30 days?: No Have you Ever Experienced Previous Episodes of Alcohol Withdrawal?: No Have you ever Experienced Withdrawal Seizures?: No Have you ever Experienced Delirium Tremens(DT)s?: No Have you ever undergone Alcohol Rehabilitation Treatment (i.e, inpt ot outpatient treatment programs)?: No Have you ever Experienced Blackouts?: No Have you ever Combined Alcohol with other Downers within the last 90 days?: No Have you ever Combined Alcohol with any other Substance of Abuse during the last 90 days?: No Positive Blood Alcohol level on Presentation? [PCS.BAL]: No Evidence of Increased Autonomic Activity (i.e. HR>120, tremor, sweating, agitation, nausea)?: No Result: 0 POCUS Exam (ED) Limited Cardiac Exam DATE OF EXAM: 05/16/24 TIME OF EXAM: 13:03 PROVIDER THAT PERFORMED THE STUDY: Riki Allen IS THIS A REPEAT EXAM DURING THIS ENCOUNTER: no REASON FOR EXAM: Chest pain VISUALIZED STRUCTURES: Four Chambers, Left ventricle, LVOT and Other structure: lungs bilaterally VIEW OBTAINED: Apical 4-Chamber, Parasternal long-axis and Subxiphoid PERTINENT FINDINGS/IMPRESSION: RV dilation; No pericardial effusion DIFFERENTIAL DIAGNOSES: Aortic outflow track less than 4 cm, good squeeze, RV equal to LV, no significant pericardial effusion. Bilateral b-lines. Exam complete
[2024-05-16] MEDS: VANCOMYCIN/WATER (PEG) 1.5 GM/300 ML BAG IVPB (11:55)
[2024-05-16 11:56] LABS: D-Dimer 1448 ng/mlFEU (<500)
[2024-05-16 11:58] LABS: COVID-19 PCR Negative (Negative); Influenza A PCR Negative (Negative); Influenza B PCR Negative (Negative); RSV PCR Negative (Negative)
--- NOTE | 2024-05-16 12:00 | DI.CT_ITS ---
Exam(s) CT CHEST PE CTA EXAM: CT CHEST PE CTA CLINICAL HISTORY: Elevated D-dimer. TECHNIQUE: Imaging Protocol: Axial CT angiography was performed with multi-slice acquisition and mu lti-planar and/or 3D reconstructions. CONTRAST MATERIAL: Intravenous: Omnipaque 350 contrast volume:100 mL COMPARISON: CT CT CHEST PE CTA from 06/28/[address] ABDOMEN PELVIS W from 03/19/[address] CHEST HIGH RESOLUTION from 04/09/2024 CR XR PORTABLE CHEST AP from 05/16/2024 FINDINGS: Tracheobronchial tree: Patent where visualized. No bronchiectasis. Pulmonary parenchyma: Moderately severe emphysematous changes are present in the lungs. Chronic inte rstitial fibrosis is present. There are areas of air trapping seen throughout the lungs. No focal c onsolidating infiltrates are present. Pulmonary Arteries: There is a peripheral filling defects seen in a right lower lobe branch of the pu lmonary arteries suggesting a non occlusive thrombus. No other filling defects are seen. Mediastinum and Nhi: There again seen enlarged mediastinal and hilar lymph nodes. The esophagus is unremarkable. Visualized thyroid gland: Unremarkable. Pleura: No effusion or pneumothorax. Heart: Cardiomegaly. This predominantly involves the right atrium. There is reflux of contrast into the IVC suggesting right heart failure. Coronary artery calcifications are present. No pericardial effusion. Aorta: Due to the timing of the bolus, the thoracic aorta is not adequately opacified. There is no e vidence of aneurysmal dilatation. Atherosclerotic calcification is present. Upper abdomen: Unremarkable. Soft tissues: Unremarkable. Bones: Within normal limits for the patient's age. IMPRESSION: 1. Eccentric filling defect seen in a branch of the right lower lobe pulmonary artery suspicious for nonocclusive embolus. 2. Reflux of contrast in the IVC suggesting right heart failure likely related to pulmonary artery hy pertension. 3. Extensive emphysematous changes in the lungs with chronic interstitial fibrosis. 4. No focal consolidating infiltrates. 5. Cardiomegaly predominantly involving the right atrium. RADIATION DOSE DELIVERED: 83.48mGy.cm Total DLP DATA REPOSITORY: All CT scans at this facility are submitted to the National Radiology Data Registry (NRDR) Dose Index Registry (DIR) with the [employer] (ACR). RADIATION OPTIMIZATION: All CT scans at this facility use at least one of these dose optimization te chniques: automated exposure control; mA and/or kV adjustment per patient size (includes targeted exa ms where dose is matched to clinical indication); or iterative reconstruction.
[2024-05-16 12:04] LABS: Source Nasopharynx
[2024-05-16] MEDS: Normal Saline - Diluent 50 ML VIAL IJ (12:15)
[2024-05-16] MEDS: Omnipaque 350 MG/ML 500 ML BTL-Imaging package 100 ML IJ (12:16)
[2024-05-16 12:27] LABS: Troponin I 38 ng/L (<or=76)
--- NOTE | 2024-05-16 13:38 | HPE_ITS ---
Date of service: 05/16/24 Time of Service: 13:39 Assessment and Plan Assessment and plan (1) Acute respiratory failure with hypoxia and hypercapnia: Status: Acute Assessment and plan: On O2 6 l/min for sat goals 92% Was on O2 at home (2) Pulmonary embolism: Status: Chronic Assessment and plan: On lovenox 1 mg /kg BID Would like transition to DOAC on D/C (3) CATHY (obstructive sleep apnea): Status: Chronic Assessment and plan: CPAP at home , cannot get it in , but has not been using it consistently this summer (4) ILD (interstitial lung disease): Status: Acute Assessment and plan: Prednisone taper intitated Discussed with Dr. Simms History of Present Illness History of Present Illness Chief Complaint: Difficulty breathing, cough decreased oxygen saturation Narrative: This 68 years old male patient with a past medical history of known right ventricular heart failure walker's lungs, progressive fibrotic ILD, presented to the emergency room via EMS s/p visit to the pulmonology clinic for evaluation of difficulty breathing, cough, decreased oxygen saturation. During the visit at the pulmonary clinic the patient was found to be hypoxemic at SpO2 75 to 85% on 3 L oxygen, tachypneic and cyanotic. On nonrebreather SpO2 was 96% with resolution of cyanosis. O2 sat in the ED remained in the mid 80s on the patient 4 L baseline oxygen requirement at rest with improvement at rest on 6 L/min of oxygen. Initial pressure described per ED provider as borderline for which patient received IV antibiotic with concerns for sepsis. ED workup was significant for chest CTA showing filling defect in the branch of the right lower lobe pulmonary artery suspicious for pulmonary embolism for which Lovenox was initiated. The ED provider consulted Lashonda Gonzales pulmonology FELICE who advised for treatment for flare of the patient's interstitial lung disease with a 2 weeks prednisone taper which was started in the ED. Blood work showed no anemia,no thrombocytopenia, no leukocytosis. Lactic was negative and VBG showed no acidemia with hypercapnia similar to prior. Chemistry was unremarkable and troponin was reassuring at 40 then 38. Blood cultures were drawn and pending. Justice was consulted and the patient admitted to the medical surgical floor for evaluation and management of ILD flare, hypoxic respiratory failure and pulmonary embolism. Patient denied chills, fever except for an episode about 10 days ago or he took Tylenol for fever lasting 1 night. Patient denies nausea vomiting diarrhea constipation or dysuria. 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) Syncope (Chronic) Right ventricular failure (Acute) Pulmonary hypertension (Chronic) Respiratory failure with hypoxia (Acute) Progressive fibrosing interstitial lung disease (Chronic) [place]' lung (Acute) Hyperlipidemia (Acute) Dyspnea (Acute) Cough (Acute) Shortness of breath (Acute) Medical History [place]' lung History of essential hypertension Family History Mother History of heart valve repair Other Heart disease Social History Smoking/Tobacco Use Status: Never Smoking risk assessment performed?: Yes Alcohol Intake: current Alcohol Intake frequency: 0-2 drinks per day Drug use: Never Substance use type: does not use Housing: house 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,[employer]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 Meds Allergies and Home Medications Allergies Allergy/AdvReac Type Severity Reaction Status Date / Time No Known Allergies Allergy Verified 05/16/24 10:24 Home Medications ?Medication ?Instructions ?Recorded ?Confirmed ?Type atorvastatin 20 mg tablet 20 mg PO DAILY 07/21/22 05/16/24 History albuterol sulfate 90 mcg/actuation 2 puff inhalation QID PRN 02/10/23 05/16/24 Rx aerosol inhaler shortness of breath or wheezing #8.5 grams torsemide 20 mg tablet 20 mg PO DAILY 10/17/23 05/16/24 History treprostinil 32 mcg cartridge with 32 mcg inhalation QID 03/08/24 05/16/24 History inhaler (Tyvaso DPI) magnesium 250 mg tablet 250 mg PO DAILY 03/19/24 05/16/24 History levalbuterol tartrate 45 2 inh inhalation Q6H #15 grams 03/26/24 05/16/24 Rx mcg/actuation aerosol inhaler Exam Narrative Exam Narrative: Constitutional The patient in bed comfortable and cooperative during the interview. The patient is without acute distress on O2 at 6l/min HENMT: Facial structures with normal appearance Eyes: Well aligned, intact ROM Neck: Normal ROM, no meningeal signs Neuro:alert and oriented to self, person, place time and situation. No neurological focal deficit, PERRLA Chest:Chest is symmetrical and normal appearance Resp: Bilat LL velcro-like crackles Cardio: regular rhythm, S1, S2, no murmur,bilateral radial and dorsalis pedis pulses are positive, palpable GI: Abdomen is not distended, soft and non tender, bowel sounds are present : Negative Costovertebral angle tenderness, no bladder distension Back/spine/Pelvis: No back tenderness, normal alignment Integumentary: minimal abrasions to both knee regions Extremities: strength 5/5 to bilateral lower and upper extremities Psych: RASS 0, congruent mood and normal affect. Results Labs 05/16/24 11:04 05/16/24 11:03 Labs: Laboratory Results - last 24 hr 05/16/24 05/16/24 05/16/24 11:03 11:04 11:07 WBC 9.58 RBC 5.40 Hgb 16.5 Hct 51.9 H MCV 96 H MCH 30.6 MCHC 31.8 L RDW 16.0 H Plt Count 210 MPV 9.8 Immature Gran % 0.2 Neutrophils % 74.4 Lymphocytes % 14.4 Monocytes % 6.5 Eosinophils % 4.0 Basophils % 0.5 Nucleated RBC % 0.0 Absolute Neutrophils 7.13 H Absolute Lymphocytes 1.38 Absolute Monocytes 0.62 Absolute Eosinophils 0.38 Absolute Basophils 0.05 D-Dimer 1448 H VBG pH 7.36 VBG pCO2 59 H VBG pO2 23 VBG HCO3 34 H VBG Total CO2 30 H VBG O2 Saturation 30 VBG Base Excess 8 H VBG Lactate 1.3 Sodium 133 L Potassium 3.7 Chloride 95 L Carbon Dioxide 32.2 H Anion Gap 5.8 BUN 19 H Creatinine 1.0 Est GFR (CKD-EPI 2020) 80.97 Glucose 99 Calcium 8.5 Troponin I 40 COVID-19 Source Nasopharynx SARS-CoV-2 (PCR) Negative Influenza Type A (PCR) Negative Influenza Type B (PCR) Negative RSV (PCR) Negative ABO/Rh O Positive Antibody Screen NEGATIVE 05/16/24 05/16/24 12:00 14:04 WBC RBC Hgb Hct MCV MCH MCHC RDW Plt Count MPV Immature Gran % Neutrophils % Lymphocytes % Monocytes % Eosinophils % Basophils % Nucleated RBC % Absolute Neutrophils Absolute Lymphocytes Absolute Monocytes Absolute Eosinophils Absolute Basophils D-Dimer VBG pH VBG pCO2 VBG pO2 VBG HCO3 VBG Total CO2 VBG O2 Saturation VBG Base Excess VBG Lactate Sodium Potassium Chloride Carbon Dioxide Anion Gap BUN Creatinine Est GFR (CKD-EPI 2020) Glucose Calcium Troponin I 38 Cancelled COVID-19 Source SARS-CoV-2 (PCR) Influenza Type A (PCR) Influenza Type B (PCR) RSV (PCR) ABO/Rh Antibody Screen Last Vital Signs Temp 37.0 C 05/16/24 11:04 Pulse 88 05/16/24 12:01 Resp 22 05/16/24 13:10 BP 116/85 05/16/24 12:01 Pulse Ox 83 L 05/16/24 13:10 PAWSS Have you Been Recently Intoxicated or Drunk Within the Last 30 days?: No Have you Ever Experienced Previous Episodes of Alcohol Withdrawal?: No Have you ever Experienced Withdrawal Seizures?: No Have you ever Experienced Delirium Tremens(DT)s?: No Have you ever undergone Alcohol Rehabilitation Treatment (i.e, inpt ot outpatient treatment programs)?: No Have you ever Experienced Blackouts?: No Have you ever Combined Alcohol with other Downers within the last 90 days?: No Have you ever Combined Alcohol with any other Substance of Abuse during the last 90 days?: No Positive Blood Alcohol level on Presentation? [PCS.BAL]: No Evidence of Increased Autonomic Activity (i.e. HR>120, tremor, sweating, agitation, nausea)?: No Result: 0 Time Spent Time spent with Patient: >75 minutes Time was spent: preparing to see the patient(eg.review tests), obtaining and/or reviewing separately otained hiistory, ordering medications,tests, procedures, referring, communicating with other health career and technology education teacher, indepentently interpreting results, counseling the patient and care coordination
[2024-05-16] MEDS: predniSONE 20 MG TAB 60 MG PO (14:00)
[2024-05-16] MEDS: Enoxaparin 80 MG/0.8 ML SYR SC (14:00)
--- NOTE | 2024-05-16 15:21 | W.PC.ACHO ---
Registration Status: Primary Language: Preferred Language: ED Information & Data Chief Complaint RespSymp 05/16/24 11:44 Triage Note PT reporting increased 05/16/24 10:56 difficulty breathing with decreased O2 saturation noticed at a pulmonary clinic today. PT reports increased difficulty with activity. Medical / Surgical History (Last Reviewed 01/26/24 @ 08:48 by Radha Mixon NP) [place]' lung History of essential hypertension Most Recent Vital Signs Temperature 37.0 C 05/16/24 11:04 Temperature Source Oral 05/16/24 11:04 Pulse 85 05/16/24 14:31 Pulse 83 05/16/24 14:40 Respiratory Rate 22 05/16/24 14:40 Respiratory Effort Short of Breath, Incrsd Work of Breathing 05/16/24 11:44 Respiratory Depth Shallow 05/16/24 11:44 Respiratory Pattern Tachypnea 05/16/24 11:44 Blood Pressure 108/71 05/16/24 14:31 Blood Pressure Mean 83 05/16/24 14:31 Blood Pressure Position Sitting 05/16/24 11:04 Pulse Oximetry 91 L 05/16/24 14:40 Respiratory End-tidal CO2 05/16/24 13:10 Oxygen Delivery Method Nasal Cannula 05/16/24 14:02 Oxygen Flow Rate 6 05/16/24 14:02 Pain Level 0 05/16/24 11:04 Comment Pt eating; states O2 sat drops when he eats. MD aware 05/16/24 13:10 Allergies No Known Allergies Allergy (Verified 05/16/24 10:24) IV IV Catheter Type [Right Saline Lock Antecubital] IV Catheter Gauge [Right 18 Antecubital] Diet Orders Category Date Time Status Heart Healthy Eating [DIET] Nutrition 05/16/24 Dinner Active Diagnostics 05/16/24 05/16/24 05/16/24 Range/Units 14:04 12:00 11:07 WBC (4.4-10.8) 10^3/uL RBC (4.36-5.78) 10^6/uL Hgb (13.5-17.5) g/dL Hct (40.0-50.0) % MCV (80-95) fL MCH (27.0-33.0) pg MCHC (32.0-36.0) % RDW (11.8-14.1) % Plt Count (130-400) 10^3/uL MPV (8.0-11.0) fL Immature Gran % % Neutrophils % % Lymphocytes % % Monocytes % % Eosinophils % % Basophils % % Nucleated RBC % (0.0-0.3) % Absolute Neutrophils (1.2-6.7) 10^3/uL Absolute Lymphocytes (1.2-3.4) 10^3/uL Absolute Monocytes (0.1-0.8) 10^3/uL Absolute Eosinophils (0.0-0.7) 10^3/uL Absolute Basophils (0.0-0.2) 10^3/uL D-Dimer (<500) ng/mlFEU VBG pH (7.31-7.41) VBG pCO2 (41-51) mmHg VBG pO2 mmHg VBG HCO3 (23-28) mmol/L VBG Total CO2 (24-29) mmol/L VBG O2 Saturation % VBG Base Excess (-2-3) mmol/L VBG Lactate (0.6-1.4) mmol/L Sodium (136-145) mmol/L Potassium (3.5-5.1) mmol/L Chloride (98-107) mmol/L Carbon Dioxide (21.0-32.0) mmol/L Anion Gap (3-11) mmol/L BUN (7-18) mg/dL Creatinine (0.70-1.30) mg/dL Est GFR (CKD-EPI 2020) (mL/min/1.73m2) Glucose (74-106) mg/dL Calcium (8.5-10.1) mg/dL Troponin I Cancelled 38 (<or=76) ng/L COVID-19 Source Nasopharynx SARS-CoV-2 (PCR) Negative (Negative) Influenza Type A (PCR) Negative (Negative) Influenza Type B (PCR) Negative (Negative) RSV (PCR) Negative (Negative) ABO/Rh Antibody Screen 05/16/24 05/16/24 Range/Units 11:04 11:03 WBC 9.58 (4.4-10.8) 10^3/uL RBC 5.40 (4.36-5.78) 10^6/uL Hgb 16.5 (13.5-17.5) g/dL Hct 51.9 H (40.0-50.0) % MCV 96 H (80-95) fL MCH 30.6 (27.0-33.0) pg MCHC 31.8 L (32.0-36.0) % RDW 16.0 H (11.8-14.1) % Plt Count 210 (130-400) 10^3/uL MPV 9.8 (8.0-11.0) fL Immature Gran % 0.2 % Neutrophils % 74.4 % Lymphocytes % 14.4 % Monocytes % 6.5 % Eosinophils % 4.0 % Basophils % 0.5 % Nucleated RBC % 0.0 (0.0-0.3) % Absolute Neutrophils 7.13 H (1.2-6.7) 10^3/uL Absolute Lymphocytes 1.38 (1.2-3.4) 10^3/uL Absolute Monocytes 0.62 (0.1-0.8) 10^3/uL Absolute Eosinophils 0.38 (0.0-0.7) 10^3/uL Absolute Basophils 0.05 (0.0-0.2) 10^3/uL D-Dimer 1448 H (<500) ng/mlFEU VBG pH 7.36 (7.31-7.41) VBG pCO2 59 H (41-51) mmHg VBG pO2 23 mmHg VBG HCO3 34 H (23-28) mmol/L VBG Total CO2 30 H (24-29) mmol/L VBG O2 Saturation 30 % VBG Base Excess 8 H (-2-3) mmol/L VBG Lactate 1.3 (0.6-1.4) mmol/L Sodium 133 L (136-145) mmol/L Potassium 3.7 (3.5-5.1) mmol/L Chloride 95 L (98-107) mmol/L Carbon Dioxide 32.2 H (21.0-32.0) mmol/L Anion Gap 5.8 (3-11) mmol/L BUN 19 H (7-18) mg/dL Creatinine 1.0 (0.70-1.30) mg/dL Est GFR (CKD-EPI 2020) 80.97 (mL/min/1.73m2) Glucose 99 (74-106) mg/dL Calcium 8.5 (8.5-10.1) mg/dL Troponin I 40 (<or=76) ng/L COVID-19 Source SARS-CoV-2 (PCR) (Negative) Influenza Type A (PCR) (Negative) Influenza Type B (PCR) (Negative) RSV (PCR) (Negative) ABO/Rh O Positive Antibody Screen NEGATIVE 05/16/24 11:16 Blood Culture - Pending Blood 05/16/24 11:03 Blood Culture - Pending Blood Intake and Output - 24 Hour Total 05/16/24 10:47 thru 05/16/24 15:19 Intake Total 360 Balance 360 Weight 78.9 kg Intake: IV 360 Falls Risk Assessment History of Falls No History 05/16/24 11:04 Contributing Factors No Factors 05/16/24 11:04 Ambulatory Aids Independent 05/16/24 11:04 Tubes/Lines None 05/16/24 11:04 Gait Evaluation No gait disturbance 05/16/24 11:04 Cognition No cognitive impairment 05/16/24 11:04 Fall Total Score 0 05/16/24 11:04 Level of Risk Standard/Low Risk 05/16/24 11:04 Problems (Last Reviewed 01/26/24 @ 08:48 by Radha Mixon NP) Acute respiratory failure with hypoxia and hypercapnia (Acute) Pulmonary embolism (Chronic) v v v v v v v v v Sending and/or Receiving Nurses: Please use comment section below to note any information pertinent to the patient hand-off not included above. Information / Comments: Report received from: Clarisse Bennett RN
--- NOTE | 2024-05-16 15:49 | PHA.REVIEW2 ---
Pharmacy Admission Review Admission Clinical Review Admission Pharmacy Review: Acute respiratory failure with hypoxia and hypercapnia (Acute) No Known Allergies Allergy (Verified 05/16/24 10:24) Resuscitation Status Full Code Height 5 ft 8 in Weight 76.612 kg Pharmacy Admission Review Renal Dosing Renal Dosing: BUN 19 mg/dL (7-18) H 05/16/24 11:03 Creatinine 1.0 mg/dL (0.70-1.30) 05/16/24 11:03 Medications needing adjustments: Reviewed (CrCl 74.48 mL/min) List of meds needing interventions: Current medications are okay Anticoagulation Anticoagulation: Hgb 16.5 g/dL (13.5-17.5) 05/16/24 11:04 Hct 51.9 % (40.0-50.0) H 05/16/24 11:04 Plt Count 210 10^3/uL (130-400) 05/16/24 11:04 Creatinine 1.0 mg/dL (0.70-1.30) 05/16/24 11:03 Therapeutic Anticoagulation: Reviewed (PE) Medications: Enoxaparin (80mg BID) Relevant Labs Relevant Labs: Sodium 133 mmol/L (136-145) L 05/16/24 11:03 Potassium 3.7 mmol/L (3.5-5.1) 05/16/24 11:03 Chloride 95 mmol/L (98-107) L 05/16/24 11:03 Electrolytes, C-Reactive P, ESR: Reviewed (Na 133) Cardiac Review Cardiac Review: Troponin I Cancelled 05/16/24 14:04 Blood Pressure : Heart Rate 108/74 : 91 1521 Blood Pressure : Heart Rate 108/71 : 85 1431 Blood Pressure : Heart Rate 96/64 : 85 1400 Blood Pressure : Heart Rate 116/85 : 88 1201 Blood Pressure : Heart Rate 118/93 : 91 1146 Blood Pressure : Heart Rate 125/82 : 85 1131 Blood Pressure : Heart Rate 109/84 : 92 1115 Blood Pressure : Heart Rate 99/69 : 100 1104 Blood Pressure : Heart Rate 105/73 : 94 1102 Blood Pressure : Heart Rate 96/69 : 97 1100 Blood Pressure : Heart Rate 99/69 : 100 1056 BP, HR, EF%: Reviewed List meds needing interventions: Has order for torsemide 20mg daily QTc Review QTc: Reviewed (488 from 05/16/24) IV to PO Switch IV Medications: Reviewed Home Meds Home Med List reviewed: Intervened Relevent Home Meds Not ordered & why?: Order for Tyvaso changed to patients own order. Called nursing to see if this could be brought in for the patient, waiting to hear back. Current Meds Current Medication Order Review: Reviewed
[2024-05-16] MEDS: Levalbuterol HFA 15 GM INH 2 PUFF IH ×2 (16:49→23:48)
--- NOTE | 2024-05-16 18:53 | RESPIRATORY ---
05/16/2024 Home CPAP DME: Rick CPAP: 5 Mask: Nasal Pt states he can not get home unit tonight and declines offer to use our [id number]. Pt states he has not used his home machine in a while but is going to start using this again at home.
[2024-05-16] MEDS: Normal Saline Flush 10 ML SYR IVP (20:20)
[2024-05-17] VITALS (7 sets, daily range): BP systolic 97–125; BP diastolic 47–85; PULSE 68–90; RESP 16–20; TEMP 36.1–36.6; O2SAT 88–100
[2024-05-17] MEDS: Enoxaparin 80 MG/0.8 ML SYR SC (02:55)
[2024-05-17] MEDS: Levalbuterol HFA 15 GM INH 2 PUFF IH ×2 (05:40→09:08)
[2024-05-17 06:29] LABS: Abs Immature Grans 0.03 10^3/uL (0.0-0.06); Absolute Basophil Count 0.01 10^3/uL (0.0-0.2); Absolute Eosinophil Count 0.01 10^3/uL (0.0-0.7); Absolute Lymphocyte Count 0.68 10^3/uL (1.2-3.4); Absolute Monocyte Count 0.18 10^3/uL (0.1-0.8); Absolute Neutrophil Count 7.26 10^3/uL (1.2-6.7); Basophils % 0.1 %; Eosinophils % 0.1 %; HCT 48.7 % (40.0-50.0); HGB 15.9 g/dL (13.5-17.5); Immature Grans % 0.4 %; Lymphocytes % 8.3 %; MCH 30.8 pg (27.0-33.0); MCHC 32.6 % (32.0-36.0); MCV 94 fL (80-95); MPV 10.4 fL (8.0-11.0); Monocytes % 2.2 %; Neutrophils % 88.9 %; Platelet Count 219 10^3/uL (130-400); RBC 5.16 10^6/uL (4.36-5.78); RDW 15.4 % (11.8-14.1); RDW-SD 53.7 fL; WBC 8.17 10^3/uL (4.4-10.8)
[2024-05-17 06:47] LABS: Anion Gap 7.9 mmol/L (3-11); BUN 21 mg/dL (7-18); CO2 29.1 mmol/L (21.0-32.0); Calcium 8.2 mg/dL (8.5-10.1); Chloride 96 mmol/L (98-107); Estimated GFR 80.97 (mL/min/1.73m2); Glucose 135 mg/dL (74-106); Magnesium 1.6 mg/dL (1.8-2.4); Potassium 3.9 mmol/L (3.5-5.1); Sodium 133 mmol/L (136-145)
[2024-05-17] MEDS: Torsemide 20 MG TAB PO (08:10)
[2024-05-17] MEDS: Atorvastatin 20 MG TAB PO (08:11)
[2024-05-17] MEDS: Magnesium Oxide 400 MG TAB 200 MG PO (08:12)
[2024-05-17] MEDS: Normal Saline Flush 10 ML SYR IVP (08:12)
[2024-05-17] MEDS: predniSONE 20 MG TAB 60 MG PO (08:15)
--- NOTE | 2024-05-17 09:29 | W.PM.PROGNOT ---
Assessment and Plan Assessment and plan (1) Acute respiratory failure with hypoxia and hypercapnia: Status: Acute Assessment and plan: On O2 6 l/min for sat goals 92% Was on O2 at home (2) Pulmonary embolism: Status: Chronic Assessment and plan: On lovenox 1 mg /kg BID Would like transition to DOAC on D/C (3) CATHY (obstructive sleep apnea): Status: Chronic Assessment and plan: CPAP at home , cannot get it in , but has not been using it consistently this summer (4) ILD (interstitial lung disease): Status: Acute Assessment and plan: Prednisone taper intitated Discussed with Dr. Simms (5) Hypomagnesemia: Status: Acute (6) Hyponatremia: Status: Acute Objective Last Vital Signs Temp 36.5 C 05/17/24 07:39 Pulse 85 05/17/24 07:39 Resp 17 05/17/24 07:39 BP 122/85 05/17/24 07:39 Pulse Ox 95 05/17/24 08:24 Laboratory Results - last 24 hr 05/16/24 05/16/24 05/16/24 11:03 11:04 11:07 WBC 9.58 RBC 5.40 Hgb 16.5 Hct 51.9 H MCV 96 H MCH 30.6 MCHC 31.8 L RDW 16.0 H Plt Count 210 MPV 9.8 Immature Gran % 0.2 Neutrophils % 74.4 Lymphocytes % 14.4 Monocytes % 6.5 Eosinophils % 4.0 Basophils % 0.5 Nucleated RBC % 0.0 Absolute Neutrophils 7.13 H Absolute Lymphocytes 1.38 Absolute Monocytes 0.62 Absolute Eosinophils 0.38 Absolute Basophils 0.05 D-Dimer 1448 H VBG pH 7.36 VBG pCO2 59 H VBG pO2 23 VBG HCO3 34 H VBG Total CO2 30 H VBG O2 Saturation 30 VBG Base Excess 8 H VBG Lactate 1.3 Sodium 133 L Potassium 3.7 Chloride 95 L Carbon Dioxide 32.2 H Anion Gap 5.8 BUN 19 H Creatinine 1.0 Est GFR (CKD-EPI 2020) 80.97 Glucose 99 Calcium 8.5 Magnesium Troponin I 40 COVID-19 Source Nasopharynx SARS-CoV-2 (PCR) Negative Influenza Type A (PCR) Negative Influenza Type B (PCR) Negative RSV (PCR) Negative ABO/Rh O Positive Antibody Screen NEGATIVE 05/16/24 05/16/2405/17/24 12:00 14:04 06:00 WBC 8.17 RBC 5.16 Hgb 15.9 Hct 48.7 MCV 94 MCH 30.8 MCHC 32.6 RDW 15.4 H Plt Count 219 MPV 10.4 Immature Gran % 0.4 Neutrophils % 88.9 Lymphocytes % 8.3 Monocytes % 2.2 Eosinophils % 0.1 Basophils % 0.1 Nucleated RBC % 0.0 Absolute Neutrophils 7.26 H Absolute Lymphocytes 0.68 L Absolute Monocytes 0.18 Absolute Eosinophils 0.01 Absolute Basophils 0.01 D-Dimer VBG pH VBG pCO2 VBG pO2 VBG HCO3 VBG Total CO2 VBG O2 Saturation VBG Base Excess VBG Lactate Sodium 133 L Potassium 3.9 Chloride 96 L Carbon Dioxide 29.1 Anion Gap 7.9 BUN 21 H Creatinine 1.0 Est GFR (CKD-EPI 2020) 80.97 Glucose 135 H Calcium 8.2 L Magnesium 1.6 L Troponin I 38 Cancelled COVID-19 Source SARS-CoV-2 (PCR) Influenza Type A (PCR) Influenza Type B (PCR) RSV (PCR) ABO/Rh Antibody Screen PAWSS Have you Been Recently Intoxicated or Drunk Within the Last 30 days?: No Have you Ever Experienced Previous Episodes of Alcohol Withdrawal?: No Have you ever Experienced Withdrawal Seizures?: No Have you ever Experienced Delirium Tremens(DT)s?: No Have you ever undergone Alcohol Rehabilitation Treatment (i.e, inpt ot outpatient treatment programs)?: No Have you ever Experienced Blackouts?: No Have you ever Combined Alcohol with other Downers within the last 90 days?: No Have you ever Combined Alcohol with any other Substance of Abuse during the last 90 days?: No Positive Blood Alcohol level on Presentation? [PCS.BAL]: No Evidence of Increased Autonomic Activity (i.e. HR>120, tremor, sweating, agitation, nausea)?: No Result: 0
[2024-05-17] MEDS: MAGNESIUM SULFATE 4 GM/100 ML BAG IVINF (10:21)
[2024-05-17] MEDS: Apixaban 5 MG TAB 10 MG PO (13:45)
--- NOTE | 2024-05-17 14:05 | W.PM.DS.N ---
Date of service: 05/17/24 Time of Service: 14:07 DS: Diagnosis Discharge Diagnosis (1) Acute respiratory failure with hypoxia and hypercapnia: Status: Acute (2) Pulmonary embolism: Status: Chronic (3) CATHY (obstructive sleep apnea): Status: Chronic (4) ILD (interstitial lung disease): Status: Acute (5) Hypomagnesemia: Status: Acute (6) Hyponatremia: Status: Acute Discharge Plan Disposition Patient Disposition: Home Condition: Improving Discharge Details Reason For Visit: PE, hypoxic hypercapnic respiratory failure Admit Date/Time: 05/16/24 13:56 Admit Provider: Riki Simms Attending Provider: Riki Simms Primary Care Provider: Guillermina Chowdhury [facility] Hospital Course: This 68 years old male patient with a past medical history of known right ventricular heart failure, walker's lungs, progressive fibrotic ILD, presented to the emergency room at [facility] on 05/16/24 via EMS s/p visit to the pulmonology clinic for evaluation of difficulty breathing, cough, decreased oxygen saturation. During the visit at the pulmonology clinic, the patient was found to be hypoxemic at SpO2 75 to 85% on 3 L oxygen, tachypneic and cyanotic. On non-rebreather SpO2 was 96% with resolution of cyanosis. O2 sat in the ED remained in the mid 80s on the patient 4 L baseline oxygen requirement at rest with improvement at rest on 6 L/min of oxygen. Initial blood pressure described per ED provider as borderline low for which patient received IV antibiotic with concerns for sepsis. ED workup was significant for chest CTA showing filling defect in the branch of the right lower lobe pulmonary artery suspicious for pulmonary embolism for which Lovenox was initiated. The ED provider consulted Lashonda Gonzales pulmonology PA who advised for treatment for flare of the patient's interstitial lung disease with a 2 weeks prednisone taper which was started in the ED. Blood work showed no anemia,no thrombocytopenia, no leukocytosis. Lactic was negative and VBG showed no acidemia with hypercapnia similar to prior. Chemistry was unremarkable and troponin was reassuring at 40 then 38. Blood cultures showed no growth. The hospitalist was consulted and the patient admitted to the medical surgical floor for evaluation and management of ILD flare, hypoxic respiratory failure and pulmonary embolism. During the stay, initially Lovenox treatment was continued then transition to Eliquis/apixaban as per patient wishes to use DOAC versus lumbar Glucola with heparin injection to treat the PE. The patient chronic conditions were treated as per home medication regimen. The patient complained of insomnia and reported that it is most likely due to prednisone taper initiated on arrival. The patient will be discharged home on oral melatonin. The patient was counseled on the Eliquis regimen: Take Eliquis 10 mg orally twice a day for 7 days then take Eliquis 5 mg orally twice a day for the duration of treatment which is most likely 3 months. The patient will have follow-up with his primary care practitioner within 7 days of discharge for management of pulmonary embolism treatment. The patient was also discharged on a prednisone taper for 2 weeks with follow-up with the pulmonology clinic where he can get further management of his interstitial lung disease. The patient magnesium was 1.6 for which she received 2 g of IV magnesium, sodium was 133 and patient was counseled in limiting the amount of free water that he drinks with recommendation for his primary care practitioner to follow-up on his chemistries. On 5 L of oxygen via nasal cannula the patient remained with saturation between 92 and 95%. The patient feels that staying longer as an inpatient will not suddenly improved his oxygen saturation and wants to go home today. Discussed with Dr. Simms Home Meds and New Rx's Prescriptions: New Eliquis 5 mg Tablet 10 mg PO BID Qty: 26 0RF Rx Instructions: take for 7 days then take 5mg twice a day Eliquis 5 mg tablet 5 mg PO BID Qty: 90 0RF melatonin 3 mg capsule 3 mg PO HS PRNQty: 30 0RF prednisone 20 mg tablet See Taper PO DAILY Qty: 30 0RF Taper: Prednisone 20mg taper 60 mg Daily for 3 Days and 0 Hour 50 mg Daily for 3 Days and 0 Hour 40 mg Daily for 3 Days and 0 Hour 20 mg Daily for 3 Days and 0 Hour 10 mg Daily for 3 Days and 0 Hour Continued atorvastatin 20 mg tablet 20 mg PO DAILY torsemide 20 mg tablet 20 mg PO DAILY Tyvaso DPI 32 mcg cartridge with inhaler 64 mcg inhalation QID Patient Comments: Patient reports Dr Padilla now has him on 64 mcg QID. albuterol sulfate 90 mcg/actuation HFA aerosol inhaler 2 puff inhalation QID PRN (Reason: shortness of breath or wheezing) Qty: 8.5 6RF levalbuterol tartrate 45 mcg/actuation HFA aerosol inhaler 2 inh inhalation Q6H Qty: 15 2RF magnesium 250 mg tablet 250 mg PO DAILY Discharge Instructions Stand Alone Forms: Nursing Discharge Form Referrals: Stefanie Dahl MD [ [facility] STAFF PHYSICIAN] - (I have faxed your information to the office, they should call you for an appointment. ) Guillermina Chowdhury [Primary Care Provider] - 05/23/24 3:10 pm (With Vickie Chavira DIRECTOR GAME ) Activity:: Activity as Tolerated Equipment/Supplies:: Oxygen (L/min Below) Diet:: Heart healthy Discharge Orders Discharge Orders: Discharge Order (Routine); Ordered 05/17/24 Ordered By: Kaci Nunez DS: Summary Time Spent with Patient providing and/or coordinating discharge services: Greater than 30 minutes Status at Discharge Functional status at discharge: independent ambulation Overall status at discharge: patient is progressing back to baseline Mental Status: mental status grossly normal Speech and Movement: speech and movement normal Mood: congruent mood Affect: normal affect Quality:SDOH Health Related Social Needs: No Data to Display Exam Narrative Exam Narrative: Constitutional The patient in bed comfortable and cooperative during the interview. The patient is without acute distress on O2 at 5l/min at rest - on home O2 4 to 6 l/min HENMT: Facial structures with normal appearance Eyes: Well aligned, intact ROM Neck: Normal ROM, no meningeal signs Neuro:alert and oriented to self, person, place time and situation. No neurological focal deficit Resp: Bilat LL velcro-like crackles, less prominent then prior Cardio: regular rhythm, S1, S2, no murmur, positive radial and pedal pulses bilaterally GI: Abdomen is not distended, soft and non tender, bowel sounds are present : Negative Costovertebral angle tenderness Integumentary: minimal abrasions to both knee regions Extremities: strength 5/5 to bilateral lower and upper extremities Psych: RASS 0, congruent mood and normal affect.Inpatient to go home Psych Mental Status: mental status grossly normal Speech and Movement: speech and movement normal Mood: congruent mood Affect: normal affect DS: Data Vitals/I&O Vitals and I&O: Vital Signs Temperature 36.6 C 05/17/24 11:16 Temperature Source Skin 05/17/24 11:16 Pulse 82 05/17/24 11:16 Pulse Rhythm Regular 05/16/24 15:21 Pulse 83 05/16/24 14:40 Respiratory Rate 18 05/17/24 11:16 Respiratory Effort Normal 05/16/24 15:21 Respiratory Depth Normal 05/16/24 15:21 Respiratory Pattern Normal 05/16/24 15:21 Blood Pressure 119/71 05/17/24 11:16 Blood Pressure Mean 83 05/16/24 14:31 Blood Pressure Position Sitting 05/16/24 11:04 Pulse Oximetry 92 05/17/24 11:16 Respiratory End-tidal CO2 05/16/24 13:10 Oxygen Delivery Method Nasal Cannula 05/17/24 11:16 Oxygen Flow Rate 6 05/17/24 11:16 Pain Level 0 05/17/24 11:16 Comment pt had been talking and breathing through mouth, pt O2 increased with deep breaths and breathing through nose 05/17/24 03:40 Comment Pt eating; states O2 sat drops when he eats. MD aware 05/16/24 13:10 Intake & Output 05/16/24 05/17/24 05/17/24 23:59 11:59 23:59 Intake Total 550 / 610 400 / 760 360 / 760 Balance 550 / 610 400 / 760 360 / 760 Weight 76.612 kg Intake: IV 310 / 370 Oral 240 / 240 400 / 760 360 / 760 Other: Voiding Methods Toilet Data Completed and Pending Labs on day of discharge: Labs from last 24 hours 05/17/24 06:00 WBC 8.17 RBC 5.16 Hgb 15.9 Hct 48.7 MCV 94 MCH 30.8 MCHC 32.6 RDW 15.4 H Plt Count 219 MPV 10.4 Immature Gran % 0.4 Neutrophils % 88.9 Lymphocytes % 8.3 Monocytes % 2.2 Eosinophils % 0.1 Basophils % 0.1 Nucleated RBC % 0.0 Absolute Neutrophils 7.26 H Absolute Lymphocytes 0.68 L Absolute Monocytes 0.18 Absolute Eosinophils 0.01 Absolute Basophils 0.01 Sodium 133 L Potassium 3.9 Chloride 96 L Carbon Dioxide 29.1 Anion Gap 7.9 BUN 21 H Creatinine 1.0 Est GFR (CKD-EPI 2020) 80.97 Glucose 135 H Calcium 8.2 L Magnesium 1.6 L Preliminary micro results at discharge 05/16/24 11:03 Blood Culture - Preliminary Blood NO GROWTH 24 HOURS 05/16/24 11:16 Blood Culture - Preliminary Blood NO GROWTH 24 HOURS PFSH All Active Problems (Updated 05/17/24 @ 14:26 by Kaci Nunez APRN) Hyponatremia (Acute) Hypomagnesemia (Acute) ILD (interstitial lung disease) (Acute) Acute respiratory failure with hypoxia and hypercapnia (Acute) Pulmonary embolism (Chronic) CATHY (obstructive sleep apnea) (Chronic) Chronic hypoxemic respiratory failure (Acute) Acute respiratory failure with hypoxia and hypercapnia (Acute) Multifocal pneumonia (Acute) Inguinal hernia (Acute) 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) Syncope (Chronic) Right ventricular failure (Acute) Pulmonary hypertension (Chronic) Respiratory failure with hypoxia (Acute) Progressive fibrosing interstitial lung disease (Chronic) Amesti' lung (Acute) Hyperlipidemia (Acute) Dyspnea (Acute) Cough (Acute) Shortness of breath (Acute) Medical History Amesti' lung History of essential hypertension Family History Mother History of heart valve repair Other Heart disease Social History Smoking/Tobacco Use Status: Never Smoking risk assessment performed?: Yes Alcohol Intake: current Alcohol Intake frequency: 0-2 drinks per day Drug use: Never Substance use type: does not use Housing: house 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
--- NOTE | 2024-05-17 16:02 | CHAPLAIN ---
Freedom was resting in bed when I visited. His Dariela was with him. Freedom told me in a lighthearted way that he prayed last night and now he's being discharged today. He is followed by Palliative Care. I explained my role and offered support. Freedom asked for a glass of ice that I got for him.
--- NOTE | 2024-05-18 16:57 | PDOC.CMDIS ---
Date of service: 05/17/24 Time of Service: 16:58 LACE Index Scoring Tool Questions: Length of Stay (in days): 1 Was the patient admitted via the E.D.?: Yes Comorbidities: Chronic Pulmonary Disease E.D. Visits: 1 Answers: Total Score: 7 Risk of Readmission: Low Risk Care Management Discharge Plan Reason for Hospitalization: PE, hypoxic hypercapnic respiratory failure Discharge Plan: Home with resumption of O2 DME; Pulmonology is coordinating improved portable oxygen to support Freedom in remaining independent and active. He will follow up with Pulmonology, PCP and plan of care as prescribed and transport via private vehicle with his . 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 Services Needed at Discharge: DME Agency (Resumption-Pulmonology coordinating new orders for portable continuous O2) SDOH Health Related Social Needs: No Data to Display
== END 2024-05-17 15:52 | disposition home or self-care (01) | DRG 175 ==
LOC: ER 11:10 → MS 15:10
PROVIDERS: Nurse Practitioner Acute Care; Admitting Provider Family Medicine; Emergency Provider Emergency Medicine; PCP Internal Medicine; Visit Provider Family Medicine
DX: I26.99 Other pulmonary embolism without acute cor pulmonale (principal); J96.02 Acute respiratory failure with hypercapnia; J96.21 Acute and chronic respiratory failure with hypoxia; E87.1 Hypo-osmolality and hyponatremia; J67.0 Farmer's lung; G47.33 Obstructive sleep apnea (adult) (pediatric); E83.42 Hypomagnesemia; I27.20 Pulmonary hypertension, unspecified; J84.178 Other interstitial pulmonary diseases with fibrosis in diseases classified elsewhere; Z99.81 Dependence on supplemental oxygen; E78.5 Hyperlipidemia, unspecified; I77.82 Antineutrophilic cytoplasmic antibody [ANCA] vasculitis; I10 Essential (primary) hypertension; I50.812 Chronic right heart failure
CPT/HCPCS: 00123; 36415; 71275; 80048; 82805; 86850; 86900; 86901; 87040; 87637; 93005; 93308; 94640; 96365; 96366; 96367; 96372; 99214; 99291; 71045; 83605; 83735; 84484; 85025; 85379; 93010; 94664; 99223; 99239; J0696; J1650; J3372; J3475; J7512

== ENCOUNTER → 2024-05-23 08:29 | Outpatient (BNVA) | payer MEDICARE, SELFPAY | PROVIDERS: PCP Internal Medicine; Referring Provider Internal Medicine; Visit Provider Physician Assistant Surgical | DX: J67.0 Farmer's lung (principal); J84.89 Other specified interstitial pulmonary diseases; J96.91 Respiratory failure, unspecified with hypoxia; I27.20 Pulmonary hypertension, unspecified; I50.810 Right heart failure, unspecified; I26.99 Other pulmonary embolism without acute cor pulmonale | CPT/HCPCS: 99214 ==

== ENCOUNTER 2024-06-05 13:20 | Outpatient (REF) | payer MEDICARE, SELFPAY ==
[2024-06-05 14:10] LABS: HCT 53.3 % (40.0-50.0); HGB 17.2 g/dL (13.5-17.5); MCH 30.5 pg (27.0-33.0); MCHC 32.3 % (32.0-36.0); MCV 95 fL (80-95); MPV 11.2 fL (8.0-11.0); Platelet Count 220 10^3/uL (130-400); RBC 5.64 10^6/uL (4.36-5.78); RDW 16.1 % (11.8-14.1); RDW-SD 55.8 fL; WBC 13.96 10^3/uL (4.4-10.8)
[2024-06-05 14:28] LABS: Anion Gap 9.3 mmol/L (3-11); BUN 28 mg/dL (7-18); CO2 27.7 mmol/L (21.0-32.0); CREATININE 1.3 mg/dL (0.70-1.30); Calcium 8.5 mg/dL (8.5-10.1); Chloride 104 mmol/L (98-107); Glucose 175 mg/dL (74-106); Magnesium 1.9 mg/dL (1.8-2.4); Potassium 4.4 mmol/L (3.5-5.1); Sodium 141 mmol/L (136-145)
== END 2024-06-05 13:21 | disposition home or self-care (01) ==
LOC: NCHCN 13:20
PROVIDERS: PCP Internal Medicine; Visit Provider Nurse Practitioner Family
DX: I26.99 Other pulmonary embolism without acute cor pulmonale (principal)
CPT/HCPCS: 80048; 85027; 83735

== ENCOUNTER 2024-07-30 18:22 | Outpatient (REF) | payer MEDICARE, SELFPAY ==
[2024-07-30 21:24] LABS: HCT 53.5 % (40.0-50.0); MCH 30.1 pg (27.0-33.0); MCHC 31.8 % (32.0-36.0); MCV 95 fL (80-95); MPV 10.4 fL (8.0-11.0); Platelet Count 205 10^3/uL (130-400); RBC 5.65 10^6/uL (4.36-5.78); RDW 17.2 % (11.8-14.1); RDW-SD 58.9 fL
[2024-07-30 21:41] LABS: ALT 68 U/L (16-63); AST 50 U/L (15-37); Albumin 3.5 g/dL (3.4-5.0); Alkaline Phosphatase 123 U/L (46-116); Anion Gap 6.6 mmol/L (3-11); BUN 25 mg/dL (7-18); Bilirubin, Total 1.62 mg/dL (0.2-1.0); CO2 31.4 mmol/L (21.0-32.0); CREATININE 1.4 mg/dL (0.70-1.30); Calcium 8.7 mg/dL (8.5-10.1); Chloride 102 mmol/L (98-107); Estimated GFR 54.07 (mL/min/1.73m2); Glucose 160 mg/dL (74-106); Potassium 4.1 mmol/L (3.5-5.1); Sodium 140 mmol/L (136-145); TSH 2.06 uIU/mL (0.36-3.74); Total Protein 7.1 g/dL (6.4-8.2)
[2024-07-30 21:56] LABS: Hemoglobin A1C 6.9 % (<5.7)
== END 2024-07-30 18:23 | disposition home or self-care (01) ==
LOC: NCHCN 18:22
PROVIDERS: PCP Internal Medicine; Visit Provider Internal Medicine
DX: R55 Syncope and collapse (principal)
CPT/HCPCS: 80053; 85027; 83036; 84443

== ENCOUNTER 2024-08-02 02:35 | Outpatient (CLI) | payer MEDICARE, SELFPAY ==
--- NOTE | 2024-08-02 | DI.CT_ITS ---
Exam(s) CT HEAD WO EXAM: CT HEAD WO CLINICAL HISTORY: BRIEF LOSS OF CONSCIOUSNESS,R55,? SEIZURE,? BRAIN PATHOLOGY. TECHNIQUE: Imaging Protocol: Axial computed tomography images with coronal and sagittal reformatted images were created and reviewed COMPARISON: No exams were available for comparison FINDINGS: There are no skull fractures. There is no fluid in the visualized paranasal sinuses. There is no evidence of intracranial hemorrhage, mass effect, or shift of midline structures. There are no extra-axial fluid collections. The ventricles are not enlarged or shifted and there is no blo od within the ventricular system nor within the basal cisterns. IMPRESSION: No acute intracranial findings on this noninfused CT scan of the brain. RADIATION DOSE DELIVERED: 853.43mGy.cm Total DLP DATA REPOSITORY: All CT scans at this facility are submitted to the National Radiology Data Registry (NRDR) Dose Index Registry (DIR) with the [employer] (ACR). RADIATION OPTIMIZATION: All CT scans at this facility use at least one of these dose optimization te chniques: automated exposure control; mA and/or kV adjustment per patient size (includes targeted exa ms where dose is matched to clinical indication); or iterative reconstruction.
--- NOTE | 2024-08-02 | DI.US_ITS ---
Exam(s) US ABDOMEN LIMITED EXAM: US ABDOMEN LIMITED CLINICAL HISTORY: ELEVATED LIVER ENZYMES,R74.01 AND BLOOD TESTS TECHNIQUE: Ultrasound abdomen performed using standard protocol. COMPARISON: CT scan 03/19/2024 was reviewed. FINDINGS: There is no ascites evident. LIVER: There are no hepatic lesions evident nor dilatation of intrahepatic ducts. GALLBLADDER/BILIARY: There are no gallstones. No gallbladder wall edema nor pericholecystic fluid. The common hepatic duct isnot dilated, measuring 4-5mm at the level of guy hepatis. PANCREAS: There is no evidence of pancreatic mass nor dilatation of the pancreatic duct. RIGHT KIDNEY:No evidence of solid mass, calculus, nor hydronephrosis. No cortical cysts evident. IMPRESSION: 1. No evidence of cholelithiasis nor dilatation of the biliary tree. 2. No other significant ultrasound findings in the right upper quadrant. 3. There is no ascites. DATA REPOSITORY:
== END 2024-08-02 02:55 ==
LOC: DI 02:35
PROVIDERS: PCP Internal Medicine; Visit Provider Internal Medicine
DX: R55 Syncope and collapse (principal); R74.01 Elevation of levels of liver transaminase levels
CPT/HCPCS: 70450; 76705

== ENCOUNTER 2024-08-10 12:32 | Outpatient (REF) | payer MEDICARE, SELFPAY ==
[2024-08-10 16:29] LABS: COMMENT (LAB VIEW ONLY) < 13.00 mg/dL
== END 2024-08-10 12:33 | disposition home or self-care (01) ==
LOC: NCHCN 12:32
PROVIDERS: PCP Internal Medicine; Visit Provider Internal Medicine
DX: E11.9 Type 2 diabetes mellitus without complications (principal)
CPT/HCPCS: 82043; 82570

== ENCOUNTER 2024-08-20 16:21 | Inpatient (IN) | payer MEDICARE, SELFPAY ==
[2024-08-20] VITALS (28 sets, daily range): BP systolic 101–159; BP diastolic 31–110; PULSE 79–133; RESP 7–31; TEMP 36.2–36.4; O2SAT 65–100
--- NOTE | 2024-08-20 16:30 | RT.EKG_ITS ---
APPROVED REPORT Exam: Resting ECG Reason for Exam: SoB Patient Location: E HR:77 bpm ECG Measurements Heart Rate 77 AXIS WA 145 P 59 QRSd 108 QRS -81 QT 457 T -66 QTc 519 Conclusion Sinus rhythm 77 st depression consistent with prior prolonged qtc no stemi
--- NOTE | 2024-08-20 17:25 | W.ED.GENAD ---
Discharge Plan Disposition Patient Disposition: Admit to [facility] Condition: Poor Discharge Details Chief Complaint: SOB Clinical Impression: Pulmonary hypertension, Right ventricular failure, Acute respiratory failure with hypoxia and hypercapnia, [place]' lung, Progressive fibrosing interstitial lung disease Primary Care Provider: Guillermina Chowdhury ED Provider: Stefano Ramirez Home Meds and New Rx's Prescriptions: No Action atorvastatin 20 mg tablet 20 mg PO DAILY torsemide 20 mg tablet 20 mg PO DAILY Tyvaso DPI 32 mcg cartridge with inhaler 64 mcg inhalation QID Patient Comments: Patient reports Dr Padilla now has him on 64 mcg QID. albuterol sulfate 90 mcg/actuation HFA aerosol inhaler 2 puff inhalation QID PRN (Reason: shortness of breath or wheezing) Qty: 8.5 6RF levalbuterol tartrate 45 mcg/actuation HFA aerosol inhaler 2 inh inhalation Q6H Qty: 15 2RF magnesium 250 mg tablet 250 mg PO DAILY Eliquis 5 mg tablet 5 mg PO BID Qty: 90 0RF melatonin 3 mg capsule 3 mg PO HS PRNQty: 30 0RF prednisone 20 mg tablet See Taper PO DAILY Qty: 30 0RF Taper: Prednisone 20mg taper 60 mg Daily for 3 Days and 0 Hour 50 mg Daily for 3 Days and 0 Hour 40 mg Daily for 3 Days and 0 Hour 20 mg Daily for 3 Days and 0 Hour 10 mg Daily for 3 Days and 0 Hour HPI General Date/Time Provider Initiated Documentation: 08/20/24 16:50. Limitations to Documentation: physical limitation. Information obtained by: patient, family and old records reviewed. HPI Narrative: 68-year-old gentleman with past medical history of Steele's lung, pulmonary hypertension, chronic respiratory failure presents for evaluation of worsening shortness of breath. He reports over the last week he has shortness of breath symptoms have worsened and he is unable to do any minor exertion without becoming significantly short of breath. He is using 5 L oxygen constantly, oxygen saturation at rest is around 90 to 95%, with any movement it dips down. He reports some chest discomfort with the shortness of breath. Denies worsened cough or change in sputum production. Denies any fever. Reports over the last week he has noted that he has had decreased urine output while taking his diuretic. He reports compliance with the medication, but states his urine output is about half of what it normally has been. He also reports swelling in bilateral feet Related Data Home Medications ?Medication ?Instructions ?Recorded ?Confirmed atorvastatin 20 mg tablet 20 mg PO DAILY 07/21/22 05/23/24 albuterol sulfate 90 mcg/actuation 2 puff inhalation QID PRN 02/10/23 05/23/24 aerosol inhaler shortness of breath or wheezing #8.5 grams torsemide 20 mg tablet 20 mg PO DAILY 10/17/23 05/23/24 treprostinil 32 mcg cartridge with 64 mcg inhalation QID 03/08/24 05/23/24 inhaler (Tyvaso DPI) magnesium 250 mg tablet 250 mg PO DAILY 03/19/24 05/23/24 levalbuterol tartrate 45 2 inh inhalation Q6H #15 grams 03/26/24 05/23/24 mcg/actuation aerosol inhaler apixaban 5 mg tablet (Eliquis) 5 mg PO BID #90 tabs 05/17/24 05/23/24 melatonin 3 mg capsule 3 mg PO HS PRN #30 caps 05/17/24 05/23/24 prednisone 20 mg tablet See Taper PO DAILY #30 tabs 05/17/24 05/23/24 Previous Rx's ?Medication ?Instructions ?Recorded albuterol sulfate 90 mcg/actuation 2 puff inhalation QID PRN 02/10/23 aerosol inhaler shortness of breath or wheezing #8.5 grams levalbuterol tartrate 45 2 inh inhalation Q6H #15 grams 03/26/24 mcg/actuation aerosol inhaler apixaban 5 mg tablet (Eliquis) 5 mg PO BID #90 tabs 05/17/24 melatonin 3 mg capsule 3 mg PO HS PRN #30 caps 05/17/24 prednisone 20 mg tablet See Taper PO DAILY #30 tabs 05/17/24 Allergies Allergy/AdvReac Type Severity Reaction Status Date / Time No Known Allergies Allergy Verified 05/23/24 08:38 General Stated Complaint: SOB MIGUEL: 3 Exam Narrative Exam Narrative: Review of Systems: All systems reviewed & are unremarkable except as noted in HPI and below Acute distress Hypoxic at 75% on 5 L NCAT RRR no murmur Tachypnea, increased work of breathing, accessory muscle use, difficulty completing sentences, coarse breath sounds diffusely Nondistended abdomen soft nontender Bilateral pedal edema pitting Course Vital Signs Vital signs: Vital Signs Temperature 36.4 C 08/20/24 16:40 Pulse 92 H 08/20/24 16:40 Respiratory Rate 24 08/20/24 16:40 Blood Pressure 134/82 08/20/24 16:40 Pulse Oximetry 65 L 08/20/24 16:40 Temperature 36.4 C 08/20/24 16:44 Temperature Source Oral 08/20/24 16:44 Pulse 92 H 08/20/24 16:44 Respiratory Rate 24 08/20/24 16:44 Blood Pressure 134/82 08/20/24 16:44 Blood Pressure Position Sitting 08/20/24 16:44 Pulse Oximetry 96 08/20/24 16:59 Oxygen Delivery Method Nasal Cannula 08/20/24 16:59 Oxygen Flow Rate 5 08/20/24 16:59 Medical Decision Making Emergent evaluation of acute on chronic respiratory distress. Patient presents with hypoxia and acute respiratory distress. On my immediate evaluation, patient was started on BiPAP. Concern for volume overload likely contributing to symptoms. Will give IV Lasix. No fever chills or change in mucus production to indicate an infectious etiology. Reports compliance with medications. Lab work reviewed no leukocytosis or anemia. His VBG indicates some mild CO2 retention though not significantly changed from baseline. Calcium and magnesium are slightly below normal levels. proBNP is elevated at 4555. Chest x-ray reviewed and independently interpreted, no significant change from prior, no consolidation or pleural effusion. Patient is feeling more comfortable on the CPAP settings. And his respiratory distress seems to have improved. Norman needs admission for IV diuresis and continued respiratory management before he is able to be able to go home. Discussed with hospitalist who will admit to their service. Medical Records Medical records reviewed: Yes I reviewed the patient's medical records. Medical records narrative: [place]way lung: Prednisone 10 mg daily, Tessalon Perles, morphine as needed, on 5 L POC Pulmonary hypertension with RV failure: [place] [facility] [place] torsemide Goal sats 88 to 92% Pulmonary embolism: Anticoagulation Quality:SDOH Health Related Social Needs: No Data to Display Critical Care Time Critical Care Time Critical Care Time: Yes Total Critical Care Time: 34 Attestation: CRITICAL CARE Upon my evaluation, this patient had a high probability of imminent or life-threatening deterioration due to respiratory failure, volume overload which required my direct attention, intervention, and personal management. I have personally provided 34 minutes of critical care time exclusive of time spent on separately billable procedures. Time includes review of laboratory data, radiology results, discussion with consultants, and monitoring for potential decompensation. 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) Syncope (Chronic) Right ventricular failure (Acute) Pulmonary hypertension (Chronic) Respiratory failure with hypoxia (Acute) Progressive fibrosing interstitial lung disease (Chronic) [place]' lung (Acute) Hyperlipidemia (Acute) Dyspnea (Acute) Cough (Acute) Shortness of breath (Acute) Medical History Hyponatremia Hypomagnesemia [place]' lung History of essential hypertension Family History Mother History of heart valve repair Other Heart disease Social History Smoking/Tobacco Use Status: Never Smoking risk assessment performed?: Yes Alcohol Intake: current Alcohol Intake frequency: 0-2 drinks per day Drug use: Never Substance use type: does not use Housing: house 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
[2024-08-20 17:28] LABS: Abs Immature Grans 0.04 10^3/uL (0.0-0.06); Absolute Basophil Count 0.02 10^3/uL (0.0-0.2); Absolute Eosinophil Count 0.01 10^3/uL (0.0-0.7); Absolute Lymphocyte Count 0.58 10^3/uL (1.2-3.4); Absolute Monocyte Count 0.24 10^3/uL (0.1-0.8); BE (Venous) 8 mmol/L (-2-3); Basophils % 0.2 %; Eosinophils % 0.1 %; HCO3 (Venous) 33 mmol/L (23-28); HCT 47.8 % (40.0-50.0); HGB 15.6 g/dL (13.5-17.5); Immature Grans % 0.4 %; Lymphocytes % 6.2 %; MCH 30.4 pg (27.0-33.0); MCHC 32.6 % (32.0-36.0); MCV 93 fL (80-95); Monocytes % 2.6 %; Neutrophils % 90.5 %; O2 Sat (Venous) 71 %; Platelet Count 176 10^3/uL (130-400); RBC 5.14 10^6/uL (4.36-5.78); RDW 16.7 % (11.8-14.1); RDW-SD 56.9 fL; TCO2 (Venous) 29 mmol/L (24-29); WBC 9.39 10^3/uL (4.4-10.8); pCO2 (Venous) 55 mmHg (41-51); pH (Venous) 7.39 (7.31-7.41); pO2 (Venous) 41 mmHg
--- NOTE | 2024-08-20 17:29 | RESPIRATORY ---
Pt initiated on CPAP for C/O low SpO2 on arrival. Pt on NRB 15L when RT arrived at bedside. Pt does not appear to have SOB or WOB at this time. Pt wears CPAP at home at night with O2 bled in. Reports that he has been wearing 5L at home for aprx 1 month, and that portable concentrator (pulse dose) only goes to 3L and is having trouble triggering breaths with machine. DME: Rick/ [employer]
[2024-08-20 17:53] LABS: ALT 57 U/L (16-63); AST 43 U/L (15-37); Albumin 2.9 g/dL (3.4-5.0); Alkaline Phosphatase 143 U/L (46-116); Anion Gap 5.7 mmol/L (3-11); BUN 30 mg/dL (7-18); Bilirubin, Total 1.47 mg/dL (0.2-1.0); CO2 32.3 mmol/L (21.0-32.0); CREATININE 1.3 mg/dL (0.70-1.30); Calcium 8.3 mg/dL (8.5-10.1); Chloride 98 mmol/L (98-107); Glucose 209 mg/dL (74-106); Magnesium 1.7 mg/dL (1.8-2.4); NT-proBNP 4555 pg/mL (<300); Potassium 3.8 mmol/L (3.5-5.1); Sodium 136 mmol/L (136-145); Total Protein 6.7 g/dL (6.4-8.2); Troponin I 60 ng/L (<or=76)
--- NOTE | 2024-08-20 18:02 | DI.RAD_ITS ---
Exam(s) XR PORTABLE CHEST AP EXAM: XR PORTABLE CHEST AP CLINICAL HISTORY: sob TECHNIQUE: 2D digital imaging was performed. COMPARISON: CR,DOC XR CHEST 2V PA AND LATERAL from 11/24/2023 CR XR PORTABLE CHEST AP from 05/16/[address] CHEST PE CTA from 05/16/2024 FINDINGS: Exam is limited by under penetration. LUNGS: Underlying prominent interstitial changes again noted, greater in the lung bases with honeycom mayela. No pleural abnormality seen. HEART: Enlarged. AORTA: Mildly tortuous. BONES: Unremarkable for age. Soft tissues: Unremarkable. IMPRESSION: Prominent interstitial changes. No visible superimposed pulmonary edema or focal infiltrate. Cardio megaly again noted. DATA REPOSITORY: RADIATION DOSE DELIVERED:
[2024-08-20] MEDS: Hydrocortisone SOD SUC. 100 MG VIAL IVP (18:34)
[2024-08-20] MEDS: Furosemide 100 MG/10 ML VIAL 80 MG IVP (18:35)
[2024-08-20 19:09] LABS: COVID-19 PCR Negative (Negative); Influenza A PCR Negative (Negative); Influenza B PCR Negative (Negative); RSV PCR Negative (Negative)
--- NOTE | 2024-08-20 19:10 | HPE_ITS ---
Date of service: 08/20/24 Time of Service: 19:11 Assessment and Plan Assessment and plan (1) Cor pulmonale: Status: Acute Assessment and plan: Exacerbation of cor pulmonale in context of known ILD and PAH. Precipitant not apparent. Will treat empirically with high dose lasix and monitor clinically.No indication at present for antibiotics. Reviewed ADs: He seems unable to specifically address issue, will defer to Full Code. History of Present Illness History of Present Illness Chief Complaint: SOB Narrative: 68 male with h/o Steele's lung, pulpmonary hypertension, on home O2 5L with baseline sats low 90s. Reports decreased urinenoutput over past 1-2 weeks and increasing SOB and pedal edema. No cough, fever, CP. Her in ER initial sats in 60s, transitioned to NRB and then top BiPaP, with sats in mid 90s.. Work up of note for absence of fever, no leukocytosis, CXR showing baseline interstitial pattern, negative troponin with EKG showing baseline diffuse STTWCs, no acute findings, and BNP 4455. Creat 1.3, approx baseline. Patient given Lasix 80 IV and I was asked to evaluate for admission. States he feels comfortable at present (on BiPaP). Denies change in meds or diet. 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) Syncope (Chronic) Right ventricular failure (Acute) Pulmonary hypertension (Chronic) Respiratory failure with hypoxia (Acute) Progressive fibrosing interstitial lung disease (Chronic) [place]' lung (Acute) Hyperlipidemia (Acute) Dyspnea (Acute) Cough (Acute) Shortness of breath (Acute) Medical History Hyponatremia Hypomagnesemia [place]' lung History of essential hypertension Family History Mother History of heart valve repair Other Heart disease Social History Smoking/Tobacco Use Status: Never Smoking risk assessment performed?: Yes Alcohol Intake: current Alcohol Intake frequency: 0-2 drinks per day Drug use: Never Substance use type: does not use Housing: house 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 Meds Allergies and Home Medications Allergies Allergy/AdvReac Type Severity Reaction Status Date / Time No Known Allergies Allergy Verified 05/23/24 08:38 Home Medications ?Medication ?Instructions ?Recorded ?Confirmed ?Type atorvastatin 20 mg tablet 20 mg PO DAILY 07/21/22 05/23/24 History albuterol sulfate 90 mcg/actuation 2 puff inhalation QID PRN 02/10/23 05/23/24 Rx aerosol inhaler shortness of breath or wheezing #8.5 grams torsemide 20 mg tablet 20 mg PO DAILY 10/17/23 05/23/24 History treprostinil 32 mcg cartridge with 64 mcg inhalation QID 03/08/24 05/23/24 History inhaler (Tyvaso DPI) magnesium 250 mg tablet 250 mg PO DAILY 03/19/24 05/23/24 History levalbuterol tartrate 45 2 inh inhalation Q6H #15 grams 03/26/24 05/23/24 Rx mcg/actuation aerosol inhaler apixaban 5 mg tablet (Eliquis) 5 mg PO BID #90 tabs 05/17/24 05/23/24 Rx melatonin 3 mg capsule 3 mg PO HS PRN #30 caps 05/17/24 05/23/24 Rx prednisone 20 mg tablet See Taper PO DAILY #30 tabs 05/17/24 05/23/24 Rx Exam Narrative Exam Narrative: 141/95, 90, 36.4, 22, 94% BiPaP. HEENT atraumatic; neck JVP to angle of jaw at 90 degrees; lungs somewhat broncial but clear; heart prominent RV impulse, loud S2 and 3/6 sys murmur LLSB; abdomen soft and NT; extremities 1+ pedal edema; neuro Ox3, lucid, moves all 4s Results Labs 08/20/24 17:21 08/20/24 17:21 Labs: Laboratory Results - last 24 hr 08/20/24 08/20/24 17:21 17:23 WBC 9.39 RBC 5.14 Hgb 15.6 Hct 47.8 MCV 93 MCH 30.4 MCHC 32.6 RDW 16.7 H Plt Count 176 MPV 10.0 Immature Gran % 0.4 Neutrophils % 90.5 Lymphocytes % 6.2 Monocytes % 2.6 Eosinophils % 0.1 Basophils % 0.2 Nucleated RBC % 0.0 Absolute Neutrophils 8.50 H Absolute Lymphocytes 0.58 L Absolute Monocytes 0.24 Absolute Eosinophils 0.01 Absolute Basophils 0.02 VBG pH 7.39 Cancelled VBG pCO2 55 H Cancelled VBG pO2 41 Cancelled VBG HCO3 33 H Cancelled VBG Total CO2 29 Cancelled VBG O2 Saturation 71 Cancelled VBG Base Excess 8 H Cancelled Sodium 136 Potassium 3.8 Chloride 98 Carbon Dioxide 32.3 H Anion Gap 5.7 BUN 30 H Creatinine 1.3 Est GFR (CKD-EPI 2020) 59.10 Glucose 209 H Calcium 8.3 L Magnesium 1.7 L Total Bilirubin 1.47 H AST 43 H ALT 57 Alkaline Phosphatase 143 H Troponin I 60 NT-Pro-B Natriuret Pep 4555 H Total Protein 6.7 Albumin 2.9 L Last Vital Signs Temp 36.4 C 08/20/24 16:44 Pulse 90 08/20/24 18:16 Resp 22 08/20/24 18:37 BP 141/95 H 08/20/24 18:16 Pulse Ox 94 08/20/24 18:16 Time Spent Time spent with Patient: 55-74 minutes Time was spent: preparing to see the patient(eg.review tests), obtaining and/or reviewing separately otained hiistory, ordering medications,tests, procedures, referring, communicating with other health care transition manager and indepentently interpreting results
[2024-08-20 19:13] LABS: Source Nasopharynx
--- NOTE | 2024-08-20 20:09 | W.PC.ACHO ---
Registration Status: Primary Language: Preferred Language: ED Information & Data Chief Complaint SOB 08/20/24 17:29 Triage Note Increased shortness of 08/20/24 16:40 breath and abnormal pedal edema. Takes diuretics concerned the dose may not be effective. Noticed this increased swelling in feet today. Difficulty sleeping 3 -4 nights. Medical / Surgical History (Last Reviewed 08/20/24 @ 19:15 by Darci Ortega MD) Hyponatremia Hypomagnesemia [place]' lung History of essential hypertension Most Recent Vital Signs Temperature 36.4 C 08/20/24 16:44 Temperature Source Oral 08/20/24 16:44 Pulse 93 H 08/20/24 19:46 Pulse 91 H 08/20/24 19:50 Respiratory Rate 21 08/20/24 19:50 Respiratory Effort Short of Breath 08/20/24 18:37 Blood Pressure 125/94 H 08/20/24 19:46 Blood Pressure Mean 104 08/20/24 19:46 Blood Pressure Position Sitting 08/20/24 16:44 Pulse Oximetry 96 08/20/24 19:50 Oxygen Delivery Method Nasal Cannula 08/20/24 16:59 Oxygen Flow Rate 5 08/20/24 16:59 Fraction of Inspired Oxygen (FIO2) 30 08/20/24 17:33 Allergies No Known Allergies Allergy (Verified 08/20/24 20:00) IV IV Catheter Type [Left Saline Lock Antecubital] IV Catheter Gauge [Left 18 Antecubital] Diet Orders Category Date Time Status Low Sodium [DIET] Nutrition 08/21/24 Breakfast Ordered Diagnostics 08/20/24 08/20/24 08/20/24 Range/Units 19:56 18:24 17:56 WBC (4.4-10.8) 10^3/uL RBC (4.36-5.78) 10^6/uL Hgb (13.5-17.5) g/dL Hct (40.0-50.0) % MCV (80-95) fL MCH (27.0-33.0) pg MCHC (32.0-36.0) % RDW (11.8-14.1) % Plt Count (130-400) 10^3/uL MPV (8.0-11.0) fL Immature Gran % % Neutrophils % % Lymphocytes % % Monocytes % % Eosinophils % % Basophils % % Nucleated RBC % (0.0-0.3) % Absolute Neutrophils (1.2-6.7) 10^3/uL Absolute Lymphocytes (1.2-3.4) 10^3/uL Absolute Monocytes (0.1-0.8) 10^3/uL Absolute Eosinophils (0.0-0.7) 10^3/uL Absolute Basophils (0.0-0.2) 10^3/uL VBG pH (7.31-7.41) VBG pCO2 (41-51) mmHg VBG pO2 mmHg VBG HCO3 (23-28) mmol/L VBG Total CO2 (24-29) mmol/L VBG O2 Saturation % VBG Base Excess (-2-3) mmol/L Sodium (136-145) mmol/L Potassium (3.5-5.1) mmol/L Chloride (98-107) mmol/L Carbon Dioxide (21.0-32.0) mmol/L Anion Gap (3-11) mmol/L BUN (7-18) mg/dL Creatinine (0.70-1.30) mg/dL Est GFR (CKD-EPI 2020) (mL/min/1.73m2) Glucose (74-106) mg/dL Calcium (8.5-10.1) mg/dL Magnesium (1.8-2.4) mg/dL Total Bilirubin (0.2-1.0) mg/dL AST (15-37) U/L ALT (16-63) U/L Alkaline Phosphatase (46-116) U/L Troponin I Pending Pending (<or=76) ng/L NT-Pro-B Natriuret Pep (<300) pg/mL Total Protein (6.4-8.2) g/dL Albumin (3.4-5.0) g/dL COVID-19 Source Nasopharynx SARS-CoV-2 (PCR) Negative (Negative) Influenza Type A (PCR) Negative (Negative) Influenza Type B (PCR) Negative (Negative) RSV (PCR) Negative (Negative) 08/20/24 08/20/24 Range/Units 17:23 17:21 WBC 9.39 (4.4-10.8) 10^3/uL RBC 5.14 (4.36-5.78) 10^6/uL Hgb 15.6 (13.5-17.5) g/dL Hct 47.8 (40.0-50.0) % MCV 93 (80-95) fL MCH 30.4 (27.0-33.0) pg MCHC 32.6 (32.0-36.0) % RDW 16.7 H (11.8-14.1) % Plt Count 176 (130-400) 10^3/uL MPV 10.0 (8.0-11.0) fL Immature Gran % 0.4 % Neutrophils % 90.5 % Lymphocytes % 6.2 % Monocytes % 2.6 % Eosinophils % 0.1 % Basophils % 0.2 % Nucleated RBC % 0.0 (0.0-0.3) % Absolute Neutrophils 8.50 H (1.2-6.7) 10^3/uL Absolute Lymphocytes 0.58 L (1.2-3.4) 10^3/uL Absolute Monocytes 0.24 (0.1-0.8) 10^3/uL Absolute Eosinophils 0.01 (0.0-0.7) 10^3/uL Absolute Basophils 0.02 (0.0-0.2) 10^3/uL VBG pH Cancelled 7.39 (7.31-7.41) VBG pCO2 Cancelled 55 H (41-51) mmHg VBG pO2 Cancelled 41 mmHg VBG HCO3 Cancelled 33 H (23-28) mmol/L VBG Total CO2 Cancelled 29 (24-29) mmol/L VBG O2 Saturation Cancelled 71 % VBG Base Excess Cancelled 8 H (-2-3) mmol/L Sodium 136 (136-145) mmol/L Potassium 3.8 (3.5-5.1) mmol/L Chloride 98 (98-107) mmol/L Carbon Dioxide 32.3 H (21.0-32.0) mmol/L Anion Gap 5.7 (3-11) mmol/L BUN 30 H (7-18) mg/dL Creatinine 1.3 (0.70-1.30) mg/dL Est GFR (CKD-EPI 2020) 59.10 (mL/min/1.73m2) Glucose 209 H (74-106) mg/dL Calcium 8.3 L (8.5-10.1) mg/dL Magnesium 1.7 L (1.8-2.4) mg/dL Total Bilirubin 1.47 H (0.2-1.0) mg/dL AST 43 H (15-37) U/L ALT 57 (16-63) U/L Alkaline Phosphatase 143 H (46-116) U/L Troponin I 60 (<or=76) ng/L NT-Pro-B Natriuret Pep 4555 H (<300) pg/mL Total Protein 6.7 (6.4-8.2) g/dL Albumin 2.9 L (3.4-5.0) g/dL COVID-19 Source SARS-CoV-2 (PCR) (Negative) Influenza Type A (PCR) (Negative) Influenza Type B (PCR) (Negative) RSV (PCR) (Negative) Intake and Output - 24 Hour Total 08/20/24 16:21 thru 08/20/24 19:23 Intake Total 10 Output Total 575 Balance -565 Weight 81.4 kg Intake: IV 10 Output: Urine 575 Other: # Voids 1 Falls Risk Assessment History of Falls No History 08/20/24 16:44 Contributing Factors No Factors 08/20/24 16:44 Ambulatory Aids Independent 08/20/24 16:44 Tubes/Lines None 08/20/24 16:44 Gait Evaluation No gait disturbance 08/20/24 16:44 Cognition No cognitive impairment 08/20/24 16:44 Fall Total Score 0 08/20/24 16:44 Level of Risk Standard/Low Risk 08/20/24 16:44 Problems (Last Reviewed 08/20/24 @ 19:15 by Darci Ortega MD) Cor pulmonale (Acute) Acute respiratory failure with hypoxia and hypercapnia (Acute) Right ventricular failure (Acute) Pulmonary hypertension (Chronic) Progressive fibrosing interstitial lung disease (Chronic) [place]' lung (Acute) Notes 08/20/24 17:29 Respiratory by Henry Rojas Pt initiated on CPAP for C/O low SpO2 on arrival. Pt on NRB 15L when RT arrived at bedside. Pt does not appear to have SOB or WOB at this time. Pt wears CPAP at home at night with O2 bled in. Reports that he has been wearing 5L at home for aprx 1 month, and that portable concentrator (pulse dose) only goes to 3L and is having trouble triggering breaths with machine. DME: Rick/ [employer] Initialized on 08/20/24 17:29 - END OF NOTE v v v v v v v v v Sending and/or Receiving Nurses: Please use comment section below to note any information pertinent to the patient hand-off not included above. Information / Comments: chf with fluid overload, vs stable unless getting up then gets SOB. on cipap kevin sat's in the 90's. IV 18 LAC. feels better prefers chair. monitor I&O's Report received from: Lv
[2024-08-20 20:39] LABS: Troponin I 61 ng/L (<or=76)
[2024-08-20] MEDS: Normal Saline Flush 10 ML SYR IVP (21:00)
--- NOTE | 2024-08-21 07:40 | NUR.NOTE ---
Nursing Note: Pt stating he is leaving AMA. AMA paperwork presented w/ risks of leaving hospital AMA. Pt educated to please return to ED if symptoms worsening. Pt continues to want to AMA. Paperwork signed w/ witness Charge Nurse, LADARIUS Canas. IV removed. Catheter tip intact, dressing in place. Pt refused AM meds prior to dc. Provider Grady aware.
--- NOTE | 2024-08-21 07:48 | NUR.NOTE ---
Nursing Note: Pt refused assessment this AM d/t leaving AMA. Pt refusing all further care.
--- NOTE | 2024-08-21 08:59 | DSE_ITS ---
Date of service: 08/21/24 Time of Service: 08:59 DS: Diagnosis Discharge Diagnosis (1) Cor pulmonale: Status: Acute Discharge Plan Disposition Patient Disposition: Against Medical Advice Condition: Serious Discharge Details Reason For Visit: Cor pulmonale Admit Date/Time: 08/20/24 19:22 Admit Provider: Darci Ortega Attending Provider: Darci Ortega Primary Care Provider: Guillermina Chowdhury Hospital Course Hospital Course: 68-year-old gentleman who was admitted on the for shortness of breath as well as cor pulmonale and CHF exacerbation. The patient left AMA prior to me seeing him on the . Home Meds and New Rx's Prescriptions: Continued atorvastatin 20 mg tablet 20 mg PO DAILY torsemide 20 mg tablet 20 mg PO DAILY Tyvaso DPI 32 mcg cartridge with inhaler 64 mcg inhalation QID Patient Comments: Patient reports Dr Padilla now has him on 64 mcg QID. albuterol sulfate 90 mcg/actuation HFA aerosol inhaler 2 puff inhalation QID PRN (Reason: shortness of breath or wheezing) Qty: 8.5 6RF levalbuterol tartrate 45 mcg/actuation HFA aerosol inhaler 2 inh inhalation Q6H Qty: 15 2RF magnesium 250 mg tablet 250 mg PO DAILY Eliquis 5 mg tablet 5 mg PO BID Qty: 90 0RF melatonin 3 mg capsule 3 mg PO HS PRNQty: 30 0RF prednisone 20 mg tablet See Taper PO DAILY Qty: 30 0RF Taper: Prednisone 20mg taper 60 mg Daily for 3 Days and 0 Hour 50 mg Daily for 3 Days and 0 Hour 40 mg Daily for 3 Days and 0 Hour 20 mg Daily for 3 Days and 0 Hour 10 mg Daily for 3 Days and 0 Hour Discharge Instructions Referrals: Guillermina Chowdhury [Primary Care Provider] - (follow up in 3-5 days) Activity:: Activity as Tolerated Equipment/Supplies:: No Equipment Needed Diet:: As Tolerated Discharge Data Discharge Date/Time-TO BE ENTERED AT DEPARTURE: 08/21/24 07:53 DS: Summary Time Spent with Patient providing and/or coordinating discharge services: Less than 30 minutes Status at Discharge Functional status at discharge: independent ambulation Overall status at discharge: other Mental Status: other Speech and Movement: other (pt left ama prior to me seeing him) Mood: other Affect: other Quality:SDOH Health Related Social Needs: No Data to Display Exam Psych Mental Status: other Speech and Movement: other (pt left ama prior to me seeing him) Mood: other Affect: other DS: Data Vitals/I&O Vitals and I&O: Vital Signs Temperature 36.2 C L 08/20/24 20:40 Temperature Source Oral 08/20/24 16:44 Pulse 97 H 08/20/24 21:05 Pulse Rhythm Regular 08/20/24 20:40 Pulse 98 H 08/20/24 20:10 Respiratory Rate 23 08/20/24 21:05 Respiratory Effort Short of Breath 08/20/24 20:40 Respiratory Depth Normal 08/20/24 20:40 Respiratory Pattern Normal 08/20/24 20:40 Blood Pressure 110/70 08/20/24 20:40 Blood Pressure Mean 101 08/20/24 20:00 Blood Pressure Position Sitting 08/20/24 16:44 Pulse Oximetry 90 L 08/20/24 22:50 Oxygen Delivery Method Nasal Cannula 08/20/24 22:50 Oxygen Flow Rate 5 08/20/24 22:50 Fraction of Inspired Oxygen (FIO2) 30 08/20/24 21:05 Pain Level 0 08/20/24 20:40 Intake & Output 08/20/24 08/20/24 08/21/24 11:59 23:59 11:59 Intake Total 10 750 / 750 Output Total 1325 / 1325 650 / 650 Balance -1315 / -1315 100 / 100 Weight 81.4 kg Intake: IV 10 10 Oral 750 / 750 Output: Urine 1325 / 1325 650 / 650 Other: Urine Color Yellow Yellow Urine Appearance Clear Clear Urine Odor None None # Voids 1 Data Completed and Pending Labs on day of discharge: Labs from last 24 hours 08/20/24 08/20/24 08/20/24 20:15 18:24 17:56 WBC RBC Hgb Hct MCV MCH MCHC RDW Plt Count MPV Immature Gran % Neutrophils % Lymphocytes % Monocytes % Eosinophils % Basophils % Nucleated RBC % Absolute Neutrophils Absolute Lymphocytes Absolute Monocytes Absolute Eosinophils Absolute Basophils VBG pH VBG pCO2 VBG pO2 VBG HCO3 VBG Total CO2 VBG O2 Saturation VBG Base Excess Sodium Potassium Chloride Carbon Dioxide Anion Gap BUN Creatinine Est GFR (CKD-EPI 2020) Glucose Calcium Magnesium Total Bilirubin AST ALT Alkaline Phosphatase Troponin I 61 Cancelled NT-Pro-B Natriuret Pep Total Protein Albumin COVID-19 Source Nasopharynx SARS-CoV-2 (PCR) Negative Influenza Type A (PCR) Negative Influenza Type B (PCR) Negative RSV (PCR) Negative 08/20/24 08/20/24 17:23 17:21 WBC 9.39 RBC 5.14 Hgb 15.6 Hct 47.8 MCV 93 MCH 30.4 MCHC 32.6 RDW 16.7 H Plt Count 176 MPV 10.0 Immature Gran % 0.4 Neutrophils % 90.5 Lymphocytes % 6.2 Monocytes % 2.6 Eosinophils % 0.1 Basophils % 0.2 Nucleated RBC % 0.0 Absolute Neutrophils 8.50 H Absolute Lymphocytes 0.58 L Absolute Monocytes 0.24 Absolute Eosinophils 0.01 Absolute Basophils 0.02 VBG pH Cancelled 7.39 VBG pCO2 Cancelled 55 H VBG pO2 Cancelled 41 VBG HCO3 Cancelled 33 H VBG Total CO2 Cancelled 29 VBG O2 Saturation Cancelled 71 VBG Base Excess Cancelled 8 H Sodium 136 Potassium 3.8 Chloride 98 Carbon Dioxide 32.3 H Anion Gap 5.7 BUN 30 H Creatinine 1.3 Est GFR (CKD-EPI 2020) 59.10 Glucose 209 H Calcium 8.3 L Magnesium 1.7 L Total Bilirubin 1.47 H AST 43 H ALT 57 Alkaline Phosphatase 143 H Troponin I 60 NT-Pro-B Natriuret Pep 4555 H Total Protein 6.7 Albumin 2.9 L COVID-19 Source SARS-CoV-2 (PCR) Influenza Type A (PCR) Influenza Type B (PCR) RSV (PCR) PFSH All Active Problems (Updated 08/20/24 @ 19:18 by Darci Ortega MD) Cor pulmonale (Acute) ILD (interstitial lung disease) (Acute) Acute respiratory failure with hypoxia and hypercapnia (Acute) Pulmonary embolism (Chronic) CATHY (obstructive sleep apnea) (Chronic) Chronic hypoxemic respiratory failure (Acute) Acute respiratory failure with hypoxia and hypercapnia (Acute) Multifocal pneumonia (Acute) Inguinal hernia (Acute) 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) Syncope (Chronic) Right ventricular failure (Acute) Pulmonary hypertension (Chronic) Respiratory failure with hypoxia (Acute) Progressive fibrosing interstitial lung disease (Chronic) [place] lung (Acute) Hyperlipidemia (Acute) Dyspnea (Acute) Cough (Acute) Shortness of breath (Acute) Medical History Hyponatremia Hypomagnesemia [place] lung History of essential hypertension Family History Mother History of heart valve repair Other Heart disease Social History Smoking/Tobacco Use Status: Never Smoking risk assessment performed?: Yes Alcohol Intake: current Alcohol Intake frequency: 0-2 drinks per day Drug use: Never Substance use type: does not use Housing: house current occupation: 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 Time Spent with Patient Time Spent with Patient: <45 minutes Time was spent: other
== END 2024-08-21 07:53 | disposition left against medical advice (07) | DRG 291 ==
LOC: ER 18:40 → MS 20:35
PROVIDERS: Admitting Provider General Practice; Emergency Provider Emergency Medicine; PCP Internal Medicine; Visit Provider General Practice
DX: I50.813 Acute on chronic right heart failure; J96.21 Acute and chronic respiratory failure with hypoxia; J96.22 Acute and chronic respiratory failure with hypercapnia; I27.81 Cor pulmonale (chronic); J67.0 Farmer's lung; Z79.01 Long term (current) use of anticoagulants; Z79.899 Other long term (current) drug therapy; Z99.81 Dependence on supplemental oxygen; J84.170 Interstitial lung disease with progressive fibrotic phenotype in diseases classified elsewhere; Z86.711 Personal history of pulmonary embolism; G47.33 Obstructive sleep apnea (adult) (pediatric); E78.5 Hyperlipidemia, unspecified; I10 Essential (primary) hypertension; I27.29 Other secondary pulmonary hypertension
CPT/HCPCS: 00123; 80053; 82805; 87637; 93005; 96374; 96375; 99291; 71045; 83735; 83880; 84484; 85025; 93010; 94660; 99223; J1720; J1940

== ENCOUNTER → 2024-08-23 08:49 | Outpatient (BNVA) | payer MEDICARE, SELFPAY | PROVIDERS: PCP Internal Medicine; Referring Provider Internal Medicine; Visit Provider Physician Assistant Surgical | DX: J67.0 Farmer's lung (principal); J84.89 Other specified interstitial pulmonary diseases; J96.91 Respiratory failure, unspecified with hypoxia; I27.20 Pulmonary hypertension, unspecified; I50.810 Right heart failure, unspecified; I26.99 Other pulmonary embolism without acute cor pulmonale | CPT/HCPCS: 94618; 99214 ==

== ENCOUNTER 2024-08-27 04:37 | Outpatient (CLI) | payer MEDICARE, SELFPAY ==
[2024-08-27] MEDS: Inhaler, Assist Device 1 EACH MC (11:11)
[2024-08-27] MEDS: Levalbuterol HFA 15 GM INH 4 PUFF IH (11:12)
--- NOTE | 2024-09-04 16:15 | W.PFT ---
Date of service: 08/27/24 Time of Service: 10:02 Pulmonary Function Test Result Indications: Dyspnea, ILD Interpretation Spirometry: There is moderate airflow limitation. There is a very significant bronchodilator response. Diffusion Capacity: Significantly decreased diffusion. Impression Moderate airflow limitation with a significant bronchodilator response and a decreased diffusion. Clinical Correlation therefore is recommended.
== END 2024-08-27 04:38 | disposition home or self-care (01) ==
LOC: RT 04:37
PROVIDERS: PCP Internal Medicine; Visit Provider Student in an Organized Health Care Education/Training Program
DX: J84.170 Interstitial lung disease with progressive fibrotic phenotype in diseases classified elsewhere (principal)
CPT/HCPCS: 94060; 94729

== ENCOUNTER 2024-09-07 15:54 | Outpatient (REF) | payer MEDICARE, SELFPAY ==
[2024-09-07 14:20] LABS: Anion Gap 2.3 mmol/L (3-11); BUN 15 mg/dL (7-18); CO2 34.7 mmol/L (21.0-32.0); Calcium 9.1 mg/dL (8.5-10.1); Chloride 98 mmol/L (98-107); Estimated GFR 80.47 (mL/min/1.73m2); Glucose 81 mg/dL (74-106); Magnesium 1.6 mg/dL (1.8-2.4); Potassium 3.8 mmol/L (3.5-5.1); Sodium 135 mmol/L (136-145)
[2024-09-07 14:24] LABS: Hemoglobin A1C 6.3 % (<5.7)
[2024-09-10 11:05] LABS: Hepatitis C Ab w Rflx HCV PCR Negative (Negative)
== END 2024-09-07 15:55 | disposition home or self-care (01) ==
LOC: NCHCN 15:54
PROVIDERS: PCP Internal Medicine; Visit Provider Physician Assistant
DX: I50.9 Heart failure, unspecified (principal)
CPT/HCPCS: 80048; 86803; 83036; 83735

== ENCOUNTER 2024-09-18 14:15 | Outpatient (REF) | payer MEDICARE, SELFPAY ==
[2024-09-18 19:41] LABS: C Diff PCR Negative (Negative)
[2024-09-19 11:27] LABS: Campylobacter PCR Negative (Negative); Salmonella PCR Negative (Negative); Shiga Toxin PCR Negative (Negative); Shigella/Enteroinvasive Ecoli Negative (Negative)
[2024-09-21 13:53] LABS: Helicobacter pylori Ag, Feces Negative (Negative)
== END 2024-09-18 14:16 | disposition home or self-care (01) ==
LOC: NCHCN 14:15
PROVIDERS: PCP Internal Medicine; Visit Provider Physician Assistant
DX: R19.7 Diarrhea, unspecified (principal)
CPT/HCPCS: 87338; 87493; 87505; 82272; 87177

== ENCOUNTER 2024-09-26 11:57 | Outpatient (REF) | payer MEDICARE, SELFPAY ==
[2024-10-04 10:51] LABS: Misc Referral (MAYO) See Comments
== END 2024-09-26 11:58 | disposition home or self-care (01) ==
LOC: NCHCN 11:57
PROVIDERS: PCP Internal Medicine; Visit Provider Internal Medicine
DX: R19.7 Diarrhea, unspecified (principal)
CPT/HCPCS: 87015; 87207; 87798

== ENCOUNTER 2024-10-12 13:32 | Outpatient (REF) | payer MEDICARE, SELFPAY | END 2024-10-12 13:33 | disposition home or self-care (01) | LOC: NCHCN 13:32 | PROVIDERS: PCP Internal Medicine; Visit Provider Internal Medicine | DX: M79.675 Pain in left toe(s) (principal) | CPT/HCPCS: 84550 ==

== ENCOUNTER → 2024-11-21 09:58 | Outpatient (BNVA) | payer MEDICARE, SELFPAY | PROVIDERS: PCP Internal Medicine; Referring Provider Internal Medicine; Visit Provider Physician Assistant Surgical | DX: J67.0 Farmer's lung (principal); J84.89 Other specified interstitial pulmonary diseases; J96.91 Respiratory failure, unspecified with hypoxia; I27.20 Pulmonary hypertension, unspecified; I50.810 Right heart failure, unspecified; I26.99 Other pulmonary embolism without acute cor pulmonale | CPT/HCPCS: 99214 ==

== ENCOUNTER → 2025-02-27 08:59 | Outpatient (BNVA) | payer MEDICARE, SELFPAY | PROVIDERS: PCP Internal Medicine; Referring Provider Internal Medicine; Visit Provider Internal Medicine Pulmonary Disease | DX: J84.89 Other specified interstitial pulmonary diseases (principal); J96.91 Respiratory failure, unspecified with hypoxia; I27.20 Pulmonary hypertension, unspecified; I26.99 Other pulmonary embolism without acute cor pulmonale; J96.11 Chronic respiratory failure with hypoxia; J44.9 Chronic obstructive pulmonary disease, unspecified | CPT/HCPCS: 99215; 36415 ==

== ENCOUNTER 2025-02-27 13:47 | Outpatient (REF) | payer MEDICARE, SELFPAY ==
[2025-02-27 12:52] LABS: HCT 44.0 % (40.0-50.0); HGB 14.5 g/dL (13.5-17.5); MCH 30.7 pg (27.0-33.0); MCHC 33.0 % (32.0-36.0); MCV 93 fL (80-95); MPV 11.0 fL (8.0-11.0); Platelet Count 232 10^3/uL (130-400); RBC 4.73 10^6/uL (4.36-5.78); RDW 13.3 % (11.8-14.1); RDW-SD 45.6 fL; WBC 11.01 10^3/uL (4.4-10.8)
[2025-02-27 13:00] LABS: ALT 27 U/L (16-63); AST 27 U/L (15-37); Albumin 3.2 g/dL (3.4-5.0); Alkaline Phosphatase 87 U/L (46-116); Anion Gap 3.4 mmol/L (3-11); BUN 14 mg/dL (7-18); Bilirubin, Total 0.6 mg/dL (0.2-1.0); CO2 32.6 mmol/L (21.0-32.0); Calcium 8.6 mg/dL (8.5-10.1); Chloride 102 mmol/L (98-107); Estimated GFR 103.20 (mL/min/1.73m2); Glucose 77 mg/dL (74-106); Potassium 4.3 mmol/L (3.5-5.1); Sodium 138 mmol/L (136-145); Total Protein 6.9 g/dL (6.4-8.2)
== END 2025-02-27 13:48 | disposition home or self-care (01) ==
LOC: LBN 13:47
PROVIDERS: PCP Internal Medicine; Visit Provider Internal Medicine Pulmonary Disease
DX: J84.89 Other specified interstitial pulmonary diseases (principal)
CPT/HCPCS: 80053; 85027

== ENCOUNTER → 2025-03-20 09:32 | Outpatient (BNVA) | payer MEDICARE, SELFPAY | PROVIDERS: PCP Internal Medicine; Referring Provider Internal Medicine; Visit Provider Internal Medicine Pulmonary Disease | DX: J67.0 Farmer's lung (principal); I27.20 Pulmonary hypertension, unspecified; J96.11 Chronic respiratory failure with hypoxia; J84.9 Interstitial pulmonary disease, unspecified; J44.9 Chronic obstructive pulmonary disease, unspecified; I51.7 Cardiomegaly; M79.672 Pain in left foot | CPT/HCPCS: 99214; 36415 ==

== ENCOUNTER 2025-03-20 11:40 | Outpatient (REF) | payer MEDICARE, SELFPAY ==
[2025-03-20 11:43] LABS: Abs Immature Grans 0.20 10^3/uL (0.0-0.06); HCT 41.1 % (40.0-50.0); HGB 13.7 g/dL (13.5-17.5); Immature Grans % 1.7 %; MCH 30.8 pg (27.0-33.0); MCHC 33.3 % (32.0-36.0); MCV 92 fL (80-95); MPV 10.6 fL (8.0-11.0); Platelet Count 271 10^3/uL (130-400); RBC 4.45 10^6/uL (4.36-5.78); RDW 13.9 % (11.8-14.1); RDW-SD 47.1 fL; WBC 11.72 10^3/uL (4.4-10.8)
== END 2025-03-20 11:41 | disposition home or self-care (01) ==
LOC: LBN 11:40
PROVIDERS: PCP Internal Medicine; Visit Provider Internal Medicine Pulmonary Disease
DX: J84.9 Interstitial pulmonary disease, unspecified (principal)
CPT/HCPCS: 85025

== ENCOUNTER 2025-04-16 02:07 | Outpatient (CLI) | payer MEDICARE, SELFPAY ==
--- NOTE | 2025-04-16 06:45 | DI.RAD_ITS ---
Exam(s) XR FOOT LT COMPLETE EXAM: XR FOOT LT COMPLETE CLINICAL HISTORY: Left foot pain,[id number]. TECHNIQUE: 2D digital imaging was performed of the left foot. Three images were obtained. AP, oblique and lateral views were obtained. COMPARISON: No exams were available for comparison FINDINGS: BONES: No acute fracture is present. No bony destructive lesion is seen. There is a small plantar calcaneal spur. JOINTS: No dislocation present. The joint spaces are well maintained. SOFT TISSUE: Mild vascular calcification is present. IMPRESSION: Calcaneal spur. DATA REPOSITORY: RADIATION DOSE DELIVERED:
== END 2025-04-16 02:27 ==
LOC: DI 02:07
PROVIDERS: PCP Internal Medicine; Visit Provider Podiatrist
DX: M79.672 Pain in left foot (principal); M77.32 Calcaneal spur, left foot
CPT/HCPCS: 73630

== ENCOUNTER → 2025-05-15 09:26 | Outpatient (BNVA) | payer MEDICARE, SELFPAY | PROVIDERS: PCP Internal Medicine; Referring Provider Internal Medicine; Visit Provider Internal Medicine Pulmonary Disease | DX: J67.0 Farmer's lung (principal); J84.89 Other specified interstitial pulmonary diseases; I27.20 Pulmonary hypertension, unspecified; J96.11 Chronic respiratory failure with hypoxia | CPT/HCPCS: 36415; 99215 ==

== ENCOUNTER 2025-05-15 17:47 | Outpatient (REF) | payer MEDICARE, SELFPAY ==
[2025-05-15 11:13] LABS: Abs Immature Grans 0.03 10^3/uL (0.0-0.06); HCT 44.5 % (40.0-50.0); HGB 14.8 g/dL (13.5-17.5); Immature Grans % 0.2 %; MCH 31.2 pg (27.0-33.0); MCHC 33.3 % (32.0-36.0); MCV 94 fL (80-95); MPV 10.3 fL (8.0-11.0); Platelet Count 247 10^3/uL (130-400); RBC 4.75 10^6/uL (4.36-5.78); RDW 14.6 % (11.8-14.1); RDW-SD 51.1 fL; WBC 13.59 10^3/uL (4.4-10.8)
== END 2025-05-15 17:48 | disposition home or self-care (01) ==
LOC: LBN 17:47
PROVIDERS: PCP Internal Medicine; Visit Provider Internal Medicine Pulmonary Disease
DX: J67.9 Hypersensitivity pneumonitis due to unspecified organic dust (principal)
CPT/HCPCS: 85025

== ENCOUNTER → 2025-05-21 09:48 | Outpatient (BNVA) | payer MEDICARE, SELFPAY | PROVIDERS: PCP Internal Medicine; Referring Provider Internal Medicine; Visit Provider Podiatrist | DX: M79.672 Pain in left foot (principal); M21.6X2 Other acquired deformities of left foot; M67.02 Short Achilles tendon (acquired), left ankle; M10.9 Gout, unspecified | CPT/HCPCS: 99213 ==

== ENCOUNTER 2025-06-07 15:36 | Outpatient (REF) | payer MEDICARE, SELFPAY ==
[2025-06-07 21:18] LABS: HCT 50.0 % (40.0-50.0); HGB 15.9 g/dL (13.5-17.5); MCH 29.8 pg (27.0-33.0); MCHC 31.8 % (32.0-36.0); MCV 94 fL (80-95); MPV 11.3 fL (8.0-11.0); Platelet Count 244 10^3/uL (130-400); RBC 5.34 10^6/uL (4.36-5.78); RDW 14.1 % (11.8-14.1); RDW-SD 48.3 fL; WBC 13.62 10^3/uL (4.4-10.8)
== END 2025-06-07 15:37 | disposition home or self-care (01) ==
LOC: NCHCN 15:36
PROVIDERS: PCP Internal Medicine; Visit Provider Internal Medicine
DX: I50.9 Heart failure, unspecified (principal)
CPT/HCPCS: 85027

== ENCOUNTER → 2025-06-12 08:59 | Outpatient (BNVA) | payer MEDICARE, SELFPAY | PROVIDERS: PCP Internal Medicine; Referring Provider Internal Medicine; Visit Provider Internal Medicine Pulmonary Disease | DX: J84.89 Other specified interstitial pulmonary diseases (principal); J67.0 Farmer's lung; I27.20 Pulmonary hypertension, unspecified; J96.11 Chronic respiratory failure with hypoxia; G47.33 Obstructive sleep apnea (adult) (pediatric); Z29.11 Encounter for prophylactic immunotherapy for respiratory syncytial virus (RSV) | CPT/HCPCS: 90679; 99214 ==

== ENCOUNTER 2025-07-23 14:49 | Outpatient (REF) | payer MEDICARE, SELFPAY ==
[2025-07-23 15:41] LABS: HCT 46.5 % (40.0-50.0); HGB 15.1 g/dL (13.5-17.5); MCH 30.3 pg (27.0-33.0); MCHC 32.5 % (32.0-36.0); MCV 93 fL (80-95); MPV 11.1 fL (8.0-11.0); Platelet Count 272 10^3/uL (130-400); RBC 4.98 10^6/uL (4.36-5.78); RDW 13.8 % (11.8-14.1); RDW-SD 47.2 fL; WBC 11.43 10^3/uL (4.4-10.8)
== END 2025-07-23 14:50 | disposition home or self-care (01) ==
LOC: LBN 14:49
PROVIDERS: PCP Internal Medicine; Visit Provider Internal Medicine Pulmonary Disease
DX: J84.9 Interstitial pulmonary disease, unspecified (principal)
CPT/HCPCS: 85027

== ENCOUNTER 2025-07-25 01:57 | Outpatient (CLI) | payer MEDICARE, SELFPAY ==
[2025-07-25] MEDS: Inhaler, Assist Device 1 EACH MC (09:13)
[2025-07-25] MEDS: Levalbuterol HFA 15 GM INH 4 PUFF IH (09:13)
--- NOTE | 2025-07-25 11:14 | PFT_ITS ---
Date of service: 07/25/25 Time of Service: 08:01 Pulmonary Function Test Result Indications: ILD Impression 1. Good patient effort was noted. ATS standards for reproducibility were met. 2. Spirometry showed moderate obstructive lung disease with an FEV1 of 54% (1.46 L) 3. Following the administration of a bronchodilator there was not a significant response 4. TLC was reduced at 68% predicted, indicating moderate restrictive lung di sease. This is a significant decline from prior testing in 02/2024 (was 84% predicted) 5. Was unable to complete DLCO testing
== END 2025-07-25 01:58 | disposition home or self-care (01) ==
LOC: RT 01:57
PROVIDERS: PCP Internal Medicine; Visit Provider Internal Medicine Pulmonary Disease
DX: J67.0 Farmer's lung (principal); J44.9 Chronic obstructive pulmonary disease, unspecified
CPT/HCPCS: 00123; 36415; 94060; 94726

== ENCOUNTER 2025-07-25 11:15 | Outpatient (REF) | payer MEDICARE, SELFPAY | END 2025-07-25 11:16 | disposition home or self-care (01) | LOC: LBN 11:15 | PROVIDERS: PCP Internal Medicine; Visit Provider Internal Medicine Pulmonary Disease | DX: J96.11 Chronic respiratory failure with hypoxia (principal) | CPT/HCPCS: 83880 ==